=== PATIENT | female | born 1985 | race American Indian/Alaskan Native ===

== ENCOUNTER 2018-08-14 17:15 | Emergency (ER) | payer MEDICAID, OTHER, SELFPAY ==
[2018-08-14 17:17] VITALS: BP 142/89; PULSE 95; RESP 20; TEMP 36.6; O2SAT 98
--- NOTE | 2018-08-14 17:28 | DI.CT.S_ITS ---
PROCEDURE: CT HEAD/BRAIN WO CON INDICATIONS: possible stroke sx TECHNIQUE: Noncontrast 4.5 mm thick angled axial sections acquired from the foramen magnum to the vertex, with coronal and sagittal reformats. For radiation dose reduction, the following was used: automated exposure control, adjustment of mA and/or kV according to patient size. COMPARISON: Kiara Chirinos, , MR BRAIN WITH/WITHOUT CONTRAST, 07/26/2017, 13:21. FINDINGS: Image quality: Excellent. CSF spaces: Basal cisterns are patent. No extra-axial fluid collections. Ventricles are normal in size and shape. Brain: No midline shift. No intracranial masses or hemorrhage. Miller-white matter interface is normal. Skull and face: Calvarium and visualized facial bones are intact, without suspicious lesions. Sinuses: Visualized sinuses and mastoids are clear. IMPRESSION: 1. No acute intracranial process. Dictated by: Consuelo Burden M.D. on 08/14/2018 at 18:16 Approved by: Consuelo Burden M.D. on 08/14/2018 at 18:17
[2018-08-14 18:04] VITALS: BP 167/82; PULSE 95; RESP 20; O2SAT 99
[2018-08-14 18:11] LABS: Add Manual Diff / Slide Review NO; Basophils Absolute Auto 0 /uL (0-100); Basophils Percent Auto 0.5 % (0-2); Eosinophils Absolute Auto 200 /uL (0-450); Eosinophils Percent Auto 1.8 % (2-4); Hematocrit 35.8 % (36-46); Hemoglobin 11.4 g/dL (12.0-16.0); Lymphocytes Absolute Auto 2300 /uL (1100-4500); Lymphocytes Percent Auto 23.9 % (25-40); Mean Corpuscular HGB Conc 31.8 % (30-36); Mean Corpuscular Hemoglobin 25.1 PG (26-34); Mean Corpuscular Volume 78.8 fL (80-100); Monocytes Absolute Auto 300 /uL (0-900); Neutrophils Absolute Auto 6800 /uL (1500-7000); Neutrophils Percent Auto 70.8 % (50-75); Platelet Count 263 X10^3/uL (150-400); Red Blood Cell Count 4.54 X10^6/uL (4.0-5.2); Red Cell Distribution Width 14.7 % (11.6-14.8); White Blood Cell Count 9.6 X10^3/uL (4.5-11.0)
--- NOTE | 2018-08-14 18:23 | ED_ITS ---
HPI - Neuro Symptoms/Deficit General Chief Complaint: Neuro Symptoms/Deficit Stated Complaint: Thinks had stroke Tuesday Time Seen by Provider: 08/14/18 18:01 Source: patient Mode of arrival: ambulatory Limitations: no limitations History of Present Illness HPI Narrative: 33-year-old female sent by her primary doctor's office for evaluation for concerns of a stroke. Patient states that on Tuesday which was 3 days ago she started tingling to the left side of her face. She states that it lasted until Tuesday which then it completely resolved. Denies any other associated symptoms with this tingling. Went to her primary doctor's office today was instructed to come the emergency department. The time my evaluation patient had no complaints. She is a diabetic but does not take any of her medications because she does not like the way they make her feel. She does have a history of headaches. She states that a couple days prior to the tingling on the left side of her face she did have a headache but there was none at the time that she had the tingling. Has never had any symptoms like this in the past. On Anticoagulants: No Related Data Allergies Allergy/AdvReac Type Severity Reaction Status Date / Time No Known Allergies Allergy Uncoded 05/25/17 12:55 Review of Systems Constitutional Denies headache(s) and Denies weakness Eyes Denies loss of vision ENT Ears, Nose, Mouth, and Throat: Denies vertigo, Denies dizziness, Denies headache (s) and Denies disequilibrium Cardiovascular Denies chest pain, Denies syncope, Denies palpitations and Denies dyspnea Respiratory Denies dyspnea Gastrointestinal Gastrointestinal: Denies abdominal pain, Denies nausea and Denies vomiting Genitourinary Denies dysuria Musculoskeletal Denies abnormal gait, Denies myalgias, Denies arthralgias and Reports tingling Integumentary/Breasts Denies new lesions and Denies rash Neurologic Denies abnormal speech, Denies abnormal gait, Denies confusion, Denies vertigo, Denies dizziness, Denies syncope, Denies headache(s), Denies lack of coordination, Denies focal weakness, Denies loss of vision, Denies memory loss, Reports tingling, Denies disequilibrium and Denies weakness Psychiatric Denies confusion and Denies memory loss Endocrine Denies palpitations Hematologic/Lymphatic Denies easy bleeding and Denies easy bruising Allergic/Immunologic Denies urticaria [facility] Medical History Diabetes (Acute) Migraines (Acute) Social History Smoking Status: Never smoker Social History Smoking Status: Never smoker Exam Initial Vital Signs Initial Vital Signs: Vital Signs Temperature 97.8 F 08/14/18 17:17 Pulse Rate 95 H 08/14/18 17:17 Respiratory Rate 20 08/14/18 17:17 Blood Pressure 142/89 H 08/14/18 17:17 Pulse Oximetry 98 08/14/18 17:17 Const General: cooperative, comfortable, well developed, well groomed and No acute distress Orientation: alert, awake and oriented x3 HENMT Head: normal to inspection and normocephalic Ears: hearing grossly normal bilaterally Nose: external nose normal Face and sinus: normal facial exam Mouth: oral mucosae normal Eyes Pupils: PERRL EOM: EOM intact bilaterally Resp Effort & Inspection: normal respiratory effort Auscultation: clear to auscultation bilaterally Cardio Rate: regular rate Rhythm: regular rhythm Skin Lesions: no lesions Rashes: no rashes Neuro General: alert, awake and oriented x3 Cranial Nerves: CN's II-XI intact bilaterally Cognition: normal cognition Speech: speech normal Gait: normal gait Motor: muscle tone normal throughout Sensory Exam: no sensory deficits noted Extrem General: normal to inspection and capillary refill normal Psych Appearance: grossly normal and well kempt Scores GCS [place] coma scale eye opening: Spontaneous [place] coma scale verbal response: Orientated [place] coma scale motor response: Obey commands [place] coma scale total score: 15 NIH Stroke Scale Level of Conciousness: Alert, keenly responsive Ask month/age: Answers both questions correctly. Open/close eyes, close hand: Performs both tasks correctly Best gaze horizontal: Normal Visual trivedi: No visual loss Facial palsy: Normal symetrical movement Left arm drift: No drift for full 10 sec Right arm drift: No drift for full 10 sec Left leg drift: No drift for full 10 sec Right leg drift: No drift for full 10 sec Limb ataxia: Absent Sensory on face/arms/legs: Normal, no sensory loss Best language: No aphasia, normal Dysarthria: Normal Extinction or inattention: No abnormality Total NIH Stroke scale score: 0 Course Orders Ordered: ED Orders 08/14/18 17:28 CT head/brain wo con Stat 08/14/18 17:33 EKG-12 Lead Stat 08/14/18 17:42 Complete Blood Count AUTO DIFF Stat Comprehensive Metabolic Panel Stat Vital Signs - 8 hr 08/14/18 17:17 08/14/18 18:04 08/14/18 18:44 Temperature 97.8 F Pulse Rate 95 H 95 H 90 Respiratory Rate 20 20 Blood Pressure 142/89 H 162/89 H Blood Pressure [Left Wrist] 167/82 H Pulse Oximetry 98 99 99 MDM - Neuro Symptoms/Deficit Lab Data Attestation: I reviewed the patient's lab results. Result diagrams: 08/14/18 17:42 08/14/18 17:42 Lab Results 08/14/18 08/14/18 Range/Units 17:42 17:42 WBC 9.6 (4.5-11.0) X10^3/uL RBC 4.54 (4.0-5.2) X10^6/uL Hgb 11.4 L (12.0-16.0) g/dL Hct 35.8 L (36-46) % MCV 78.8 L (80-100) fL MCH 25.1 L (26-34) PG MCHC 31.8 (30-36) % RDW 14.7 (11.6-14.8) % Plt Count 263 (150-400) X10^3/uL Neut % (Auto) 70.8 (50-75) % Lymph % (Auto) 23.9 L (25-40) % Barton % (Auto) 3.0 (3-14) % Eos % (Auto) 1.8 L (2-4) % Baso % (Auto) 0.5 (0-2) % Neut # (Auto) 6800 (2642-5878) /uL Lymph # (Auto) 2300 (8527-9544) /uL Barton # (Auto) 300 (0-900) /uL Eos # (Auto) 200 (0-450) /uL Baso # (Auto) 0 (0-100) /uL Sodium 140 (137-145) mmol/L Potassium 3.5 (3.4-5.1) mmol/L Chloride 104 (98-107) mmol/L Carbon Dioxide 26 (22-32) mmol/L BUN 9 (7-17) mg/dL Creatinine 0.60 (0.52-1.04) mg/dL Estimated GFR > 60.0 (>60) mL/min BUN/Creatinine Ratio 15.0 (6-22) Glucose 297 H (70-100) mg/dL Calcium 8.4 (8.4-10.2) mg/dL Total Bilirubin 0.2 (0.2-1.3) mg/dL AST 106 H (14-36) IU/L ALT 92 H (9-52) IU/L Alkaline Phosphatase 148 H (38-126) U/L Total Protein 7.5 (6.3-8.2) g/dL Albumin 3.6 (3.5-5.0) g/dL Globulin 3.9 (1.7-4.1) g/dL Albumin/Globulin Ratio 0.9 L (1.0-2.8) Imaging Data CT scan - head: Radiologist's impression: [place] [address] CT Scan Report Signed Patient: Anh Grider R#: [id number] : 1985Acct:[id number] Age/Sex: 33 / FDate of Service: 08/14/18 Loc: ED Accession Number: [id number] Procedure: CT head/brain wo con Ordering Provider: Jenise Sanchez MD PROCEDURE: CT HEAD/BRAIN WO CON INDICATIONS: possible stroke sx TECHNIQUE: Noncontrast 4.5 mm thick angled axial sections acquired from the foramen magnum to the vertex, with coronal and sagittal reformats. For radiation dose reduction, the following was used: automated exposure control, adjustment of mA and/or kV according to patient size. COMPARISON: Sherburne Taran, , MR BRAIN WITH/WITHOUT CONTRAST, 07/26/2017, 13:21. FINDINGS: Image quality: Excellent. CSF spaces: Basal cisterns are patent. No extra-axial fluid collections. Ventricles are normal in size and shape. Brain: No midline shift. No intracranial masses or hemorrhage. Miller-white matter interface is normal. Skull and face: Calvarium and visualized facial bones are intact, without suspicious lesions. Sinuses: Visualized sinuses and mastoids are clear. IMPRESSION: 1. No acute intracranial process. Dictated by: Consuelo Burden M.D. on 08/14/2018 at 18:16 Approved by: Consuelo Burden M.D. on 08/14/2018 at 18:17 ECG Data Attestation: I personally reviewed and interpreted this ECG as follows: Prior ECG tracings: not available for review Interpretation: Sinus rhythm Ventricular rate of 92 Normal axis Normal QRS Normal QTC No ST T wave changes MDM Narrative Medical decision making narrative: Patient with a normal neurologic exam here in the emergency department. No fevers. Head CT is unremarkable. EKG is unremarkable. Low suspicion for CVA. Symptoms could be explained by an atypical migraine. Also could be paresthesias. There is no signs of zoster. I did discuss her elevated glucose. I did discuss the importance of her taking her medications as directed. She is instructed to contact her primary doctor for follow-up. She expressed understanding and agreement with plan. Discharge Plan Departure Patient Disposition: Home Clinical Impression: Facial paresthesia Discharge Date/Time: 08/14/18 18:45 Interventions: ED Discharge Assessment Last Done: 08/14/18 18:44 Activity Restrictions/Additional Instructions: Your blood sugar is elevated today so please talk with your primary care provider about this and possible medications. Also talk with your primary care provider about any further work up or consultations or studies like an MRI. Return to the ER for any new or worsening symptoms. Referrals: Brianna Hidalgo MD [Primary Care Provider] -
[2018-08-14 18:30] LABS: Alanine Aminotransferase 92 IU/L (9-52); Albumin 3.6 g/dL (3.5-5.0); Albumin Globulin Ratio 0.9 (1.0-2.8); Alkaline Phosphatase 148 U/L (38-126); Aspartate Aminotransferase 106 IU/L (14-36); Bilirubin Total 0.2 mg/dL (0.2-1.3); Blood Urea Nitrogen 9 mg/dL (7-17); Calcium 8.4 mg/dL (8.4-10.2); Carbon Dioxide 26 mmol/L (22-32); Chloride 104 mmol/L (98-107); Estimated Glomerular Filt Rate > 60.0 mL/min (>60); Globulin 3.9 g/dL (1.7-4.1); Glucose 297 mg/dL (70-100); HEMOLYSIS < 15 (0-50); Potassium 3.5 mmol/L (3.4-5.1); Sodium 140 mmol/L (137-145); Total Protein 7.5 g/dL (6.3-8.2)
[2018-08-14 18:44] VITALS: BP 162/89; PULSE 90; O2SAT 99
== END 2018-08-14 18:45 | disposition home or self-care (01) ==
PROVIDERS: Emergency Medicine; Emergency Provider Emergency Medicine; PCP Family Medicine
DX: R20.9 Unspecified disturbances of skin sensation (principal); R03.0 Elevated blood-pressure reading, without diagnosis of hypertension
CPT/HCPCS: 36415; 70450; 80053; 85025; 93005; 99282; 99285

== ENCOUNTER 2019-06-29 18:33 | Emergency (ER) | payer MEDICAID, OTHER, SELFPAY ==
[2019-06-29 18:46] VITALS: BP 204/115; PULSE 97; RESP 18; TEMP 36.3; O2SAT 98; BMI 65.5
[2019-06-29 21:07] LABS: Add Manual Diff / Slide Review NO; Basophils Absolute Auto 100 /uL (0-100); Basophils Percent Auto 0.5 % (0-2); Eosinophils Absolute Auto 100 /uL (0-450); Eosinophils Percent Auto 1.1 % (2-4); Hematocrit 41.5 % (36-46); Hemoglobin 13.5 g/dL (12.0-16.0); Lymphocytes Absolute Auto 1400 /uL (1100-4500); Lymphocytes Percent Auto 13.6 % (25-40); Mean Corpuscular HGB Conc 32.4 % (30-36); Mean Corpuscular Hemoglobin 25.8 PG (26-34); Mean Corpuscular Volume 79.6 fL (80-100); Monocytes Absolute Auto 300 /uL (0-900); Monocytes Percent Auto 2.5 % (3-14); Neutrophils Absolute Auto 8400 /uL (1500-7000); Neutrophils Percent Auto 82.3 % (50-75); Platelet Count 283 X10^3/uL (150-400); Red Blood Cell Count 5.22 X10^6/uL (4.0-5.2); Red Cell Distribution Width 14.7 % (11.6-14.8); White Blood Cell Count 10.2 X10^3/uL (4.5-11.0)
[2019-06-29] MEDS: KETOROLAC 60 MG/2 ML VIAL 15 MG IV (21:09)
[2019-06-29] MEDS: SODIUM CHLORIDE 0.9% 1,000 ML 1000 ML IV (21:09)
[2019-06-29 21:10] LABS: Alanine Aminotransferase 85 IU/L (<35); Albumin Globulin Ratio 0.9 (1.0-2.8); Alkaline Phosphatase 164 U/L (38-126); Aspartate Aminotransferase 243 IU/L (14-36); BUN Creatinine Ratio 13.3 (6-22); Bilirubin Total 0.4 mg/dL (0.2-1.3); Blood Urea Nitrogen 8 mg/dL (7-17); Calcium 8.6 mg/dL (8.4-10.2); Carbon Dioxide 29 mmol/L (22-32); Chloride 100 mmol/L (98-107); Estimated Glomerular Filt Rate > 60.0 mL/min (>60); Globulin 4.5 g/dL (1.7-4.1); Glucose 277 mg/dL (70-100); HEMOLYSIS < 15 (0-50); Potassium 3.7 mmol/L (3.4-5.1); Sodium 137 mmol/L (137-145); Total Protein 8.5 g/dL (6.3-8.2)
[2019-06-29] MEDS: DEXAMETHASONE 10 MG/ML VIAL IV (21:10)
[2019-06-29] MEDS: METOCLOPRAMIDE 10 MG/2 ML INJ IV (21:10)
[2019-06-29] MEDS: diphenhydrAMINE 50 MG/ML VIAL 25 MG IV (21:10)
[2019-06-29 23:12] VITALS: BP 198/113; PULSE 87; RESP 16; O2SAT 95
--- NOTE | 2019-06-29 23:12 | ED.HA ---
HPI - Headache General Chief Complaint: Headache Stated Complaint: Migraines/Vomit Time Seen by Provider: 06/29/19 20:36 Mode of arrival: Family Vehicle History of Present Illness HPI Narrative: 34-year-old woman with a history of hypertension, migraine headache, fatty liver and diabetes presents with headache similar to prior migraines this been present for 2 and half days. Associated with sensitivity to lights sounds smells, nausea and severe lancinating head pain. She denies fevers, chills, cough, shortness of breath, orthopnea, abdominal pain, dysuria, constipation or diarrhea, skin changes or rashes. She does note that she ?does not like taking pills?. She states that she has not taken her lisinopril or Glucophage for number of months. It has been I similarly long time since she has seen her primary care physician. Related Data Allergies Allergy/AdvReac Type Severity Reaction Status Date / Time No Known Drug Allergies Allergy Verified 06/29/19 21:02 Review of Systems Review of Systems Narrative: Remainder of review of systems including constitutional, ENT, cardiovascular, respiratory, GI, , musculoskeletal, skin, neurologic and psychiatric systems reviewed and are unremarkable except as noted in HPI. Patient History Medical History (Updated 06/29/19 @ 23:18 by Madison Harrison MD) Diabetes (Acute) Fatty liver (Acute) Hypertension (Acute) Migraines (Acute) Social History Smoking Status: Never smoker Smoking Status: Never smoker Substance Use Type: does not use Exam Narrative Exam Narrative: General: Morbidly obese, in no acute distress. Able to give a complete and coherent history. HEENT: Moist mucous membranes, normal sclera with reactive pupils, Neck: supple Respiratory: Lungs are clear to auscultation, no wheezing no rales no rhonchi. Full and symmetrical air movement Cardiac: Regular rate and rhythm no murmurs no bruits Abdomen: Soft nontender good bowel tones, no flank pain Skin: Warm and dry, no rashes Neurologic: Grossly neurologically intact with no obvious asymmetries or abnormalities Extremities: No trauma, well perfused Psych: Cooperative, appropriate insight and affect Initial Vital Signs Initial Vital Signs: Vital Signs Temperature 97.3 F L 06/29/19 18:46 Pulse Rate 97 H 06/29/19 18:46 Respiratory Rate 18 06/29/19 18:46 Blood Pressure 204/115 H 06/29/19 18:46 Pulse Oximetry 98 06/29/19 18:46 Course Orders Ordered: ED Orders 06/29/19 18:58 EKG-12 Lead Stat 06/29/19 20:20 Complete Blood Count AUTO DIFF Stat Comprehensive Metabolic Panel Stat Discontinued Medications Dexamethasone (Decadron) 10 mg IV NOW ONE Stop: 06/29/19 21:01 Last Admin: 06/29/19 21:10 Dose: 10 mg Documented by: GREG Diphenhydramine HCl (Benadryl) 25 mg IV NOW ONE Stop: 06/29/19 21:01 Last Admin: 06/29/19 21:10 Dose: 25 mg Documented by: GREG Sodium Chloride (Normal Saline 0.9%) 1,000 mls @ 1,000 mls/hr IV BOLUS ONE Stop: 06/29/19 21:59 Last Admin: 06/29/19 21:09 Dose: 1,000 mls/hr Documented by: GREG Ketorolac Tromethamine (Toradol) 15 mg IV NOW ONE Stop: 06/29/19 21:01 Last Admin: 06/29/19 21:09 Dose: 15 mg Documented by: GREG Lisinopril (Zestril) 20 mg PO NOW ONE Stop: 06/29/19 23:13 Metoclopramide HCl (Reglan) 10 mg IV NOW ONE Stop: 06/29/19 21:01 Last Admin: 06/29/19 21:10 Dose: 10 mg Documented by: GREG Vital Signs Vital signs: Vital Signs - 8 hr 06/29/19 18:46 06/29/19 23:12 Temperature 97.3 F L Pulse Rate 97 H 87 Respiratory Rate 18 16 Blood Pressure 204/115 H Blood Pressure [Left Arm] 198/113 H Pulse Oximetry 98 95 MDM - Headache Medical Records Attestation: I reviewed the patient's medical records. Lab Data Attestation: I reviewed the patient's lab results. Lab results narrative: Chronically elevated LFTs and alk-phos slightly worse than previous. Could be consistent with fatty liver but does need continued follow-up Result diagrams: 06/29/19 20:20 06/29/19 20:20 Labs: Lab Results 05/15/20 05/15/20 Range/Units 20:20 20:20 WBC 10.2 (4.5-11.0) X10^3/uL RBC 5.22 H (4.0-5.2) X10^6/uL Hgb 13.5 (12.0-16.0) g/dL Hct 41.5 (36-46) % MCV 79.6 L (80-100) fL MCH 25.8 L (26-34) PG MCHC 32.4 (30-36) % RDW 14.7 (11.6-14.8) % Plt Count 283 (150-400) X10^3/uL Neut % (Auto) 82.3 H (50-75) % Lymph % (Auto) 13.6 L (25-40) % [place] % (Auto) 2.5 L (3-14) % Eos % (Auto) 1.1 L (2-4) % Baso % (Auto) 0.5 (0-2) % Neut # (Auto) 8400 H (9508-0126) /uL Lymph # (Auto) 1400 (5254-3545) /uL [place] # (Auto) 300 (0-900) /uL Eos # (Auto) 100 (0-450) /uL Baso # (Auto) 100 (0-100) /uL Sodium 137 (137-145) mmol/L Potassium 3.7 (3.4-5.1) mmol/L Chloride 100 (98-107) mmol/L Carbon Dioxide 29 (22-32) mmol/L BUN 8 (7-17) mg/dL Creatinine 0.60 (0.52-1.04) mg/dL Estimated GFR > 60.0 (>60) mL/min BUN/Creatinine Ratio 13.3 (6-22) Glucose 277 H (70-100) mg/dL Calcium 8.6 (8.4-10.2) mg/dL Total Bilirubin 0.4 (0.2-1.3) mg/dL AST 243 H (14-36) IU/L ALT 85 H (<35) IU/L Alkaline Phosphatase 164 H (38-126) U/L Total Protein 8.5 H (6.3-8.2) g/dL Albumin 4.0 (3.5-5.0) g/dL Globulin 4.5 H (1.7-4.1) g/dL Albumin/Globulin Ratio 0.9 L (1.0-2.8) MDM Narrative Medical decision making narrative: 34-year-old woman with a history of migraines presents with same period feeling significantly better after fluids, Benadryl, Decadron, Reglan and Toradol. Blood pressure remains significantly elevated. She is given her usual dose of lisinopril along with significant instructions to restart her lisinopril as well as her Glucophage and schedule a primary care appointment No evidence of stroke, acute coronary syndrome or infection. Patient is safe for home discharge at this time Discharge Plan Departure Patient Disposition: Home Clinical Impression: Fatty liver Migraine Qualifiers: Migraine type: without aura Status migrainosus presence: without status migrainosus Intractability: not intractable Qualified Code(s): G43.009 - Migraine without aura, not intractable, without status migrainosus Hypertension Qualifiers: Hypertension type: essential hypertension Qualified Code(s): I10 - Essential (primary) hypertension Instructions: DI for Migraine Activity Restrictions/Additional Instructions: Thank you for coming in today. I am glad your headache is feeling better. I am concerned about your significantly elevated blood pressure. This may be contributing to her migraines. You do need to be back on your lisinopril. Continuing to avoid treating her blood pressure will lead to complications like heart attacks, strokes and significantly increase the possibility that you will require dialysis for kidney failure. You also need to restart your Glucophage to treat your diabetes. Your blood work indicates that your liver enzymes are slightly worse than previously. This is consistent with fatty liver but does need follow-up. I strongly recommend that you schedule follow-up appointment with her primary care physician. I hope you are able to sleep well in her headache has completely resolved by the morning Referrals: Brianna Hidalgo MD [Primary Care Provider] -
[2019-06-29 23:20] VITALS: BP 198/113
[2019-06-29] MEDS: lisinopriL 20 MG TABLET PO (23:20)
== END 2019-06-29 23:45 | disposition home or self-care (01) ==
PROVIDERS: Emergency Provider Emergency Medicine; PCP Family Medicine
DX: G43.909 Migraine, unspecified, not intractable, without status migrainosus (principal); I10 Essential (primary) hypertension; K76.0 Fatty (change of) liver, not elsewhere classified; E11.9 Type 2 diabetes mellitus without complications
CPT/HCPCS: 36415; 80053; 85025; 93005; 96361; 96374; 96375; 99284; J1100; J1200; J1885; J2765

== ENCOUNTER 2019-09-14 13:48 | Inpatient (IN) | payer MEDICAID, OTHER, SELFPAY ==
[2019-09-14] VITALS (17 sets, daily range): BP systolic 142–191; BP diastolic 70–107; PULSE 97–138; RESP 34–55; TEMP 37.2–37.8; O2SAT 92–96; BMI 62.8
--- NOTE | 2019-09-14 13:59 | DI.RAD.S_ITS ---
PROCEDURE: XR CHEST 1V INDICATIONS: SOB TECHNIQUE: One view of the chest was acquired. COMPARISON: None. FINDINGS: Surgical changes and devices: None. Lungs and pleura: Subtle opacities are seen scattered in bilateral lung trivedi concerning for atypical pneumonia, suggest clinical correlation. No pleural effusions or pneumothorax. Mediastinum: Mediastinal contours appear normal. Heart size is enlarged. Bones and chest wall: No suspicious bony lesions. Overlying soft tissues appear unremarkable. IMPRESSION: Subtle ill-defined opacities scattered in bilateral lung trivedi concerning for atypical pneumonia. Clinical correlation is recommended. No pleural effusion or pneumothorax. Dictated by: Byron Zaragoza M.D. on 09/14/2019 at 14:27 Approved by: Byron Zaragoza M.D. on 09/14/2019 at 14:27
[2019-09-14 14:12] LABS: Add Manual Diff / Slide Review NO; Basophils Absolute Auto 100 /uL (0-100); Basophils Percent Auto 0.9 % (0-2); Eosinophils Absolute Auto 0 /uL (0-450); Eosinophils Percent Auto 0.3 % (2-4); Hematocrit 33.1 % (36-46); Hemoglobin 10.6 g/dL (12.0-16.0); Lymphocytes Absolute Auto 1000 /uL (1100-4500); Lymphocytes Percent Auto 14.2 % (25-40); Mean Corpuscular HGB Conc 31.9 % (30-36); Monocytes Absolute Auto 300 /uL (0-900); Monocytes Percent Auto 3.8 % (3-14); Neutrophils Absolute Auto 5500 /uL (1500-7000); Neutrophils Percent Auto 80.8 % (50-75); Platelet Count 212 X10^3/uL (150-400); Red Blood Cell Count 4.41 X10^6/uL (4.0-5.2); White Blood Cell Count 6.9 X10^3/uL (4.5-11.0)
--- NOTE | 2019-09-14 14:17 | ED_ITS ---
HPI - SOB/Dyspnea General Chief Complaint: Fever Stated Complaint: short of breath, poss. Covid Time Seen by Provider: 09/14/19 13:58 Source: patient and EMS Mode of arrival: EMS Limitations: no limitations History of Present Illness HPI Narrative: Patient is a 34-year-old female with history of obesity and diabetes with known COVID-19 exposure presenting with body aches and shortness of breath. She says her symptoms started couple of days ago. She is experiencing extreme shortness of breath with exertion. She says she gets very winded. To dry nonproductive cough. Today she went upstairs to take a shower and was so short of breath she called 911. She says she is having difficulty smelling but denies any change in taste. MD Complaint: shortness of breath and cough Onset (ago): day(s) (2) Context: recent illness and occurred during exertion Severity: moderate Relieving factors: oxygen and rest Exacerbating factors: movement Related Data Home oxygen amount: none Home Medications Medication Instructions Recorded Confirmed lisinopril 20 mg PO DAILY 09/14/19 09/14/19 metformin 500 mg PO DAILY 09/14/19 09/14/19 Allergies Allergy/AdvReac Type Severity Reaction Status Date / Time No Known Drug Allergies Allergy Verified 09/14/19 14:09 Review of Systems Review of Systems ROS Unobtainable: All systems reviewed & are unremarkable except as noted in HPI and below Constitutional Constitutional: Reports body ache(s), Reports chills and Reports fatigue ENT Ears, Nose, Mouth, and Throat: Reports as per HPI, Denies halitosis, Denies dizziness and Denies facial pain Cardiovascular Cardiovascular: Denies chest pain, Denies irregular heart rhythm, Denies lighthe adedness, Denies palpitations and Denies orthopnea Respiratory Respiratory: Reports as per HPI Gastrointestinal Gastrointestinal: Denies abdominal pain, Denies change in bowel habits, Denies diarrhea, Denies nausea and Denies vomiting Musculoskeletal Musculoskeletal: Denies back pain, Reports myalgias and Denies deformity Integumentary/Breasts Skin/Breast: Denies pruritus, Denies erythema, Denies rash and Denies wounds Neurologic Neurologic: Denies confusion and Denies dizziness Psychiatric Psychiatric: Denies confusion Endocrine Endocrine: Reports fatigue and Denies palpitations Patient History Medical History (Updated 09/14/19 @ 16:46 by Charley Cortez DO) Diabetes (Acute) Fatty liver (Acute) Hypertension (Acute) Migraines (Acute) Morbid obesity (Acute) Social History household members: family Smoking Status: Never smoker Smoking Status: Never smoker alcohol intake frequency: 0-2 drinks per day Substance Use Type: does not use Exam Initial Vital Signs Initial Vital Signs: Vital Signs Temperature 100.1 F H 09/14/19 13:50 Pulse Rate 112 H 09/14/19 13:50 Respiratory Rate 34 H 09/14/19 13:50 Blood Pressure 177/105 H 09/14/19 13:50 Pulse Oximetry 96 09/14/19 13:50 GENERAL: Obese female anxiety and in no acute distress. HEENT: Head atraumatic,EOMI, pupils reactive, face symmetric, moist mucous membranes CARDIOVASCULAR: Tachycardic regular RESPIRATORY: Tachypneic, decreased breath sounds bilaterally ABDOMEN: Soft, nontender. Normoactive bowel sounds all 4 quadrants. No guarding or rebound. : No CVA tenderness EXTREMITIES: Normal range of motion, no clubbing or edema. Neurovascularly intact NEUROLOGICAL: Alert and oriented x4.Normal gait and speech. Cranial nerves II through XII grossly intact. SKIN: Warm, dry, no laceration, no petechiae, no rashes or lesions. Course Orders Ordered: ED Orders 09/14/19 13:59 XR chest 1V Stat EKG-12 Lead Stat 09/14/19 14:01 Complete Blood Count AUTO DIFF Stat Procalcitonin Stat 09/14/19 14:22 Respiratory Panel (Film Array) Stat 09/14/19 14:41 C-Reactive Protein Quant Stat Comprehensive Metabolic Panel Stat D Dimer Stat Ferritin Stat Lactate (Lactic Acid) Stat Lactate Dehydrogenase Stat NT-proBNP (BNP-Adult 18+) Stat Test Serum,Qual Stat Troponin & CK Cardiac Panel Stat Discontinued Medications Acetaminophen (Tylenol) 650 mg PO NOW ONE Stop: 09/14/19 14:11 Last Admin: 09/14/19 14:18 Dose: 650 mg Documented by: KISHAN Vital Signs Vital signs: Vital Signs - 8 hr 09/14/19 13:50 09/14/19 14:18 09/14/19 14:29 Temperature 100.1 F H 100.1 F H Pulse Rate 112 H 108 H Respiratory Rate 34 H 42 H Blood Pressure 177/105 H Pulse Oximetry 96 92 09/14/19 14:30 09/14/19 14:45 09/14/19 15:00 Temperature Pulse Rate 107 H 107 H 106 H Respiratory Rate 37 H 38 H 36 H Blood Pressure 162/87 H 191/107 H 161/87 H Pulse Oximetry 92 95 94 09/14/19 15:15 09/14/19 15:30 09/14/19 15:45 Temperature 99.0 F Pulse Rate 107 H 105 H 108 H Respiratory Rate 36 H 35 H 37 H Blood Pressure 168/89 H 163/82 H 164/77 H Pulse Oximetry 95 93 96 09/14/19 15:57 09/14/19 16:00 09/14/19 16:06 Temperature 99.0 F Pulse Rate 121 H 109 H Respiratory Rate Blood Pressure 152/76 H 142/70 H Pulse Oximetry 96 96 09/14/19 16:15 09/14/19 16:30 09/14/19 16:45 Temperature Pulse Rate 103 H 100 H 97 H Respiratory Rate 38 H 34 H 36 H Blood Pressure 146/75 H 149/76 H 164/82 H Pulse Oximetry 96 94 93 MDM - SOB/Dyspnea Lab Data Attestation: I reviewed the patient's lab results. Result diagrams: 09/14/19 14:01 09/14/19 14:41 Labs: Lab Results 09/14/19 09/14/19 09/14/19 Range/Units 14:01 14:01 14:22 WBC 6.9 (4.5-11.0) X10^3/uL RBC 4.41 (4.0-5.2) X10^6/uL Hgb 10.6 L (12.0-16.0) g/dL Hct 33.1 L (36-46) % MCV 75.0 L (80-100) fL MCH 24.0 L (26-34) PG MCHC 31.9 (30-36) % RDW 15.0 H (11.6-14.8) % Plt Count 212 (150-400) X10^3/uL Neut % (Auto) 80.8 H (50-75) % Lymph % (Auto) 14.2 L (25-40) % [place] % (Auto) 3.8 (3-14) % Eos % (Auto) 0.3 L (2-4) % Baso % (Auto) 0.9 (0-2) % Neut # (Auto) 5500 (3407-4636) /uL Lymph # (Auto) 1000 L (9128-1202) /uL [place] # (Auto) 300 (0-900) /uL Eos # (Auto) 0 (0-450) /uL Baso # (Auto) 100 (0-100) /uL D-Dimer (<230) ng/mL Sodium (137-145) mmol/L Potassium (3.4-5.1) mmol/L Chloride (98-107) mmol/L Carbon Dioxide (22-32) mmol/L BUN (7-17) mg/dL Creatinine (0.52-1.04) mg/dL Estimated GFR (>60) mL/min BUN/Creatinine Ratio (6-22) Glucose (70-100) mg/dL Lactate (0.7-2.1) mmol/L Calcium (8.4-10.2) mg/dL Ferritin (6-137) ng/mL Total Bilirubin (0.2-1.3) mg/dL AST (14-36) IU/L ALT (<35) IU/L Alkaline Phosphatase (38-126) U/L Lactate Dehydrogenase (313-618) U/L Total Creatine Kinase (30-135) U/L CK-MB (CK-2) (<2.37) ng/mL CK-MB (CK-2) Rel Index (1.5-5.0) % Troponin I (0.01-0.034) ng/mL C-Reactive Protein (<1.0) mg/dL NT-Pro-B Natriuret Pep (<125) pg/mL Total Protein (6.3-8.2) g/dL Albumin (3.5-5.0) g/dL Globulin (1.7-4.1) g/dL Albumin/Globulin Ratio (1.0-2.8) Procalcitonin 0.11 (<0.5) ng/mL Serum , Qual (Negative) Chlamy pneumoniae PCR (Not Detect) Adenovirus (PCR) (Not Detect) B.parapertussis DNA PCR (Not Detect) Coronavirus OC43 (PCR) (Not Detect) Coronavirus HKU1 (PCR) (Not Detect) Coronavirus 229E (PCR) (Not Detect) COVID-19 PCR Cancelled Coronavirus NL63 (PCR) (Not Detect) Human Metapneumovir PCR (Not Detect) Influenza Type A (PCR) (Not Detect) Influenza Type B (PCR) (Not Detect) M. pneumoniae (PCR) (Not Detect) Parainfluenza 1 (PCR) (Not Detect) Parainfluenza 2 (PCR) (Not Detect) Parainfluenza 3 (PCR) (Not Detect) Parainfluenza 4 (PCR) (Not Detect) RSV (PCR) (Not Detect) Entero/Rhino (PCR) (Not Detect) 09/14/19 09/14/19 09/14/19 Range/Units 14:22 14:22 14:41 WBC (4.5-11.0) X10^3/uL RBC (4.0-5.2) X10^6/uL Hgb (12.0-16.0) g/dL Hct (36-46) % MCV (80-100) fL MCH (26-34) PG MCHC (30-36) % RDW (11.6-14.8) % Plt Count (150-400) X10^3/uL Neut % (Auto) (50-75) % Lymph % (Auto) (25-40) % [place] % (Auto) (3-14) % Eos % (Auto) (2-4) % Baso % (Auto) (0-2) % Neut # (Auto) (9565-8025) /uL Lymph # (Auto) (1968-2600) /uL [place] # (Auto) (0-900) /uL Eos # (Auto) (0-450) /uL Baso # (Auto) (0-100) /uL D-Dimer 236 H (<230) ng/mL Sodium (137-145) mmol/L Potassium (3.4-5.1) mmol/L Chloride (98-107) mmol/L Carbon Dioxide (22-32) mmol/L BUN (7-17) mg/dL Creatinine (0.52-1.04) mg/dL Estimated GFR (>60) mL/min BUN/Creatinine Ratio (6-22) Glucose (70-100) mg/dL Lactate (0.7-2.1) mmol/L Calcium (8.4-10.2) mg/dL Ferritin (6-137) ng/mL Total Bilirubin (0.2-1.3) mg/dL AST (14-36) IU/L ALT (<35) IU/L Alkaline Phosphatase (38-126) U/L Lactate Dehydrogenase (313-618) U/L Total Creatine Kinase (30-135) U/L CK-MB (CK-2) (<2.37) ng/mL CK-MB (CK-2) Rel Index (1.5-5.0) % Troponin I (0.01-0.034) ng/mL C-Reactive Protein (<1.0) mg/dL NT-Pro-B Natriuret Pep (<125) pg/mL Total Protein (6.3-8.2) g/dL Albumin (3.5-5.0) g/dL Globulin (1.7-4.1) g/dL Albumin/Globulin Ratio (1.0-2.8) Procalcitonin (<0.5) ng/mL Serum , Qual (Negative) Chlamy pneumoniae PCR Not detected (Not Detect) Adenovirus (PCR) Not detected (Not Detect) B.parapertussis DNA PCR Not detected (Not Detect) Coronavirus OC43 (PCR) Not detected (Not Detect) Coronavirus HKU1 (PCR) Not detected (Not Detect) Coronavirus 229E (PCR) Not detected (Not Detect) COVID-19 PCR Positive H Coronavirus NL63 (PCR) Not detected (Not Detect) Human Metapneumovir PCR Not detected (Not Detect) Influenza Type A (PCR) Not detected (Not Detect) Influenza Type B (PCR) Not detected (Not Detect) M. pneumoniae (PCR) Not detected (Not Detect) Parainfluenza 1 (PCR) Not detected (Not Detect) Parainfluenza 2 (PCR) Not detected (Not Detect) Parainfluenza 3 (PCR) Not detected (Not Detect) Parainfluenza 4 (PCR) Not detected (Not Detect) RSV (PCR) Not detected (Not Detect) Entero/Rhino (PCR) Not detected (Not Detect) 09/14/19 09/14/19 09/14/19 Range/Units 14:41 14:41 14:41 WBC (4.5-11.0) X10^3/uL RBC (4.0-5.2) X10^6/uL Hgb (12.0-16.0) g/dL Hct (36-46) % MCV (80-100) fL MCH (26-34) PG MCHC (30-36) % RDW (11.6-14.8) % Plt Count (150-400) X10^3/uL Neut % (Auto) (50-75) % Lymph % (Auto) (25-40) % [place] % (Auto) (3-14) % Eos % (Auto) (2-4) % Baso % (Auto) (0-2) % Neut # (Auto) (0944-0132) /uL Lymph # (Auto) (1865-7185) /uL [place] # (Auto) (0-900) /uL Eos # (Auto) (0-450) /uL Baso # (Auto) (0-100) /uL D-Dimer (<230) ng/mL Sodium 134 L (137-145) mmol/L Potassium 3.4 (3.4-5.1) mmol/L Chloride 104 (98-107) mmol/L Carbon Dioxide 24 (22-32) mmol/L BUN 6 L (7-17) mg/dL Creatinine 0.73 (0.52-1.04) mg/dL Estimated GFR > 60.0 (>60) mL/min BUN/Creatinine Ratio 8.2 (6-22) Glucose 293 H (70-100) mg/dL Lactate 1.5 (0.7-2.1) mmol/L Calcium 8.0 L (8.4-10.2) mg/dL Ferritin 57 (6-137) ng/mL Total Bilirubin 0.4 (0.2-1.3) mg/dL AST 117 H (14-36) IU/L ALT 77 H (<35) IU/L Alkaline Phosphatase 159 H (38-126) U/L Lactate Dehydrogenase 764 H (313-618) U/L Total Creatine Kinase 161 H (30-135) U/L CK-MB (CK-2) < 0.22 (<2.37) ng/mL CK-MB (CK-2) Rel Index 0.1 L (1.5-5.0) % Troponin I < 0.012 (0.01-0.034) ng/mL C-Reactive Protein 7.6 H (<1.0) mg/dL NT-Pro-B Natriuret Pep 49 (<125) pg/mL Total Protein 7.2 (6.3-8.2) g/dL Albumin 3.4 L (3.5-5.0) g/dL Globulin 3.8 (1.7-4.1) g/dL Albumin/Globulin Ratio 0.9 L (1.0-2.8) Procalcitonin (<0.5) ng/mL Serum , Qual Negative (Negative) Chlamy pneumoniae PCR (Not Detect) Adenovirus (PCR) (Not Detect) B.parapertussis DNA PCR (Not Detect) Coronavirus OC43 (PCR) (Not Detect) Coronavirus HKU1 (PCR) (Not Detect) Coronavirus 229E (PCR) (Not Detect) COVID-19 PCR Coronavirus NL63 (PCR) (Not Detect) Human Metapneumovir PCR (Not Detect) Influenza Type A (PCR) (Not Detect) Influenza Type B (PCR) (Not Detect) M. pneumoniae (PCR) (Not Detect) Parainfluenza 1 (PCR) (Not Detect) Parainfluenza 2 (PCR) (Not Detect) Parainfluenza 3 (PCR) (Not Detect) Parainfluenza 4 (PCR) (Not Detect) RSV (PCR) (Not Detect) Entero/Rhino (PCR) (Not Detect) Imaging Data Chest x-ray: Radiologist's Impression: PROCEDURE: XR CHEST 1V INDICATIONS: SOB TECHNIQUE: One view of the chest was acquired. COMPARISON: None. FINDINGS: Surgical changes and devices: None. Lungs and pleura: Subtle opacities are seen scattered in bilateral lung trivedi concerning for atypical pneumonia, suggest clinical correlation. No pleural effusions or pneumothorax. Mediastinum: Mediastinal contours appear normal. Heart size is enlarged. Bones and chest wall: No suspicious bony lesions. Overlying soft tissues appear unremarkable. IMPRESSION: Subtle ill-defined opacities scattered in bilateral lung trivedi concerning for atypical pneumonia. Clinical correlation is recommended. No pleural effusion or pneumothorax. Dictated by: Byron Zaragoza M.D. on 09/14/2019 at 14: ECG Data Attestation: I personally reviewed and interpreted this ECG as follows: Prior ECG tracings: available for review Interpretation: Normal sinus rhythm rate 105 p.r. interval [address] changes or T-wave inversions similar to previous EKG MDM Narrative Medical decision making narrative: Patient has high suspicion for covid she has a known contact, she has risk factors morbid obesity, diabetes elevated CRP, and LDH. She is not hypoxic at rest however upon her ambulation trial she becomes severely dyspneic and tachycardic with respiratory rate in the 50s in heart rate at 138. I think high risk to send home and would likely decompensate quickly. I think her symptoms can be explained by COVID she has minimally elevated D-dimer of 236 is which can also be explained by COVID-19, at this time I do not think requires CT for PE. Dr. Cortez is updated on patient's symptoms test results agrees with admission Discharge Plan Departure Patient Disposition: Admitted As Inpatient Clinical Impression: COVID-19 Discharge Date/Time: 09/14/19 17:19 Admit Date/Time: 09/14/19 16:58 Admit Provider: Colleen Cortez
[2019-09-14] MEDS: ACETAMINOPHEN 325 MG TABLET 650 MG PO ×2 (14:18→22:43)
[2019-09-14 14:42] LABS: Procalcitonin 0.11 ng/mL (<0.5)
[2019-09-14 14:59] LABS: D Dimer 236 ng/mL (<230)
[2019-09-14 15:01] LABS: Lactate (Lactic Acid) 1.5 mmol/L (0.7-2.1)
[2019-09-14 15:02] LABS: Alanine Aminotransferase 77 IU/L (<35); Albumin 3.4 g/dL (3.5-5.0); Albumin Globulin Ratio 0.9 (1.0-2.8); Alkaline Phosphatase 159 U/L (38-126); Aspartate Aminotransferase 117 IU/L (14-36); BUN Creatinine Ratio 8.2 (6-22); Bilirubin Total 0.4 mg/dL (0.2-1.3); Blood Urea Nitrogen 6 mg/dL (7-17); Carbon Dioxide 24 mmol/L (22-32); Chloride 104 mmol/L (98-107); Creatine Kinase 161 U/L (30-135); Estimated Glomerular Filt Rate > 60.0 mL/min (>60); Globulin 3.8 g/dL (1.7-4.1); Glucose 293 mg/dL (70-100); HEMOLYSIS < 15 (0-50); Potassium 3.4 mmol/L (3.4-5.1); Sodium 134 mmol/L (137-145); Total Protein 7.2 g/dL (6.3-8.2)
[2019-09-14 15:15] LABS: NT-proBNP (BNP-Adult 18+) 49 pg/mL (<125); Troponin I < 0.012 ng/mL (0.01-0.034)
[2019-09-14 15:28] LABS: C-Reactive Protein Quant 7.6 mg/dL (<1.0); Lactate Dehydrogenase 764 U/L (313-618)
[2019-09-14 15:36] LABS: CKMB % Relative Index 0.1 % (1.5-5.0)
[2019-09-14 15:37] LABS: Creatine Kinase MB < 0.22 ng/mL (<2.37); Ferritin 57 ng/mL (6-137)
--- NOTE | 2019-09-14 16:30 | PC.NURSE ---
walked < 15 feet w/ increase of RR and HR.
[2019-09-14 17:23] LABS: Pregnancy Test Serum,Qual Negative (Negative)
[2019-09-14 18:03] LABS: COVID19 -Nasal RAPID POSITIVE (Negative)
[2019-09-14 18:04] LABS: Adenovirus Not Detected (Not Detect); Bordetella pertussis Not Detected (Not Detect); Chlamydophila pneumoniae Not Detected (Not Detect); Coronavirus 229E Not Detected (Not Detect); Coronavirus HKU1 Not Detected (Not Detect); Coronavirus NL 63 Not Detected (Not Detect); Coronavirus OC43 Not Detected (Not Detect); Human Metapneumovirus Not Detected (Not Detect); Human Rhinovirus/Enterovirus Not Detected (Not Detect); Influenza A Not Detected (Not Detect); Influenza B Not Detected (Not Detect); Mycoplasma pneumoniae Not Detected (Not Detect); Parainfluenza Virus 1 Not Detected (Not Detect); Parainfluenza Virus 2 Not Detected (Not Detect); Parainfluenza Virus 3 Not Detected (Not Detect); Parainfluenza Virus 4 Not Detected (Not Detect); Respiratory Syncytial Virus Not Detected (Not Detect)
--- NOTE | 2019-09-14 19:19 | P.HP_ITS ---
History of Present Illness History of Present Illness Date Patient Seen: 09/14/19 Time Patient Seen: 19:19 Chief complaint: short of breath, poss. Covid Narrative: This is a 34-year-old female with Covid viral pneumonia after recent exposure at home to her mother's Covid illness. An apparently outwardly healthy relative had recently come to visit from [place] and just before both of these ladies became ill had broken quarantine to come over and hug her grandmother chantal. The patient is morbidly obese, has type 2 Diabetes and is [place]. Her mother is normal weight and seems to be recovering quite readily from her Covid illness. Her illness began with sore throat and nasal congestion and now she has a burning sensation with shortness of breath in her chest when she exerts herself, along with a headache. Her oxygen saturation is in the mid 90s with a respiratory rate in the 30s and a heart rate in the 130s. She has a fever of 100.1. Her CRP is 7.6 with an LDH of 764 with a CK of 161 and a hemoglobin of 10.6. She has chronically elevated liver function tests and also has bilateral infiltrates on her chest x-ray. Patient History Medical History Diabetes (Acute) Fatty liver (Acute) Hypertension (Acute) Migraines (Acute) Morbid obesity (Acute) Family & Social History Family History (Updated 09/14/19 @ 22:27 by Tyshawn Dykes MD) Mother COVID-19 Social History: household members family Safety & Behavioral: Feels Safe in Current Yes Environment Been Physically Hurt or No Threatened By a Person Suicidal Ideation Description None Suicide Plan Description No Plan Tobacco & Substance use: Smoking Status Never smoker alcohol intake frequency 0-2 drinks per day Substance Use Type does not use Comment: Her backup decision maker is her mother. Her 6-year-old child is living with her mother while she is in the hospital. Meds Home Medications and Allergies Home Medications Medication Instructions Recorded Confirmed Type lisinopril 20 mg PO DAILY 09/14/19 09/14/19 History metformin 500 mg PO DAILY 09/14/19 09/14/19 History Allergies Allergy/AdvReac Type Severity Reaction Status Date / Time No Known Drug Allergies Allergy Verified 09/14/19 14:09 Review of Systems Review of Systems Narrative: Positive for headache, shortness of breath, fever and burning in the chest Negative for coughing, nausea, vomiting, abdominal pain, diarrhea, bleeding, rash, dysuria, seizures, difficulty talking, new allergies. ROS: Yes All systems reviewed with the patient and are negative except as otherwise documented Exam Vital Signs (past 8 hours): - 09/14/19 13:50 09/14/19 14:18 09/14/19 14:29 Temperature 100.1 F H 100.1 F H Pulse Rate 112 H 108 H Respiratory Rate 34 H 42 H Blood Pressure 177/105 H Pulse Oximetry 96 92 09/14/19 14:30 09/14/19 14:45 09/14/19 15:00 Temperature Pulse Rate 107 H 107 H 106 H Respiratory Rate 37 H 38 H 36 H Blood Pressure 162/87 H 191/107 H 161/87 H Pulse Oximetry 92 95 94 09/14/19 15:15 09/14/19 15:30 09/14/19 15:45 Temperature 99.0 F Pulse Rate 107 H 105 H 108 H Respiratory Rate 36 H 35 H 37 H Blood Pressure 168/89 H 163/82 H 164/77 H Pulse Oximetry 95 93 96 09/14/19 15:57 09/14/19 16:00 09/14/19 16:06 Temperature 99.0 F Pulse Rate 121 H 109 H Respiratory Rate Blood Pressure 152/76 H 142/70 H Pulse Oximetry 96 96 09/14/19 16:15 09/14/19 16:30 09/14/19 16:45 Temperature Pulse Rate 103 H 100 H 97 H Respiratory Rate 38 H 34 H 36 H Blood Pressure 146/75 H 149/76 H 164/82 H Pulse Oximetry 96 94 93 09/14/19 17:00 Temperature Pulse Rate 100 H Respiratory Rate 36 H Blood Pressure 145/74 H Pulse Oximetry 95 Oxygen Delivery Method Room Air Narrative Exam Narrative: She is alert and oriented x3. She is in moderate distress from headache and increased respiratory effort. Pupils are equally round reactive to accommodation. Throat looks normal No lymph nodes are felt head, neck, supraclavicular area There is no thyromegaly JVD is less than 6 cm No carotid bruits are heard Heart is tachycardic regular rhythm no murmur Lungs are clear to auscultation bilaterally Abdomen is very, very obese, nontender, no organomegaly, soft Extremities have no ankle edema Skin has no rash Neurological exam The patient is alert and oriented, without any visible cranial nerve abnormality. There is no tremor. Motor function is 4/5 throughout Objective ECG Impression: SINUS TACHYCARDIA NONSPECIFIC T-WAVE ABNORMALITY ABNORMAL RHYTHM ECG Labs Result Diagrams: 09/14/19 14:01 09/14/19 14:41 Labs: Laboratory Results - last 24 hr 09/14/19 09/14/19 09/14/19 14:01 14:01 14:22 WBC 6.9 RBC 4.41 Hgb 10.6 L Hct 33.1 L MCV 75.0 L MCH 24.0 L MCHC 31.9 RDW 15.0 H Plt Count 212 Neut % (Auto) 80.8 H Lymph % (Auto) 14.2 L [place] % (Auto) 3.8 Eos % (Auto) 0.3 L Baso % (Auto) 0.9 Neut # (Auto) 5500 Lymph # (Auto) 1000 L [place] # (Auto) 300 Eos # (Auto) 0 Baso # (Auto) 100 D-Dimer Sodium Potassium Chloride Carbon Dioxide BUN Creatinine Estimated GFR BUN/Creatinine Ratio Glucose Lactate Calcium Ferritin Total Bilirubin AST ALT Alkaline Phosphatase Lactate Dehydrogenase Total Creatine Kinase CK-MB (CK-2) CK-MB (CK-2) Rel Index Troponin I C-Reactive Protein NT-Pro-B Natriuret Pep Total Protein Albumin Globulin Albumin/Globulin Ratio Procalcitonin 0.11 Serum , Qual Chlamy pneumoniae PCR Adenovirus (PCR) B.parapertussis DNA PCR Coronavirus OC43 (PCR) Coronavirus HKU1 (PCR) Coronavirus 229E (PCR) COVID-19 PCR Cancelled Coronavirus NL63 (PCR) Human Metapneumovir PCR Influenza Type A (PCR) Influenza Type B (PCR) M. pneumoniae (PCR) Parainfluenza 1 (PCR) Parainfluenza 2 (PCR) Parainfluenza 3 (PCR) Parainfluenza 4 (PCR) RSV (PCR) Entero/Rhino (PCR) 09/14/19 09/14/19 09/14/19 14:22 14:22 14:41 WBC RBC Hgb Hct MCV MCH MCHC RDW Plt Count Neut % (Auto) Lymph % (Auto) [place] % (Auto) Eos % (Auto) Baso % (Auto) Neut # (Auto) Lymph # (Auto) [place] # (Auto) Eos # (Auto) Baso # (Auto) D-Dimer 236 H Sodium Potassium Chloride Carbon Dioxide BUN Creatinine Estimated GFR BUN/Creatinine Ratio Glucose Lactate Calcium Ferritin Total Bilirubin AST ALT Alkaline Phosphatase Lactate Dehydrogenase Total Creatine Kinase CK-MB (CK-2) CK-MB (CK-2) Rel Index Troponin I C-Reactive Protein NT-Pro-B Natriuret Pep Total Protein Albumin Globulin Albumin/Globulin Ratio Procalcitonin Serum , Qual Chlamy pneumoniae PCR Not detected Adenovirus (PCR) Not detected B.parapertussis DNA PCR Not detected Coronavirus OC43 (PCR) Not detected Coronavirus HKU1 (PCR) Not detected Coronavirus 229E (PCR) Not detected COVID-19 PCR Positive H Coronavirus NL63 (PCR) Not detected Human Metapneumovir PCR Not detected Influenza Type A (PCR) Not detected Influenza Type B (PCR) Not detected M. pneumoniae (PCR) Not detected Parainfluenza 1 (PCR) Not detected Parainfluenza 2 (PCR) Not detected Parainfluenza 3 (PCR) Not detected Parainfluenza 4 (PCR) Not detected RSV (PCR) Not detected Entero/Rhino (PCR) Not detected 09/14/19 09/14/19 09/14/19 14:41 14:41 14:41 WBC RBC Hgb Hct MCV MCH MCHC RDW Plt Count Neut % (Auto) Lymph % (Auto) [place] % (Auto) Eos % (Auto) Baso % (Auto) Neut # (Auto) Lymph # (Auto) [place] # (Auto) Eos # (Auto) Baso # (Auto) D-Dimer Sodium 134 L Potassium 3.4 Chloride 104 Carbon Dioxide 24 BUN 6 L Creatinine 0.73 Estimated GFR > 60.0 BUN/Creatinine Ratio 8.2 Glucose 293 H Lactate 1.5 Calcium 8.0 L Ferritin 57 Total Bilirubin 0.4 AST 117 H ALT 77 H Alkaline Phosphatase 159 H Lactate Dehydrogenase 764 H Total Creatine Kinase 161 H CK-MB (CK-2) < 0.22 CK-MB (CK-2) Rel Index 0.1 L Troponin I < 0.012 C-Reactive Protein 7.6 H NT-Pro-B Natriuret Pep 49 Total Protein 7.2 Albumin 3.4 L Globulin 3.8 Albumin/Globulin Ratio 0.9 L Procalcitonin Serum , Qual Negative Chlamy pneumoniae PCR Adenovirus (PCR) B.parapertussis DNA PCR Coronavirus OC43 (PCR) Coronavirus HKU1 (PCR) Coronavirus 229E (PCR) COVID-19 PCR Coronavirus NL63 (PCR) Human Metapneumovir PCR Influenza Type A (PCR) Influenza Type B (PCR) M. pneumoniae (PCR) Parainfluenza 1 (PCR) Parainfluenza 2 (PCR) Parainfluenza 3 (PCR) Parainfluenza 4 (PCR) RSV (PCR) Entero/Rhino (PCR) Assessment & Plan Assessment & Plan narrative: Covid 19 Viral Pneumonia, present on admission. Active -Respiratory panel Covid 19 Positive -she has significant dyspnea on exertion but is not hypoxic. She is very high risk for deterioration with Morbid Obesity/DM 2 and is also , another high risk factor. She should not be at home, unmonitored, until she has significant improvement. -continuous oxygen saturation monitoring -reverse flow isolation -if she becomes hypoxic we would according to the CDC guidelines, add 5 days of Remdesivir and 6 mg of dexamethasone daily. Type 2 Diabetes Mellitus, present on admission. Active -continue metformin -add correctional Lispro scale with meals -follow blood sugars a.c. and HS Anemia, present on admission. Active -Hgb 10.6, f/u on 09/14 Hypertension, present on admission. Chronic -continue lisinopril Morbid Obesity, present on admission. Chronic -BMI 62 -Consideration will be given to dietary counseling COVID-19 COVID-19 status: Positive Result date/Date tested (Pos, Neg/Pending): 09/14/19 Quality VTE Deep Vein Thrombosis/Pulmonary Embolism Present on Admission: No
[2019-09-14] MEDS: ENOXAPARIN 40 MG/0.4 ML SYRINGE SUBCUT (19:39)
[2019-09-14] MEDS: DEXTROSE 5%-0.9% NS 1,000 ML 65 ML IV (19:39)
[2019-09-15] VITALS (9 sets, daily range): BP systolic 138–163; BP diastolic 58–110; PULSE 101–115; RESP 16–24; TEMP 36.9–37.9; O2SAT 92–94
[2019-09-15] MEDS: ACETAMINOPHEN 325 MG TABLET 650 MG PO ×2 (05:46→17:30)
[2019-09-15 05:57] LABS: Add Manual Diff / Slide Review NO; Basophils Absolute Auto 0 /uL (0-100); Basophils Percent Auto 0.2 % (0-2); Eosinophils Absolute Auto 0 /uL (0-450); Eosinophils Percent Auto 0.4 % (2-4); Hematocrit 32.3 % (36-46); Hemoglobin 10.1 g/dL (12.0-16.0); Lymphocytes Absolute Auto 1700 /uL (1100-4500); Lymphocytes Percent Auto 23.6 % (25-40); Mean Corpuscular HGB Conc 31.3 % (30-36); Mean Corpuscular Hemoglobin 23.6 PG (26-34); Mean Corpuscular Volume 75.4 fL (80-100); Monocytes Absolute Auto 300 /uL (0-900); Neutrophils Absolute Auto 5300 /uL (1500-7000); Neutrophils Percent Auto 71.8 % (50-75); Platelet Count 200 X10^3/uL (150-400); Red Blood Cell Count 4.29 X10^6/uL (4.0-5.2); Red Cell Distribution Width 15.3 % (11.6-14.8); White Blood Cell Count 7.3 X10^3/uL (4.5-11.0)
[2019-09-15 06:06] LABS: Alanine Aminotransferase 67 IU/L (<35); Albumin 3.2 g/dL (3.5-5.0); Albumin Globulin Ratio 0.8 (1.0-2.8); Alkaline Phosphatase 147 U/L (38-126); Aspartate Aminotransferase 97 IU/L (14-36); BUN Creatinine Ratio 9.7 (6-22); Bilirubin Total 0.5 mg/dL (0.2-1.3); Blood Urea Nitrogen 7 mg/dL (7-17); Calcium 7.9 mg/dL (8.4-10.2); Carbon Dioxide 25 mmol/L (22-32); Chloride 104 mmol/L (98-107); Estimated Glomerular Filt Rate > 60.0 mL/min (>60); Globulin 3.9 g/dL (1.7-4.1); Glucose 256 mg/dL (70-100); HEMOLYSIS < 15 (0-50); Potassium 3.7 mmol/L (3.4-5.1); Sodium 136 mmol/L (137-145); Total Protein 7.1 g/dL (6.3-8.2)
--- NOTE | 2019-09-15 07:58 | P.PN_ITS ---
Subjective Subjective Date Patient Seen: 09/15/19 Interval history: Anh Griedr is 34-year-old female with a past medical history significant for hypertension, diabetes mellitus type 2, non-insulin using, morbid obesity, obstructive sleep apnea not yet on CPAP who presented to the ED with concern for COVID-19 viral pneumonia and severe dyspnea on exertion. The patient is resting in bedside chair comfortably and in no acute distress. She endorses intermittent cough with cough paroxysms that induce post-tussive nausea and near emesis. She does not feel short of breath at rest. She does endorse dyspnea on exertion. She to a shower this afternoon and had to sit down while doing so to avoid shortness of breath. She endorses headache, intermittent nausea, and diarrhea. The patient was admitted due to severe to kidney a and tachycardia with activity. She has not been hypoxemic. Continue to monitor respiratory status closely and provide supportive care. She is voidin g and eliminating without difficulty. She is up ambulating with assistance. Exam Vital Signs (past 8 hours): - 09/16/19 00:20 09/16/19 04:30 Temperature 98.8 F 98.6 F Pulse Rate 100 H 97 H Respiratory Rate 18 18 Blood Pressure 129/76 142/97 H Pulse Oximetry 94 94 Oxygen Delivery Method Room Air Oxygen Flow Rate 0 Narrative Exam Narrative: General: Young female sitting in bedside chair and in no acute distress, well- developed, well-nourished, appropriately interactive HEENT: Normocephalic, atraumatic. External ears without defect. Pupils equal, round, and reactive to light. Anicteric sclerae, moist conjunctivae, and no lid lag. Oropharynx free of erythema and cobble stoning with moist mucosa. Normal smell. Neck: Supple with full range of motion. No lymphadenopathy or thyromegaly. Cardiovascular: Regular rhythm, tachycardic without murmurs, rubs, or gallops appreciated Pulmonary: Diminished throughout with occasional crackle but otherwise clear to auscultation bilaterally. No wheezes or rhonchi. Normal respiratory effort with no use of accessory muscles. Abdomen:Soft, obese, nontender, nondistended. No hepatosplenomegaly or masses appreciated. Extremities: No clubbing, cyanosis, or edema. Skin: Normal temperature, turgor, and texture; no rash, ulcers, or subcutaneous nodules appreciated. Neurological: Cranial nerves grossly intact. Psychiatric: Normal mood and affect. Alert and oriented to person, place, and time. Objective Labs Result Diagrams: 09/15/19 05:05 09/15/19 05:05 Labs: Laboratory Results - last 24 hr 09/15/19 09/15/19 05:05 05:05 WBC 7.3 RBC 4.29 Hgb 10.1 L Hct 32.3 L MCV 75.4 L MCH 23.6 L MCHC 31.3 RDW 15.3 H Plt Count 200 Neut % (Auto) 71.8 Lymph % (Auto) 23.6 L Jennings % (Auto) 4.0 Eos % (Auto) 0.4 L Baso % (Auto) 0.2 Neut # (Auto) 5300 Lymph # (Auto) 1700 Jennings # (Auto) 300 Eos # (Auto) 0 Baso # (Auto) 0 Sodium 136 L Potassium 3.7 Chloride 104 Carbon Dioxide 25 BUN 7 Creatinine 0.72 Estimated GFR > 60.0 BUN/Creatinine Ratio 9.7 Glucose 256 H Calcium 7.9 L Total Bilirubin 0.5 AST 97 H ALT 67 H Alkaline Phosphatase 147 H Total Protein 7.1 Albumin 3.2 L Globulin 3.9 Albumin/Globulin Ratio 0.8 L Assessment & Plan Assessment & Plan narrative: Anh Grider is 34-year-old female with a past medical history significant for hypertension, diabetes mellitus type 2, non-insulin using, morbid obesity, obstructive sleep apnea not yet on CPAP who presented to the ED with concern for COVID-19 viral pneumonia and severe dyspnea on exertion. 1. Covid 19 viral pneumonia, present on admission. Active. -Patient pressented with severe dyspnea on exertion (tachypneic 50's and tachycardic 150's). She is not hypoxemic. She is very high risk for deterioration with morbid obesity/DM 2 and is also , another high risk factor. She should not be at home, unmonitored, until she has significant improvement. -Chest x-ray demonstrated subtle ill-defined opacities scattered in bilateral lung trivedi concerning for atypical pneumonia. No pleural effusion or pneumothorax. -Covid 19 positive. -LDH 764 and CRP 7.6. -Continuous oxygen saturation monitoring -Reverse flow isolation and droplet precautions. -Continue supportive care with acetaminophen for headache and fever and antiemetics with Zofran. If she becomes hypoxemic we would according to the CDC guidelines, add 5 days of Remdesivir and 6 mg of dexamethasone daily. 2. Diabetes mellitus type II, non-insulin usingpresent on admission. Stable. -Ordered hemoglobin A1C pending. -Held metformin. -Continue ACHS blood glucose checks and low dose correctional scale insulin. -Continue heart healthy/carbohydrate consistent diet. 3. Microcytic anemia, present on admission. Active -Initial hemoglobin 10.6 and unclear baseline. No overt signs of bleeding. -Continue to monitor CBC periodically. 4. Hypertension, present on admission. Chronic -Held lisinopril due to potential for CAITY with COVID-19 and will monitor BP closely and use other antihypertensives if necessary. 5. Morbid Obesity, present on admission. Chronic -BMI 62. -Consulted warehouse packaging supervisor and we appreciate her time and recommendation. 6. SASKIA not on CPAP, present on admission. Stable. -Patient is in the process of acquiring CPAP. -Ordered CPAP per RT protocol. Code status: Full code VTE prophylaxis: Enoxaparin, SCDs Disposition: Patient will discharge home once dyspnea on exertion, tachypnea and tachycardia with activity improved. Quality VTE Deep Vein Thrombosis/Pulmonary Embolism Present on Admission: No
[2019-09-15] MEDS: METFORMIN HCL 500 MG TABLET PO (08:25)
[2019-09-15] MEDS: lisinopriL 20 MG TABLET PO (08:25)
[2019-09-15] MEDS: INSULIN ASPART 100 UNIT/ML INSULN PEN SUBCUT ×4 (08:26→21:04)
[2019-09-15] MEDS: ENOXAPARIN 40 MG/0.4 ML SYRINGE SUBCUT ×2 (08:26→21:04)
--- NOTE | 2019-09-15 10:17 | CM.DANOTE ---
DCP: Case received, EMR reviewed. Have not met with patient since she is in isolation secondary to being positive for COVID 19. DCP assessment completed with information from ER note and H&P in chart. Patient is a 34 year old female who admitted yesterday afternoon to the care of the hospitalist team. PCP: Dr. Hidalgo. Payer: confirmed: Medicaid/[facility]. Patient came to the hospital via ambulance secondary to having shortness of breath upon exertion. According to note, patient had called 911 due to not being able to catch her breath when she was taking shower. Patient was having symptoms of body aches, and a temp of 100.1. She is positive for COVD 19, and diagnosed with COVID viral pneumonia. Patient had been exposed to her mother who is positive COVID as well, and another family member from [place]. Patient is independent at baseline, according to notes. She resides in [facility] on [address], and mother lives nearby. According to notes, her mother, Karrie, is her decision maker. Patient is single. Patient also has history of diabetes/obesity. She goes to [facility] for her medical needs. Have attempted to call patient several times to her room, and either line is busy, and she has not been answerig. P: DCP to continue to follow for any needs. Made team rounds outside her room. She should be able to go home in the next day, as long as she is stable, and will have to quaranteen. Respiratory therapy will also be working with her for a CPAP while she is here. Linda Ward RN/[employer]
--- NOTE | 2019-09-15 13:33 | PC.NURSE ---
Addendum entered by Patricia Pitts R.N. 09/15/19 14:31: Patient is complaining of diarrhea x 4 today and nausea after she coughs. Dr. Cortez notified of change at 1430. Original Note: Pt BS checks are still high 261,286. 5 units Novolog given at breakfast and [address] Cortez notified that patient was still on D5NS @65 ml/hr. Dr. Cortez gave a verbal order to D/C and saline lock patient. Patient is still on Room air at 94%.
[2019-09-15] MEDS: SODIUM CHLORIDE 0.9% FLUSH 10 ML IV (18:23)
[2019-09-16] VITALS (9 sets, daily range): BP systolic 129–160; BP diastolic 76–101; PULSE 96–104; RESP 16–31; TEMP 36.7–37.5; O2SAT 92–94
[2019-09-16] MEDS: ACETAMINOPHEN 325 MG TABLET 975 MG PO (04:45)
[2019-09-16 06:57] LABS: Add Manual Diff / Slide Review NO; Basophils Absolute Auto 0 /uL (0-100); Basophils Percent Auto 0.2 % (0-2); Eosinophils Absolute Auto 0 /uL (0-450); Eosinophils Percent Auto 0.7 % (2-4); Hematocrit 30.9 % (36-46); Hemoglobin 9.8 g/dL (12.0-16.0); Lymphocytes Absolute Auto 1400 /uL (1100-4500); Lymphocytes Percent Auto 20.2 % (25-40); Mean Corpuscular HGB Conc 31.6 % (30-36); Mean Corpuscular Hemoglobin 23.7 PG (26-34); Mean Corpuscular Volume 75.1 fL (80-100); Monocytes Absolute Auto 300 /uL (0-900); Monocytes Percent Auto 4.4 % (3-14); Neutrophils Absolute Auto 5100 /uL (1500-7000); Neutrophils Percent Auto 74.5 % (50-75); Platelet Count 225 X10^3/uL (150-400); Red Blood Cell Count 4.12 X10^6/uL (4.0-5.2); Red Cell Distribution Width 14.8 % (11.6-14.8); White Blood Cell Count 6.9 X10^3/uL (4.5-11.0)
[2019-09-16 07:04] LABS: Alanine Aminotransferase 46 IU/L (<35); Albumin 3.2 g/dL (3.5-5.0); Albumin Globulin Ratio 0.8 (1.0-2.8); Alkaline Phosphatase 143 U/L (38-126); Aspartate Aminotransferase 58 IU/L (14-36); BUN Creatinine Ratio 7.5 (6-22); Bilirubin Total 0.5 mg/dL (0.2-1.3); Blood Urea Nitrogen 5 mg/dL (7-17); Carbon Dioxide 25 mmol/L (22-32); Chloride 104 mmol/L (98-107); Estimated Glomerular Filt Rate > 60.0 mL/min (>60); Globulin 3.9 g/dL (1.7-4.1); Glucose 222 mg/dL (70-100); HEMOLYSIS < 15 (0-50); Potassium 3.4 mmol/L (3.4-5.1); Sodium 134 mmol/L (137-145); Total Protein 7.1 g/dL (6.3-8.2)
[2019-09-16 07:07] LABS: Lactate Dehydrogenase 727 U/L (313-618)
[2019-09-16 07:08] LABS: Hemoglobin A1C% w Est Avg Glu 12.1 % (4.0-6.0)
[2019-09-16 07:19] LABS: C-Reactive Protein Quant 15.1 mg/dL (<1.0)
[2019-09-16] MEDS: ENOXAPARIN 40 MG/0.4 ML SYRINGE SUBCUT ×2 (09:47→21:47)
[2019-09-16] MEDS: INSULIN ASPART 100 UNIT/ML INSULN PEN SUBCUT ×4 (09:47→21:46)
[2019-09-16] MEDS: SODIUM CHLORIDE 0.9% FLUSH 10 ML IV ×2 (09:48→21:30)
[2019-09-16] MEDS: INSULIN GLARGINE 100 UNIT/ML 3ML PEN 10 UNIT SUBCUT (10:39)
--- NOTE | 2019-09-16 11:26 | P.PN_ITS ---
Subjective Subjective Date Patient Seen: 09/16/19 Interval history: Anh Grider is 34-year-old female with a past medical history significant for hypertension, diabetes mellitus type 2, non-insulin using, morbid obesity, obstructive sleep apnea not yet on CPAP who presented to the ED with concern for COVID-19 viral pneumonia and severe dyspnea on exertion. The patient is resting in bedside chair comfortably. She continues to have intermittent cough with cough paroxysms that induce post-tussive nausea and near emesis. She does not feel short of breath at rest. She does endorse dyspnea on exertion but feels this is improving. She continues to have intermittent headache that worsens with cough. She reports that she began having symptoms of COVID-19 she believes 2 weeks ago. She reports that started with burning in her nares and then led to sore throat and shortness of breath which was most severe last week. The patient was admitted due to severe to tachypnea and tachycardia with activity of which her overall heart rate and respiratory rate trends seem to be improving. She has not been hypoxemic. Continue to monitor respiratory status closely and provide supportive care. She is voiding and eliminating without difficulty. She had diarrhea yesterday which she believes was due to metformin use as she has not taken this regularly at home and has not had any further since this was held. She is up ambulating with assistance. Exam Vital Signs (past 8 hours): - 09/16/19 04:30 09/16/19 08:00 Temperature 98.6 F 98.1 F Pulse Rate 97 H 96 H Respiratory Rate 18 16 Blood Pressure 142/97 H 148/96 H Pulse Oximetry 94 93 Oxygen Delivery Method Room Air Oxygen Flow Rate 0 Narrative Exam Narrative: General: Young female sitting in bedside chair and in no acute distress, well- developed, well-nourished, appropriately interactive. HEENT: Normocephalic, atraumatic. External ears without defect. Pupils equal, round, and reactive to light. Anicteric sclerae, moist conjunctivae, and no lid lag. Oropharynx free of erythema and cobble stoning with moist mucosa. Normal smell. Neck: Supple with full range of motion. No lymphadenopathy or thyromegaly. Cardiovascular: Regular rhythm, tachycardic without murmurs, rubs, or gallops appreciated Pulmonary: Diminished throughout with occasional crackle but otherwise clear to auscultation bilaterally in all lung trivedi. No wheezes or rhonchi. Normal respiratory effort with no use of accessory muscles. Abdomen: Soft, obese, nontender, nondistended. No hepatosplenomegaly or masses appreciated. Extremities: No clubbing, cyanosis, or edema. Skin: Normal temperature, turgor, and texture; no rash, ulcers, or subcutaneous nodules appreciated. Neurological: Cranial nerves grossly intact. Psychiatric: Normal mood and affect. Alert and oriented to person, place, and time. Objective Labs Result Diagrams: 09/16/19 06:25 09/16/19 06:25 Labs: Laboratory Results - last 24 hr 09/16/19 09/16/19 09/16/19 06:25 06:25 06:25 WBC 6.9 RBC 4.12 Hgb 9.8 L Hct 30.9 L MCV 75.1 L MCH 23.7 L MCHC 31.6 RDW 14.8 Plt Count 225 Neut % (Auto) 74.5 Lymph % (Auto) 20.2 L Barber % (Auto) 4.4 Eos % (Auto) 0.7 L Baso % (Auto) 0.2 Neut # (Auto) 5100 Lymph # (Auto) 1400 Barber # (Auto) 300 Eos # (Auto) 0 Baso # (Auto) 0 Sodium 134 L Potassium 3.4 Chloride 104 Carbon Dioxide 25 BUN 5 L Creatinine 0.67 Estimated GFR > 60.0 BUN/Creatinine Ratio 7.5 Glucose 222 H Hemoglobin A1c Calcium 8.0 L Total Bilirubin 0.5 AST 58 H ALT 46 H Alkaline Phosphatase 143 H Lactate Dehydrogenase 727 H C-Reactive Protein 15.1 H Total Protein 7.1 Albumin 3.2 L Globulin 3.9 Albumin/Globulin Ratio 0.8 L 09/16/19 06:25 WBC RBC Hgb Hct MCV MCH MCHC RDW Plt Count Neut % (Auto) Lymph % (Auto) Barber % (Auto) Eos % (Auto) Baso % (Auto) Neut # (Auto) Lymph # (Auto) Barber # (Auto) Eos # (Auto) Baso # (Auto) Sodium Potassium Chloride Carbon Dioxide BUN Creatinine Estimated GFR BUN/Creatinine Ratio Glucose Hemoglobin A1c 12.1 H Calcium Total Bilirubin AST ALT Alkaline Phosphatase Lactate Dehydrogenase C-Reactive Protein Total Protein Albumin Globulin Albumin/Globulin Ratio Assessment & Plan Assessment & Plan narrative: Anh Grider is 34-year-old female with a past medical history significant for hypertension, diabetes mellitus type 2, non-insulin using, morbid obesity, obstructive sleep apnea not yet on CPAP who presented to the ED with concern for COVID-19 viral pneumonia and severe dyspnea on exertion. 1. COVID-19 viral pneumonia, present on admission. Active. -Patient presented with severe dyspnea on exertion (tachypneic 50's and tac hycardic 150's). She is not hypoxemic. She is very high risk for deterioration with morbid obesity, diabetes mellitus type 2, and her race, . She should not be at home, unmonitored, until she has significant improvement. -Chest x-ray demonstrated subtle ill-defined opacities scattered in bilateral lung trivedi concerning for atypical pneumonia. No pleural effusion or pneumothorax. -COVID-19 positive. -LDH 764 with repeat slightly lower at 727. CRP highly elevated at 7.6 and trend ing up now 15.1. -Continue continuous pulse ox monitoring. -Continue reverse flow isolation and droplet precautions. -Continue supportive care with acetaminophen or Toradol for headache and fever and antiemetics with Zofran. If she becomes hypoxemic we would according to the CDC guidelines, add 5 days of Remdesivir and 6 mg of dexamethasone daily. 2. Diabetes mellitus type II, non-insulin using, chronic, present on admission. Stable. -Hemoglobin A1C 12.1% indicative of poor glycemic control. -Held metformin due to diarrhea and potential for dehydration and CAITY in COVID- 19. Started Lantus 15 units twice daily. -Continue ACHS blood glucose checks and high dose correctional scale insulin. -Continue heart healthy/carbohydrate consistent diet. 3. Microcytic anemia, likely chronic, present on admission. Stable. -Initial hemoglobin 10.6 and unclear baseline. No overt signs of bleeding. -Continue to monitor CBC periodically. 4. Hypertension, chronic, present on admission. Stable. -Held lisinopril due to potential for CAITY with COVID-19. Started amlodipine 10 mg daily for now to control hypertension. Continue to monitor blood pressure closely. 5. Morbid obesity, chronic, present on admission. Stable. -BMI 62. -Consulted architecture consultant and we appreciate her time and recommendation. 6. SASKIA not on CPAP, present on admission. Stable. -Patient is in the process of acquiring CPAP. -Ordered CPAP per RT protocol to optimize breathing and oxygenation to avoid decompensation. Code status: Full code VTE prophylaxis: Enoxaparin, SCDs Disposition: Patient will likely discharge home once dyspnea on exertion, tachypnea and tachycardia with activity have improved. Quality VTE Deep Vein Thrombosis/Pulmonary Embolism Present on Admission: No
[2019-09-16 16:19] LABS: Magnesium 1.7 mg/dL (1.6-2.3)
[2019-09-16] MEDS: AMLODIPINE 5 MG TABLET 10 MG PO (16:38)
[2019-09-16] MEDS: POTASSIUM CHLORIDE 20 MEQ TAB 40 MEQ PO (16:38)
[2019-09-16] MEDS: ACETAMINOPHEN 325 MG TABLET 650 MG PO (18:57)
[2019-09-16] MEDS: INSULIN GLARGINE 100 UNIT/ML 3ML PEN 15 UNIT SUBCUT (21:47)
[2019-09-17 00:53] VITALS: BP 146/70; PULSE 93; RESP 27; TEMP 36.7; O2SAT 93
[2019-09-17 04:57] VITALS: PULSE 80; RESP 25; O2SAT 93
[2019-09-17 06:18] VITALS: BP 143/88; PULSE 90; RESP 17; TEMP 35.8; O2SAT 97
--- NOTE | 2019-09-17 06:19 | PC.NURSE ---
Pt is 84-85% sleeping on Room air. Refused to wear CPAP; placed on 2L NC saturating at 93%
[2019-09-17 07:46] VITALS: PULSE 91; RESP 16; O2SAT 94
[2019-09-17] MEDS: ACETAMINOPHEN 325 MG TABLET 650 MG PO (08:15)
[2019-09-17] MEDS: AMLODIPINE 5 MG TABLET 10 MG PO (08:16)
[2019-09-17] MEDS: ENOXAPARIN 40 MG/0.4 ML SYRINGE SUBCUT (08:16)
[2019-09-17] MEDS: SODIUM CHLORIDE 0.9% FLUSH 10 ML IV (08:16)
[2019-09-17] MEDS: INSULIN GLARGINE 100 UNIT/ML 3ML PEN 15 UNIT SUBCUT (08:17)
[2019-09-17] MEDS: INSULIN ASPART 100 UNIT/ML INSULN PEN SUBCUT (08:21)
[2019-09-17 08:31] LABS: Alanine Aminotransferase 40 IU/L (<35); Albumin 3.3 g/dL (3.5-5.0); Albumin Globulin Ratio 0.8 (1.0-2.8); Alkaline Phosphatase 160 U/L (38-126); Aspartate Aminotransferase 65 IU/L (14-36); BUN Creatinine Ratio 10.4 (6-22); Bilirubin Total 0.5 mg/dL (0.2-1.3); Blood Urea Nitrogen 7 mg/dL (7-17); C-Reactive Protein Quant 6.9 mg/dL (<1.0); Calcium 8.4 mg/dL (8.4-10.2); Carbon Dioxide 25 mmol/L (22-32); Chloride 106 mmol/L (98-107); Estimated Glomerular Filt Rate > 60.0 mL/min (>60); Globulin 4.2 g/dL (1.7-4.1); Glucose 202 mg/dL (70-100); HEMOLYSIS < 15 (0-50); Lactate Dehydrogenase 768 U/L (313-618); Potassium 3.7 mmol/L (3.4-5.1); Sodium 138 mmol/L (137-145); Total Protein 7.5 g/dL (6.3-8.2)
--- NOTE | 2019-09-17 10:16 | PC.NURSE ---
Day shift note: Patient awake, alert, and calm. Received on RA, O2 sat 93-94% while awake. Speaking in full sentences, good appetite. Up OOB to BR, independently. C/O headache to frontal region, described as a constant ache, 6/10. States headache is improved from previous day. States breathing effort improved from day of admission. Communicating with family via phone. Call light within reach.
--- NOTE | 2019-09-17 10:22 | P.DS_ITS ---
History of Present Illness History of Present Illness Date Patient Seen: 09/17/19 Time Patient Seen: 10:22 Chief complaint: short of breath, poss. Covid Narrative: As per Dr. Dykes, This is a 34-year-old female with Covid viral pneumonia after recent exposure at home to her mother's Covid illness. An apparently outwardly healthy relative had recently come to visit from [place] and just before both of these ladies became ill had broken quarantine to come over and hug her grandmother chantal. The patient is morbidly obese, has type 2 Diabetes and is [place]. Her mother is normal weight and seems to be recovering quite readily from her Covid illness. Her illness began with sore throat and nasal congestion and now she has a burning sensation with shortness of breath in her chest when she exerts herself, along with a headache. Her oxygen saturation is in the mid 90s with a respiratory rate in the 30s and a heart rate in the 130s. She has a fever of 100.1. Her CRP is 7.6 with an LDH of 764 with a CK of 161 and a hemoglobin of 10.6. She has chronically elevated liver function tests and also has bilateral infiltrates on her chest x-ray. Discharge Providers Provider Date of admission: 09/14/19 16:58 Discharge Date: 09/17/19 Primary care physician: Brianna Hidalgo MD Consults: 09/16/19 06:06 Consult to Dietitian, Adult Routine Comment: Reason For Exam: Morbid obesity, metabolic syndrome Discharge provider: Emanuel Osborn DO Summary Hospital Course Discharge Diagnosis: Please see hospital course by problem list noted below. Hospital Course: Anh Grider is 34-year-old female with a past medical history significant for hypertension, diabetes mellitus type 2, non-insulin using, morbid obesity, obstructive sleep apnea not yet on CPAP who presented to the ED with concern for COVID-19 viral pneumonia and severe dyspnea on exertion. She did not show evidence of decompensation despite her significant medical risks, once symptomatically improved she was discharged home. 1. COVID-19 viral pneumonia, present on admission. Active. -Patient presented with severe dyspnea on exertion (tachypneic 50's and tachycardic 150's). She was not hypoxemic. She was at very high risk for deterioration with morbid obesity, diabetes mellitus type 2 and her race. -Chest x-ray demonstrated subtle ill-defined opacities scattered in bilateral lung trivedi concerning for atypical pneumonia. No pleural effusion or pneumothorax. -COVID-19 positive. -LDH 764 with repeat slightly lower at 727. CRP highly elevated at 7.6 and trended up to 15 however patient began to steadily improve. Repeat CRP the following day showing improvement back into the 7s. -Patient had been stable and slowly improving over the course of her admission and risk of decompensation appeared low. She was discharged home, she will be able to the socially isolate and has significant support from the community. 2. Diabetes mellitus type II, non-insulin using, chronic, present on admission. Stable. -Hemoglobin A1C 12.1% indicative of poor glycemic control. -Held metformin due to diarrhea and potential for dehydration and CAITY in COVID- 19. Started Lantus 15 units twice daily while admitted. She endorses not taking her metformin regularly. Have increased her metformin to 1000 mg daily on discharge. She should follow-up with her primary care provider for further titration. 3. Microcytic anemia, likely chronic, present on admission. Stable. -Initial hemoglobin 10.6 and unclear baseline. No overt signs of bleeding. -Continue to monitor CBC periodically. 4. Hypertension, chronic, present on admission. Stable. -Held lisinopril due to potential for CAITY with COVID-19. Started amlodipine 10 mg daily for now to control hypertension. She can safely resume her lisinopril upon discharge, as this has been actually somewhat cardioprotective in studies of COVID-19 patients. 5. Morbid obesity, chronic, present on admission. Stable. -BMI 62. -Consulted foot worker and we appreciate her time and recommendation. 6. SASKIA not on CPAP, present on admission. Stable. Exam Vital Signs (past 8 hours): - 09/17/19 04:57 09/17/19 06:18 09/17/19 07:46 Temperature 96.5 F L Pulse Rate 80 90 91 H Respiratory Rate 25 H 17 16 Blood Pressure 143/88 H Pulse Oximetry 93 97 94 Oxygen Delivery Method Room Air Oxygen Flow Rate 0 Narrative Exam Narrative: General: Young morbidly obese female in no acute distress, well-developed, well-nourished, appropriately interactive. HEENT: Normocephalic, atraumatic. External ears without defect. Pupils equal, round, and reactive to light. Anicteric sclerae, moist conjunctivae, and no lid lag. Oropharynx free of erythema and cobble stoning with moist mucosa. Normal smell. Neck: Supple with full range of motion. No lymphadenopathy or thyromegaly. Cardiovascular: Regular rhythm, tachycardic without murmurs, rubs, or gallops appreciated Pulmonary: clear to auscultation bilaterally in all lung trivedi. No wheezes or rhonchi. Normal respiratory effort with no use of accessory muscles. Abdomen: Soft, obese, nontender, nondistended. No hepatosplenomegaly or masses appreciated. Extremities: No clubbing, cyanosis, or edema. Skin: Normal temperature, turgor, and texture; no rash, ulcers, or subcutaneous nodules appreciated. Neurological: Cranial nerves grossly intact. Psychiatric: Normal mood and affect. Alert and oriented to person, place, and time. Objective Labs Result Diagrams: 09/16/19 06:25 09/17/19 08:09 Labs: Laboratory Results - last 24 hr 09/16/19 09/17/19 09/17/19 06:25 00:40 08:09 Sodium 138 Potassium 3.7 Chloride 106 Carbon Dioxide 25 BUN 7 Creatinine 0.67 Estimated GFR > 60.0 BUN/Creatinine Ratio 10.4 Glucose 202 H Calcium 8.4 Magnesium 1.7 Total Bilirubin 0.5 AST 65 H ALT 40 H Alkaline Phosphatase 160 H Lactate Dehydrogenase 768 H C-Reactive Protein 6.9 H Total Protein 7.5 Albumin 3.3 L Globulin 4.2 H Albumin/Globulin Ratio 0.8 L Nasal Screen MRSA (PCR) Negative for mrsa Discharge Plan Discharge Plan Patient Disposition: Home Discharge comment: You were admitted to the hospital with COVID 19 pneumonia. You did not require supplemental oxygen. You should continue to improve. Please stay isolated for at least 7 days after your symptoms resolve completely. You can resume your home medications, I have increased your metformin. Discharge orders & Medications Prescriptions: New metformin 1,000 mg tablet 1,000 mg PO DAILY 90 Days Qty: 90 RF: 0 Continued lisinopril 20 mg Tablet 20 mg PO DAILY RF: 0 Discontinued metformin 500 mg Tablet 500 mg PO DAILY RF: 0 Follow up/Referrals: Brianna Hidalgo MD [Primary Care Provider] - Discharge Health Status Health Concerns: Diabetes COVID-19 Diet/Activity/Treatments Diet: Diet as Tolerated and Carb-consistent/Diabetic Activity: As tolerated Visit Report/Discharge Packet Instructions: Essential Hypertension, DI for Nonalcoholic Fatty Liver Disease, DI for COVID-19 (Suspected or Confirmed ) Visit Report Forms: Patient Portal/API, Stroke Signs & Symptoms Discharge Data Primary Care Provider: Brianna Hidalgo Discharges patient from system. Discharge Date/Time: 09/17/19 12:00 Quality VTE Deep Vein Thrombosis/Pulmonary Embolism Present on Admission: No
--- NOTE | 2019-09-17 11:13 | CM.DPC ---
Addendum entered by Sana Glover R.N. 09/17/19 11:54: CM/Rn heard from [facility] stating that they will be providing patient with [facility] to transport her home. CM/RN then heard from [facility] who stated that patient has been having symptoms for over 2 weeks and will no provide a ambulance for transport. Patients brother dropped patients car keys off and patient has her own car in the parking lot and is wanting to drive herself home. Patients nurse will talk with Dr. Osborn to communicate with her about her transportation plan and see if she is safe to transport herself. CM/RN will follow up with [facility] to let them know the transportation plan once Dr. Osborn okays patient driving home. Sana Glover RN Original Note: DCP continued: EMR reviewed: CM/RN spoke with patients nurse about transportation home issues. Patient sister called and stated that [facility] provide patient transportation home. Cm/RN called the clinic at [phone] and was told they are not currently providing rides. Cm/RN called patients sister back at [phone] and let her know that they are not currently providing rides. Patients sister stated that she will call CM/Rn back because she states she heard from them yesterday and they stated they would give her a ride home. CM/Rn gave patients sister Cm/Rn information and will wait for call back. CM/Rn will in the mean time call medicaid transport to see if patient has transportation benefits and if she does will they transport a COVID + patient. Sana Glover RN
[2019-09-17 12:00] VITALS: BP 125/75; PULSE 94; RESP 20; TEMP 36.6; O2SAT 93
--- NOTE | 2019-09-17 12:12 | PC.NURSE ---
Discharge note: Discharge instructions given to patient, discussed importance of F/U with PMD, s/sx of worsening respiratory symptoms, new medication administration, activity and dier. Emphasized the requirement for self isolation 7 days post symptoms resolving. COVID information obtained. Verbalized understanding of discharge instructions. Home via private vehicle, self.
== END 2019-09-17 12:00 | disposition home or self-care (01) | DRG 177 ==
LOC: ED 16:48 → AC 16:58
PROVIDERS: Family Medicine; Internal Medicine; Admitting Provider Internal Medicine; Emergency Provider Emergency Medicine; PCP Family Medicine; Referring Provider Emergency Medicine; Visit Provider Internal Medicine
DX: U07.1 COVID-19 (principal); J12.89 Other viral pneumonia; Z68.44 Body mass index [BMI] 60.0-69.9, adult; E66.01 Morbid (severe) obesity due to excess calories; G47.33 Obstructive sleep apnea (adult) (pediatric); E11.9 Type 2 diabetes mellitus without complications; I10 Essential (primary) hypertension; D50.9 Iron deficiency anemia, unspecified; Z79.84 Long term (current) use of oral hypoglycemic drugs
CPT/HCPCS: 36415; 71045; 80053; 82550; 82553; 82728; 82962; 83036; 83605; 83615; 83735; 83880; 84145; 84484; 84703; 85025; 85379; 86140; 87633; 87635; 87797; 93005; 94660; 94760; 94762; 99285; J1650

== ENCOUNTER → 2022-07-21 14:45 | Outpatient (CLI) | payer MEDICAID, OTHER, SELFPAY ==
[2019-09-14 18:26] VITALS: BMI 62.8
--- NOTE | 2022-07-21 | DI.RAD.S_ITS ---
PROCEDURE: XR FOOT LT MIN 3V INDICATIONS: swelling of left foot TECHNIQUE: 3 views of the foot were acquired. COMPARISON: None. FINDINGS: Bones: No fractures or dislocations. No suspicious bony lesions. Posterior and plantar calcaneal spurs Soft tissues: Dorsal soft tissue swelling. No lytic or blastic lesions. IMPRESSION: Dorsal soft tissue swelling without fracture or foreign body Moderate calcaneal spurs Approved by: Ever Coffman M.D. on 07/21/2022 at 17:16
== END ==
PROVIDERS: PCP Family Medicine; Referring Provider Family Medicine; Visit Provider Family Medicine
DX: M77.32 Calcaneal spur, left foot (principal); M79.89 Other specified soft tissue disorders
CPT/HCPCS: 73630

== ENCOUNTER 2022-10-22 18:21 | Emergency (ER) | payer MEDICAID, OTHER, SELFPAY ==
[2019-09-14 18:26] VITALS: BMI 62.8
[2022-10-22 18:24] VITALS: BP 214/109; PULSE 106; RESP 16; TEMP 36.7; O2SAT 99; BMI 61.4
[2022-10-22 21:14] VITALS: BP 192/89; PULSE 99; RESP 18; O2SAT 99
--- NOTE | 2022-10-22 21:57 | ED.SKABFB ---
HPI - Skin/Abscess/Foreign Bdy General Chief complaint: Skin/Abscess/Foreign Body Stated complaint: absces on L low side of body need to be drained Time Seen by Provider: 10/22/22 21:57 Source: patient Mode of arrival: Ambulatory Limitations: no limitations History of Present Illness HPI narrative: 37-year-old female with a history of ?boils? is here for evaluation of what she thinks is a abscess under the pannus on her left lower abdomen. She states that it is draining. Has been there for the past several days. No fevers. It is somewhat tender to palpation. Has not tried anything for the symptoms prior to arrival. Related Data Home Medications Medication Instructions Recorded Confirmed lisinopril 20 mg tablet 20 mg PO DAILY 09/14/19 09/14/19 Previous Rx's Medication Instructions Recorded doxycycline hyclate 100 mg tablet 100 mg PO BID 7 days #14 tabs 10/22/22 Allergies Allergy/AdvReac Type Severity Reaction Status Date / Time No Known Drug Allergies Allergy Verified 10/22/22 18:24 Review of Systems Constitutional Constitutional: Reports system reviewed and no additional complaints, except as documented Gastrointestinal Gastrointestinal: Reports system reviewed and no additional complaints, except as documented Integumentary/Breasts Skin/Breast: Reports system reviewed and no additional complaints, except as documented Patient History Medical History Anxiety Diabetes Fatty liver Headache Hypertension Migraines Morbid obesity Family History (Updated 01/25/21 @ 21:50 by Fatmata Masterson) Mother COVID-19 Diabetes mellitus Hypertension Father Diabetes mellitus History of heart disease Hypertension Stroke Brother Hypertension Stroke Social History household members: family Smoking Status: Never smoker Smoking Status: Never smoker alcohol intake frequency: 0-2 drinks per day Substance Use Type: does not use Exam Initial Vital Signs Initial Vital Signs: Vital Signs Temperature 98.0 F 10/22/22 18:24 Pulse Rate 106 H 10/22/22 18:24 Respiratory Rate 16 10/22/22 18:24 Blood Pressure 214/109 H 10/22/22 18:24 Pulse Oximetry 99 10/22/22 18:24 Oxygen Delivery Method Room Air 10/22/22 18:24 GI Other: Draining abscess under left pannus. Skin Other: Patient does have a large pannus with an area redness and induration under the left side of this. There is a central area of ulceration that is draining. There is some minimal surrounding erythema. Course Orders Ordered: Discontinued Medications Doxycycline Hyclate (Doxycycline Hyclate 100 Mg Tablet) 100 mg PO NOW ONE Stop: 10/22/22 21:59 Last Admin: 10/22/22 22:04 Dose: 100 mg Documented By: NANDINI Tramadol HCl (Tramadol 50 Mg Prepack) 1 bottle MISC SEEINSTR ONE Stop: 10/22/22 21:59 Last Admin: 10/22/22 22:04 Dose: 1 bottle Documented By: NANDINI Vital Signs Vital signs: Vital Signs - 8 hr 10/22/22 21:14 Pulse Rate 99 H Respiratory Rate 18 Blood Pressure 192/89 H Pulse Oximetry 99 Oxygen Delivery Method Room Air MDM - Skin/Abscess/Foreign Bdy MDM Narrative Medical decision making narrative: Bedside ultrasound showed no deep abscess requiring incision and drainage. It is draining currently which I suspect is most helpful. There is some surrounding erythema. Plan will be is the patient needs to be on antibiotics. A prescription was prescribed. We discussed care instructions and return precautions. She expressed understanding and agreement. Discharge Plan Departure Patient Disposition: Home Clinical Impression: Abscess Instructions: DI for Skin Abscess Activity Restrictions/Additional Instructions: I would expect drainage for the next several days. You can behave like normal. Take the antibiotics as directed. Return to the emergency department for new or worsening symptoms. Prescriptions: New doxycycline hyclate 100 mg tablet 100 mg PO BID 7 Days Qty: 14 0RF No Action lisinopril 20 mg Tablet 20 mg PO DAILY Referrals: Brianna Hidalgo MD [Primary Care Provider] - Stand Alone Forms: Patient Portal/API
[2022-10-22] MEDS: TRAMADOL 50 MG PREPACK 1 BOTTLE MISC (22:04)
[2022-10-22] MEDS: DOXYCYCLINE HYCLATE 100 MG TABLET PO (22:04)
== END 2022-10-22 22:06 | disposition home or self-care (01) ==
PROVIDERS: Emergency Provider Emergency Medicine; PCP Family Medicine
DX: L02.211 Cutaneous abscess of abdominal wall (principal)
CPT/HCPCS: 99283

== ENCOUNTER 2023-03-31 08:48 | Emergency (ER) | payer MEDICAID, OTHER, SELFPAY ==
[2019-09-14 18:26] VITALS: BMI 62.8
[2023-03-31] VITALS (18 sets, daily range): BP systolic 175–232; BP diastolic 82–129; PULSE 95–115; RESP 16–36; TEMP 36.6–36.9; O2SAT 97–100
[2023-03-31 09:27] LABS: Basophils Absolute Auto 0 /uL (0-100); Basophils Percent Auto 0.5 % (0-2); Eosinophils Absolute Auto 400 /uL (0-450); Hematocrit 22.4 % (36-46); Lymphocytes Absolute Auto 1300 /uL (1100-4500); Lymphocytes Percent Auto 14.1 % (25-40); Mean Corpuscular Hemoglobin 18.3 PG (26-34); Mean Corpuscular Volume 60.9 fL (80-100); Monocytes Absolute Auto 200 /uL (0-900); Monocytes Percent Auto 2.6 % (3-14); Neutrophils Absolute Auto 7200 /uL (1500-7000); Neutrophils Percent Auto 78.8 % (50-75); Platelet Count 342 X10^3/uL (150-400); Red Blood Cell Count 3.69 X10^6/uL (4.0-5.2); Red Cell Distribution Width 19.1 % (11.6-14.8); White Blood Cell Count 9.1 X10^3/uL (4.5-11.0)
[2023-03-31 09:31] LABS: Add Manual Diff / Slide Review SLIDE REVIEW; Hemoglobin 6.7 g/dL (12.0-16.0)
--- NOTE | 2023-03-31 09:41 | ED_ITS ---
HPI - Female Genitourinary General Chief complaint: Shortness of Breath/Dyspnea Stated complaint: might need blood trasnfussion per pcp Time Seen by Provider: 03/31/23 09:12 Source: patient Mode of arrival: Ambulatory History of Present Illness HPI Narrative: Patient here with mother. Sent here by the clinic for anemia. Patient has history of dysfunctional uterine bleeding. Patient states this started 2 years ago in 2021 with heavy menstrual cycles. She is on her cycle now. She states on average 14 days of vaginal bleeding a month. Over the past weeks has become tired fatigued at times short of breath and dizzy. Patient is not on any blood thinners. No prior history of blood transfusions. Has not been placed on any hormone replacement medication. Reviewed with patient risks and benefits and consent for blood transfusion. She does agree. Related Data Home Medications Medication Instructions Recorded Confirmed lisinopril 20 mg tablet 20 mg PO DAILY 09/14/19 09/14/19 Previous Rx's Medication Instructions Recorded lisinopril 20 mg tablet 20 mg PO DAILY #30 tabs 03/31/23 Allergies Allergy/AdvReac Type Severity Reaction Status Date / Time No Known Drug Allergies Allergy Verified 03/31/23 09:18 Review of Systems Review of Systems Narrative: GENERAL: negative chills,Positive fatigue, malaise, negativefever, sweats. HEENT: negative sinus pain, ear pain, sore throat RESPIRATORY: pausedyspnea, negativecough CARDIOVASCULAR: negative chest pain, palpitations GASTROINTESTINAL: negative nausea, vomiting, abdominal pain : negative dysuria, frequency, hematuria, positive vaginal bleeding MUSCULOSKELETAL: negative muscle or bony pain SKIN: negative rash, skin lesions NEUROLOGIC: negative weakness, numbness, positive dizziness ROS Unobtainable: All systems reviewed & are unremarkable except as noted in HPI and below Patient History Medical History Anxiety Headache Morbid obesity Fatty liver Hypertension Migraines Diabetes Family History Mother COVID-19 Diabetes mellitus Hypertension Father Diabetes mellitus History of heart disease Hypertension Stroke Brother Hypertension Stroke alcohol intake frequency: 0-2 drinks per day Substance Use Type: does not use Exam Narrative Exam Narrative: GENERAL: in no distress, not toxic not dyspneic HEAD: Normocephalic. EYES: Pupils equal round patient does have pale conjunctiva ENT: Mucous membranes moist. NECK: Trachea midline. CARDIOVASCULAR: Regular rate and rhythm Patient's supine position. No tachycardia RESPIRATORY: Clear to auscultation. Breath sounds equal bilaterally. No wheezes, rales, or rhonchi. GASTROINTESTINAL: Abdomen soft, non-tender EXTREMITIES: No gross deformities. BACK: No flank tenderness. NEURO: AOx4. clear speech SKIN: Warm and dry PSYCH: Not anxious, is cooperative Initial Vital Signs Initial Vital Signs: Vital Signs Temperature 98.5 F 03/31/23 09:05 Pulse Rate 102 H 03/31/23 09:05 Respiratory Rate 24 03/31/23 09:05 Blood Pressure 196/110 H 03/31/23 09:05 Pulse Oximetry 99 03/31/23 09:05 Oxygen Delivery Method Room Air 03/31/23 09:05 Course Orders Ordered: ED Orders 04/01/23 EKG-12 Lead Routine Discontinued Medications Lisinopril (Lisinopril 20 Mg Tablet) 20 mg PO NOW ONE Stop: 03/31/23 13:00 Last Admin: 03/31/23 13:25 Dose: 20 mg Documented By: NIELS Vital Signs Vital signs: Vital Signs - 8 hr 03/31/23 09:05 03/31/23 09:30 03/31/23 10:00 Temperature 98.5 F Pulse Rate 102 H 99 H 100 H Respiratory Rate 24 30 H 32 H Blood Pressure 196/110 H 188/94 H 180/96 H Pulse Oximetry 99 98 98 Oxygen Delivery Method Room Air Room Air Room Air 03/31/23 10:32 03/31/23 10:33 03/31/23 10:45 Temperature 98.3 F 98.4 F Pulse Rate 97 H 96 H 97 H Respiratory Rate 30 H 30 H 32 H Blood Pressure 191/91 H 191/91 H 188/93 H Pulse Oximetry 98 98 Oxygen Delivery Method Room Air Room Air 03/31/23 10:59 03/31/23 11:35 03/31/23 12:00 Temperature 98.3 F Pulse Rate 97 H 95 H 96 H Respiratory Rate 32 H 22 35 H Blood Pressure 186/92 H 196/99 H Pulse Oximetry 99 100 100 Oxygen Delivery Method Room Air Room Air 03/31/23 12:24 03/31/23 12:24 03/31/23 12:26 Temperature 98.5 F Pulse Rate 115 H 111 H Respiratory Rate 16 Blood Pressure 207/109 H 207/109 H Pulse Oximetry 99 Oxygen Delivery Method 03/31/23 12:28 03/31/23 12:28 03/31/23 12:30 Temperature Pulse Rate 98 H 98 H Respiratory Rate Blood Pressure 232/129 H Pulse Oximetry 97 98 Oxygen Delivery Method 03/31/23 12:31 03/31/23 12:31 03/31/23 13:14 Temperature 98 F Pulse Rate 98 H 97 H Respiratory Rate 20 Blood Pressure 202/112 H 204/103 H Pulse Oximetry 98 Oxygen Delivery Method 03/31/23 13:30 03/31/23 14:48 Temperature Pulse Rate 98 H 98 H Respiratory Rate 26 H 36 H Blood Pressure 195/92 H 179/85 H Pulse Oximetry 99 97 Oxygen Delivery Method Room Air Room Air MDM - Female Genitourinary Lab Data 03/31/23 09:10 03/31/23 09:10 Labs: Lab Results 03/31/23 03/31/23 Range/Units 09:10 09:25 WBC 9.1 (4.5-11.0) X10^3/uL RBC 3.69 L (4.0-5.2) X10^6/uL Hgb 6.7 L* (12.0-16.0) g/dL Hct 22.4 L (36-46) % MCV 60.9 L (80-100) fL MCH 18.3 L (26-34) PG MCHC 30.0 (30-36) % RDW 19.1 H (11.6-14.8) % Plt Count 342 (150-400) X10^3/uL Neut % (Auto) 78.8 H (50-75) % Lymph % (Auto) 14.1 L (25-40) % [place]ack[place]ord % (Auto) 2.6 L (3-14) % Eos % (Auto) 4.0 (2-4) % Baso % (Auto) 0.5 (0-2) % Neut # (Auto) 7200 H (7710-9347) /uL Lymph # (Auto) 1300 (9161-4142) /uL [place] # (Auto) 200 (0-900) /uL Eos # (Auto) 400 (0-450) /uL Baso # (Auto) 0 (0-100) /uL RBC Morphology See below Hypochromasia 1+ H Poikilocytosis 1+ H Anisocytosis 2+ H Microcytosis 2+ H PT 11.9 (9.4-12.5) SECONDS INR 1.0 (0.9-1.3) APTT 31 (25.1-36.5) SECONDS Sodium 136 L (137-145) mmol/L Potassium 3.4 (3.4-5.1) mmol/L Chloride 106 (98-107) mmol/L Carbon Dioxide 22 (22-32) mmol/L BUN 12 (7-17) mg/dL Creatinine 1.29 H (0.52-1.04) mg/dL Estimated GFR 54 L (>60) mL/min BUN/Creatinine Ratio 9.3 (6-22) Glucose 303 H (70-100) mg/dL Calcium 7.4 L (8.4-10.2) mg/dL Total Bilirubin 0.4 (0.2-1.3) mg/dL AST 25 (14-36) IU/L ALT 17 (<35) IU/L Alkaline Phosphatase 152 H (38-126) U/L Total Protein 6.9 (6.3-8.2) g/dL Albumin 3.0 L (3.5-5.0) g/dL Globulin 3.9 (1.7-4.1) g/dL Albumin/Globulin Ratio 0.8 L (1.0-2.8) Serum , Qual Negative (Negative) Chlamy pneumoniae PCR Not detected (Not Detect) Adenovirus (PCR) Not detected (Not Detect) B.parapertussis DNA PCR Not detected (Not Detecte) Coronavirus OC43 (PCR) Not detected (Not Detect) Coronavirus HKU1 (PCR) Not detected (Not Detect) Coronavirus 229E (PCR) Not detected (Not Detect) SARS-CoV-2 (PCR) Not detected (Not Detecte) Coronavirus NL63 (PCR) Not detected (Not Detect) Human Metapneumovir PCR Not detected (Not Detect) Influenza Type A (PCR) Not detected (Not Detect) Influenza Type B (PCR) Not detected (Not Detect) M. 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 Additional endovaginal scanning was necessary due to incomplete visualization of the adnexal and endometrial structures by transabdominal scanning. COMPARISON: None. FINDINGS: This is a limited study due to patient body habitus. Uterus: Uterus is anteverted and normal in size at 8.5 x 5.3 x 4.4 cm. The myometrium is heterogeneous. The endometrium measures 15.3 mm combined thickness. The endometrium has a heterogeneous appearance with multiple microcystic lesions present. No definite vascularity visualized; however this is a limited study given patient body habitus. Ovaries: The ovaries were not visualized. Other: No pathologic free abdominal or pelvic fluid. IMPRESSION: 1. Technically limited study given patient body habitus. 2. Although the endometrium is within normal thickness in a premenopausal female, it has a heterogeneous, microcystic appearance. This finding can be associated with endometrial neoplasm. Consider short interval repeat study during the proliferative phase. Alternatively, endometrial biopsy could be considered. We strive to produce accurate, complete, and clear reports of imaging services. To assist us in improving patient care, this report was composed using standard report templates and voice recognition software. Therefore, it may contain abnormal punctuation, insertions and/or omissions. Occasional wrong-word or sound-alike substitutions may occur. Though we review the report and make efforts to correct it, we do recommend that the report be read carefully in proper context to recognize any text inaccuracies. Dictated by: Tracey Franco M.D. on 03/31/2023 at 12:49 Approved by: Tracey Franco M.D. on 03/31/2023 at 12:[address] [facility] Narrative Medical decision making narrative: Patient here with mother. Sent here by the clinic for anemia. Patient has history of dysfunctional uterine bleeding. Patient states this started 2 years ago in 2021 with heavy menstrual cycles. She is on her cycle now. She states on average 14 days of vaginal bleeding a month. Over the past weeks has become tired fatigued at times short of breath and dizzy. Patient is not on any blood thinners. No prior history of blood transfusions. Has not been placed on any hormone replacement medication. Reviewed with patient risks and benefits and consent for blood transfusion. She does agree. After history and examCBC CMP type and screen transfuse PRBC MDM CC: anemia/weakness Complicating co-morbidities: history of dysfunctional uterine bleeding Data collected from: patient Medical records reviewed: October 03, 2021 hemoglobin 9.8 Differential considered: Includes but not limited to dysfunctional uterine bleed /uterine cancer Exam documented above, pertinent findings include: pale conjunctiva and tachycardia Lab Test results independently reviewed as above. Pertinent findings: WBC 9.1 hemoglobin 6.7 hematocrit 22.4 platelets 342 MCV 60.9 respiratory panel negative O-positive blood Independently reviewed EKG sinus tachycardia rate [address] elevation or depression Imaging: Pelvic ultrasound normal endometrium but can not rule out neoplasm. Consultations: 10:55 a.m.. Spoke with heading and priming operator, Dr. Goddard. Keep patient NPO. Possible D and C today. Continue blood transfusion 11:37 a.m.. Spoke with heading and priming operator, Dr. Gamble, she will come and see patient for evaluation in the ER department. 11:[address] Gamble has seen patient. Patient is on the inner part of her menstrual cycle/bleeding. Is only spotting now. No D&C at this time. No prescriptions or hormone replacement at this time. She would like to see patient in the office next week. The office will call patient to make an appointment. She would like pelvic ultrasound to be done. This will not interchange agent for today. Patient to be discharged home after transfusion. Treatments: 2 units PRBC Re-evaluations: 11:00 a.m.. Spoke with patient. She does understand may need D and C today. 3:27 p.m.. Patient has complete 2 units of packed red blood cells. Blood pressure has improved with lisinopril. Return precautions reviewed with her. She will follow up with primary care next week as well as well as OBGYN. She will have her blood pressure rechecked as well. Prescription for lisinopril will be provided. Not toxic at discharge. Return precautions reviewed. She desires discharge home.Blood pressure 179/85. This is acceptable as patient has not hadBlood pressure control for many months. Appropriate for slow reduction in blood pressure. 1:00 p.m.Blood pressure noted. She states she does have history of high blood pressure but has not started anything for it. She does agree for lisinopril Discussion: appropriate for discharge home. Blood pressure has improved. Patient has never been hypotensive during course of stay. Patient denies any increase in vaginal bleeding. Patient feeling better after blood transfusion. Patient was evaluated by heading and priming operator services and has follow up next week. Return precautions reviewed with her. She desires Discharge home Diagnosis: Dysfunctional uterine bleeding /anemia Discharge Plan Departure Patient Disposition: Home Clinical Impression: Abnormal uterine bleeding (AUB), Anemia due to blood loss Instructions: Anemia, DI for High Blood Pressure, DI for Abnormal Uterine Bleeding Activity Restrictions/Additional Instructions: you have been given blood transfusion. Dr. Gamble, motors assembler has seen you here. The office will call you for appointment with her next week. No new prescriptions are indicated from OBGYN. Return if worse if any questions or concerns.Blood pressure medication has been started and will continue daily with prescription. Please see your family doctor for re-evaluation of your blood pressure next week. Prescriptions: New lisinopril 20 mg tablet 20 mg PO DAILY Qty: 30 0RF No Action lisinopril 20 mg Tablet 20 mg PO DAILY Referrals: Brianna Hidalgo MD [Primary Care Provider] - Stand Alone Forms: Patient Portal/API, Work Release Note
[2023-03-31 09:42] LABS: Prothrombin Time 11.9 SECONDS (9.4-12.5)
[2023-03-31 09:43] LABS: Pregnancy Test Serum,Qual Negative (Negative)
[2023-03-31 09:44] LABS: Alanine Aminotransferase 17 IU/L (<35); Albumin Globulin Ratio 0.8 (1.0-2.8); Alkaline Phosphatase 152 U/L (38-126); Aspartate Aminotransferase 25 IU/L (14-36); BUN Creatinine Ratio 9.3 (6-22); Bilirubin Total 0.4 mg/dL (0.2-1.3); Blood Urea Nitrogen 12 mg/dL (7-17); Calcium 7.4 mg/dL (8.4-10.2); Carbon Dioxide 22 mmol/L (22-32); Chloride 106 mmol/L (98-107); Estimated Glomerular Filt Rate 54 mL/min (>60); Globulin 3.9 g/dL (1.7-4.1); Glucose 303 mg/dL (70-100); HEMOLYSIS < 15 (0-50); PTT Partial Thromboplastin Tim 31 SECONDS (25.1-36.5); Potassium 3.4 mmol/L (3.4-5.1); Sodium 136 mmol/L (137-145); Total Protein 6.9 g/dL (6.3-8.2)
[2023-03-31 09:50] LABS: Anisocytosis 2+; Microcytosis 2+
[2023-03-31 09:51] LABS: Hypochromasia 1+; Poikilocytosis 1+
[2023-03-31 10:22] LABS: Adenovirus Not Detected (Not Detect); B. parapertussis Not Detected (Not Detecte); Bordetella pertussis Not Detected (Not Detect); Chlamydophila pneumoniae Not Detected (Not Detect); Coronavirus 229E Not Detected (Not Detect); Coronavirus HKU1 Not Detected (Not Detect); Coronavirus NL 63 Not Detected (Not Detect); Coronavirus OC43 Not Detected (Not Detect); Human Metapneumovirus Not Detected (Not Detect); Human Rhinovirus/Enterovirus Not Detected (Not Detect); Influenza A Not Detected (Not Detect); Influenza B Not Detected (Not Detect); Mycoplasma pneumoniae Not Detected (Not Detect); Parainfluenza Virus 1 Not Detected (Not Detect); Parainfluenza Virus 2 Not Detected (Not Detect); Parainfluenza Virus 3 Not Detected (Not Detect); Parainfluenza Virus 4 Not Detected (Not Detect); Respiratory Syncytial Virus Not Detected (Not Detect); SARS- CoV-2 Not Detected (Not Detecte)
--- NOTE | 2023-03-31 11:49 | DI.US.S_ITS ---
PROCEDURE: US PELVIC COMPLETE INDICATIONS: PAIN TECHNIQUE: Real-time scanning was performed of the pelvic organs, with image documentation. Additional endovaginal scanning was necessary due to incomplete visualization of the adnexal and endometrial structures by transabdominal scanning. COMPARISON: None. FINDINGS: This is a limited study due to patient body habitus. Uterus: Uterus is anteverted and normal in size at 8.5 x 5.3 x 4.4 cm. The myometrium is heterogeneous. The endometrium measures 15.3 mm combined thickness. The endometrium has a heterogeneous appearance with multiple microcystic lesions present. No definite vascularity visualized; however this is a limited study given patient body habitus. Ovaries: The ovaries were not visualized. Other: No pathologic free abdominal or pelvic fluid. IMPRESSION: 1. Technically limited study given patient body habitus. 2. Although the endometrium is within normal thickness in a premenopausal female, it has a heterogeneous, microcystic appearance. This finding can be associated with endometrial neoplasm. Consider short interval repeat study during the proliferative phase. Alternatively, endometrial biopsy could be considered. We strive to produce accurate, complete, and clear reports of imaging services. To assist us in improving patient care, this report was composed using standard report templates and voice recognition software. Therefore, it may contain abnormal punctuation, insertions and/or omissions. Occasional wrong-word or sound-alike substitutions may occur. Though we review the report and make efforts to correct it, we do recommend that the report be read carefully in proper context to recognize any text inaccuracies. Dictated by: Tracey Franco M.D. on 03/31/2023 at 12:49 Approved by: Tracey Franco M.D. on 03/31/2023 at 12:53
--- NOTE | 2023-03-31 11:54 | P.CONS_ITS ---
History of Present Illness Consult details Date Patient Seen: 03/31/23 Time Patient Seen: 11:45 Chief complaint: might need blood trasnfussion per pcp Reason for consult: heavy vaginal bleeding Requesting provider: Juan Daniel Almeida Narrative: 38yo F presented to the ER today for heavy vaginal bleeding. She has been having 12-13 days of heavy vaginal bleeding every month for the last 2 years. She has not been using anything for cycle regulation. She reports that on her heaviest days, she is changing a super tampon every 2 hours. She was also feeling dizzy and lightheaded today, which prompted her ER visit. She states that today she is on the end of a 12-13 day cycle, and today she is only having vaginal spotting. Meds Home Medications and Allergies Home Medications Medication Instructions Recorded Confirmed Type lisinopril 20 mg tablet 20 mg PO DAILY 09/14/19 09/14/19 History lisinopril 20 mg tablet 20 mg PO DAILY #30 tabs 03/31/23 Rx Allergies Allergy/AdvReac Type Severity Reaction Status Date / Time No Known Drug Allergies Allergy Verified 03/31/23 09:18 Review of Systems Review of Systems ROS: Yes All systems reviewed with the patient and are negative except as otherwise documented Exam Vital Signs (past 8 hours): - 03/31/23 09:05 03/31/23 09:30 03/31/23 10:00 Temperature 98.5 F Pulse Rate 102 H 99 H 100 H Respiratory Rate 24 30 H 32 H Blood Pressure 196/110 H 188/94 H 180/96 H Pulse Oximetry 99 98 98 Oxygen Delivery Method Room Air Room Air Room Air 03/31/23 10:32 03/31/23 10:33 03/31/23 10:45 Temperature 98.3 F 98.4 F Pulse Rate 97 H 96 H 97 H Respiratory Rate 30 H 30 H 32 H Blood Pressure 191/91 H 191/91 H 188/93 H Pulse Oximetry 98 98 Oxygen Delivery Method Room Air Room Air 03/31/23 10:59 03/31/23 11:35 Temperature 98.3 F Pulse Rate 97 H 95 H Respiratory Rate 32 H 22 Blood Pressure 186/92 H 196/99 H Pulse Oximetry 99 100 Oxygen Delivery Method Room Air Room Air Oxygen Delivery Method Room Air Const General: No acute distress Nutritional Appearance: obese Other: Pale appearing Resp Effort & Inspection: normal respiratory effort and able to speak in complete sentences Other: Deferred pelvic exam Psych Mood: congruent mood Affect: normal affect Objective Imaging US - abdomen: Radiologist's impression: FINDINGS: This is a limited study due to patient body habitus. Uterus: Uterus is anteverted and normal in size at 8.5 x 5.3 x 4.4 cm. The myometrium is heterogeneous. The endometrium measures 15.3 mm combined thickness. The endometrium has a heterogeneous appearance with multiple microcystic lesions present. No definite vascularity visualized; however this is a limited study given patient body habitus. Ovaries: The ovaries were not visualized. Other: No pathologic free abdominal or pelvic fluid. IMPRESSION: 1. Technically limited study given patient body habitus. 2. Although the endometrium is within normal thickness in a premenopausal female, it has a heterogeneous, microcystic appearance. This finding can be associated with endometrial neoplasm. Consider short interval repeat study during the proliferative phase. Alternatively, endometrial biopsy could be considered. We strive to produce accurate, complete, and clear reports of imaging services. To assist us in improving patient care, this report was composed using standard report templates and voice recognition software. Therefore, it may contain abnormal punctuation, insertions and/or omissions. Occasional wrong-word or sound-alike substitutions may occur. Though we review the report and make efforts to correct it, we do recommend that the report be read carefully in proper context to recognize any text inaccuracies. Dictated by: Tracey Franco M.D. on 03/31/2023 at 12:49 Approved by: Tracey Franco M.D. on 03/31/2023 at 12:53 Labs 03/31/23 09:10 03/31/23 09:10 Labs: Laboratory Results - last 24 hr 03/31/23 03/31/23 09:10 09:25 WBC 9.1 RBC 3.69 L Hgb 6.7 L* Hct 22.4 L MCV 60.9 L MCH 18.3 L MCHC 30.0 RDW 19.1 H Plt Count 342 Neut % (Auto) 78.8 H Lymph % (Auto) 14.1 L Elk % (Auto) 2.6 L Eos % (Auto) 4.0 Baso % (Auto) 0.5 Neut # (Auto) 7200 H Lymph # (Auto) 1300 Elk # (Auto) 200 Eos # (Auto) 400 Baso # (Auto) 0 RBC Morphology See below Hypochromasia 1+ H Poikilocytosis 1+ H Anisocytosis 2+ H Microcytosis 2+ H PT 11.9 INR 1.0 APTT 31 Sodium 136 L Potassium 3.4 Chloride 106 Carbon Dioxide 22 BUN 12 Creatinine 1.29 H Estimated GFR 54 L BUN/Creatinine Ratio 9.3 Glucose 303 H Calcium 7.4 L Total Bilirubin 0.4 AST 25 ALT 17 Alkaline Phosphatase 152 H Total Protein 6.9 Albumin 3.0 L Globulin 3.9 Albumin/Globulin Ratio 0.8 L Serum , Qual Negative Chlamy pneumoniae PCR Not detected Adenovirus (PCR) Not detected B.parapertussis DNA PCR Not detected Coronavirus OC43 (PCR) Not detected Coronavirus HKU1 (PCR) Not detected Coronavirus 229E (PCR) Not detected SARS-CoV-2 (PCR) Not detected Coronavirus NL63 (PCR) Not detected Human Metapneumovir PCR Not detected Influenza Type A (PCR) Not detected Influenza Type B (PCR) Not detected M. pneumoniae (PCR) Not detected Parainfluenza 1 (PCR) Not detected Parainfluenza 2 (PCR) Not detected Parainfluenza 3 (PCR) Not detected Parainfluenza 4 (PCR) Not detected RSV (PCR) Not detected Entero/Rhino (PCR) Not detected Blood Type O Positive Antibody Screen Negative Crossmatch See Detail [facility] Medical History Anxiety Headache Morbid obesity Fatty liver Hypertension Migraines Diabetes Family History Mother COVID-19 Diabetes mellitus Hypertension Father Diabetes mellitus History of heart disease Hypertension Stroke Brother Hypertension Stroke Social History household members: family Tobacco & Substance Use Smoking Status: Former smoker Assessment & Plan Assessment and plan (1) Abnormal uterine bleeding (AUB): Status: Acute (2) Anemia due to blood loss: Status: Acute Assessment & Plan narrative: 38-year-old female with anemia due to blood loss during her menstrual cycles. Her vaginal bleeding today is light, thus I do not feel that emergent surgery is indicated today. Recommend completion of blood transfusion of 2 units in the ER today. Since her bleeding is light today, will hold off on starting hormonal treatment at this time. -will have patient follow up in clinic to discuss further workup and treatment Time Spent With Patient Time with patient: less than 30 minutes
--- NOTE | 2023-03-31 12:06 | PC.NURSE ---
1030: Patient given education of receiving blood products and has no further questions. Pt signed blood consent form. Pt is A&Ox4, skin is pale and warm. Respirations are unlabored and pt has equal chest rise. Pt denies CP, SOB. 1100: 1030: Pt is A&Ox4, skin is pale and warm. Respirations are unlabored and pt has equal chest rise. Pt denies CP, SOB.
[2023-03-31] MEDS: lisinopriL 20 MG TABLET PO (13:25)
== END 2023-03-31 15:54 | disposition home or self-care (01) ==
PROVIDERS: Emergency Provider Emergency Medicine; PCP Family Medicine
DX: N93.9 Abnormal uterine and vaginal bleeding, unspecified (principal); D50.0 Iron deficiency anemia secondary to blood loss (chronic); R00.0 Tachycardia, unspecified
CPT/HCPCS: 36415; 36430; 76830; 76856; 80053; 84703; 85025; 85610; 85730; 86850; 86900; 86901; 87633; 93005; 93010; 99282; 99284; P9016

== ENCOUNTER 2023-05-13 09:12 | Day surgery (SDC) | payer MEDICAID, OTHER, SELFPAY ==
[2019-09-14 18:26] VITALS: BMI 62.8
[2023-05-10 14:43] VITALS: BMI 63.8
[2023-05-13] VITALS (8 sets, daily range): BP systolic 125–159; BP diastolic 76–102; PULSE 104–118; RESP 18–32; TEMP 36.2–36.9; O2SAT 20–98; BMI 63.8
--- NOTE | 2023-05-13 | PATH_ITS ---
[facility] Accession Number: [id number] No. of containers..01 Tissue . 01 Material submitted: . endometrium - ENDOMETRIAL CURETTINGS . 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 Background of extensive squamous metaplasia, endometrial intraepithelial neoplasia (EIN), and fragments of benign polyp with exogenous hormone effect. MRV 05/20/2023 1233 Local . 01 Comment: As part of ongoing quality compliance coordinator, this case is also reviewed by Drs. Alissa Lora and Lori Hernandez, who concur with the given interpretation. . Dr. Jenise Grande discussed results with Dr. Paris' nurse, Alexia, on 05/20/2023 at approximately 9:38 a.m. . 01 Electronically signed: . Jenise Grande MD, Pathologist NPI- [id number] . 01 Gross description: . ENDOMETRIAL CURETTINGS: Received in formalin are minute fragments of mucoid and hemorrhagic material measuring 2.0 x 2.0 x 0.4 cm in aggregate. Submitted in toto in 1 cassette. /CATERINA 05/16/2023 1810 Local . 01 Microscopic: . An immunohistochemistry panel is performed to further evaluate the cells of interest. The control stains show appropriate reactivity. . RESULTS: AYSE: Positive. WT1: Negative. Napsin A: Predominantly negative. CK20: Negative. PAX8: Positive. P16: Negative for uniform, band-like staining. P53: Wild type pattern. ER: Positive. MT: Positive. . The neoplasm is positive for AYSE, PAX8, ER, and MT with a wild type p53 pattern. The neoplasm is negative for WT1, Napsin A, P16, and CK20. These findings are most consistent with an carcinoma of endometrial origin and mitigate against clear cell carcinoma and serous carcinoma as well as carcinoma of ovarian, colorectal, and endocervical origin. . * This test was developed and its performance characteristics determined by [facility]. It has not been cleared or approved by the U.S. Food and Drug Administration. The FDA has determined that such clearance or approval is not necessary. This test is used for clinical purposes. It should not be regarded as investigational or for research. . 01 Pathologist provided ICD-10: C54.1 . 01 CPT . 602298, P68511, F50105 Specimen Comment: A courtesy copy of this report has been sent to [facility] Performed at: [facility] [address] [place] [address], [place], [place] [id number] MD Stan Barker MD Phone: [phone]
--- NOTE | 2023-05-13 09:46 | PM.PREOP ---
Pre-operative Note Interval Note History & Physical reviewed/Exam performed by Physician: Yes Changes to H&P: No H&P completed within 30 days and has changed as indicated here:: see H&P from 05/03/23
[2023-05-13] MEDS: FAMOTIDINE 20 MG/2 ML VIAL IV (09:47)
[2023-05-13] MEDS: ACETAMINOPHEN 325 MG TABLET 975 MG PO (09:47)
[2023-05-13] MEDS: LACTATED RINGERS 1,000 ML 42 ML IV ×2 (09:48→10:50)
[2023-05-13] MEDS: SCOPOLAMINE 1 PATCH TOP (09:48)
[2023-05-13 09:58] LABS: Hematocrit 32.2 % (36-46); Mean Corpuscular HGB Conc 31.1 % (30-36); Mean Corpuscular Hemoglobin 21.2 PG (26-34); Mean Corpuscular Volume 68.1 fL (80-100); Platelet Count 351 X10^3/uL (150-400); Red Blood Cell Count 4.72 X10^6/uL (4.0-5.2); Red Cell Distribution Width 23.6 % (11.6-14.8); White Blood Cell Count 10.3 X10^3/uL (4.5-11.0)
--- NOTE | 2023-05-13 10:37 | SUR.OPER ---
Lithotomy on padded OR bed, head on pillow, arms secured on padded arm boards at <90 degrees abduction. Legs secured in padded yellow fins stirrups.
--- NOTE | 2023-05-13 10:51 | PM.OP.1 ---
Operative Date/Time/Diagnoses Date of procedure: 05/13/23 Time of procedure: 10:15 Pre-op diagnosis: Endometrial intraepithelial neoplasia Post-op diagnosis: same Procedure & Clinicians Procedure: Diagnostic hysteroscopy Dilation and curettage Same procedure as scheduled: Yes Indications: 38yo F with AUB and EIN, with prior biopsy results that couldn't rule-out endometrial carcinoma, thus she was counseled and consented for the above procedures. Surgeon: Alissa Paris Click Yes if Unassisted: Yes Anesthesia Type: General Operative Notes Findings: Thickened endometrial tissue, with a suspicious 1-2 cm nodule at the posterior fundal region. Mirena IUD in place. Specimen(s): other (Endometrial curettings) Estimated Blood Loss (mL): 10 Blood products transfused: none Procedure in detail: The risks, benefits, indications and alternatives of the procedure were reviewed with the patient and informed consent was obtained. The pt was taken to the operating room where general anesthesia was obtained without difficulty. The pt was then placed in the low lithotomy position using gel-padded Javier stirrups. Sequential compression devices were placed bilaterally for VTE prophylaxis. The pt was then prepped and draped in the sterile fashion. A sterile speculum was placed in the patient?s vagina and the cervix was visualized. A single tooth tenaculum was used to grasp the anterior lip of the cervix. The operative hysteroscope was first primed and pressure set. The operative hysteroscope was then advanced through the endocervical canal under direct visualization. The uterus was distended with warm saline, and notable for the above findings. The Myosure Lite was then inserted into the operative hysteroscope. Global endometrial sampling was then performed. The operative hysteroscope was then removed under direct visualization. Tissue obtained was sent to pathology for review. The Mirena IUD was left in place throughout the procedure. The single tooth tenaculum was removed from the anterior lip of the cervix. The tenaculum site was noted to be hemostatic after direct pressure was applied. All instruments were then removed from the patient?s vagina. Hysteroscopic fluid deficit was 220cc of normal saline. The patient tolerated the procedure well. At the completion of the case the sponge and needle counts were correct x 2. The patient was taken to the PACU in stable condition. Complications: none Post-operative Condition: stable Disposition: PACU Plan for aftercare: Discharge to home once patient is meeting all discharge criteria.
[2023-05-13] MEDS: ALBUTEROL 2.5 MG/3 ML NEB (ADULT) INH (11:28)
[2023-05-13] MEDS: hydrOXYzine 50 MG/ML INJ 25 MG IM (11:46)
[2023-05-13] MEDS: KETOROLAC 30 MG/ML VIAL IV (11:47)
[2023-05-13] MEDS: OXYCODONE IR 5 MG TABLET PO (11:48)
== END 2023-05-13 12:30 | disposition home or self-care (01) ==
PROVIDERS: Nurse Anesthetist, Certified Registered; PCP Family Medicine; Referring Provider Student in an Organized Health Care Education/Training Program; Visit Provider Student in an Organized Health Care Education/Training Program
PROC: 0UDB8ZZ Extraction of Endometrium, Via Natural or Artificial Opening Endoscopic (ICD-10-PCS; CPT 58558; principal; 2023-05-13 10:30)
DX: C54.1 Malignant neoplasm of endometrium (principal); N84.0 Polyp of corpus uteri
CPT/HCPCS: 58558; 36415; 82962; 85027; J1100; J1885; J2250; J2405; J2704; J3010; J3410; J3490; J7613

== ENCOUNTER → 2023-08-11 07:58 | Outpatient (CLI) | payer MEDICAID, OTHER, SELFPAY ==
[2019-09-14 18:26] VITALS: BMI 62.8
--- NOTE | 2023-08-11 | DI.ECHO.S_ITS ---
[facility] : : [address] 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 2) MIldly enlarged right ventricle with low normal function. 3) No significant valvular abnormalities. 4) No prior Echo available for comparison. Procedure: A two-dimensional transthoracic echocardiogram with color flow and Doppler was performed. The study quality was technically adequate. There is no prior echocardiogram noted for this patient. The patient was in sinus rhythm with heart rates between 86-94 bpm during the exam. Left Ventricle: The left ventricle is normal in size. There is mild concentric left ventricular hypertrophy. The ejection fraction is estimated to be 55-60%. Left ventricular systolic function appears normal without focal wall motion abnormalities. Right Ventricle: The right ventricle is mildly dilated. Right ventricular systolic function is at the lower limits of normal. Atria: The left atrial size is normal. Right atrial size is normal. There is no Doppler evidence for an interatrial shunt. Mitral Valve: The mitral valve is normal in structure and function. There is no mitral regurgitation noted. Aortic Valve: The aortic valve is trileaflet. The aortic valve opens well. There is no aortic valve stenosis. No aortic regurgitation is present. Tricuspid Valve: The tricuspid valve is normal in structure and function. There is trace tricuspid regurgitation. Pulmonary artery pressures cannot be estimated because of the lack of a measurable TR jet velocity. Pulmonic Valve: The pulmonic valve leaflets are thin and pliable; valve motion is normal. There is mild pulmonic regurgitation. Great Vessels: The aortic root is normal size. The dimensions of the ascending aorta are normal. The IVC is of normal diameter and collapses greater than 50% with a sniff. This suggests a low right atrial pressure of 3 mm Hg. Pericardium/ Pleura There is no pericardial effusion. There is no pleural effusion. MMode/2D Measurements & Calculations LVIDd: 4.8 cm LVOT diam: 2.0 cm LVIDs: 3.4 cm Ao root diam: 3.0 cm FS: 30.0 % asc Aorta Diam: 3.3 cm IVSd: 1.3 cm Ao Arch Diam (Prox Trans): 2.8 cm LVPWd: 1.1 cm LV fowler. diameter/BSA (cm/m^2): 2.0 LV sys. diameter/BSA (cm/m^2): 1.4 LA A2 area: 18.8 cm2 RA long axis: 5.3 cm LA A4 area: 16.4 cm2 RA area: 16.4 cm2 LA length (vol): 5.1 cm RA vol: 43.4 ml LA vol: 51.5 ml RA : 17.7 ml/m2 LA vol index: 21.0 ml/m2 IVC diam: 1.4 cm RVD1 (basal): 4.3 cm TAPSE: 1.8 cm Doppler Measurements & Calculations Ao V2 max: 160.2 cm/sec LVOT Max Juan Carlos: 108.5 cm/sec Ao V2 mean: 107.4 cm/sec LV V1 max P.7 mmHg Ao max P.3 mmHg LV V1 VTI: 18.3 cm Ao mean P.2 mmHg ALFREDO(I,D): 2.5 cm2 Ao V2 VTI: 23.0 cm ALFREDO(V,D): 2.1 cm2 sev ratio: 0.80 ALFREDO indexed to BSA (cm^2/m^2): 1.0 MV E max juan carlos: 59.2 cm/sec PA V2 max: 140.0 cm/sec MV A max juan carlos: 87.1 cm/sec PA V2 mean: 97.3 cm/sec MV E/A: 0.68 PA mean P.2 mmHg Med Peak E' Juan Carlos: 4.5 cm/sec PA pr(Accel): 31.0 mmHg E/E' med: 13.1 Lat Peak E' Juan Carlos: 7.0 cm/sec E/E' lat: 8.5 E/e' average: 10.8 MV dec time: 0.24 sec SV([facility]): 58.0 ml Reading Physician:11:49 AM
== END ==
PROVIDERS: PCP Family Medicine; Referring Provider Family Medicine; Visit Provider Family Medicine
DX: I37.1 Nonrheumatic pulmonary valve insufficiency (principal); E11.9 Type 2 diabetes mellitus without complications
CPT/HCPCS: 93306

== ENCOUNTER → 2023-10-11 15:22 | Outpatient (CLI) | payer MEDICAID, OTHER, SELFPAY ==
[2019-09-14 18:26] VITALS: BMI 62.8
--- NOTE | 2023-10-11 15:24 | DI.MRI.S_ITS ---
PROCEDURE: MR HEAD/BRAIN WO CON INDICATIONS: DOUBLE VISION TECHNIQUE: Noncontrast axial T1 spin echo, axial T2 fast spin echo, sagittal and axial FLAIR, coronal T2 fast spin echo, axial gradient echo, axial diffusion and ADC through the brain. COMPARISON: None. FINDINGS: Image quality: Excellent. CSF Spaces: Basal cisterns are patent. No extra-axial fluid collections. Ventricles are normal in size and shape. Brain: No intracranial masses or hemorrhage. Miller/white matter interface is normal. Brainstem appears normal. Diffusion-weighted images demonstrate no acute infarct. No chronic ischemic insults. Normal intravascular flow voids are present. Skull and face: Calvarium has normal marrow signal. Orbits appear normal. Sinuses: Sinuses and mastoids are clear. IMPRESSION: Unremarkable MRI of the brain Approved by: Ever Coffman M.D. on 10/11/2023 at 17:27
== END ==
LOC: MRI 15:23
PROVIDERS: PCP Family Medicine; Referring Provider Family Medicine; Visit Provider Family Medicine
DX: H53.2 Diplopia (principal)
CPT/HCPCS: 70551

== ENCOUNTER → 2023-11-03 20:26 | Outpatient (CLI) | payer MEDICAID, OTHER, SELFPAY ==
[2019-09-14 18:26] VITALS: BMI 62.8
--- NOTE | 2023-11-03 21:19 | DI.RAD.S_ITS ---
PROCEDURE: XR HIP W PEL IF DONE LT 2V INDICATIONS: LEFT HIP PAIN TECHNIQUE: AP pelvis with frontal oblique view of the left hip. COMPARISON: None. FINDINGS / IMPRESSION: Mild degenerative changes of the bilateral hips with joint space narrowing and osteophytes. Mild degenerative changes lower lumbar spine L4-5 and L5-S1. No radiographic evidence of displaced fracture, dislocation or high attenuation soft tissue foreign body. If symptoms persist or worsen, or there is high clinical suspicion of acute abnormality, MRI could be performed. Dictated by: Otto Nava M.D. on 11/04/2023 at 13:00 Approved by: Otto Nava M.D. on 11/04/2023 at 13:03
--- NOTE | 2023-11-03 21:19 | DI.RAD.S_ITS ---
PROCEDURE: XR KNEE RT 3V INDICATIONS: RIGHT KNEE PAIN TECHNIQUE: 3 views of the knee were acquired. COMPARISON: None. FINDINGS: Weightbearing AP image demonstrates mild varus angulation of the right knee. Severe degenerate changes of the right knee are noted with severe medial compartment joint space narrowing and osteophytes and moderate degenerative changes in the patellofemoral and lateral compartments. No radiographic evidence of fracture or dislocation or high attenuation soft tissue foreign body. No joint effusion. IMPRESSION: Mild varus angulation of the right knee. Severe medial compartment joint space narrowing and osteophytes and moderate degenerative changes in the patellofemoral and lateral compartments. If symptoms persist or worsen, or there is high clinical suspicion of acute abnormality, MRI could be performed. Dictated by: Otto Nvaa M.D. on 11/04/2023 at 11:34 Approved by: Otto Nava M.D. on 11/04/2023 at 11:38
--- NOTE | 2023-11-03 21:20 | DI.RAD.S_ITS ---
PROCEDURE: XR KNEE LT 3V INDICATIONS: LEFT KNEE PAIN TECHNIQUE: 3 views of the knee were acquired. COMPARISON: None. FINDINGS: [id number] degenerative changes with joint space narrowing and osteophytes in the medial, greater than lateral and patellofemoral compartments with joint space narrowing and osteophytes. No radiographic evidence of acute fracture, dislocation, joint effusion, or high attenuation soft tissue foreign body. IMPRESSION: Moderate severe degenerate changes as discussed above. Dictated by: Otto Nava M.D. on 11/04/2023 at 10:57 Approved by: Otto Nava M.D. on 11/04/2023 at 11:12
== END ==
LOC: DI 20:30
PROVIDERS: PCP Family Medicine; Referring Provider Family Medicine; Visit Provider Family Medicine
DX: M47.816 Spondylosis without myelopathy or radiculopathy, lumbar region (principal); M47.817 Spondylosis without myelopathy or radiculopathy, lumbosacral region; M25.552 Pain in left hip; M25.561 Pain in right knee; M25.562 Pain in left knee
CPT/HCPCS: 73502; 73560; 73562

== ENCOUNTER 2023-11-16 10:19 | Emergency (ER) | payer MEDICAID, OTHER, SELFPAY ==
[2019-09-14 18:26] VITALS: BMI 62.8
[2023-11-16] VITALS (136 sets, daily range): BP systolic 107–194; BP diastolic 53–97; PULSE 68–127; RESP 2–39; TEMP 35.4–36.9; O2SAT 87–100; BMI 53.2
--- NOTE | 2023-11-16 10:12 | ED.AMS ---
HPI - Altered Mental Status <Emanuel Harris DO - Last Filed: 11/17/23 07:08> General Chief Complaint: Toxicology Problem Stated Complaint: Polypharm, intentional OD, intubated Time Seen by Provider: 11/16/23 10:19 History of Present Illness HPI narrative: Patient is a 38-year-old female brought into the ED via ambulance intubated for possible polypharmacy suicidal attempt. Patient apparently called family stating that she was going to ?handful of pills to kill herself at the scene medics arrived patient was not responding to painful stimuli was apneic therefore intubated. Patient was given a total of 3 mg Narcan without improvement. Patient was given ketamine prior to intubation as well as fentanyl. At time of initial evaluation patient intubated equal breath sounds but not responding to any pain. Pupils do appear dilated. Additional rest HPI limited secondary to patient's severity of symptoms Related Data Home Medications Medication Instructions Recorded Confirmed dapagliflozin propanediol 10 mg 10 mg PO DAILY 11/16/23 11/16/23 tablet hydrochlorothiazide 25 mg tablet 25 mg PO DAILY 11/16/23 11/16/23 losartan 100 mg tablet 100 mg PO DAILY 11/16/23 11/16/23 metformin 500 mg tablet,extended 250 mg PO QPM 11/16/23 11/16/23 release 24 hr metoprolol succinate 25 mg 25 mg PO DAILY 11/16/23 11/16/23 tablet,extended release 24 hr pyridostigmine bromide 60 mg tablet 60 mg PO TID 11/16/23 11/16/23 Allergies Allergy/AdvReac Type Severity Reaction Status Date / Time No Known Drug Allergies Allergy Verified 05/03/23 09:37 Review of Systems <Emanuel Harris DO - Last Filed: 11/17/23 07:08> Review of Systems ROS Unobtainable: Unobtainable due to mental status/LOC Patient History <Emanuel Harris DO - Last Filed: 11/17/23 07:08> Medical History (Updated 11/16/23 @ 11:09 by Emanuel Harris DO) Sleep apnea Endometrial intraepithelial neoplasia (EIN) Anxiety Headache Morbid obesity Fatty liver Hypertension Migraines Diabetes Surgical History (Updated 05/03/23 @ 10:27 by Alissa Paris DO) Previous section (~2013) Family History Mother COVID-19 Diabetes mellitus Hypertension Father Diabetes mellitus History of heart disease Hypertension Stroke Brother Hypertension Stroke Social History household members: family Smoking Status: Former smoker substance use type: does not use Exam <Emanuel Harris DO - Last Filed: 11/17/23 07:08> Narrative Exam Narrative: Patient not responding to any painful stimuli, intubated equal breath sounds bilaterally, pupils are round and reactive, no overlying erythema ecchymosis no gross deformities noted. Initial Vital Signs Initial Vital Signs: Vital Signs Pulse Rate 123 H 11/16/23 10:35 Respiratory Rate 30 H 11/16/23 10:35 Blood Pressure 193/91 H 11/16/23 10:35 Pulse Oximetry 93 11/16/23 10:35 Oxygen Delivery Method Mechanical Ventilation 11/16/23 10:35 <Shanice Ferreira MD - Last Filed: 11/16/23 21:40> Initial Vital Signs Initial Vital Signs: Vital Signs Pulse Rate 123 H 11/16/23 10:35 Respiratory Rate 30 H 11/16/23 10:35 Blood Pressure 193/91 H 11/16/23 10:35 Pulse Oximetry 93 11/16/23 10:35 Oxygen Delivery Method Mechanical Ventilation 11/16/23 10:35 Course <Emanuel Harris DO - Last Filed: 11/17/23 07:08> Orders Ordered: Discontinued Medications Fentanyl (Fentanyl 100 Mcg/2 Ml Inj) 100 mcg IV NOW ONE Stop: 11/16/23 12:21 Last Admin: 11/16/23 12:26 Dose: 100 mcg Documented By: ARTEMIO Sodium Chloride (Normal Saline 0.9%) 1,000 mls @ 150 mls/hr IV CONT CLARA Last Infusion: 11/16/23 15:30 Dose: 0 mls/hr Documented By: Admin: 11/16/23 11:05 Dose: 150 mls/hr Documented By: ALONA Propofol (Propofol) 1,000 mg in 100 mls @ 4.627 mls/hr IV TITRATE CLARA; Protocol Last Titration: 11/16/23 15:17 Dose: Infused Documented By: Titration: 11/16/23 14:58 Dose: 45 mcg/kg/min, 41.64 mls/hr Documented By: Titration: 11/16/23 14:02 Dose: 40 mcg/kg/min, 37.013 mls/hr Documented By: Titration: 11/16/23 13:59 Dose: 45 mcg/kg/min, 41.64 mls/hr Documented By: Titration: 11/16/23 13:49 Dose: 40 mcg/kg/min, 37.013 mls/hr Documented By: Titration: 11/16/23 13:44 Dose: 35 mcg/kg/min, 32.386 mls/hr Documented By: Titration: 11/16/23 13:43 Dose: 30 mcg/kg/min, 27.76 mls/hr Documented By: Titration: 11/16/23 13:00 Dose: 25 mcg/kg/min, 23.133 mls/hr Documented By: Titration: 11/16/23 12:28 Dose: 20 mcg/kg/min, 18.507 mls/hr Documented By: Titration: 11/16/23 12:16 Dose: 15 mcg/kg/min, 13.88 mls/hr Documented By: Titration: 11/16/23 12:05 Dose: 10 mcg/kg/min, 9.253 mls/hr Documented By: Admin: 11/16/23 11:27 Dose: 5 mcg/kg/min, 4.627 mls/hr Documented By: MPO Vancomycin HCl (Vancomycin) 1,000 mg in 200 mls @ 200 mls/hr IV NOW ONE Stop: 11/16/23 12:09 Last Infusion: 11/16/23 14:08 Dose: Infused Documented By: Admin: 11/16/23 13:01 Dose: 200 mls/hr Documented By: MPO Piperacillin Sod/Tazobactam (Sod 4.5 gm/ Sodium Chloride) 100 mls @ 200 mls/hr IV NOW ONE Stop: 11/16/23 11:11 Last Infusion: 11/16/23 13:05 Dose: Infused Documented By: Admin: 11/16/23 12:26 Dose: 200 mls/hr Documented By: MPO NOREPINEPHRINE BITARTRATE/D5W (Levophed) 4 mg in 250 mls @ 57.833 mls/hr IV TITRATE CLARA; Protocol Last Admin: 11/16/23 15:37 Dose: Not Given Documented By: ARTEMIO dexmedeTOMIDine in 0.9 % NaCL (Precedex) 400 mcg in 100 mls @ 7.711 mls/hr IV TITRATE CLARA; Protocol Last Titration: 11/16/23 15:30 Dose: Infused Documented By: Titration: 11/16/23 15:20 Dose: 0.9 mcg/kg/hr, 34.7 mls/hr Documented By: Titration: 11/16/23 15:19 Dose: 0.4 mcg/kg/hr, 15.422 mls/hr Documented By: Admin: 11/16/23 15:16 Dose: 0.2 mcg/kg/hr, 7.711 mls/hr Documented By: ARTEMIO Stored In Pharmacy 0 each PO PRN PRN PRN Reason: . Ondansetron HCl (Ondansetron 4 Mg/2 Ml Inj) 4 mg IV NOW ONE Stop: 11/16/23 21:09 Last Admin: 11/16/23 21:11 Dose: 4 mg Documented By: Vital Signs Vital signs: Vital Signs - 8 hr 11/16/23 13:40 11/16/23 13:40 11/16/23 13:44 Temperature 96.6 F L 96.6 F L Pulse Rate 94 H 94 H Respiratory Rate 33 H 36 H Blood Pressure 129/60 Pulse Oximetry 97 96 Oxygen Delivery Method Oxygen Flow Rate 11/16/23 13:44 11/16/23 13:45 11/16/23 13:45 Temperature 96.6 F L Pulse Rate 92 H Respiratory Rate 37 H Blood Pressure 131/61 129/61 Pulse Oximetry 96 Oxygen Delivery Method Oxygen Flow Rate 11/16/23 13:48 11/16/23 13:48 11/16/23 13:50 Temperature 96.6 F L Pulse Rate 92 H Respiratory Rate 37 H Blood Pressure 132/62 130/62 Pulse Oximetry 94 Oxygen Delivery Method Oxygen Flow Rate 11/16/23 13:50 11/16/23 13:52 11/16/23 13:52 Temperature 96.6 F L 96.6 F L Pulse Rate 91 H 90 Respiratory Rate 32 H 30 H Blood Pressure 125/63 Pulse Oximetry 95 95 Oxygen Delivery Method Oxygen Flow Rate 11/16/23 13:55 11/16/23 13:55 11/16/23 13:59 Temperature 96.6 F L 96.6 F L Pulse Rate 89 90 Respiratory Rate 30 H 32 H Blood Pressure 119/61 Pulse Oximetry 94 93 Oxygen Delivery Method Oxygen Flow Rate 11/16/23 13:59 11/16/23 14:00 11/16/23 14:00 Temperature 96.6 F L Pulse Rate 90 Respiratory Rate 30 H Blood Pressure 126/60 120/55 L Pulse Oximetry 94 Oxygen Delivery Method Oxygen Flow Rate 11/16/23 14:01 11/16/23 14:01 11/16/23 14:03 Temperature 96.6 F L 96.6 F L Pulse Rate 88 87 Respiratory Rate 28 H 28 H Blood Pressure 124/60 Pulse Oximetry 94 94 Oxygen Delivery Method Oxygen Flow Rate 11/16/23 14:03 11/16/23 14:04 11/16/23 14:04 Temperature 96.4 F L Pulse Rate 87 Respiratory Rate 29 H Blood Pressure 117/59 L 114/57 L Pulse Oximetry 94 Oxygen Delivery Method Oxygen Flow Rate 11/16/23 14:05 11/16/23 14:05 11/16/23 14:06 Temperature 96.4 F L 96.4 F L Pulse Rate 87 86 Respiratory Rate 28 H 29 H Blood Pressure 117/55 L Pulse Oximetry 94 94 Oxygen Delivery Method Oxygen Flow Rate 11/16/23 14:06 11/16/23 14:15 11/16/23 14:20 Temperature 96.4 F L Pulse Rate 83 Respiratory Rate 35 H Blood Pressure 115/58 L 126/60 Pulse Oximetry 94 Oxygen Delivery Method Oxygen Flow Rate 11/16/23 14:20 11/16/23 14:25 11/16/23 14:25 Temperature 96.4 F L Pulse Rate 84 Respiratory Rate 28 H Blood Pressure 126/64 119/58 L Pulse Oximetry 94 Oxygen Delivery Method Oxygen Flow Rate 11/16/23 14:30 11/16/23 14:30 11/16/23 14:35 Temperature 96.4 F L 96.4 F L Pulse Rate 82 83 Respiratory Rate 32 H 36 H Blood Pressure 109/57 L Pulse Oximetry 94 94 Oxygen Delivery Method Oxygen Flow Rate 11/16/23 14:35 11/16/23 14:40 11/16/23 14:40 Temperature 96.4 F L Pulse Rate 82 Respiratory Rate 31 H Blood Pressure 122/67 123/59 L Pulse Oximetry 95 Oxygen Delivery Method Oxygen Flow Rate 11/16/23 14:45 11/16/23 14:45 11/16/23 14:50 Temperature 96.4 F L 96.4 F L Pulse Rate 81 81 Respiratory Rate 34 H 36 H Blood Pressure 126/63 Pulse Oximetry 94 95 Oxygen Delivery Method Oxygen Flow Rate 11/16/23 14:50 11/16/23 14:55 11/16/23 14:56 Temperature 96.4 F L 96.4 F L Pulse Rate 79 80 Respiratory Rate 33 H 33 H Blood Pressure 120/61 Pulse Oximetry 94 93 Oxygen Delivery Method Oxygen Flow Rate 11/16/23 14:56 11/16/23 15:00 11/16/23 15:00 Temperature 96.4 F L Pulse Rate 81 Respiratory Rate 28 H Blood Pressure 109/55 L 114/58 L Pulse Oximetry 95 Oxygen Delivery Method Oxygen Flow Rate 11/16/23 15:05 11/16/23 15:05 11/16/23 15:10 Temperature 96.4 F L 96.4 F L Pulse Rate 80 80 Respiratory Rate 28 H 32 H Blood Pressure 108/59 L Pulse Oximetry 94 94 Oxygen Delivery Method Oxygen Flow Rate 11/16/23 15:10 11/16/23 15:15 11/16/23 15:15 Temperature 96.4 F L Pulse Rate 81 Respiratory Rate 28 H Blood Pressure 119/67 126/66 Pulse Oximetry 95 Oxygen Delivery Method Oxygen Flow Rate 11/16/23 15:20 11/16/23 15:20 11/16/23 15:25 Temperature 96.4 F L 96.6 F L Pulse Rate 84 86 Respiratory Rate 32 H 32 H Blood Pressure 116/59 L Pulse Oximetry 94 94 Oxygen Delivery Method Oxygen Flow Rate 11/16/23 15:25 11/16/23 15:30 11/16/23 15:30 Temperature 96.6 F L Pulse Rate 84 Respiratory Rate 39 H Blood Pressure 122/69 111/68 Pulse Oximetry 93 Oxygen Delivery Method Non -Rebreather Oxygen Flow Rate 11/16/23 15:35 11/16/23 15:35 11/16/23 15:40 Temperature Pulse Rate 82 79 Respiratory Rate 31 H 26 H Blood Pressure 138/73 Pulse Oximetry 96 96 Oxygen Delivery Method Nasal Cannula Oxygen Flow Rate 3 11/16/23 15:40 11/16/23 15:42 11/16/23 15:45 Temperature Pulse Rate 80 Respiratory Rate 26 H Blood Pressure 130/69 Pulse Oximetry 96 95 Oxygen Delivery Method Oxygen Flow Rate 11/16/23 15:45 11/16/23 15:48 11/16/23 15:50 Temperature Pulse Rate 85 Respiratory Rate 31 H Blood Pressure 135/70 Pulse Oximetry 97 94 Oxygen Delivery Method Nasal Cannula Oxygen Flow Rate 4 11/16/23 15:50 11/16/23 15:55 11/16/23 15:55 Temperature Pulse Rate 83 Respiratory Rate 28 H Blood Pressure 107/58 L 120/57 L Pulse Oximetry 96 Oxygen Delivery Method Oxygen Flow Rate 11/16/23 16:00 11/16/23 16:00 11/16/23 16:05 Temperature Pulse Rate 81 80 Respiratory Rate 21 27 H Blood Pressure 108/58 L Pulse Oximetry 96 97 Oxygen Delivery Method Oxygen Flow Rate 11/16/23 16:05 11/16/23 16:10 11/16/23 16:10 Temperature Pulse Rate 80 Respiratory Rate 26 H Blood Pressure 109/58 L 117/60 Pulse Oximetry 96 Oxygen Delivery Method Oxygen Flow Rate 11/16/23 16:15 11/16/23 16:15 11/16/23 16:20 Temperature Pulse Rate 82 83 Respiratory Rate 27 H 25 H Blood Pressure 119/62 Pulse Oximetry 97 97 Oxygen Delivery Method Nasal Cannula Oxygen Flow Rate 3 11/16/23 16:20 11/16/23 16:25 11/16/23 16:25 Temperature Pulse Rate 80 Respiratory Rate 23 Blood Pressure 124/62 122/58 L Pulse Oximetry 97 Oxygen Delivery Method Oxygen Flow Rate 11/16/23 16:30 11/16/23 16:30 11/16/23 16:35 Temperature Pulse Rate 79 79 Respiratory Rate 26 H 24 Blood Pressure 120/58 L Pulse Oximetry 97 97 Oxygen Delivery Method Oxygen Flow Rate 11/16/23 16:35 11/16/23 16:40 11/16/23 16:40 Temperature Pulse Rate 79 Respiratory Rate 26 H Blood Pressure 117/56 L 121/57 L Pulse Oximetry 97 Oxygen Delivery Method Oxygen Flow Rate 11/16/23 16:45 11/16/23 16:45 11/16/23 16:50 Temperature Pulse Rate 80 83 Respiratory Rate 25 H 24 Blood Pressure 117/59 L Pulse Oximetry 96 96 Oxygen Delivery Method Oxygen Flow Rate 11/16/23 16:50 11/16/23 16:55 11/16/23 16:55 Temperature Pulse Rate 84 Respiratory Rate 28 H Blood Pressure 126/56 L 127/59 L Pulse Oximetry 97 Oxygen Delivery Method Oxygen Flow Rate 11/16/23 17:00 11/16/23 17:00 11/16/23 17:05 Temperature Pulse Rate 84 86 Respiratory Rate 25 H 26 H Blood Pressure 132/63 Pulse Oximetry 97 97 Oxygen Delivery Method Oxygen Flow Rate 11/16/23 17:05 11/16/23 17:10 11/16/23 17:10 Temperature Pulse Rate 86 Respiratory Rate 29 H Blood Pressure 121/61 141/76 H Pulse Oximetry 98 Oxygen Delivery Method Oxygen Flow Rate 11/16/23 17:15 11/16/23 17:15 11/16/23 17:20 Temperature Pulse Rate 91 H 88 Respiratory Rate 26 H Blood Pressure 145/74 H Pulse Oximetry 98 98 Oxygen Delivery Method Nasal Cannula Oxygen Flow Rate 3 11/16/23 17:20 11/16/23 17:25 11/16/23 17:25 Temperature Pulse Rate 89 Respiratory Rate 26 H Blood Pressure 141/71 H 146/71 H Pulse Oximetry 99 Oxygen Delivery Method Oxygen Flow Rate 11/16/23 17:30 11/16/23 17:30 11/16/23 17:35 Temperature Pulse Rate 91 H Respiratory Rate 29 H Blood Pressure 151/72 H 132/64 Pulse Oximetry 98 Oxygen Delivery Method Oxygen Flow Rate 11/16/23 17:35 11/16/23 17:45 11/16/23 17:45 Temperature Pulse Rate 89 97 H Respiratory Rate 27 H 13 Blood Pressure 148/80 H Pulse Oximetry 98 100 Oxygen Delivery Method Oxygen Flow Rate 11/16/23 17:50 11/16/23 17:50 11/16/23 17:56 Temperature Pulse Rate 91 H 113 H Respiratory Rate 19 21 Blood Pressure 154/84 H Pulse Oximetry 98 98 Oxygen Delivery Method Oxygen Flow Rate 11/16/23 17:56 11/16/23 18:00 11/16/23 18:01 Temperature Pulse Rate 100 H 100 H Respiratory Rate 7 L 15 Blood Pressure 159/97 H Pulse Oximetry 99 99 Oxygen Delivery Method Oxygen Flow Rate 11/16/23 18:01 11/16/23 18:05 11/16/23 18:05 Temperature Pulse Rate 100 H Respiratory Rate 6 L Blood Pressure 151/72 H 143/67 H Pulse Oximetry 99 Oxygen Delivery Method Oxygen Flow Rate 11/16/23 18:10 11/16/23 18:10 11/16/23 18:15 Temperature Pulse Rate 98 H 98 H Respiratory Rate 14 28 H Blood Pressure 139/61 Pulse Oximetry 99 99 Oxygen Delivery Method Oxygen Flow Rate 11/16/23 18:15 11/16/23 18:21 11/16/23 18:21 Temperature Pulse Rate 91 H Respiratory Rate 12 Blood Pressure 135/69 135/76 Pulse Oximetry 99 Oxygen Delivery Method Oxygen Flow Rate 11/16/23 18:25 11/16/23 18:25 11/16/23 18:30 Temperature Pulse Rate 91 H 87 Respiratory Rate 7 L 15 Blood Pressure 141/80 H Pulse Oximetry 100 100 Oxygen Delivery Method Oxygen Flow Rate 11/16/23 18:30 11/16/23 18:35 11/16/23 18:35 Temperature Pulse Rate 89 Respiratory Rate 17 Blood Pressure 143/81 H 137/69 Pulse Oximetry 100 Oxygen Delivery Method Oxygen Flow Rate 11/16/23 18:40 11/16/23 18:40 11/16/23 18:45 Temperature Pulse Rate 89 93 H Respiratory Rate 22 20 Blood Pressure 141/72 H Pulse Oximetry 100 100 Oxygen Delivery Method Oxygen Flow Rate 11/16/23 18:45 11/16/23 18:50 11/16/23 18:50 Temperature Pulse Rate 91 H Respiratory Rate 24 Blood Pressure 147/85 H 149/84 H Pulse Oximetry 100 Oxygen Delivery Method Oxygen Flow Rate 11/16/23 18:55 11/16/23 18:55 11/16/23 19:00 Temperature Pulse Rate 92 H Respiratory Rate 24 Blood Pressure 146/76 H 160/77 H Pulse Oximetry 100 Oxygen Delivery Method Oxygen Flow Rate 11/16/23 19:00 11/16/23 19:05 11/16/23 19:05 Temperature Pulse Rate 95 H 94 H Respiratory Rate 20 22 Blood Pressure 167/80 H Pulse Oximetry 100 100 Oxygen Delivery Method Oxygen Flow Rate 11/16/23 19:10 11/16/23 19:10 11/16/23 19:15 Temperature Pulse Rate 94 H 94 H Respiratory Rate 18 26 H Blood Pressure 164/77 H Pulse Oximetry 100 100 Oxygen Delivery Method Oxygen Flow Rate 11/16/23 19:15 11/16/23 19:20 11/16/23 19:20 Temperature Pulse Rate 95 H Respiratory Rate 15 Blood Pressure 164/70 H 171/71 H Pulse Oximetry 100 Oxygen Delivery Method Nasal Cannula Oxygen Flow Rate 2 11/16/23 19:25 11/16/23 19:25 11/16/23 19:30 Temperature Pulse Rate 96 H 95 H Respiratory Rate 13 16 Blood Pressure 159/70 H Pulse Oximetry 100 100 Oxygen Delivery Method Oxygen Flow Rate 11/16/23 19:30 11/16/23 19:35 11/16/23 19:35 Temperature Pulse Rate 95 H Respiratory Rate 16 Blood Pressure 155/71 H 148/70 H Pulse Oximetry 100 Oxygen Delivery Method Oxygen Flow Rate 11/16/23 19:40 11/16/23 19:40 11/16/23 19:45 Temperature Pulse Rate 96 H Respiratory Rate 10 L Blood Pressure 156/79 H 153/78 H Pulse Oximetry 100 Oxygen Delivery Method Oxygen Flow Rate 11/16/23 19:45 11/16/23 19:50 11/16/23 19:50 Temperature Pulse Rate 96 H 115 H Respiratory Rate 14 Blood Pressure 168/75 H Pulse Oximetry 100 100 Oxygen Delivery Method Oxygen Flow Rate 11/16/23 19:55 11/16/23 19:55 11/16/23 20:00 Temperature Pulse Rate 104 H Respiratory Rate 7 L Blood Pressure 154/74 H 140/62 Pulse Oximetry 100 Oxygen Delivery Method Oxygen Flow Rate 11/16/23 20:00 11/16/23 20:05 11/16/23 20:05 Temperature Pulse Rate 103 H 102 H Respiratory Rate 13 6 L Blood Pressure 148/69 H Pulse Oximetry 100 100 Oxygen Delivery Method Oxygen Flow Rate 11/16/23 20:10 11/16/23 20:10 11/16/23 20:15 Temperature Pulse Rate 97 H Respiratory Rate 30 H Blood Pressure 153/73 H 145/68 H Pulse Oximetry 100 Oxygen Delivery Method Oxygen Flow Rate 11/16/23 20:15 11/16/23 20:20 11/16/23 20:20 Temperature Pulse Rate 97 H 89 Respiratory Rate 13 2 L Blood Pressure 121/71 Pulse Oximetry 100 100 Oxygen Delivery Method Oxygen Flow Rate 11/16/23 20:25 11/16/23 20:25 11/16/23 20:30 Temperature Pulse Rate 98 H 100 H Respiratory Rate 21 21 Blood Pressure 142/80 H Pulse Oximetry 100 100 Oxygen Delivery Method Oxygen Flow Rate 11/16/23 20:30 11/16/23 21:15 Temperature 98.4 F Pulse Rate 68 Respiratory Rate 19 Blood Pressure 150/77 H 145/78 H Pulse Oximetry 98 Oxygen Delivery Method Room Air Oxygen Flow Rate <Shanice Ferreira MD - Last Filed: 11/16/23 21:40> Orders Ordered: Discontinued Medications Fentanyl (Fentanyl 100 Mcg/2 Ml Inj) 100 mcg IV NOW ONE Stop: 11/16/23 12:21 Last Admin: 11/16/23 12:26 Dose: 100 mcg Documented By: MPO Sodium Chloride (Normal Saline 0.9%) 1,000 mls @ 150 mls/hr IV CONT CLARA Last Infusion: 11/16/23 15:30 Dose: 0 mls/hr Documented By: Admin: 11/16/23 11:05 Dose: 150 mls/hr Documented By: CTS Propofol (Propofol) 1,000 mg in 100 mls @ 4.627 mls/hr IV TITRATE CLARA; Protocol Last Titration: 11/16/23 15:17 Dose: Infused Documented By: Titration: 11/16/23 14:58 Dose: 45 mcg/kg/min, 41.64 mls/hr Documented By: Titration: 11/16/23 14:02 Dose: 40 mcg/kg/min, 37.013 mls/hr Documented By: Titration: 11/16/23 13:59 Dose: 45 mcg/kg/min, 41.64 mls/hr Documented By: Titration: 11/16/23 13:49 Dose: 40 mcg/kg/min, 37.013 mls/hr Documented By: Titration: 11/16/23 13:44 Dose: 35 mcg/kg/min, 32.386 mls/hr Documented By: Titration: 11/16/23 13:43 Dose: 30 mcg/kg/min, 27.76 mls/hr Documented By: Titration: 11/16/23 13:00 Dose: 25 mcg/kg/min, 23.133 mls/hr Documented By: Titration: 11/16/23 12:28 Dose: 20 mcg/kg/min, 18.507 mls/hr Documented By: Titration: 11/16/23 12:16 Dose: 15 mcg/kg/min, 13.88 mls/hr Documented By: Titration: 11/16/23 12:05 Dose: 10 mcg/kg/min, 9.253 mls/hr Documented By: Admin: 11/16/23 11:27 Dose: 5 mcg/kg/min, 4.627 mls/hr Documented By: MPO Vancomycin HCl (Vancomycin) 1,000 mg in 200 mls @ 200 mls/hr IV NOW ONE Stop: 11/16/23 12:09 Last Infusion: 11/16/23 14:08 Dose: Infused Documented By: Admin: 11/16/23 13:01 Dose: 200 mls/hr Documented By: MPO Piperacillin Sod/Tazobactam (Sod 4.5 gm/ Sodium Chloride) 100 mls @ 200 mls/hr IV NOW ONE Stop: 11/16/23 11:11 Last Infusion: 11/16/23 13:05 Dose: Infused Documented By: Admin: 11/16/23 12:26 Dose: 200 mls/hr Documented By: MPO NOREPINEPHRINE BITARTRATE/D5W (Levophed) 4 mg in 250 mls @ 57.833 mls/hr IV TITRATE CLARA; Protocol Last Admin: 11/16/23 15:37 Dose: Not Given Documented By: MPO dexmedeTOMIDine in 0.9 % NaCL (Precedex) 400 mcg in 100 mls @ 7.711 mls/hr IV TITRATE CLARA; Protocol Last Titration: 11/16/23 15:30 Dose: Infused Documented By: Titration: 11/16/23 15:20 Dose: 0.9 mcg/kg/hr, 34.7 mls/hr Documented By: Titration: 11/16/23 15:19 Dose: 0.4 mcg/kg/hr, 15.422 mls/hr Documented By: Admin: 11/16/23 15:16 Dose: 0.2 mcg/kg/hr, 7.711 mls/hr Documented By: MPO Stored In Pharmacy 0 each PO PRN PRN PRN Reason: . Ondansetron HCl (Ondansetron 4 Mg/2 Ml Inj) 4 mg IV NOW ONE Stop: 11/16/23 21:09 Last Admin: 11/16/23 21:11 Dose: 4 mg Documented By: Vital Signs Vital signs: Vital Signs - 8 hr 11/16/23 13:40 11/16/23 13:40 11/16/23 13:44 Temperature 96.6 F L 96.6 F L Pulse Rate 94 H 94 H Respiratory Rate 33 H 36 H Blood Pressure 129/60 Pulse Oximetry 97 96 Oxygen Delivery Method Oxygen Flow Rate 11/16/23 13:44 11/16/23 13:45 11/16/23 13:45 Temperature 96.6 F L Pulse Rate 92 H Respiratory Rate 37 H Blood Pressure 131/61 129/61 Pulse Oximetry 96 Oxygen Delivery Method Oxygen Flow Rate 11/16/23 13:48 11/16/23 13:48 11/16/23 13:50 Temperature 96.6 F L Pulse Rate 92 H Respiratory Rate 37 H Blood Pressure 132/62 130/62 Pulse Oximetry 94 Oxygen Delivery Method Oxygen Flow Rate 11/16/23 13:50 11/16/23 13:52 11/16/23 13:52 Temperature 96.6 F L 96.6 F L Pulse Rate 91 H 90 Respiratory Rate 32 H 30 H Blood Pressure 125/63 Pulse Oximetry 95 95 Oxygen Delivery Method Oxygen Flow Rate 11/16/23 13:55 11/16/23 13:55 11/16/23 13:59 Temperature 96.6 F L 96.6 F L Pulse Rate 89 90 Respiratory Rate 30 H 32 H Blood Pressure 119/61 Pulse Oximetry 94 93 Oxygen Delivery Method Oxygen Flow Rate 11/16/23 13:59 11/16/23 14:00 11/16/23 14:00 Temperature 96.6 F L Pulse Rate 90 Respiratory Rate 30 H Blood Pressure 126/60 120/55 L Pulse Oximetry 94 Oxygen Delivery Method Oxygen Flow Rate 11/16/23 14:01 11/16/23 14:01 11/16/23 14:03 Temperature 96.6 F L 96.6 F L Pulse Rate 88 87 Respiratory Rate 28 H 28 H Blood Pressure 124/60 Pulse Oximetry 94 94 Oxygen Delivery Method Oxygen Flow Rate 11/16/23 14:03 11/16/23 14:04 11/16/23 14:04 Temperature 96.4 F L Pulse Rate 87 Respiratory Rate 29 H Blood Pressure 117/59 L 114/57 L Pulse Oximetry 94 Oxygen Delivery Method Oxygen Flow Rate 11/16/23 14:05 11/16/23 14:05 11/16/23 14:06 Temperature 96.4 F L 96.4 F L Pulse Rate 87 86 Respiratory Rate 28 H 29 H Blood Pressure 117/55 L Pulse Oximetry 94 94 Oxygen Delivery Method Oxygen Flow Rate 11/16/23 14:06 11/16/23 14:15 11/16/23 14:20 Temperature 96.4 F L Pulse Rate 83 Respiratory Rate 35 H Blood Pressure 115/58 L 126/60 Pulse Oximetry 94 Oxygen Delivery Method Oxygen Flow Rate 11/16/23 14:20 11/16/23 14:25 11/16/23 14:25 Temperature 96.4 F L Pulse Rate 84 Respiratory Rate 28 H Blood Pressure 126/64 119/58 L Pulse Oximetry 94 Oxygen Delivery Method Oxygen Flow Rate 11/16/23 14:30 11/16/23 14:30 11/16/23 14:35 Temperature 96.4 F L 96.4 F L Pulse Rate 82 83 Respiratory Rate 32 H 36 H Blood Pressure 109/57 L Pulse Oximetry 94 94 Oxygen Delivery Method Oxygen Flow Rate 11/16/23 14:35 11/16/23 14:40 11/16/23 14:40 Temperature 96.4 F L Pulse Rate 82 Respiratory Rate 31 H Blood Pressure 122/67 123/59 L Pulse Oximetry 95 Oxygen Delivery Method Oxygen Flow Rate 11/16/23 14:45 11/16/23 14:45 11/16/23 14:50 Temperature 96.4 F L 96.4 F L Pulse Rate 81 81 Respiratory Rate 34 H 36 H Blood Pressure 126/63 Pulse Oximetry 94 95 Oxygen Delivery Method Oxygen Flow Rate 11/16/23 14:50 11/16/23 14:55 11/16/23 14:56 Temperature 96.4 F L 96.4 F L Pulse Rate 79 80 Respiratory Rate 33 H 33 H Blood Pressure 120/61 Pulse Oximetry 94 93 Oxygen Delivery Method Oxygen Flow Rate 11/16/23 14:56 11/16/23 15:00 11/16/23 15:00 Temperature 96.4 F L Pulse Rate 81 Respiratory Rate 28 H Blood Pressure 109/55 L 114/58 L Pulse Oximetry 95 Oxygen Delivery Method Oxygen Flow Rate 11/16/23 15:05 11/16/23 15:05 11/16/23 15:10 Temperature 96.4 F L 96.4 F L Pulse Rate 80 80 Respiratory Rate 28 H 32 H Blood Pressure 108/59 L Pulse Oximetry 94 94 Oxygen Delivery Method Oxygen Flow Rate 11/16/23 15:10 11/16/23 15:15 11/16/23 15:15 Temperature 96.4 F L Pulse Rate 81 Respiratory Rate 28 H Blood Pressure 119/67 126/66 Pulse Oximetry 95 Oxygen Delivery Method Oxygen Flow Rate 11/16/23 15:20 11/16/23 15:20 11/16/23 15:25 Temperature 96.4 F L 96.6 F L Pulse Rate 84 86 Respiratory Rate 32 H 32 H Blood Pressure 116/59 L Pulse Oximetry 94 94 Oxygen Delivery Method Oxygen Flow Rate 11/16/23 15:25 11/16/23 15:30 11/16/23 15:30 Temperature 96.6 F L Pulse Rate 84 Respiratory Rate 39 H Blood Pressure 122/69 111/68 Pulse Oximetry 93 Oxygen Delivery Method Non -Rebreather Oxygen Flow Rate 11/16/23 15:35 11/16/23 15:35 11/16/23 15:40 Temperature Pulse Rate 82 79 Respiratory Rate 31 H 26 H Blood Pressure 138/73 Pulse Oximetry 96 96 Oxygen Delivery Method Nasal Cannula Oxygen Flow Rate 3 11/16/23 15:40 11/16/23 15:42 11/16/23 15:45 Temperature Pulse Rate 80 Respiratory Rate 26 H Blood Pressure 130/69 Pulse Oximetry 96 95 Oxygen Delivery Method Oxygen Flow Rate 11/16/23 15:45 11/16/23 15:48 11/16/23 15:50 Temperature Pulse Rate 85 Respiratory Rate 31 H Blood Pressure 135/70 Pulse Oximetry 97 94 Oxygen Delivery Method Nasal Cannula Oxygen Flow Rate 4 11/16/23 15:50 11/16/23 15:55 11/16/23 15:55 Temperature Pulse Rate 83 Respiratory Rate 28 H Blood Pressure 107/58 L 120/57 L Pulse Oximetry 96 Oxygen Delivery Method Oxygen Flow Rate 11/16/23 16:00 11/16/23 16:00 11/16/23 16:05 Temperature Pulse Rate 81 80 Respiratory Rate 21 27 H Blood Pressure 108/58 L Pulse Oximetry 96 97 Oxygen Delivery Method Oxygen Flow Rate 11/16/23 16:05 11/16/23 16:10 11/16/23 16:10 Temperature Pulse Rate 80 Respiratory Rate 26 H Blood Pressure 109/58 L 117/60 Pulse Oximetry 96 Oxygen Delivery Method Oxygen Flow Rate 11/16/23 16:15 11/16/23 16:15 11/16/23 16:20 Temperature Pulse Rate 82 83 Respiratory Rate 27 H 25 H Blood Pressure 119/62 Pulse Oximetry 97 97 Oxygen Delivery Method Nasal Cannula Oxygen Flow Rate 3 11/16/23 16:20 11/16/23 16:25 11/16/23 16:25 Temperature Pulse Rate 80 Respiratory Rate 23 Blood Pressure 124/62 122/58 L Pulse Oximetry 97 Oxygen Delivery Method Oxygen Flow Rate 11/16/23 16:30 11/16/23 16:30 11/16/23 16:35 Temperature Pulse Rate 79 79 Respiratory Rate 26 H 24 Blood Pressure 120/58 L Pulse Oximetry 97 97 Oxygen Delivery Method Oxygen Flow Rate 11/16/23 16:35 11/16/23 16:40 11/16/23 16:40 Temperature Pulse Rate 79 Respiratory Rate 26 H Blood Pressure 117/56 L 121/57 L Pulse Oximetry 97 Oxygen Delivery Method Oxygen Flow Rate 11/16/23 16:45 11/16/23 16:45 11/16/23 16:50 Temperature Pulse Rate 80 83 Respiratory Rate 25 H 24 Blood Pressure 117/59 L Pulse Oximetry 96 96 Oxygen Delivery Method Oxygen Flow Rate 11/16/23 16:50 11/16/23 16:55 11/16/23 16:55 Temperature Pulse Rate 84 Respiratory Rate 28 H Blood Pressure 126/56 L 127/59 L Pulse Oximetry 97 Oxygen Delivery Method Oxygen Flow Rate 11/16/23 17:00 11/16/23 17:00 11/16/23 17:05 Temperature Pulse Rate 84 86 Respiratory Rate 25 H 26 H Blood Pressure 132/63 Pulse Oximetry 97 97 Oxygen Delivery Method Oxygen Flow Rate 11/16/23 17:05 11/16/23 17:10 11/16/23 17:10 Temperature Pulse Rate 86 Respiratory Rate 29 H Blood Pressure 121/61 141/76 H Pulse Oximetry 98 Oxygen Delivery Method Oxygen Flow Rate 11/16/23 17:15 11/16/23 17:15 11/16/23 17:20 Temperature Pulse Rate 91 H 88 Respiratory Rate 26 H Blood Pressure 145/74 H Pulse Oximetry 98 98 Oxygen Delivery Method Nasal Cannula Oxygen Flow Rate 3 11/16/23 17:20 11/16/23 17:25 11/16/23 17:25 Temperature Pulse Rate 89 Respiratory Rate 26 H Blood Pressure 141/71 H 146/71 H Pulse Oximetry 99 Oxygen Delivery Method Oxygen Flow Rate 11/16/23 17:30 11/16/23 17:30 11/16/23 17:35 Temperature Pulse Rate 91 H Respiratory Rate 29 H Blood Pressure 151/72 H 132/64 Pulse Oximetry 98 Oxygen Delivery Method Oxygen Flow Rate 11/16/23 17:35 11/16/23 17:45 11/16/23 17:45 Temperature Pulse Rate 89 97 H Respiratory Rate 27 H 13 Blood Pressure 148/80 H Pulse Oximetry 98 100 Oxygen Delivery Method Oxygen Flow Rate 11/16/23 17:50 11/16/23 17:50 11/16/23 17:56 Temperature Pulse Rate 91 H 113 H Respiratory Rate 19 21 Blood Pressure 154/84 H Pulse Oximetry 98 98 Oxygen Delivery Method Oxygen Flow Rate 11/16/23 17:56 11/16/23 18:00 11/16/23 18:01 Temperature Pulse Rate 100 H 100 H Respiratory Rate 7 L 15 Blood Pressure 159/97 H Pulse Oximetry 99 99 Oxygen Delivery Method Oxygen Flow Rate 11/16/23 18:01 11/16/23 18:05 11/16/23 18:05 Temperature Pulse Rate 100 H Respiratory Rate 6 L Blood Pressure 151/72 H 143/67 H Pulse Oximetry 99 Oxygen Delivery Method Oxygen Flow Rate 11/16/23 18:10 11/16/23 18:10 11/16/23 18:15 Temperature Pulse Rate 98 H 98 H Respiratory Rate 14 28 H Blood Pressure 139/61 Pulse Oximetry 99 99 Oxygen Delivery Method Oxygen Flow Rate 11/16/23 18:15 11/16/23 18:21 11/16/23 18:21 Temperature Pulse Rate 91 H Respiratory Rate 12 Blood Pressure 135/69 135/76 Pulse Oximetry 99 Oxygen Delivery Method Oxygen Flow Rate 11/16/23 18:25 11/16/23 18:25 11/16/23 18:30 Temperature Pulse Rate 91 H 87 Respiratory Rate 7 L 15 Blood Pressure 141/80 H Pulse Oximetry 100 100 Oxygen Delivery Method Oxygen Flow Rate 11/16/23 18:30 11/16/23 18:35 11/16/23 18:35 Temperature Pulse Rate 89 Respiratory Rate 17 Blood Pressure 143/81 H 137/69 Pulse Oximetry 100 Oxygen Delivery Method Oxygen Flow Rate 11/16/23 18:40 11/16/23 18:40 11/16/23 18:45 Temperature Pulse Rate 89 93 H Respiratory Rate 22 20 Blood Pressure 141/72 H Pulse Oximetry 100 100 Oxygen Delivery Method Oxygen Flow Rate 11/16/23 18:45 11/16/23 18:50 11/16/23 18:50 Temperature Pulse Rate 91 H Respiratory Rate 24 Blood Pressure 147/85 H 149/84 H Pulse Oximetry 100 Oxygen Delivery Method Oxygen Flow Rate 11/16/23 18:55 11/16/23 18:55 11/16/23 19:00 Temperature Pulse Rate 92 H Respiratory Rate 24 Blood Pressure 146/76 H 160/77 H Pulse Oximetry 100 Oxygen Delivery Method Oxygen Flow Rate 11/16/23 19:00 11/16/23 19:05 11/16/23 19:05 Temperature Pulse Rate 95 H 94 H Respiratory Rate 20 22 Blood Pressure 167/80 H Pulse Oximetry 100 100 Oxygen Delivery Method Oxygen Flow Rate 11/16/23 19:10 11/16/23 19:10 11/16/23 19:15 Temperature Pulse Rate 94 H 94 H Respiratory Rate 18 26 H Blood Pressure 164/77 H Pulse Oximetry 100 100 Oxygen Delivery Method Oxygen Flow Rate 11/16/23 19:15 11/16/23 19:20 11/16/23 19:20 Temperature Pulse Rate 95 H Respiratory Rate 15 Blood Pressure 164/70 H 171/71 H Pulse Oximetry 100 Oxygen Delivery Method Nasal Cannula Oxygen Flow Rate 2 11/16/23 19:25 11/16/23 19:25 11/16/23 19:30 Temperature Pulse Rate 96 H 95 H Respiratory Rate 13 16 Blood Pressure 159/70 H Pulse Oximetry 100 100 Oxygen Delivery Method Oxygen Flow Rate 11/16/23 19:30 11/16/23 19:35 11/16/23 19:35 Temperature Pulse Rate 95 H Respiratory Rate 16 Blood Pressure 155/71 H 148/70 H Pulse Oximetry 100 Oxygen Delivery Method Oxygen Flow Rate 11/16/23 19:40 11/16/23 19:40 11/16/23 19:45 Temperature Pulse Rate 96 H Respiratory Rate 10 L Blood Pressure 156/79 H 153/78 H Pulse Oximetry 100 Oxygen Delivery Method Oxygen Flow Rate 11/16/23 19:45 11/16/23 19:50 11/16/23 19:50 Temperature Pulse Rate 96 H 115 H Respiratory Rate 14 Blood Pressure 168/75 H Pulse Oximetry 100 100 Oxygen Delivery Method Oxygen Flow Rate 11/16/23 19:55 11/16/23 19:55 11/16/23 20:00 Temperature Pulse Rate 104 H Respiratory Rate 7 L Blood Pressure 154/74 H 140/62 Pulse Oximetry 100 Oxygen Delivery Method Oxygen Flow Rate 11/16/23 20:00 11/16/23 20:05 11/16/23 20:05 Temperature Pulse Rate 103 H 102 H Respiratory Rate 13 6 L Blood Pressure 148/69 H Pulse Oximetry 100 100 Oxygen Delivery Method Oxygen Flow Rate 11/16/23 20:10 11/16/23 20:10 11/16/23 20:15 Temperature Pulse Rate 97 H Respiratory Rate 30 H Blood Pressure 153/73 H 145/68 H Pulse Oximetry 100 Oxygen Delivery Method Oxygen Flow Rate 11/16/23 20:15 11/16/23 20:20 11/16/23 20:20 Temperature Pulse Rate 97 H 89 Respiratory Rate 13 2 L Blood Pressure 121/71 Pulse Oximetry 100 100 Oxygen Delivery Method Oxygen Flow Rate 11/16/23 20:25 11/16/23 20:25 11/16/23 20:30 Temperature Pulse Rate 98 H 100 H Respiratory Rate 21 21 Blood Pressure 142/80 H Pulse Oximetry 100 100 Oxygen Delivery Method Oxygen Flow Rate 11/16/23 20:30 11/16/23 21:15 Temperature 98.4 F Pulse Rate 68 Respiratory Rate 19 Blood Pressure 150/77 H 145/78 H Pulse Oximetry 98 Oxygen Delivery Method Room Air Oxygen Flow Rate MDM - Altered Mental Status <Emanuel Harris, - Last Filed: 11/17/23 07:08> Differential Diagnosis Differential diagnosis: Likely alcoholic intoxication, altered mental status, dementia, hypoglycemia, hyponatremia, other, subarachnoid hemorrhage and sepsis Lab Data 11/16/23 10:28 11/16/23 10:28 Labs: Lab Results 11/16/23 11/16/23 11/16/23 Range/Units 10:28 10:51 11:00 WBC 14.3 H (4.5-11.0) X10^3/uL RBC 4.94 (4.0-5.2) X10^6/uL Hgb 12.1 (12.0-16.0) g/dL Hct 37.5 (36-46) % MCV 75.8 L (80-100) fL MCH 24.4 L (26-34) PG MCHC 32.2 (30-36) % RDW 17.0 H (11.6-14.8) % Plt Count 300 (150-400) X10^3/uL Neut % (Auto) 68.3 (50-75) % Lymph % (Auto) 25.5 (25-40) % Waldo % (Auto) 2.9 L (3-14) % Eos % (Auto) 2.8 (2-4) % Baso % (Auto) 0.5 (0-2) % Neut # (Auto) 9800 H (0238-2578) /uL Lymph # (Auto) 3700 (6081-4608) /uL Waldo # (Auto) 400 (0-900) /uL Eos # (Auto) 400 (0-450) /uL Baso # (Auto) 100 (0-100) /uL PT 11.8 (9.4-12.5) SECONDS INR 1.0 (0.9-1.3) ABG Sample Site Right radial ABG pH 7.26 L* (7.35-7.45) ABG pCO2 55.9 H (35-45) mmHg ABG pO2 87 (80-100) mmHg ABG HCO3 25 (23-27) mmol/L ABG Total CO2 26 (23-27) mmol/L ABG O2 Saturation 95 (95-100) % ABG Base Excess -2.9 L (-2-3) mmol/L Javier Test Positive O2 Delivery Device Adult ventilator Mode of Support Assist cont ventilat Sodium 136 L (137-145) mmol/L Potassium 3.2 L (3.4-5.1) mmol/L Chloride 105 (98-107) mmol/L Carbon Dioxide 21 L (22-32) mmol/L BUN 19 H (7-17) mg/dL Creatinine 1.89 H (0.52-1.04) mg/dL Estimated GFR 34 L (>60) mL/min BUN/Creatinine Ratio 10.1 (6-22) Glucose 347 H (70-100) mg/dL Lactate 1.7 (0.7-2.1) mmol/L Calcium 8.5 (8.4-10.2) mg/dL Total Bilirubin 0.6 (0.2-1.3) mg/dL Conjugated Bilirubin 0.0 (0.0-0.3) md/dL Unconjugated Bilirubin 0.3 (0.0-1.1) mg/dL AST 68 H (14-36) IU/L ALT 58 H (<35) IU/L Alkaline Phosphatase 175 H (38-126) U/L Total Creatine Kinase 170 H (30-135) U/L Troponin I 0.039 H (0.01-0.034) ng/mL Total Protein 7.8 (6.3-8.2) g/dL Albumin 3.6 (3.5-5.0) g/dL Globulin 4.2 H (1.7-4.1) g/dL Albumin/Globulin Ratio 0.9 L (1.0-2.8) Lipase 234 (23-300) U/L Procalcitonin 0.184 (<0.5) ng/mL Serum , Qual Negative (Negative) Urine Color Yellow Urine Appearance Clear Urine pH 6.0 (4.5-8.0) Ur Specific Weed 1.025 (1.000-1.035) Urine Protein 3+ H (Negative) Urine Glucose (UA) 1+ H (Negative) g/dL Urine Ketones Negative (NEGATIVE) Urine Occult Blood Trace-intact (Negative) Urine Nitrate Negative (Negative) Urine Bilirubin Negative (NEGATIVE) Urine Urobilinogen 0.2 (0.2) E.U./dL Ur Leukocyte Esterase Negative (NEGATIVE) Urine RBC None seen (0-5/HPF) Urine WBC None seen (0-5/HPF) Ur Squamous Epith Cells None seen (0-5/HPF) Urine Bacteria None seen (None) Ur Culture Indicated? Cult not indicated Vol Urine Centrifuged 10ml (spun) Urine Test Negative (Negative) Salicylates < 1.0 (<20) mg/dL U Opiates 300ng/mL cut Negative (Negative) Ur Oxycodone Screen Negative (Negative) Urine Methadone Screen Negative (Negative) Acetaminophen < 10 (10-30) ug/mL Ur Barbiturates Screen Negative (Negative) U Tricyclic Antidepress Negative (Negative) Ur Phencyclidine Scrn Negative (Negative) Ur Amphetamines Screen Negative (Negative) U Methamphetamines Scrn Negative (Negative) Ur MDMA Scrn (Ecstasy) Negative (Negative) U Benzodiazepines Scrn Negative (Negative) Urine Cocaine Screen Negative (Negative) U Marijuana (THC) Screen Negative (Negative) Urine Specific Weed (Normal) Ethyl Alcohol < 10 ( - 10) mg/dL Ur Creatinine (Normal) 11/16/23 11/16/23 Range/Units 11:00 15:57 WBC (4.5-11.0) X10^3/uL RBC (4.0-5.2) X10^6/uL Hgb (12.0-16.0) g/dL Hct (36-46) % MCV (80-100) fL MCH (26-34) PG MCHC (30-36) % RDW (11.6-14.8) % Plt Count (150-400) X10^3/uL Neut % (Auto) (50-75) % Lymph % (Auto) (25-40) % Waldo % (Auto) (3-14) % Eos % (Auto) (2-4) % Baso % (Auto) (0-2) % Neut # (Auto) (5367-5893) /uL Lymph # (Auto) (2374-7433) /uL Waldo # (Auto) (0-900) /uL Eos # (Auto) (0-450) /uL Baso # (Auto) (0-100) /uL PT (9.4-12.5) SECONDS INR (0.9-1.3) ABG Sample Site ABG pH (7.35-7.45) ABG pCO2 (35-45) mmHg ABG pO2 (80-100) mmHg ABG HCO3 (23-27) mmol/L ABG Total CO2 (23-27) mmol/L ABG O2 Saturation (95-100) % ABG Base Excess (-2-3) mmol/L Javier Test O2 Delivery Device Mode of Support Sodium (137-145) mmol/L Potassium (3.4-5.1) mmol/L Chloride (98-107) mmol/L Carbon Dioxide (22-32) mmol/L BUN (7-17) mg/dL Creatinine (0.52-1.04) mg/dL Estimated GFR (>60) mL/min BUN/Creatinine Ratio (6-22) Glucose (70-100) mg/dL Lactate (0.7-2.1) mmol/L Calcium (8.4-10.2) mg/dL Total Bilirubin (0.2-1.3) mg/dL Conjugated Bilirubin (0.0-0.3) md/dL Unconjugated Bilirubin (0.0-1.1) mg/dL AST (14-36) IU/L ALT (<35) IU/L Alkaline Phosphatase (38-126) U/L Total Creatine Kinase (30-135) U/L Troponin I 0.307 H* (0.01-0.034) ng/mL Total Protein (6.3-8.2) g/dL Albumin (3.5-5.0) g/dL Globulin (1.7-4.1) g/dL Albumin/Globulin Ratio (1.0-2.8) Lipase (23-300) U/L Procalcitonin (<0.5) ng/mL Serum , Qual (Negative) Urine Color Urine Appearance Urine pH Normal (4.5-8.0) Ur Specific Weed (1.000-1.035) Urine Protein (Negative) Urine Glucose (UA) (Negative) g/dL Urine Ketones (NEGATIVE) Urine Occult Blood (Negative) Urine Nitrate (Negative) Urine Bilirubin (NEGATIVE) Urine Urobilinogen (0.2) E.U./dL Ur Leukocyte Esterase (NEGATIVE) Urine RBC (0-5/HPF) Urine WBC (0-5/HPF) Ur Squamous Epith Cells (0-5/HPF) Urine Bacteria (None) Ur Culture Indicated? Vol Urine Centrifuged Urine Test (Negative) Salicylates (<20) mg/dL U Opiates 300ng/mL cut (Negative) Ur Oxycodone Screen (Negative) Urine Methadone Screen (Negative) Acetaminophen (10-30) ug/mL Ur Barbiturates Screen (Negative) U Tricyclic Antidepress (Negative) Ur Phencyclidine Scrn (Negative) Ur Amphetamines Screen (Negative) U Methamphetamines Scrn (Negative) Ur MDMA Scrn (Ecstasy) (Negative) U Benzodiazepines Scrn (Negative) Urine Cocaine Screen (Negative) U Marijuana (THC) Screen (Negative) Urine Specific Weed Normal (Normal) Ethyl Alcohol ( - 10) mg/dL Ur Creatinine Normal (Normal) Point of Care Testing Glucose POC 330 Imaging Data Chest x-ray: Radiologist's Impression: [address] [address] XRay Report Signed Patient: Anh Grider MR#: [id number] : 1985 Acct:[id number] Age/Sex: 38 / F Date of Service: 11/16/23 Loc: ED Accession Number: [id number] Procedure: XR chest 1V Ordering Provider: Emanuel Harris D.O. PROCEDURE: XR CHEST 1V INDICATIONS: intutbated TECHNIQUE: One view of the chest was acquired. COMPARISON: [facility], , XR CHEST 1V, 09/14/2019, 14:11. FINDINGS: Surgical changes and devices: Esophagogastric tube positioning normal. Endotracheal tube positioning also is normal with its tip at the upper aspect of the medial clavicular head axial level. Lungs and pleura: Lungs are edematous and possibly involved with aspiration or pneumonia best seen at the left lower lobe. No pleural effusions or pneumothorax. Mediastinum: Mediastinal contours appear normal. Heart size is mildly enlarged considering reduced inspiratory volume. Bones and chest wall: No suspicious bony lesions. Overlying soft tissues appear unremarkable. IMPRESSION: Mild cardiomegaly with generalized mild pulmonary edema and/or aspiration or pneumonia at the left lower lobe. Esophagogastric tube extends well within the gastric lumen. The endotracheal tube extends to the upper aspect of the medial clavicular head axial level. Both are considered normal. ECG Data Attestation: I personally reviewed and interpreted this ECG as follows: Interpretation: EKG interpreted ED physician sinus tachycardia 120 beats per minute QTC [address] changes no STEMI MDM Narrative Medical decision making narrative: Patient is a 38-year-old female history of hypertension hyperlipidemia diabetes brought in intubated by EMS for possible polysubstance overdose. Patient had apparently called family stating that she was going to take a handful of pills to kill herself. Initially medics noted she was apneic GCS of 3 was therefore intubated. EMS also noted patient with elevated blood pressure. Blood glucose was in the 300s. Was given 3 mg total of Narcan without any change. Was given ketamine and fentanyl prior to arrival after intubation. Initial evaluation patient not responding to any painful stimuli. 1034: Reviewed patient's medications that arrived with the patient, patient has metoprolol, hydrochlorothiazide, phyostigmine, metformin. 1112: Patient re-evaluated now having some mild purposeful movements, chest x-ray showing possible pneumonia vanc Zosyn ordered, troponin elevated but EKG nonischemic possibly type to spell however will reach out to Cardiology still pending CT scan of the head. 1114: Discussed case with test designer Dr. Mayer, who agrees that patient has elevated troponin most likely secondary to type to spill would not recommend anticoagulation at this time 1221: Patient was re-evaluated, appears to be fighting the vent/waking up, currently on 15 of propofol, will give 100 of fentanyl, if patient is still fighting the vent/waking up will increase dose to 20 1423: We have increased patient's propofol to 50, patient still appears to be awaking, we will consider adding Precedex at this time, levo has been ordered prophylactically case of hypotension. I did discuss with transfer center to try to have patient transferred. Still awaiting for call back/accepting doctor at this time. 1533: Patient was re-evaluated, she was following commands appropriately, patient squeezing hands interval, patient with stable blood pressure, patient is arousable, repeat ABG does show improved PH, 7.34 with CO2 41 this was obtained with FiO2 less than 50%. Patient not tachycardic, no pressors. Extubated patient to non-rebreather and titrated down to nasal cannula we will continue to evaluate. 1715: Had a discussion with Dr. Huang, at [facility] who accepts the admission, will receive call back once bed availability 1830: Patient is signed out to incoming physician, pending transfer to [facility] step-down unit for elevated troponin, sepsis secondary to pneumonia. Patient currently not requiring any supplemental oxygen at this time. <Shanice Ferreira MD - Last Filed: 11/16/23 21:40> Lab Data Labs: Lab Results 11/16/23 11/16/23 11/16/23 Range/Units 10:28 10:51 11:00 WBC 14.3 H (4.5-11.0) X10^3/uL RBC 4.94 (4.0-5.2) X10^6/uL Hgb 12.1 (12.0-16.0) g/dL Hct 37.5 (36-46) % MCV 75.8 L (80-100) fL MCH 24.4 L (26-34) PG MCHC 32.2 (30-36) % RDW 17.0 H (11.6-14.8) % Plt Count 300 (150-400) X10^3/uL Neut % (Auto) 68.3 (50-75) % Lymph % (Auto) 25.5 (25-40) % Waldo % (Auto) 2.9 L (3-14) % Eos % (Auto) 2.8 (2-4) % Baso % (Auto) 0.5 (0-2) % Neut # (Auto) 9800 H (0842-9337) /uL Lymph # (Auto) 3700 (9359-7600) /uL Waldo # (Auto) 400 (0-900) /uL Eos # (Auto) 400 (0-450) /uL Baso # (Auto) 100 (0-100) /uL PT 11.8 (9.4-12.5) SECONDS INR 1.0 (0.9-1.3) ABG Sample Site Right radial ABG pH 7.26 L* (7.35-7.45) ABG pCO2 55.9 H (35-45) mmHg ABG pO2 87 (80-100) mmHg ABG HCO3 25 (23-27) mmol/L ABG Total CO2 26 (23-27) mmol/L ABG O2 Saturation 95 (95-100) % ABG Base Excess -2.9 L (-2-3) mmol/L Javier Test Positive O2 Delivery Device Adult ventilator Mode of Support Assist cont ventilat Sodium 136 L (137-145) mmol/L Potassium 3.2 L (3.4-5.1) mmol/L Chloride 105 (98-107) mmol/L Carbon Dioxide 21 L (22-32) mmol/L BUN 19 H (7-17) mg/dL Creatinine 1.89 H (0.52-1.04) mg/dL Estimated GFR 34 L (>60) mL/min BUN/Creatinine Ratio 10.1 (6-22) Glucose 347 H (70-100) mg/dL Lactate 1.7 (0.7-2.1) mmol/L Calcium 8.5 (8.4-10.2) mg/dL Total Bilirubin 0.6 (0.2-1.3) mg/dL Conjugated Bilirubin 0.0 (0.0-0.3) md/dL Unconjugated Bilirubin 0.3 (0.0-1.1) mg/dL AST 68 H (14-36) IU/L ALT 58 H (<35) IU/L Alkaline Phosphatase 175 H (38-126) U/L Total Creatine Kinase 170 H (30-135) U/L Troponin I 0.039 H (0.01-0.034) ng/mL Total Protein 7.8 (6.3-8.2) g/dL Albumin 3.6 (3.5-5.0) g/dL Globulin 4.2 H (1.7-4.1) g/dL Albumin/Globulin Ratio 0.9 L (1.0-2.8) Lipase 234 (23-300) U/L Procalcitonin 0.184 (<0.5) ng/mL Serum , Qual Negative (Negative) Urine Color Yellow Urine Appearance Clear Urine pH 6.0 (4.5-8.0) Ur Specific Weed 1.025 (1.000-1.035) Urine Protein 3+ H (Negative) Urine Glucose (UA) 1+ H (Negative) g/dL Urine Ketones Negative (NEGATIVE) Urine Occult Blood Trace-intact (Negative) Urine Nitrate Negative (Negative) Urine Bilirubin Negative (NEGATIVE) Urine Urobilinogen 0.2 (0.2) E.U./dL Ur Leukocyte Esterase Negative (NEGATIVE) Urine RBC None seen (0-5/HPF) Urine WBC None seen (0-5/HPF) Ur Squamous Epith Cells None seen (0-5/HPF) Urine Bacteria None seen (None) Ur Culture Indicated? Cult not indicated Vol Urine Centrifuged 10ml (spun) Urine Test Negative (Negative) Salicylates < 1.0 (<20) mg/dL U Opiates 300ng/mL cut Negative (Negative) Ur Oxycodone Screen Negative (Negative) Urine Methadone Screen Negative (Negative) Acetaminophen < 10 (10-30) ug/mL Ur Barbiturates Screen Negative (Negative) U Tricyclic Antidepress Negative (Negative) Ur Phencyclidine Scrn Negative (Negative) Ur Amphetamines Screen Negative (Negative) U Methamphetamines Scrn Negative (Negative) Ur MDMA Scrn (Ecstasy) Negative (Negative) U Benzodiazepines Scrn Negative (Negative) Urine Cocaine Screen Negative (Negative) U Marijuana (THC) Screen Negative (Negative) Urine Specific Weed (Normal) Ethyl Alcohol < 10 ( - 10) mg/dL Ur Creatinine (Normal) 11/16/23 11/16/23 Range/Units 11:00 15:57 WBC (4.5-11.0) X10^3/uL RBC (4.0-5.2) X10^6/uL Hgb (12.0-16.0) g/dL Hct (36-46) % MCV (80-100) fL MCH (26-34) PG MCHC (30-36) % RDW (11.6-14.8) % Plt Count (150-400) X10^3/uL Neut % (Auto) (50-75) % Lymph % (Auto) (25-40) % Waldo % (Auto) (3-14) % Eos % (Auto) (2-4) % Baso % (Auto) (0-2) % Neut # (Auto) (3308-3938) /uL Lymph # (Auto) (9302-0065) /uL Waldo # (Auto) (0-900) /uL Eos # (Auto) (0-450) /uL Baso # (Auto) (0-100) /uL PT (9.4-12.5) SECONDS INR (0.9-1.3) ABG Sample Site ABG pH (7.35-7.45) ABG pCO2 (35-45) mmHg ABG pO2 (80-100) mmHg ABG HCO3 (23-27) mmol/L ABG Total CO2 (23-27) mmol/L ABG O2 Saturation (95-100) % ABG Base Excess (-2-3) mmol/L Javier Test O2 Delivery Device Mode of Support Sodium (137-145) mmol/L Potassium (3.4-5.1) mmol/L Chloride (98-107) mmol/L Carbon Dioxide (22-32) mmol/L BUN (7-17) mg/dL Creatinine (0.52-1.04) mg/dL Estimated GFR (>60) mL/min BUN/Creatinine Ratio (6-22) Glucose (70-100) mg/dL Lactate (0.7-2.1) mmol/L Calcium (8.4-10.2) mg/dL Total Bilirubin (0.2-1.3) mg/dL Conjugated Bilirubin (0.0-0.3) md/dL Unconjugated Bilirubin (0.0-1.1) mg/dL AST (14-36) IU/L ALT (<35) IU/L Alkaline Phosphatase (38-126) U/L Total Creatine Kinase (30-135) U/L Troponin I 0.307 H* (0.01-0.034) ng/mL Total Protein (6.3-8.2) g/dL Albumin (3.5-5.0) g/dL Globulin (1.7-4.1) g/dL Albumin/Globulin Ratio (1.0-2.8) Lipase (23-300) U/L Procalcitonin (<0.5) ng/mL Serum , Qual (Negative) Urine Color Urine Appearance Urine pH Normal (4.5-8.0) Ur Specific Weed (1.000-1.035) Urine Protein (Negative) Urine Glucose (UA) (Negative) g/dL Urine Ketones (NEGATIVE) Urine Occult Blood (Negative) Urine Nitrate (Negative) Urine Bilirubin (NEGATIVE) Urine Urobilinogen (0.2) E.U./dL Ur Leukocyte Esterase (NEGATIVE) Urine RBC (0-5/HPF) Urine WBC (0-5/HPF) Ur Squamous Epith Cells (0-5/HPF) Urine Bacteria (None) Ur Culture Indicated? Vol Urine Centrifuged Urine Test (Negative) Salicylates (<20) mg/dL U Opiates 300ng/mL cut (Negative) Ur Oxycodone Screen (Negative) Urine Methadone Screen (Negative) Acetaminophen (10-30) ug/mL Ur Barbiturates Screen (Negative) U Tricyclic Antidepress (Negative) Ur Phencyclidine Scrn (Negative) Ur Amphetamines Screen (Negative) U Methamphetamines Scrn (Negative) Ur MDMA Scrn (Ecstasy) (Negative) U Benzodiazepines Scrn (Negative) Urine Cocaine Screen (Negative) U Marijuana (THC) Screen (Negative) Urine Specific Weed Normal (Normal) Ethyl Alcohol ( - 10) mg/dL Ur Creatinine Normal (Normal) Point of Care Testing Glucose POC 330 MDM Narrative Medical decision making narrative: Patient is a 38-year-old female history of hypertension hyperlipidemia diabetes brought in intubated by EMS for possible polysubstance overdose. Patient had apparently called family stating that she was going to take a handful of pills to kill herself. Initially medics noted she was apneic GCS of 3 was therefore intubated. EMS also noted patient with elevated blood pressure. Blood glucose was in the 300s. Was given 3 mg total of Narcan without any change. Was given ketamine and fentanyl prior to arrival after intubation. Initial evaluation patient not responding to any painful stimuli. 1034: Reviewed patient's medications that arrived with the patient, patient has metoprolol, hydrochlorothiazide, phyostigmine, metformin. 1112: Patient re-evaluated now having some mild purposeful movements, chest x-ray showing possible pneumonia vanc Zosyn ordered, troponin elevated but EKG nonischemic possibly type to spell however will reach out to Cardiology still pending CT scan of the head. 1114: Discussed case with test designer Dr. Mayer, who agrees that patient has elevated troponin most likely secondary to type to spill would not recommend anticoagulation at this time 1221: Patient was re-evaluated, appears to be fighting the vent/waking up, currently on 15 of propofol, will give 100 of fentanyl, if patient is still fighting the vent/waking up will increase dose to 20 1423: We have increased patient's propofol to 50, patient still appears to be awaking, we will consider adding Precedex at this time, levo has been ordered prophylactically case of hypotension. I did discuss with transfer center to try to have patient transferred. Still awaiting for call back/accepting doctor at this time. 1533: Patient was re-evaluated, she was following commands appropriately, patient squeezing hands interval, patient with stable blood pressure, patient is arousable, repeat ABG does show improved PH, 7.34 with CO2 41 this was obtained with FiO2 less than 50%. Patient not tachycardic, no pressors. Extubated patient to non-rebreather and titrated down to nasal cannula we will continue to evaluate. 1715: Had a discussion with Dr. Huang, at [facility] who accepts the admission, will receive call back once bed availability 1830: Patient is signed out to incoming physician, pending transfer to [facility] step-down unit for elevated troponin, sepsis secondary to pneumonia. Patient currently not requiring any supplemental oxygen at this time. Dr. Ferreira -maame of patient is signed out to me by daytime physician. No additional events reported. Patient maintained airway without difficulty. Accepted to [facility]. Transferred via ambulance in stable condition. Critical Care Time <Emanuel Harris DO - Last Filed: 11/17/23 07:08> Critical Care Time Critical Care Time: Yes Total Critical Care Time: 45 Attestation: Critical Care Time [45] minutes: Critical care time is separate from other billable procedures. This critical care time includes consultation with family and other consulting doctors, review of records, and interpretation of data from labs, EKGs, imaging, etc. Discharge Plan Departure Patient Disposition: [facility] Clinical Impression: Acute hypoxemic respiratory failure, Acute drug overdose, CAITY (acute kidney injury), Elevated troponin Prescriptions: No Action pyridostigmine bromide 60 mg tablet 60 mg PO TID hydrochlorothiazide 25 mg tablet 25 mg PO DAILY metoprolol succinate 25 mg Tablet Extended Release 24 Hr 25 mg PO DAILY losartan 100 mg Tablet 100 mg PO DAILY metformin 500 mg tablet extended release 24 hr 250 mg PO QPM dapagliflozin propanediol 10 mg Tablet 10 mg PO DAILY Referrals: Brianna Hidalgo MD [Primary Care Provider] -
--- NOTE | 2023-11-16 10:29 | DI.CT.S_ITS ---
PROCEDURE: CT HEAD/BRAIN WO CON INDICATIONS: ams TECHNIQUE: Noncontrast 4.5 mm thick angled axial sections acquired from the foramen magnum to the vertex, with coronal and sagittal reformats. For radiation dose reduction, the following was used: automated exposure control, adjustment of mA and/or kV according to patient size. COMPARISON: [facility], CT, CT HEAD/BRAIN WO CON, 08/14/2018, 17:44. FINDINGS: Image quality: Diagnostic. CSF spaces: Basal cisterns are patent. No extra-axial fluid collections. Ventricles are normal in size and shape. Brain: No midline shift. No intracranial masses or hemorrhage. Miller-white matter interface is normal. Skull and face: Calvarium and visualized facial bones are intact, without suspicious lesions. Sinuses: Visualized sinuses and mastoids are clear. IMPRESSION: No acute intracranial pathology. Dictated by: Honorio Calloway M.D. on 11/16/2023 at 12:48 Approved by: Honorio Calloway M.D. on 11/16/2023 at 12:49
--- NOTE | 2023-11-16 10:29 | DI.RAD.S_ITS ---
PROCEDURE: XR CHEST 1V INDICATIONS: intutbated TECHNIQUE: One view of the chest was acquired. COMPARISON: [facility], CR, XR CHEST 1V, 09/14/2019, 14:11. FINDINGS: Surgical changes and devices: Esophagogastric tube positioning normal. Endotracheal tube positioning also is normal with its tip at the upper aspect of the medial clavicular head axial level. Lungs and pleura: Lungs are edematous and possibly involved with aspiration or pneumonia best seen at the left lower lobe. No pleural effusions or pneumothorax. Mediastinum: Mediastinal contours appear normal. Heart size is mildly enlarged considering reduced inspiratory volume. Bones and chest wall: No suspicious bony lesions. Overlying soft tissues appear unremarkable. IMPRESSION: Mild cardiomegaly with generalized mild pulmonary edema and/or aspiration or pneumonia at the left lower lobe. Esophagogastric tube extends well within the gastric lumen. The endotracheal tube extends to the upper aspect of the medial clavicular head axial level. Both are considered normal. Dictated by: Honorio Calloway M.D. on 11/16/2023 at 11:05 Approved by: Honorio Calloway M.D. on 11/16/2023 at 11:06
--- NOTE | 2023-11-16 10:40 | EKG_ITS ---
[facility] [address] [place] [address] Test Date: 2023-11-16 Pat Name: Anh Grider Department: Room: Gender: Female Administration Internship: : 1985 Requested By: Order Number: [id number] Reading MD: Dante Gilbert MD Measurements Intervals [place] Rate: 120 P: 46 SD: 146 QRS: 89 QRSD: 94 T: -9 QT: 348 QTc: 491 Interpretive Statements Sinus tachycardia with premature ventricular complexes or fusion complexes ST & T wave abnormality, consider inferior ischemia Electronically Signed On 11-17-2023 7:56:57 PDT by Dante Gilbert MD
[2023-11-16 10:41] LABS: Prothrombin Time 11.8 SECONDS (9.4-12.5)
[2023-11-16 10:42] LABS: Add Manual Diff / Slide Review NO; Basophils Absolute Auto 100 /uL (0-100); Basophils Percent Auto 0.5 % (0-2); Eosinophils Absolute Auto 400 /uL (0-450); Eosinophils Percent Auto 2.8 % (2-4); Hematocrit 37.5 % (36-46); Hemoglobin 12.1 g/dL (12.0-16.0); Lymphocytes Absolute Auto 3700 /uL (1100-4500); Lymphocytes Percent Auto 25.5 % (25-40); Mean Corpuscular HGB Conc 32.2 % (30-36); Mean Corpuscular Hemoglobin 24.4 PG (26-34); Mean Corpuscular Volume 75.8 fL (80-100); Monocytes Absolute Auto 400 /uL (0-900); Monocytes Percent Auto 2.9 % (3-14); Neutrophils Absolute Auto 9800 /uL (1500-7000); Neutrophils Percent Auto 68.3 % (50-75); Platelet Count 300 X10^3/uL (150-400); Red Blood Cell Count 4.94 X10^6/uL (4.0-5.2); White Blood Cell Count 14.3 X10^3/uL (4.5-11.0)
[2023-11-16 10:43] LABS: Pregnancy Test Serum,Qual Negative (Negative)
--- NOTE | 2023-11-16 10:43 | PC.NURSE ---
intentional OD on unk substance. 9-10am this morning alerted partner that she took handful of pills. When EMS arrived pt was unconcious with 4-6 breaths/min and not rousable to painful stim. 2mg IN narcan given by keypunch operators supervisor. mild cough was the only response. pt was assisted with ventilations by EMS with adequate sat%. additional 1mg IV narcan given by medics. Tachy 120's and HTN 190's prehospital. Intubated for airway protection. 250mg Ketamine 100mg Alvaro for RSI. 7.0ETT 24@teeth. CO2 35-45 for EMS. 100mcg fentanyl given post intubation and additional 100mcg given before exiting ambulance. 120mg ketamine given for continued sedation in transport. arrives with B/L 18G IVs.
[2023-11-16 10:48] LABS: Creatine Kinase 170 U/L (30-135); Lipase 234 U/L (23-300)
[2023-11-16 10:49] LABS: Acetaminophen < 10 ug/mL (10-30); Alanine Aminotransferase 58 IU/L (<35); Albumin 3.6 g/dL (3.5-5.0); Albumin Globulin Ratio 0.9 (1.0-2.8); Alkaline Phosphatase 175 U/L (38-126); Aspartate Aminotransferase 68 IU/L (14-36); BUN Creatinine Ratio 10.1 (6-22); Bilirubin Total 0.6 mg/dL (0.2-1.3); Bilirubin Unconjugated 0.3 mg/dL (0.0-1.1); Blood Urea Nitrogen 19 mg/dL (7-17); Calcium 8.5 mg/dL (8.4-10.2); Carbon Dioxide 21 mmol/L (22-32); Chloride 105 mmol/L (98-107); Estimated Glomerular Filt Rate 34 mL/min (>60); Ethanol (ETOH) < 10 mg/dL; Globulin 4.2 g/dL (1.7-4.1); Glucose 347 mg/dL (70-100); HEMOLYSIS < 15 (0-50); Potassium 3.2 mmol/L (3.4-5.1); Salicylate < 1.0 mg/dL (<20); Sodium 136 mmol/L (137-145); Total Protein 7.8 g/dL (6.3-8.2)
[2023-11-16 10:50] LABS: Lactate (Lactic Acid) 1.7 mmol/L (0.7-2.1)
[2023-11-16 10:57] LABS: Allen Test for ABG Passed? Positive; Base Excess ABG -2.9 mmol/L (-2-3); Blood Gas Collection Site Right Radial; Blood Gas Mode Assist Cont Ventilat; Delivery System Adult Ventilator; HCO3 ABG 25 mmol/L (23-27); Oxygen Saturation ABG 95 % (95-100); PCO2 ABG 55.9 mmHg (35-45); PO2 ABG 87 mmHg (80-100); TCO2 ABG 26 mmol/L (23-27); pH ABG 7.26 (7.35-7.45)
[2023-11-16 10:59] LABS: Troponin I 0.039 ng/mL (0.01-0.034)
[2023-11-16 11:04] LABS: Procalcitonin 0.184 ng/mL (<0.5)
[2023-11-16] MEDS: SODIUM CHLORIDE 0.9% 1,000 ML 150 ML IV (11:05)
[2023-11-16 11:11] LABS: Appearance Urine UA CLEAR; Bilirubin Urine UA NEGATIVE (NEGATIVE); Color Urine UA YELLOW; Glucose Urine UA 1+ g/dL (Negative); Ketones Urine UA NEGATIVE (NEGATIVE); Leukocyte Esterase Urine UA NEGATIVE (NEGATIVE); Nitrite Urine UA NEGATIVE (Negative); Occult Blood Urine UA TRACE-INTACT (Negative); Pregnancy Test Urine Negative (Negative); Protein Urine UA 3+ (Negative); Specific Gravity Urine UA 1.025 (1.000-1.035); Urobilinogen Urine UA 0.2 E.U./dL (0.2)
[2023-11-16 11:12] LABS: UR Morphine/Opiate cutoff 300 Negative (Negative); Ur Creatinine Normal (Normal); Ur Specific Gravity Normal (Normal); Urine Amphetamines Negative (Negative); Urine Barbiturates Negative (Negative); Urine Benzodiazepines Negative (Negative); Urine Cocaine Negative (Negative); Urine MDMA Negative (Negative); Urine Methadone Negative (Negative); Urine Methamphetamines Negative (Negative); Urine Oxycodone Negative (Negative); Urine Phencyclidine Negative (Negative); Urine Tetrahydrocannabinol Negative (Negative); Urine Tricyclic Antidepressant Negative (Negative); Urine pH Normal (Normal)
[2023-11-16 11:13] LABS: Urine Volume 10mL (spun)
[2023-11-16 11:15] LABS: Bacteria Urine None Seen; Culture Indicated Urine Cult Not Indicated; RBC Urine None Seen (0-5/HPF); Squamous Epithelial Cell Urine None Seen (0-5/HPF); WBC Urine None Seen (0-5/HPF)
[2023-11-16] MEDS: propofoL 1,000 MG/100 ML VIAL 4.627 MG IV (11:27)
[2023-11-16] MEDS: PIPERACILLIN/TAZO 4.5 GM in SODIUM CHLORIDE 0.9% 100 ML IV (12:26)
[2023-11-16] MEDS: fentaNYL 100 MCG/2 ML INJ IV (12:26)
[2023-11-16] MEDS: VANCOMYCIN 1,000 MG/200 ML PIGGYBACK 200 MG IV (13:01)
--- NOTE | 2023-11-16 14:21 | PC.NURSE ---
1155 Pt taken to imaging by RN & RT 1205 Pt became restless and bega bucking tube. RT & vehicle operator technician assisted RN with holding arms down so pt did not pull out ET tube. Propofol increased per hospital protocol, see APR. 1207 Returned to ED with pt. Doctor notified of pt status. 1216 Pt continues to kenyon ET tube. Propofol increased to 15mcgh/kg/hr. Verbal order for Versed and to increase propofol titration. See MAR
[2023-11-16] MEDS: dexmedeTOMIDine in 0.9 % NaCL 400 MCG/100 ML PLAST..BAG 7.711 MCG IV (15:16)
--- NOTE | 2023-11-16 15:37 | PC.NURSE ---
Hospital Call List for patient transfer. 1259: [facility], spoke with Laura, patient is on wait list but they are currently boarding 1303: [facility], spoke with Grey, currently boarding, patient isn't on wait list 1310: [facility], spoke with Irene, all locations are boarding have an estimated wait time of 24 hours or more 1311: [facility], spoke with Jose, was busy and asked if he could call back. [facility] did call back patient on wait list 1324: [facility], spoke with Aleksey, patient is on their list and helping with getting transfer
--- NOTE | 2023-11-16 15:40 | PC.NURSE ---
1515 Pt became restless and bucking ET tube after switching sedation medications (see MAR). Pt eyes open and trying to remove ET tube. Pt responding appropriately to questions, squeezing hands and cough lightly. RT at bedside and Dr Harris at bedside. Verbal order for RT to extubate. ET tube removed by RT @ 1530. Placed on NRB and weened to 3L NC. Pt placed on end tidal and
--- NOTE | 2023-11-16 15:51 | PC.NURSE ---
Pt sitting up in bed and responding to all questions. Pt sleepy but answering all questions appropriately. A&Ox4.
[2023-11-16 16:36] LABS: Troponin I 0.307 ng/mL (0.01-0.034)
--- NOTE | 2023-11-16 16:57 | PC.NURSE ---
Pt remains drowsy but arousable to touch and sound. Opens eyes and answers all questions appropriately.
--- NOTE | 2023-11-16 17:56 | PC.NURSE ---
Pt awake and a&ox4 at this time. When questioned about events that happened today prior to arriving to the ED pt stated that she did not take medications to hurt herself today, but she took her regular prescribed home medications and her boyfriend misunderstood what she said whens he took her handful of pills. After she took medications and hung up the phone, pt describes that she felt like the room started to close in on her, her vision became dark and began to have jumbled slurry speech. Pt states that she is unsure who called EMS but she remembers hearing them knocking on the door but could not move. Pt states that everything felt like a weird dream. Pt denies any SI.
[2023-11-16] MEDS: ONDANSETRON 4 MG/2 ML INJ IV (21:11)
--- NOTE | 2023-11-16 21:14 | PC.NURSE ---
Pt reports that she is feeling nauseated. Verbal order received from Dr Ferreira for IV Zofran. Medicated with Zofran.
[2023-11-17 14:10] LABS: Osmolality, Serum 299 mOsmol/kg (275-295)
== END 2023-11-16 21:15 | disposition short-term general hospital (02) ==
PROVIDERS: Emergency Provider Student in an Organized Health Care Education/Training Program; PCP Family Medicine
DX: J96.01 Acute respiratory failure with hypoxia (principal); T50.902A Poisoning by unspecified drugs, medicaments and biological substances, intentional self-harm, initial encounter; N17.9 Acute kidney failure, unspecified; E11.65 Type 2 diabetes mellitus with hyperglycemia; R00.0 Tachycardia, unspecified; I51.7 Cardiomegaly; I10 Essential (primary) hypertension; R79.89 Other specified abnormal findings of blood chemistry
CPT/HCPCS: 36600; 70450; 71045; 80053; 80076; 80305; 80320; 80329; 81001; 81025; 82550; 82553; 82805; 82962; 83605; 83690; 83930; 84145; 84484; 84703; 85025; 85610; 93005; 94002; 94799; 96365; 96367; 96375; 99152; 99153; 99285; 99291; G0480; J2405; J2543; J2704; J3010

== ENCOUNTER 2024-01-20 09:10 | Emergency (ER) | payer OTHER, SELFPAY ==
[2019-09-14 18:26] VITALS: BMI 62.8
[2023-11-16 11:00] VITALS: RESP 12
[2023-11-16 15:42] VITALS: PULSE 88; RESP 32; O2SAT 96
[2024-01-20] VITALS (8 sets, daily range): BP systolic 166–197; BP diastolic 79–108; PULSE 68–96; RESP 16; TEMP 36.1; O2SAT 96–99; BMI 57.4
--- NOTE | 2024-01-20 09:27 | ED.RECABL ---
HPI - Recheck/Abnormal Lab/Rx General Chief Complaint: Recheck/Abnormal Lab/Rx Stated Complaint: Kindey Functions are pretty low (28) Time Seen by Provider: 01/20/24 09:27 Source: patient Mode of arrival: Ambulatory Limitations: no limitations History of Present Illness HPI narrative: 38-year-old female history of hypertension, dyslipidemia, diabetes type 2 with known renal dysfunction who was sent by her physician for decrease in her creatinine/GFR. States she did have an ultrasound in the last several weeks which showed normal kidneys. She has been referred to nephrology had called to make an appointment with [facility] nephrology but told appointment will be in March. Had labs drawn in the last day or so her GFR was 28. Last GFR available here was 34 in November. Patient states no symptoms otherwise. No chest pain, no shortness of breath no nausea or vomiting no fevers or chills. No dysuria urgency or frequency no decrease in urine output no GI issues. States her medications which were metformin and lisinopril were stopped after she was transferred to [facility] in November of 2023 at that time she was intubated in the field with EMS but extubated prior to transfer to [facility] for sepsis secondary to pneumonia, elevated troponin, acute on chronic kidney injury likely related to polysubstance overdose. Patient states she is currently on aspirin, atorvastatin, amlodipine, hydrochlorothiazide and dapagliflozin. Patient has had a prior hysterectomy. Does use tobacco, denies regular alcohol, no recreational drugs. Dr. Hidalgo is his primary care physician. Related Data Home Medications Medication Instructions Recorded Confirmed dapagliflozin propanediol 10 mg 10 mg PO DAILY 11/16/23 11/16/23 tablet hydrochlorothiazide 25 mg tablet 25 mg PO DAILY 11/16/23 11/16/23 losartan 100 mg tablet 100 mg PO DAILY 11/16/23 11/16/23 metformin 500 mg tablet,extended 250 mg PO QPM 11/16/23 11/16/23 release 24 hr metoprolol succinate 25 mg 25 mg PO DAILY 11/16/23 11/16/23 tablet,extended release 24 hr pyridostigmine bromide 60 mg tablet 60 mg PO TID 11/16/23 11/16/23 Allergies Allergy/AdvReac Type Severity Reaction Status Date / Time No Known Drug Allergies Allergy Verified 01/20/24 09:18 Review of Systems Review of Systems ROS Unobtainable: All systems reviewed & are unremarkable except as noted in HPI and below Patient History Medical History Sleep apnea Endometrial intraepithelial neoplasia (EIN) Anxiety Headache Morbid obesity Fatty liver Hypertension Migraines Diabetes Surgical History Previous section (~2013) Family History Mother COVID-19 Diabetes mellitus Hypertension Father Diabetes mellitus History of heart disease Hypertension Stroke Brother Hypertension Stroke Social History household members: family Smoking Status: Current every day smoker substance use type: does not use Smoking Status: Current every day smoker tobacco type: vaping alcohol intake frequency: other Exam Narrative Exam Narrative: GENERAL: Alert and oriented x three, obese female in mild distress HEENT: Head normocephalic, atraumatic, EOMI, pupils reactive, face symmetric, moist mucous membranes NECK: Supple, full range of motion CARDIOVASCULAR: Regular rate and rhythm without murmurs, rubs or gallops. RESPIRATORY: Breath sounds equal bilaterally, no wheezes rales or rhonchi. ABDOMEN: Soft, nontender. Normoactive bowel sounds all 4 quadrants. No guarding or rebound, rigidity, no mass : No CVA tenderness EXTREMITIES: Normal range of motion, no clubbing or edema. Neurovascularly intact NEUROLOGICAL: Cranial nerves II through XII grossly intact. Moving all extremities SKIN: Warm, dry, no petechiae, no rashes or lesions. Initial Vital Signs Initial Vital Signs: Vital Signs Temperature 97.0 F L 01/20/24 09:18 Pulse Rate 81 01/20/24 09:18 Respiratory Rate 16 01/20/24 09:18 Blood Pressure 197/108 H 01/20/24 09:18 Pulse Oximetry 98 01/20/24 09:18 Oxygen Delivery Method Room Air 01/20/24 09:18 Course Orders Ordered: ED Orders 01/20/24 09:40 CMP [Comprehensive Metabolic Panel] Stat Complete Blood Count AUTO DIFF Stat 01/20/24 11:07 Urine Microscopic Stat Vital Signs Vital signs: Vital Signs - 8 hr 01/20/24 09:18 01/20/24 09:24 01/20/24 09:25 Temperature 97.0 F L Pulse Rate 81 96 H 81 Respiratory Rate 16 Blood Pressure 197/108 H Pulse Oximetry 98 98 97 Oxygen Delivery Method Room Air 01/20/24 09:25 01/20/24 09:30 01/20/24 09:30 Temperature Pulse Rate 81 Respiratory Rate Blood Pressure 188/102 H 176/90 H Pulse Oximetry 96 Oxygen Delivery Method 01/20/24 10:00 01/20/24 10:30 Temperature Pulse Rate 72 73 Respiratory Rate Blood Pressure Pulse Oximetry 99 99 Oxygen Delivery Method MDM - Recheck/Abnormal Lab/Rx Lab Data 01/20/24 09:40 01/20/24 09:40 Labs: Lab Results 01/20/24 01/20/24 Range/Units 09:40 11:07 WBC 11.7 H (4.5-11.0) X10^3/uL RBC 4.49 (4.0-5.2) X10^6/uL Hgb 11.4 L (12.0-16.0) g/dL Hct 35.5 L (36-46) % MCV 79.0 L (80-100) fL MCH 25.4 L (26-34) PG MCHC 32.1 (30-36) % RDW 16.3 H (11.6-14.8) % Plt Count 315 (150-400) X10^3/uL Neut % (Auto) 80.7 H (50-75) % Lymph % (Auto) 13.2 L (25-40) % [place] % (Auto) 3.1 (3-14) % Eos % (Auto) 2.4 (2-4) % Baso % (Auto) 0.6 (0-2) % Neut # (Auto) 9400 H (6903-9795) /uL Lymph # (Auto) 1500 (2393-2377) /uL [place] # (Auto) 400 (0-900) /uL Eos # (Auto) 300 (0-450) /uL Baso # (Auto) 100 (0-100) /uL Sodium 138 (137-145) mmol/L Potassium 3.8 (3.4-5.1) mmol/L Chloride 107 (98-107) mmol/L Carbon Dioxide 25 (22-32) mmol/L BUN 35 H (7-17) mg/dL Creatinine 2.20 H (0.52-1.04) mg/dL Estimated GFR 28 L (>60) mL/min BUN/Creatinine Ratio 15.9 (6-22) Glucose 214 H (70-100) mg/dL Calcium 8.0 L (8.4-10.2) mg/dL Total Bilirubin 0.5 (0.2-1.3) mg/dL AST 46 H (14-36) IU/L ALT 42 H (<35) IU/L Alkaline Phosphatase 192 H (38-126) U/L Total Protein 7.0 (6.3-8.2) g/dL Albumin 3.4 L (3.5-5.0) g/dL Globulin 3.6 (1.7-4.1) g/dL Albumin/Globulin Ratio 0.9 L (1.0-2.8) Urine RBC 1-5/hpf (0-5/HPF) Urine WBC 1-5/hpf (0-5/HPF) Ur Squamous Epith Cells 5-10 /hpf H (0-5/HPF) Amorphous Sediment 1+ Urine Bacteria Occasional (0-1) (None) Hyaline Casts 0-1/lpf (None) Ur Culture Indicated? Cult not indicated Vol Urine Centrifuged 10ml (spun) Urine Dip Bedside Urine Glucose 1000 mg/dl Bedside Urine Bilirubin - Negative Bedside Urine Ketone - Negative Urine Specific [place] 1.025 Bedside Urine Occult Blood + Bedside Urine pH 6.0 Bedside Urine Protein +++ 300 Bedside Urine Urobilinogen - Negative Bedside Urine Nitrite - Negative Bedside Urine Leukocytes - Negative Esterase MDM Narrative Medical decision making narrative: Labs show white count 11.7 hemoglobin 11.4 fairly consistent with priors patient has ranged between 12 and 9, platelets are 315. Chemistries sodium 138 potassium 3.8 chloride of 107 CO2 of 25 BUN 35 creatinine 2.2 GFR 28 glucose of 214 these are slightly elevated with an AST of 46 ALT of 42 alk-phos of 192. Urine urine positive for blood, 3+ protein no nitrates or leukocyte esterase. 1-5 RBCs 1-5 WBCs 5-10 squamous, occasional bacteria 1 cast. Prior chemistries show an November of 2023 patient's GFR was 34 with a creatinine of 1.March it was 1.29 creatinine with a GFR 54. Prior to that last labs were from 2019 with normal renal function. Glucose has been elevated with each visit. Patient does not have any renal imaging file here, but states she had a normal renal ultrasound in the last 2-3 weeks as an outpatient. Patient appears to have slowly worsening renal function today her creatinine is 2.2 with a GFR 28 was 34 in November. Patient has been in contact to set up a nephrology but does not have an appointment until March. Consult to [facility] nephrology, Dr. Bruno, reviewed patient's labs and findings he will have office reach out to the patient to see if they can get her in sooner if not they will direct her to another nephrology office. No additional recommendations at this time. Updated patient she has not appointment scheduled in March, she should expect a phone call for a sooner appointment. Patient is to reach out to the office if she does not hear back in the next 1-2 days. Discharge Plan Departure Patient Disposition: Home Clinical Impression: CKD (chronic kidney disease) Instructions: Chronic Kidney Disease Activity Restrictions/Additional Instructions: I spoke with Nephrology at [facility], they will see if they can get you in for a sooner appointment. If not they may redirect you to a different nephrology group C you can be seen at a sooner date. I spoke with Dr. Bruno. Your physician can also help you if you require referral to a different nephrology group. Your kidney function has decreased since your last visit in November you do need to follow up. Talk with your physician about your medications to see if any additional adjustments need to be made but none were recommended today from Nephrology. Please return if you have new swelling in your extremities, difficulty with urination, fevers, chest pain or shortness of breath, vomiting or other new or concerning changes. Prescriptions: No Action pyridostigmine bromide 60 mg tablet 60 mg PO TID hydrochlorothiazide 25 mg tablet 25 mg PO DAILY metoprolol succinate 25 mg Tablet Extended Release 24 Hr 25 mg PO DAILY losartan 100 mg Tablet 100 mg PO DAILY metformin 500 mg tablet extended release 24 hr 250 mg PO QPM dapagliflozin propanediol 10 mg Tablet 10 mg PO DAILY Referrals: Brianna Hidalgo MD [Primary Care Provider] - Joelle Bruno MD [Non-Staff] - Stand Alone Forms: Patient Portal/API/Survey, Work Release Note
[2024-01-20 09:56] LABS: Add Manual Diff / Slide Review NO; Basophils Absolute Auto 100 /uL (0-100); Basophils Percent Auto 0.6 % (0-2); Eosinophils Absolute Auto 300 /uL (0-450); Eosinophils Percent Auto 2.4 % (2-4); Hematocrit 35.5 % (36-46); Hemoglobin 11.4 g/dL (12.0-16.0); Lymphocytes Absolute Auto 1500 /uL (1100-4500); Lymphocytes Percent Auto 13.2 % (25-40); Mean Corpuscular HGB Conc 32.1 % (30-36); Mean Corpuscular Hemoglobin 25.4 PG (26-34); Monocytes Absolute Auto 400 /uL (0-900); Monocytes Percent Auto 3.1 % (3-14); Neutrophils Absolute Auto 9400 /uL (1500-7000); Neutrophils Percent Auto 80.7 % (50-75); Platelet Count 315 X10^3/uL (150-400); Red Blood Cell Count 4.49 X10^6/uL (4.0-5.2); Red Cell Distribution Width 16.3 % (11.6-14.8); White Blood Cell Count 11.7 X10^3/uL (4.5-11.0)
[2024-01-20 10:12] LABS: Alanine Aminotransferase 42 IU/L (<35); Albumin 3.4 g/dL (3.5-5.0); Albumin Globulin Ratio 0.9 (1.0-2.8); Alkaline Phosphatase 192 U/L (38-126); Aspartate Aminotransferase 46 IU/L (14-36); BUN Creatinine Ratio 15.9 (6-22); Bilirubin Total 0.5 mg/dL (0.2-1.3); Blood Urea Nitrogen 35 mg/dL (7-17); Carbon Dioxide 25 mmol/L (22-32); Chloride 107 mmol/L (98-107); Estimated Glomerular Filt Rate 28 mL/min (>60); Globulin 3.6 g/dL (1.7-4.1); Glucose 214 mg/dL (70-100); HEMOLYSIS < 15 (0-50); Potassium 3.8 mmol/L (3.4-5.1); Sodium 138 mmol/L (137-145)
[2024-01-20 11:33] LABS: Amorphous Sediment Urine 1+; Bacteria Urine Occasional (0-1); RBC Urine 1-5/HPF (0-5/HPF); Squamous Epithelial Cell Urine 5-10 /HPF (0-5/HPF); Urine Volume 10mL (spun); WBC Urine 1-5/HPF (0-5/HPF)
[2024-01-20 11:34] LABS: Culture Indicated Urine Cult Not Indicated; Hyaline Casts Urine 0-1/LPF
== END 2024-01-20 12:05 | disposition home or self-care (01) ==
PROVIDERS: Emergency Provider Emergency Medicine; PCP Family Medicine
DX: N18.9 Chronic kidney disease, unspecified (principal)
CPT/HCPCS: 36415; 80053; 81003; 81015; 85025; 99283

== ENCOUNTER 2024-04-16 13:20 | Emergency (ER) | payer OTHER, SELFPAY ==
[2019-09-14 18:26] VITALS: BMI 62.8
[2023-11-16 11:00] VITALS: RESP 12
[2023-11-16 15:42] VITALS: PULSE 88; RESP 32; O2SAT 96
[2024-04-16] VITALS (45 sets, daily range): BP systolic 161–241; BP diastolic 83–128; PULSE 74–103; RESP 0–27; TEMP 36.7; O2SAT 93–100; BMI 60.2
--- NOTE | 2024-04-16 13:39 | DI.RAD.S_ITS ---
PROCEDURE: XR CHEST 1V INDICATIONS: Shortness of breath TECHNIQUE: One view of the chest was acquired. COMPARISON: [facility], CR, XR CHEST 1V, 11/16/2023, 10:38. [facility], CR, XR CHEST 1V, 09/14/2019, 14:11. FINDINGS: Surgical changes and devices: None. Lungs and pleura: Lungs are clear. No pleural effusions or pneumothorax. Mediastinum: Mediastinal contours appear normal. Heart size is enlarged, stable. Bones and chest wall: No suspicious bony lesions. Overlying soft tissues appear unremarkable. IMPRESSION: No acute cardiopulmonary abnormality is seen. Dictated by: Bartolo La M.D. on 04/16/2024 at 14:27 Approved by: Bartolo La M.D. on 04/16/2024 at 14:30
--- NOTE | 2024-04-16 13:39 | EKG_ITS ---
[place] [id number] [place] [id number] Test Date: 2024-04-16 Pat Name: Anh Grider Department: Room: Gender: Female Contact Finger Assembler: NURIA : 1985 Requested By: Order Number: [id number] Reading MD: Emanuel Osborn Measurements Intervals [place] Rate: 98 P: 64 WI: 168 QRS: 71 QRSD: 96 T: -28 QT: 356 QTc: 454 Interpretive Statements Normal sinus rhythm Minimal voltage criteria for LVH, may be normal variant ( [place] product ) T wave abnormality, consider inferior ischemia Electronically Signed On 04-17-2024 18:28:40 PST by Emanuel Osborn
--- NOTE | 2024-04-16 13:40 | EKG_ITS ---
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
--- NOTE | 2024-04-16 13:59 | ED_ITS ---
HPI - General Adult <Juan Daniel Almeida MD - Last Filed: 04/19/24 20:25> General Chief complaint: Shortness of Breath/Dyspnea Stated complaint: sick since tue. nausea and SOB Time Seen by Provider: 04/16/24 13:46 Source: patient Mode of arrival: Ambulatory History of Present Illness HPI narrative: Patient here with mother complains of reproducible chest pain abdominal pain with nausea and vomiting since last Tuesday. Patient is insulin-dependent diabetic. This usually happens when her sugars are high. She has not been able eat or drink anything since last . However her sugars have been running high. She denies any history of DKA or admissions for diabetes. No known sick contacts. No urinary complaints. No back pain. History of hysterectomy. Related Data Home Medications Medication Instructions Recorded Confirmed dapagliflozin propanediol 10 mg 10 mg PO DAILY 11/16/23 11/16/23 tablet hydrochlorothiazide 25 mg tablet 25 mg PO DAILY 11/16/23 11/16/23 losartan 100 mg tablet 100 mg PO DAILY 11/16/23 11/16/23 metformin 500 mg tablet,extended 250 mg PO QPM 11/16/23 11/16/23 release 24 hr metoprolol succinate 25 mg 25 mg PO DAILY 11/16/23 11/16/23 tablet,extended release 24 hr pyridostigmine bromide 60 mg tablet 60 mg PO TID 11/16/23 11/16/23 Previous Rx's Medication Instructions Recorded ondansetron 4 mg disintegrating 4 mg PO Q8H PRN nausea and 04/16/24 tablet vomiting #10 tabs Allergies Allergy/AdvReac Type Severity Reaction Status Date / Time No Known Drug Allergies Allergy Verified 01/20/24 09:18 Review of Systems <Juan Daniel Almeida MD - Last Filed: 04/19/24 20:25> Review of Systems Narrative: GENERAL: Negative chills, fatigue, malaise, fever, sweats. HEENT: Negative sinus pain, ear pain, sore throat RESPIRATORY: Negative dyspnea, cough CARDIOVASCULAR: Positive chest pain, negative palpitations GASTROINTESTINAL: Positive vomiting, nausea, abdominal pain : Negative dysuria, frequency, hematuria MUSCULOSKELETAL: Negative muscle or bony pain SKIN: Negative rash, skin lesions NEUROLOGIC: Negative weakness, numbness ROS Unobtainable: All systems reviewed & are unremarkable except as noted in HPI and below Patient History <Juan Daniel Almeida MD - Last Filed: 04/19/24 20:25> Medical History Sleep apnea Endometrial intraepithelial neoplasia (EIN) Anxiety Headache Morbid obesity Fatty liver Hypertension Migraines Diabetes Surgical History Previous section (~2013) Family History Mother COVID-19 Diabetes mellitus Hypertension Father Diabetes mellitus History of heart disease Hypertension Stroke Brother Hypertension Stroke Social History household members: family Smoking Status: Current every day smoker substance use type: does not use Smoking Status: Current every day smoker tobacco type: vaping alcohol intake frequency: other Exam <Juan Daniel Almeida MD - Last Filed: 04/19/24 20:25> Narrative Exam Narrative: GENERAL: in no distress, not toxic not dyspneic HEAD: Normocephalic. EYES: Pupils equal round ENT: Mucous membranes moist. NECK: Trachea midline. CARDIOVASCULAR: Regular rate and rhythm, reproducible sternal tenderness on palpation and deep breath RESPIRATORY: Clear to auscultation. Breath sounds equal bilaterally. No wheezes, rales, or rhonchi. GASTROINTESTINAL: Abdomen soft, reproducible epigastric and periumbilical tenderness. No peritoneal signs no guarding no rebound bowel sounds are present. No CVA tenderness EXTREMITIES: No gross deformities. BACK: No flank tenderness. NEURO: AOx4. Clear speech SKIN: Warm and dry PSYCH: Not anxious, is cooperative Initial Vital Signs Initial Vital Signs: Vital Signs Pulse Rate 95 H 04/16/24 13:31 Pulse Oximetry 100 04/16/24 13:31 <Charley Mendoza DO - Last Filed: 04/17/24 02:22> Initial Vital Signs Initial Vital Signs: Vital Signs Pulse Rate 95 H 04/16/24 13:31 Pulse Oximetry 100 04/16/24 13:31 Course <Juan Daniel Almeida MD - Last Filed: 04/19/24 20:25> Orders Ordered: Discontinued Medications Hydralazine HCl (Hydralazine 20 Mg/Ml Vial) 20 mg IV NOW ONE Stop: 04/16/24 17:23 Last Admin: 04/16/24 17:27 Dose: 20 mg Documented By: SHEKHAR Sodium Chloride (Normal Saline 0.9%) 1,000 mls @ 1,000 mls/hr IV BOLUS ONE Stop: 04/16/24 14:56 Last Infusion: 04/16/24 15:47 Dose: Infused Documented By: Admin: 04/16/24 14:07 Dose: 1,000 mls/hr Documented By: BRI Sodium Chloride (Normal Saline 0.9%) 1,000 mls @ 1,000 mls/hr IV BOLUS ONE Stop: 04/16/24 14:57 Last Infusion: 04/16/24 17:28 Dose: Infused Documented By: Admin: 04/16/24 15:58 Dose: 1,000 mls/hr Documented By: URIEL Labetalol HCl (Labetalol 20 Mg/4 Ml Syringe) 10 mg IV NOW ONE Stop: 04/16/24 15:42 Last Admin: 04/16/24 15:58 Dose: 10 mg Documented By: URIEL Losartan Potassium (Losartan 50 Mg Tablet) 100 mg PO NOW ONE Stop: 04/16/24 19:08 Last Admin: 04/16/24 19:28 Dose: 100 mg Documented By: URIEL Metoprolol Succinate (Metoprolol Er 25 Mg Tablet) 25 mg PO NOW ONE Stop: 04/16/24 19:08 Last Admin: 04/16/24 19:27 Dose: 25 mg Documented By: URIEL Morphine Sulfate (Morphine 4 Mg/Ml Inj) 4 mg IV NOW ONE Stop: 04/16/24 14:03 Last Admin: 04/16/24 14:07 Dose: 4 mg Documented By: BRI Ondansetron HCl (Ondansetron 4 Mg Odt Prepack) 1 bottle MISC NOW ONE Stop: 04/16/24 20:30 Last Admin: 04/16/24 20:43 Dose: 1 bottle Documented By: URIEL Prochlorperazine (Prochlorperazine 10 Mg/2 Ml Vial) 10 mg IV NOW ONE Stop: 04/16/24 13:57 Last Admin: 04/16/24 14:07 Dose: 10 mg Documented By: BRI Vital Signs Vital signs: Vital Signs - 8 hr 04/16/24 18:30 04/16/24 18:30 04/16/24 18:40 Pulse Rate 93 H 94 H Respiratory Rate 13 21 Blood Pressure 196/113 H Pulse Oximetry 100 99 04/16/24 18:40 04/16/24 18:50 04/16/24 18:50 Pulse Rate 94 H Respiratory Rate 27 H Blood Pressure 207/100 H 213/101 H Pulse Oximetry 98 04/16/24 19:00 04/16/24 19:00 04/16/24 19:10 Pulse Rate 91 H 94 H Respiratory Rate 27 H 23 Blood Pressure 220/102 H Pulse Oximetry 98 98 04/16/24 19:10 04/16/24 19:21 04/16/24 19:21 Pulse Rate 98 H Respiratory Rate 16 Blood Pressure 193/83 H 224/115 H Pulse Oximetry 100 04/16/24 19:27 04/16/24 19:28 04/16/24 19:30 Pulse Rate 94 H 96 H 96 H Respiratory Rate 3 L Blood Pressure 224/115 H 224/115 H Pulse Oximetry 98 04/16/24 19:50 04/16/24 19:54 04/16/24 19:54 Pulse Rate 99 H 101 H Respiratory Rate 0 L 10 L Blood Pressure 205/88 H Pulse Oximetry 99 99 04/16/24 20:00 04/16/24 20:00 04/16/24 20:11 Pulse Rate 98 H Respiratory Rate 0 L Blood Pressure 207/93 H 203/86 H Pulse Oximetry 96 04/16/24 20:11 04/16/24 20:20 04/16/24 20:20 Pulse Rate 103 H 102 H Respiratory Rate 10 L Blood Pressure 183/99 H Pulse Oximetry 95 99 04/16/24 20:30 04/16/24 20:31 04/16/24 20:31 Pulse Rate 102 H 101 H Respiratory Rate 11 L Blood Pressure 209/102 H Pulse Oximetry 99 99 <Charley Mendoza, - Last Filed: 04/17/24 02:22> Orders Ordered: Discontinued Medications Hydralazine HCl (Hydralazine 20 Mg/Ml Vial) 20 mg IV NOW ONE Stop: 04/16/24 17:23 Last Admin: 04/16/24 17:27 Dose: 20 mg Documented By: ES Sodium Chloride (Normal Saline 0.9%) 1,000 mls @ 1,000 mls/hr IV BOLUS ONE Stop: 04/16/24 14:56 Last Infusion: 04/16/24 15:47 Dose: Infused Documented By: Admin: 04/16/24 14:07 Dose: 1,000 mls/hr Documented By: BRI Sodium Chloride (Normal Saline 0.9%) 1,000 mls @ 1,000 mls/hr IV BOLUS ONE Stop: 04/16/24 14:57 Last Infusion: 04/16/24 17:28 Dose: Infused Documented By: Admin: 04/16/24 15:58 Dose: 1,000 mls/hr Documented By: URIEL Labetalol HCl (Labetalol 20 Mg/4 Ml Syringe) 10 mg IV NOW ONE Stop: 04/16/24 15:42 Last Admin: 04/16/24 15:58 Dose: 10 mg Documented By: URIEL Losartan Potassium (Losartan 50 Mg Tablet) 100 mg PO NOW ONE Stop: 04/16/24 19:08 Last Admin: 04/16/24 19:28 Dose: 100 mg Documented By: URIEL Metoprolol Succinate (Metoprolol Er 25 Mg Tablet) 25 mg PO NOW ONE Stop: 04/16/24 19:08 Last Admin: 04/16/24 19:27 Dose: 25 mg Documented By: URIEL Morphine Sulfate (Morphine 4 Mg/Ml Inj) 4 mg IV NOW ONE Stop: 04/16/24 14:03 Last Admin: 04/16/24 14:07 Dose: 4 mg Documented By: BRI Ondansetron HCl (Ondansetron 4 Mg Odt Prepack) 1 bottle MISC NOW ONE Stop: 04/16/24 20:30 Last Admin: 04/16/24 20:43 Dose: 1 bottle Documented By: URIEL Prochlorperazine (Prochlorperazine 10 Mg/2 Ml Vial) 10 mg IV NOW ONE Stop: 04/16/24 13:57 Last Admin: 04/16/24 14:07 Dose: 10 mg Documented By: BRI Vital Signs Vital signs: Vital Signs - 8 hr 04/16/24 18:30 04/16/24 18:30 04/16/24 18:40 Pulse Rate 93 H 94 H Respiratory Rate 13 21 Blood Pressure 196/113 H Pulse Oximetry 100 99 04/16/24 18:40 04/16/24 18:50 04/16/24 18:50 Pulse Rate 94 H Respiratory Rate 27 H Blood Pressure 207/100 H 213/101 H Pulse Oximetry 98 04/16/24 19:00 04/16/24 19:00 04/16/24 19:10 Pulse Rate 91 H 94 H Respiratory Rate 27 H 23 Blood Pressure 220/102 H Pulse Oximetry 98 98 04/16/24 19:10 04/16/24 19:21 04/16/24 19:21 Pulse Rate 98 H Respiratory Rate 16 Blood Pressure 193/83 H 224/115 H Pulse Oximetry 100 04/16/24 19:27 04/16/24 19:28 04/16/24 19:30 Pulse Rate 94 H 96 H 96 H Respiratory Rate 3 L Blood Pressure 224/115 H 224/115 H Pulse Oximetry 98 04/16/24 19:50 04/16/24 19:54 04/16/24 19:54 Pulse Rate 99 H 101 H Respiratory Rate 0 L 10 L Blood Pressure 205/88 H Pulse Oximetry 99 99 04/16/24 20:00 04/16/24 20:00 04/16/24 20:11 Pulse Rate 98 H Respiratory Rate 0 L Blood Pressure 207/93 H 203/86 H Pulse Oximetry 96 04/16/24 20:11 04/16/24 20:20 04/16/24 20:20 Pulse Rate 103 H 102 H Respiratory Rate 10 L Blood Pressure 183/99 H Pulse Oximetry 95 99 04/16/24 20:30 04/16/24 20:31 04/16/24 20:31 Pulse Rate 102 H 101 H Respiratory Rate 11 L Blood Pressure 209/102 H Pulse Oximetry 99 99 Medical Decision Making <Juan Daniel Almeida MD - Last Filed: 04/19/24 20:25> Lab Data 04/16/24 13:55 04/16/24 13:55 Labs: Lab Results 04/16/24 04/16/24 04/16/24 Range/Units 13:30 13:55 14:08 WBC 13.9 H (4.5-11.0) X10^3/uL RBC 5.13 (4.0-5.2) X10^6/uL Hgb 13.0 (12.0-16.0) g/dL Hct 39.7 (36-46) % MCV 77.3 L (80-100) fL MCH 25.4 L (26-34) PG MCHC 32.8 (30-36) % RDW 16.3 H (11.6-14.8) % Plt Count 311 (150-400) X10^3/uL Neut % (Auto) 81.0 H (50-75) % Lymph % (Auto) 13.6 L (25-40) % [place] % (Auto) 3.2 (3-14) % Eos % (Auto) 0.8 L (2-4) % Baso % (Auto) 1.4 (0-2) % Neut # (Auto) 61235 H (9520-4054) /uL Lymph # (Auto) 1900 (3223-4867) /uL [place] # (Auto) 400 (0-900) /uL Eos # (Auto) 100 (0-450) /uL Baso # (Auto) 200 H (0-100) /uL PT 12.2 (9.4-12.5) SECONDS INR 1.1 (0.9-1.3) VBG pH 7.67 H (7.33-7.43) VBG pCO2 20.5 L (45-50) mmHg VBG pO2 29 L (35-45) mmHg VBG HCO3 24 (24-28) mmol/L VBG Total CO2 22 L (24-29) mmol/L VBG O2 Saturation 74 (70-75) % VBG Base Excess 5.2 H (0-4) mmol/L FiO2 % 21.0 % % Sodium 135 L (137-145) mmol/L Potassium 2.9 L (3.4-5.1) mmol/L Chloride 102 (98-107) mmol/L Carbon Dioxide 23 (22-32) mmol/L BUN 15 (7-17) mg/dL Creatinine 2.27 H (0.52-1.04) mg/dL Estimated GFR 27 L (>60) mL/min BUN/Creatinine Ratio 6.6 (6-22) Glucose 208 H (70-100) mg/dL Lactate 3.0 H (0.7-2.1) mmol/L Calcium 8.4 (8.4-10.2) mg/dL Total Bilirubin 0.5 (0.2-1.3) mg/dL AST 38 H (14-36) IU/L ALT 31 (<35) IU/L Alkaline Phosphatase 150 H (38-126) U/L Troponin I 0.029 (0.01-0.034) ng/mL NT-Pro-B Natriuret Pep 78893 H (<125) pg/mL Total Protein 7.5 (6.3-8.2) g/dL Albumin 3.7 (3.5-5.0) g/dL Globulin 3.8 (1.7-4.1) g/dL Albumin/Globulin Ratio 1.0 (1.0-2.8) Urine Color Urine Appearance Urine pH (4.5-8.0) Ur Specific [place] (1.000-1.035) Urine Protein (Negative) Urine Glucose (UA) (Negative) g/dL Urine Ketones (NEGATIVE) Urine Occult Blood (Negative) Urine Nitrate (Negative) Urine Bilirubin (NEGATIVE) Urine Urobilinogen (0.2) E.U./dL Ur Leukocyte Esterase (NEGATIVE) Urine RBC (0-5/HPF) Urine WBC (0-5/HPF) Ur Squamous Epith Cells (0-5/HPF) Amorphous Sediment Urine Bacteria (None) Ur Culture Indicated? Vol Urine Centrifuged Ketones 0.06 (<0.27) mmol/L SARS-CoV-2 (PCR) Negative (Negative) Influenza A (RT-PCR) Flu a negative (NEGATIVE) Influenza B (RT-PCR) Flu b negative (NEGATIVE) RSV (PCR) Negative (Negative) 04/16/24 04/16/24 04/16/24 Range/Units 15:55 16:15 19:15 WBC (4.5-11.0) X10^3/uL RBC (4.0-5.2) X10^6/uL Hgb (12.0-16.0) g/dL Hct (36-46) % MCV (80-100) fL MCH (26-34) PG MCHC (30-36) % RDW (11.6-14.8) % Plt Count (150-400) X10^3/uL Neut % (Auto) (50-75) % Lymph % (Auto) (25-40) % [place] % (Auto) (3-14) % Eos % (Auto) (2-4) % Baso % (Auto) (0-2) % Neut # (Auto) (8990-6275) /uL Lymph # (Auto) (5907-4057) /uL [place] # (Auto) (0-900) /uL Eos # (Auto) (0-450) /uL Baso # (Auto) (0-100) /uL PT (9.4-12.5) SECONDS INR (0.9-1.3) VBG pH (7.33-7.43) VBG pCO2 (45-50) mmHg VBG pO2 (35-45) mmHg VBG HCO3 (24-28) mmol/L VBG Total CO2 (24-29) mmol/L VBG O2 Saturation (70-75) % VBG Base Excess (0-4) mmol/L FiO2 % % Sodium (137-145) mmol/L Potassium (3.4-5.1) mmol/L Chloride (98-107) mmol/L Carbon Dioxide (22-32) mmol/L BUN (7-17) mg/dL Creatinine (0.52-1.04) mg/dL Estimated GFR (>60) mL/min BUN/Creatinine Ratio (6-22) Glucose (70-100) mg/dL Lactate 1.0 (0.7-2.1) mmol/L Calcium (8.4-10.2) mg/dL Total Bilirubin (0.2-1.3) mg/dL AST (14-36) IU/L ALT (<35) IU/L Alkaline Phosphatase (38-126) U/L Troponin I 0.027 (0.01-0.034) ng/mL NT-Pro-B Natriuret Pep (<125) pg/mL Total Protein (6.3-8.2) g/dL Albumin (3.5-5.0) g/dL Globulin (1.7-4.1) g/dL Albumin/Globulin Ratio (1.0-2.8) Urine Color Yellow Urine Appearance Clear Urine pH 6.5 (4.5-8.0) Ur Specific [place] 1.015 (1.000-1.035) Urine Protein 3+ H (Negative) Urine Glucose (UA) 1+ H (Negative) g/dL Urine Ketones Negative (NEGATIVE) Urine Occult Blood 2+ H (Negative) Urine Nitrate Negative (Negative) Urine Bilirubin Negative (NEGATIVE) Urine Urobilinogen 0.2 (0.2) E.U./dL Ur Leukocyte Esterase Negative (NEGATIVE) Urine RBC 5-10/hpf H (0-5/HPF) Urine WBC 0-1/hpf (0-5/HPF) Ur Squamous Epith Cells 0-1 /hpf (0-5/HPF) Amorphous Sediment 1+ Urine Bacteria Occasional (0-1) (None) Ur Culture Indicated? Cult not indicated Vol Urine Centrifuged 10ml (spun) Ketones (<0.27) mmol/L SARS-CoV-2 (PCR) (Negative) Influenza A (RT-PCR) (NEGATIVE) Influenza B (RT-PCR) (NEGATIVE) RSV (PCR) (Negative) Imaging Data Chest x-ray: Radiologist's Impression: [address] [address] XRay Report Signed Patient: Anh Grider MR#: [id number] : 1985 Acct:[id number] Age/Sex: 39 / F Date of Service: 04/16/24 Loc: ED Accession Number: [id number] Procedure: XR chest 1V Ordering Provider: Juan Daniel Almeida MD PROCEDURE: XR CHEST 1V INDICATIONS: Shortness of breath TECHNIQUE: One view of the chest was acquired. COMPARISON: [facility], CR, XR CHEST 1V, 11/16/2023, 10:38. [facility], CR, XR CHEST 1V, 09/14/2019, 14:11. FINDINGS: Surgical changes and devices: None. Lungs and pleura: Lungs are clear. No pleural effusions or pneumothorax. Mediastinum: Mediastinal contours appear normal. Heart size is enlarged, stable. Bones and chest wall: No suspicious bony lesions. Overlying soft tissues appear unremarkable. IMPRESSION: No acute cardiopulmonary abnormality is seen. Dictated by: Bartolo La M.D. on 04/16/2024 at 14:27 Approved by: Bartolo La M.D. on 04/16/2024 at 14:30 CT chest abdomen and pelvis: Radiologist's Impression: [address] [address] [address] Scan Report Signed Patient: Anh Grider MR#: [id number] : 1985 Acct:[id number] Age/Sex: 39 / F Date of Service: 04/16/24 Loc: ED Accession Number: [id number] Procedure: CT chest abd pel wo con Ordering Provider: Juan Daniel Almeida MD PROCEDURE: CT CHEST ABD PEL WO CON INDICATIONS: Chest pain abdominal pain TECHNIQUE: After the administration of oral contrast, 5 mm thick sections acquired from the lung apices to the symphysis pubis. 5 mm thick coronal and sagittal reformats acquired, with additional 7 mm coronal MIP reformats through the lungs. For radiation dose reduction, the following was used: automated exposure control, adjustment of mA and/or kV according to patient size. COMPARISON: None. FINDINGS: Image quality: Diagnostic. CHEST: Lower Neck: No enlarged lymph nodes. Thyroid: No thyroid nodules which require sonographic follow up, per consensus guidelines. Axillae: No enlarged lymph nodes. Chest Wall: Unremarkable. Bones: Unremarkable. Lungs and Pleura: No pneumothorax or pleural effusions. No consolidation or suspicious nodules. Heart: Heart size is normal. Trace pericardial effusion. Thoracic Vessels: The aorta and pulmonary arteries demonstrate normal size. Mediastinum and [place]: No enlarged lymph nodes. Esophagus: No wall thickening. No hiatal hernia. ABDOMEN: Liver: No solid mass. Gallbladder: No radiopaque gallstones or wall thickening. Biliary ducts: No biliary dilation. Pancreas: No ductal dilation. Spleen: Size is within normal limits. Adrenal Glands: No adrenal nodules. Kidneys and Ureters: No hydronephrosis. No solid mass. No complex renal cystic lesion which requires follow up. Stomach and Bowel: Normal colonic caliber, without significant wall thickening. Peritoneum: No abnormal intraperitoneal fluid. No free air. Ventral Wall: No hernia. Abdominal Nodes: No retroperitoneal or mesenteric adenopathy by size criteria. Vessels: Aorta and inferior vena cava are normal in size. PELVIS: Pelvic Organs: Unremarkable. Bladder: Unremarkable. Pelvic Nodes: No enlarged lymph nodes. Miscellaneous: No inguinal hernias are seen. Bones: No aggressive osseous abnormality. Degenerative changes of the spine. IMPRESSION: No cause for patient's symptoms is identified. No acute findings within the chest, abdomen or pelvis. Dictated by: Bartolo La M.D. on 04/16/2024 at 15:04 Approved by: Bartolo La M.D. on 04/16/2024 at 15:17 MDM Narrative Medical decision making narrative: Patient here with mother complains of reproducible chest pain abdominal pain with nausea and vomiting since last Tuesday. Patient is insulin-dependent diabetic. This usually happens when her sugars are high. She has not been able eat or drink anything since last . However her sugars have been running high. She denies any history of DKA or admissions for diabetes. No known sick contacts. No urinary complaints. No back pain. History of hysterectomy. After history and exam, CBC CMP EKG lipase urinalysis respiratory panel morphine Compazine normal saline CT chest abdomen pelvis chest x-ray [facility] Medical records reviewed: No recent visit for this complaint Differential considered: Includes but not limited to STEMI non-STEMI bowel obstruction viral gastritis DKA dehydration Lab Test results independently reviewed as above. Pertinent findings: WBC 13.9 hemoglobin 13.0 INR 1.1 sodium 135 potassium 2.9 bicarb 23 BUN 15 creatinine 2.27 GFR 27 glucose 208 lactic acid 3.0 AST 38 ALT 31 troponin 0.029 BNP 63651 ketones 0.06 Independently reviewed EKG normal sinus rhythm rate [address] elevation or depression Imaging studies independently reviewed: Chest x-ray and CT chest abdomen pelvis no acute finding Consultations: None indicated at this time Treatments: Morphine Compazine normal saline, labetalol, hydralazine Re-evaluations: Updated patient results. She is feeling much better. No abdominal pain no chest pain. However blood pressure still elevated. 7:00 p.m.. Patient resting comfortably. However blood pressure still elevated. Sign out to dr mendoza, blood pressure is elevated. Will need reassessment. Discussion: See below Diagnosis: Gastroenteritis, hypertension 1899 Dr. Mendoza, patient signed out to me by Dr. Hicks I have seen evaluated patient myself. She reports that she has had nausea vomiting ongoing for at least 5 days unable to keep any of her blood pressure medication down. [place] [address] but no evidence of fluid overload. She had CT chest abdomen pelvis which did not show any abnormality. She received multiple medications for hypertension including hydralazine and labetalol. She has not been vomiting now tolerating p.o. fluids she was able to keep down metoprolol and losartan. Blood pressure is now well below 200 with a systolic 1 she was awake alert sitting in bed overall appears better. Repeat troponin is also negative. No evidence of end-organ damage or DKA. Patient feels comfortable going home with ODT Zofran. Patient has no headache no focal deficits at this time I do not feel there is any evidence of intracranial hemorrhage or abnormality. No need for imaging <Charley Botnick, DO - Last Filed: 04/17/24 02:22> Lab Data Labs: Lab Results 04/16/24 04/16/24 04/16/24 Range/Units 13:30 13:55 14:08 WBC 13.9 H (4.5-11.0) X10^3/uL RBC 5.13 (4.0-5.2) X10^6/uL Hgb 13.0 (12.0-16.0) g/dL Hct 39.7 (36-46) % MCV 77.3 L (80-100) fL MCH 25.4 L (26-34) PG MCHC 32.8 (30-36) % RDW 16.3 H (11.6-14.8) % Plt Count 311 (150-400) X10^3/uL Neut % (Auto) 81.0 H (50-75) % Lymph % (Auto) 13.6 L (25-40) % [place] % (Auto) 3.2 (3-14) % Eos % (Auto) 0.8 L (2-4) % Baso % (Auto) 1.4 (0-2) % Neut # (Auto) 16885 H (4662-8116) /uL Lymph # (Auto) 1900 (7804-4059) /uL [place] # (Auto) 400 (0-900) /uL Eos # (Auto) 100 (0-450) /uL Baso # (Auto) 200 H (0-100) /uL PT 12.2 (9.4-12.5) SECONDS INR 1.1 (0.9-1.3) VBG pH 7.67 H (7.33-7.43) VBG pCO2 20.5 L (45-50) mmHg VBG pO2 29 L (35-45) mmHg VBG HCO3 24 (24-28) mmol/L VBG Total CO2 22 L (24-29) mmol/L VBG O2 Saturation 74 (70-75) % VBG Base Excess 5.2 H (0-4) mmol/L FiO2 % 21.0 % % Sodium 135 L (137-145) mmol/L Potassium 2.9 L (3.4-5.1) mmol/L Chloride 102 (98-107) mmol/L Carbon Dioxide 23 (22-32) mmol/L BUN 15 (7-17) mg/dL Creatinine 2.27 H (0.52-1.04) mg/dL Estimated GFR 27 L (>60) mL/min BUN/Creatinine Ratio 6.6 (6-22) Glucose 208 H (70-100) mg/dL Lactate 3.0 H (0.7-2.1) mmol/L Calcium 8.4 (8.4-10.2) mg/dL Total Bilirubin 0.5 (0.2-1.3) mg/dL AST 38 H (14-36) IU/L ALT 31 (<35) IU/L Alkaline Phosphatase 150 H (38-126) U/L Troponin I 0.029 (0.01-0.034) ng/mL NT-Pro-B Natriuret Pep 06798 H (<125) pg/mL Total Protein 7.5 (6.3-8.2) g/dL Albumin 3.7 (3.5-5.0) g/dL Globulin 3.8 (1.7-4.1) g/dL Albumin/Globulin Ratio 1.0 (1.0-2.8) Urine Color Urine Appearance Urine pH (4.5-8.0) Ur Specific [place] (1.000-1.035) Urine Protein (Negative) Urine Glucose (UA) (Negative) g/dL Urine Ketones (NEGATIVE) Urine Occult Blood (Negative) Urine Nitrate (Negative) Urine Bilirubin (NEGATIVE) Urine Urobilinogen (0.2) E.U./dL Ur Leukocyte Esterase (NEGATIVE) Urine RBC (0-5/HPF) Urine WBC (0-5/HPF) Ur Squamous Epith Cells (0-5/HPF) Amorphous Sediment Urine Bacteria (None) Ur Culture Indicated? Vol Urine Centrifuged Ketones 0.06 (<0.27) mmol/L SARS-CoV-2 (PCR) Negative (Negative) Influenza A (RT-PCR) Flu a negative (NEGATIVE) Influenza B (RT-PCR) Flu b negative (NEGATIVE) RSV (PCR) Negative (Negative) 04/16/24 04/16/24 04/16/24 Range/Units 15:55 16:15 19:15 WBC (4.5-11.0) X10^3/uL RBC (4.0-5.2) X10^6/uL Hgb (12.0-16.0) g/dL Hct (36-46) % MCV (80-100) fL MCH (26-34) PG MCHC (30-36) % RDW (11.6-14.8) % Plt Count (150-400) X10^3/uL Neut % (Auto) (50-75) % Lymph % (Auto) (25-40) % [place] % (Auto) (3-14) % Eos % (Auto) (2-4) % Baso % (Auto) (0-2) % Neut # (Auto) (1706-5589) /uL Lymph # (Auto) (4078-7645) /uL [place] # (Auto) (0-900) /uL Eos # (Auto) (0-450) /uL Baso # (Auto) (0-100) /uL PT (9.4-12.5) SECONDS INR (0.9-1.3) VBG pH (7.33-7.43) VBG pCO2 (45-50) mmHg VBG pO2 (35-45) mmHg VBG HCO3 (24-28) mmol/L VBG Total CO2 (24-29) mmol/L VBG O2 Saturation (70-75) % VBG Base Excess (0-4) mmol/L FiO2 % % Sodium (137-145) mmol/L Potassium (3.4-5.1) mmol/L Chloride (98-107) mmol/L Carbon Dioxide (22-32) mmol/L BUN (7-17) mg/dL Creatinine (0.52-1.04) mg/dL Estimated GFR (>60) mL/min BUN/Creatinine Ratio (6-22) Glucose (70-100) mg/dL Lactate 1.0 (0.7-2.1) mmol/L Calcium (8.4-10.2) mg/dL Total Bilirubin (0.2-1.3) mg/dL AST (14-36) IU/L ALT (<35) IU/L Alkaline Phosphatase (38-126) U/L Troponin I 0.027 (0.01-0.034) ng/mL NT-Pro-B Natriuret Pep (<125) pg/mL Total Protein (6.3-8.2) g/dL Albumin (3.5-5.0) g/dL Globulin (1.7-4.1) g/dL Albumin/Globulin Ratio (1.0-2.8) Urine Color Yellow Urine Appearance Clear Urine pH 6.5 (4.5-8.0) Ur Specific [place] 1.015 (1.000-1.035) Urine Protein 3+ H (Negative) Urine Glucose (UA) 1+ H (Negative) g/dL Urine Ketones Negative (NEGATIVE) Urine Occult Blood 2+ H (Negative) Urine Nitrate Negative (Negative) Urine Bilirubin Negative (NEGATIVE) Urine Urobilinogen 0.2 (0.2) E.U./dL Ur Leukocyte Esterase Negative (NEGATIVE) Urine RBC 5-10/hpf H (0-5/HPF) Urine WBC 0-1/hpf (0-5/HPF) Ur Squamous Epith Cells 0-1 /hpf (0-5/HPF) Amorphous Sediment 1+ Urine Bacteria Occasional (0-1) (None) Ur Culture Indicated? Cult not indicated Vol Urine Centrifuged 10ml (spun) Ketones (<0.27) mmol/L SARS-CoV-2 (PCR) (Negative) Influenza A (RT-PCR) (NEGATIVE) Influenza B (RT-PCR) (NEGATIVE) RSV (PCR) (Negative) ECG Data Attestation: I personally reviewed and interpreted this ECG as follows: Interpretation: 1921 EKGs shows sinus rhythm with kind ST depression inferiorly my do not see the EKGs from earlier today is not in cardio service observer there is no ST elevation nursing staff reports that it was done it was documented by Dr. Sigifredo romo however it is unavailable too view. [facility] Narrative Medical decision making narrative: Patient here with mother complains of reproducible chest pain abdominal pain with nausea and vomiting since last Tuesday. Patient is insulin-dependent diabetic. This usually happens when her sugars are high. She has not been able eat or drink anything since last . However her sugars have been running high. She denies any history of DKA or admissions for diabetes. No known sick contacts. No urinary complaints. No back pain. History of hysterectomy. After history and exam, CBC CMP EKG lipase urinalysis respiratory panel morphine Compazine normal saline CT chest abdomen pelvis chest x-ray [facility] Medical records reviewed: No recent visit for this complaint Differential considered: Includes but not limited to STEMI non-STEMI bowel obstruction viral gastritis DKA dehydration Lab Test results independently reviewed as above. Pertinent findings: WBC 13.9 hemoglobin 13.0 INR 1.1 sodium 135 potassium 2.9 bicarb 23 BUN 15 creatinine 2.27 GFR 27 glucose 208 lactic acid 3.0 AST 38 ALT 31 troponin 0.029 BNP 79488 ketones 0.06 Independently reviewed EKG normal sinus rhythm rate [address] elevation or depression Imaging studies independently reviewed: Chest x-ray and CT chest abdomen pelvis no acute finding Consultations: Treatments: Morphine Compazine normal saline, labetalol, hydralazine Re-evaluations: Updated patient results. She is feeling much better. No abdominal pain no chest pain. However blood pressure still elevated. 7:00 p.m.. Patient resting comfortably. However blood pressure still elevated. Sign out to dr mendoza, blood pressure is elevated. Will need reassessment. Discussion: Diagnosis: 1899 Dr. Mendoza, patient signed out to me by Dr. Hicks I have seen evaluated patient myself. She reports that she has had nausea vomiting ongoing for at least 5 days unable to keep any of her blood pressure medication down. [place] [address] but no evidence of fluid overload. She had CT chest abdomen pelvis which did not show any abnormality. She received multiple medications for hypertension including hydralazine and labetalol. She has not been vomiting now tolerating p.o. fluids she was able to keep down metoprolol and losartan. Blood pressure is now well below 200 with a systolic 1 she was awake alert sitting in bed overall appears better. Repeat troponin is also negative. No evidence of end-organ damage or DKA. Patient feels comfortable going home with ODT Zofran. Patient has no headache no focal deficits at this time I do not feel there is any evidence of intracranial hemorrhage or abnormality. No need for imaging Discharge Plan Departure Patient Disposition: Home Clinical Impression: Gastroenteritis, Hypertension Instructions: DI for Viral Gastroenteritis -- Adult Activity Restrictions/Additional Instructions: *You have been diagnosed with gastroenteritis and hypertension *What to do: Please try and keep your blood pressure medication. Hopefully the anti nausea medication will help. Increase fluids as tolerated recommend something with electrolytes and sugar, Pedialyte Gatorade juice etc *Continue to take medications as directed Zofran 4 mg every 8 hours if needed for nausea or vomiting, I recommend taking this medication at least 30 minutes prior to taking your regular medications this will help ensure that they stay down *Follow up with your primary care provider in 2-3 days or call [phone] *Return to ER if you should have persistent vomiting headache weakness or any new, worsening or concerning symptoms Prescriptions: New ondansetron 4 mg tablet,disintegrating 4 mg PO Q8H PRN (Reason: nausea and vomiting) Qty: 10 0RF No Action pyridostigmine bromide 60 mg tablet 60 mg PO TID hydrochlorothiazide 25 mg tablet 25 mg PO DAILY metoprolol succinate 25 mg Tablet Extended Release 24 Hr 25 mg PO DAILY losartan 100 mg Tablet 100 mg PO DAILY metformin 500 mg tablet extended release 24 hr 250 mg PO QPM dapagliflozin propanediol 10 mg Tablet 10 mg PO DAILY Referrals: Brianna Hidalgo MD [Primary Care Provider] - Stand Alone Forms: Patient Portal/API/Survey
[2024-04-16 14:03] LABS: Add Manual Diff / Slide Review NO; Basophils Absolute Auto 200 /uL (0-100); Basophils Percent Auto 1.4 % (0-2); Eosinophils Absolute Auto 100 /uL (0-450); Eosinophils Percent Auto 0.8 % (2-4); Hematocrit 39.7 % (36-46); Lymphocytes Absolute Auto 1900 /uL (1100-4500); Lymphocytes Percent Auto 13.6 % (25-40); Mean Corpuscular HGB Conc 32.8 % (30-36); Mean Corpuscular Hemoglobin 25.4 PG (26-34); Mean Corpuscular Volume 77.3 fL (80-100); Monocytes Absolute Auto 400 /uL (0-900); Monocytes Percent Auto 3.2 % (3-14); Neutrophils Absolute Auto 11200 /uL (1500-7000); Platelet Count 311 X10^3/uL (150-400); Red Blood Cell Count 5.13 X10^6/uL (4.0-5.2); Red Cell Distribution Width 16.3 % (11.6-14.8); White Blood Cell Count 13.9 X10^3/uL (4.5-11.0)
--- NOTE | 2024-04-16 14:06 | DI.CT.S_ITS ---
PROCEDURE: CT CHEST ABD PEL WO CON INDICATIONS: Chest pain abdominal pain TECHNIQUE: After the administration of oral contrast, 5 mm thick sections acquired from the lung apices to the symphysis pubis. 5 mm thick coronal and sagittal reformats acquired, with additional 7 mm coronal MIP reformats through the lungs. For radiation dose reduction, the following was used: automated exposure control, adjustment of mA and/or kV according to patient size. COMPARISON: None. FINDINGS: Image quality: Diagnostic. CHEST: Lower Neck: No enlarged lymph nodes. Thyroid: No thyroid nodules which require sonographic follow up, per consensus guidelines. Axillae: No enlarged lymph nodes. Chest Wall: Unremarkable. Bones: Unremarkable. Lungs and Pleura: No pneumothorax or pleural effusions. No consolidation or suspicious nodules. Heart: Heart size is normal. Trace pericardial effusion. Thoracic Vessels: The aorta and pulmonary arteries demonstrate normal size. Mediastinum and Holli: No enlarged lymph nodes. Esophagus: No wall thickening. No hiatal hernia. ABDOMEN: Liver: No solid mass. Gallbladder: No radiopaque gallstones or wall thickening. Biliary ducts: No biliary dilation. Pancreas: No ductal dilation. Spleen: Size is within normal limits. Adrenal Glands: No adrenal nodules. Kidneys and Ureters: No hydronephrosis. No solid mass. No complex renal cystic lesion which requires follow up. Stomach and Bowel: Normal colonic caliber, without significant wall thickening. Peritoneum: No abnormal intraperitoneal fluid. No free air. Ventral Wall: No hernia. Abdominal Nodes: No retroperitoneal or mesenteric adenopathy by size criteria. Vessels: Aorta and inferior vena cava are normal in size. PELVIS: Pelvic Organs: Unremarkable. Bladder: Unremarkable. Pelvic Nodes: No enlarged lymph nodes. Miscellaneous: No inguinal hernias are seen. Bones: No aggressive osseous abnormality. Degenerative changes of the spine. IMPRESSION: No cause for patient's symptoms is identified. No acute findings within the chest, abdomen or pelvis. Dictated by: Bartolo La M.D. on 04/16/2024 at 15:04 Approved by: Bartolo La M.D. on 04/16/2024 at 15:17
[2024-04-16] MEDS: SODIUM CHLORIDE 0.9% 1,000 ML 1000 ML IV ×2 (14:07→15:58)
[2024-04-16] MEDS: MORPHINE 4 MG/ML INJ IV (14:07)
[2024-04-16] MEDS: PROCHLORPERAZINE 10 MG/2 ML VIAL IV (14:07)
[2024-04-16 14:09] LABS: INR 1.1 (0.9-1.3); Prothrombin Time 12.2 SECONDS (9.4-12.5)
[2024-04-16 14:12] LABS: Base Excess VBG 5.2 mmol/L (0-4); HCO3 VBG 24 mmol/L (24-28); Oxygen Saturation VBG 74 % (70-75); PCO2 VBG 20.5 mmHg (45-50); PO2 VBG 29 mmHg (35-45); Total CO2 VBG 22 mmol/L (24-29); pH VBG 7.67 (7.33-7.43)
[2024-04-16 14:14] LABS: Alanine Aminotransferase 31 IU/L (<35); Albumin 3.7 g/dL (3.5-5.0); Alkaline Phosphatase 150 U/L (38-126); Aspartate Aminotransferase 38 IU/L (14-36); BUN Creatinine Ratio 6.6 (6-22); Bilirubin Total 0.5 mg/dL (0.2-1.3); Blood Urea Nitrogen 15 mg/dL (7-17); Calcium 8.4 mg/dL (8.4-10.2); Carbon Dioxide 23 mmol/L (22-32); Chloride 102 mmol/L (98-107); Estimated Glomerular Filt Rate 27 mL/min (>60); Globulin 3.8 g/dL (1.7-4.1); Glucose 208 mg/dL (70-100); HEMOLYSIS < 15 (0-50); Potassium 2.9 mmol/L (3.4-5.1); Sodium 135 mmol/L (137-145); Total Protein 7.5 g/dL (6.3-8.2)
[2024-04-16 14:20] LABS: Ketones (Beta-Hydroxybutyrate) 0.06 mmol/L (<0.27)
[2024-04-16 14:26] LABS: NT-proBNP (BNP-Adult 18+) 11500 pg/mL (<125); Troponin I 0.029 ng/mL (0.01-0.034)
[2024-04-16 14:59] LABS: Influenza A - CEPHEID Flu A NEGATIVE (NEGATIVE); Influenza B - CEPHEID Flu B NEGATIVE (NEGATIVE); Respiratory Syncytial Virus Negative (Negative)
[2024-04-16 15:00] LABS: COVID-19 CEPHEID 4-PLEX PCR Negative (Negative)
[2024-04-16 15:35] LABS: Reflexed Lactate in 2 Hours Y
[2024-04-16] MEDS: LABETALOL 20 MG/4 ML SYRINGE 10 MG IV (15:58)
[2024-04-16 16:23] LABS: Appearance Urine UA CLEAR; Bilirubin Urine UA NEGATIVE (NEGATIVE); Color Urine UA YELLOW; Glucose Urine UA 1+ g/dL (Negative); Ketones Urine UA NEGATIVE (NEGATIVE); Leukocyte Esterase Urine UA NEGATIVE (NEGATIVE); Nitrite Urine UA NEGATIVE (Negative); Occult Blood Urine UA 2+ (Negative); Protein Urine UA 3+ (Negative); Specific Gravity Urine UA 1.015 (1.000-1.035); Urobilinogen Urine UA 0.2 E.U./dL (0.2)
[2024-04-16 16:39] LABS: pH Urine UA 6.5 (4.5-8.0)
[2024-04-16 16:42] LABS: Amorphous Sediment Urine 1+; Bacteria Urine Occasional (0-1); Culture Indicated Urine Cult Not Indicated; RBC Urine 5-10/HPF (0-5/HPF); Squamous Epithelial Cell Urine 0-1 /HPF (0-5/HPF); Urine Volume 10mL (spun); WBC Urine 0-1/HPF (0-5/HPF)
[2024-04-16] MEDS: HYDRALAZINE 20 MG/ML VIAL IV (17:27)
[2024-04-16] MEDS: METOPROLOL ER 25 MG TABLET PO (19:27)
[2024-04-16] MEDS: LOSARTAN 50 MG TABLET 100 MG PO (19:28)
[2024-04-16 19:55] LABS: Troponin I 0.027 ng/mL (0.01-0.034)
[2024-04-16] MEDS: ONDANSETRON 4 MG ODT PREPACK 1 BOTTLE MISC (20:43)
== END 2024-04-16 20:43 | disposition home or self-care (01) ==
PROVIDERS: Emergency Medicine; Emergency Provider Emergency Medicine; PCP Family Medicine
DX: K52.9 Noninfective gastroenteritis and colitis, unspecified (principal); I10 Essential (primary) hypertension; R07.9 Chest pain, unspecified; F17.200 Nicotine dependence, unspecified, uncomplicated
CPT/HCPCS: 0241U; 36415; 71045; 71250; 74176; 80053; 81001; 82009; 82805; 83605; 83880; 84484; 85025; 85610; 93005; 96361; 96374; 96375; 99284; J0360; J0780; J2270

== ENCOUNTER 2024-08-15 13:03 | Inpatient (IN) | payer OTHER, SELFPAY ==
[2019-09-14 18:26] VITALS: BMI 62.8
[2023-11-16 11:00] VITALS: RESP 12
[2023-11-16 15:42] VITALS: PULSE 88; RESP 32; O2SAT 96
[2024-08-15] VITALS (76 sets, daily range): BP systolic 158–238; BP diastolic 82–141; PULSE 78–114; RESP 12–42; TEMP 36.4; O2SAT 89–99; BMI 60.9; BMI 61.3
--- NOTE | 2024-08-15 13:15 | EKG_ITS ---
[place] [id number] [place] [id number] Test Date: 2024-08-15 Pat Name: Anh Grider Department: [facility] Room: Gender: Female Hem Marker: NICOLÁS : 1985 Requested By: Order Number: [id number] Reading MD: Dante Gilbert MD Measurements Intervals [place] Rate: 105 P: 33 TN: 150 QRS: 59 QRSD: 96 T: -3 QT: 370 QTc: 489 Interpretive Statements Sinus tachycardia Possible Left atrial enlargement Minimal voltage criteria for LVH, may be normal variant ( [place] product ) Abnormal QRS-T angle, consider primary T wave abnormality Electronically Signed On 08-16-2024 7:30:51 PDT by Dante Gilbert MD
--- NOTE | 2024-08-15 13:15 | DI.RAD.S_ITS ---
PROCEDURE: XR CHEST 1V INDICATIONS: Shortness of breath TECHNIQUE: One view of the chest was acquired. COMPARISON: [facility], CR, XR CHEST 1V, 04/16/2024, 13:50. FINDINGS: Surgical changes and devices: None. Lungs and pleura: Mild pulmonary vascular congestion. No definite focal infiltrate. No pleural effusions or pneumothorax. Mediastinum: Mediastinal contours appear normal. Heart size is enlarged. Bones and chest wall: No suspicious bony lesions. Overlying soft tissues appear unremarkable. IMPRESSION: Cardiomegaly and mild congestion. No focal infiltrate, pleural effusion or pneumothorax. Dictated by: Byron Zaragoza M.D. on 08/15/2024 at 14:09 Approved by: Byron Zaragoza M.D. on 08/15/2024 at 14:09
[2024-08-15 13:44] LABS: Add Manual Diff / Slide Review NO; Hematocrit 32.3 % (36-46); Hemoglobin 10.4 g/dL (12.0-16.0); Lymphocytes Absolute Auto 1400 /uL (1100-4500); Mean Corpuscular HGB Conc 32.2 % (30-36); Mean Corpuscular Hemoglobin 26.5 PG (26-34); Mean Corpuscular Volume 82.5 fL (80-100); Platelet Count 234 X10^3/uL (150-400)
[2024-08-15 13:49] LABS: Lactate (Lactic Acid) 0.9 mmol/L (0.7-2.1)
[2024-08-15 13:50] LABS: Alanine Aminotransferase 29 IU/L (<35); Albumin 3.3 g/dL (3.5-5.0); Albumin Globulin Ratio 0.9 (1.0-2.8); Alkaline Phosphatase 151 U/L (38-126); Blood Urea Nitrogen 26 mg/dL (7-17); Calcium 8.1 mg/dL (8.4-10.2); Carbon Dioxide 19 mmol/L (22-32); Chloride 112 mmol/L (98-107); Estimated Glomerular Filt Rate 20 mL/min (>60); Globulin 3.5 g/dL (1.7-4.1); Glucose 205 mg/dL (70-99); HEMOLYSIS < 15 (0-50); Potassium 3.6 mmol/L (3.4-5.1); Sodium 138 mmol/L (137-145); Total Protein 6.8 g/dL (6.3-8.2)
[2024-08-15 13:52] LABS: INR 1.0 (0.9-1.3); Prothrombin Time 11.5 SECONDS (9.4-12.5)
[2024-08-15 14:02] LABS: NT-proBNP (BNP-Adult 18+) 9860 pg/mL (<125); Troponin I 0.047 ng/mL (0.01-0.034)
[2024-08-15] MEDS: NITROGLYCERIN 0.4 MG SL TAB SL (14:30)
[2024-08-15] MEDS: FUROSEMIDE 80 MG in SODIUM CHLORIDE 0.9% 50 ML 116 MG IV (14:46)
[2024-08-15] MEDS: ACETAMINOPHEN 325 MG TABLET 650 MG PO (14:46)
--- NOTE | 2024-08-15 15:53 | ED_ITS ---
HPI - SOB/Dyspnea General Chief Complaint: Shortness of Breath/Dyspnea Stated Complaint: SOB/ heartrate / hard time breathing Time Seen by Provider: 08/15/24 14:19 Source: patient, RN notes reviewed and old records reviewed Mode of arrival: Ambulatory Limitations: no limitations History of Present Illness HPI Narrative: 39-year-old female history of diabetes on insulin, hypertension, known chronic kidney disease with increasing shortness of breath, decreased energy dyspnea with exertion patient notes occasionally some chest pressure or discomfort particularly with exertion and orthopnea. Patient has noticed worsening symptoms for the past 2-3 weeks. Notes when she was attempting to seeing as well as walk uphill or go up stairs at she was had increasing difficulty with breathing. She notes she was had to be more upright for sleep. She states no chest pain or pressure currently but has had chest pressure recently with exertion. She was notes increasing pedal edema particularly over the last couple of months. States she accidentally aspirated some water several days in a row about a week ago had noticed it was very hard to catch her breath. She has been told that her kidneys are not working well she was following with Nephrology at [place]. She states was prescribed water pills but has not started them. She does use insulin she states she was using it intermittently, she was supposed to be taking amlodipine, metoprolol and chlorthalidone but states she had what sounds like a significant hypotensive episode and stopped taking them and has not taken them for the past 2 months. Patient notes she was had a prior hysterectomy in July of 2023, no tobacco, no regular alcohol, no recreational drugs. Dr. Aly is her primary care physician. She sees Nephrology in [place]. Notes a headache after receiving nitro here in the department. Related Data Home Medications ?Medication ?Instructions ?Recorded ?Confirmed dapagliflozin propanediol 10 mg 10 mg PO DAILY 4 11/16/23 tablet hydrochlorothiazide 25 mg tablet 25 mg PO DAILY 11/16/23 losartan 100 mg tablet 100 mg PO DAILY 11/16/2304/09 metformin 500 mg tablet,extended 250 mg PO QPM 4 11/16/23 release 24 hr metoprolol succinate 25 mg 25 mg PO DAILY 11/16/2304/09 tablet,extended release 24 hr pyridostigmine bromide 60 mg tablet 60 mg PO TID 11/1511/16/23 Previous Rx's ?Medication ?Instructions ?Recorded ondansetron 4 mg disintegrating 4 mg PO Q8H PRN nausea and 04/16/24 tablet vomiting #10 tabs Allergies Allergy/AdvReac Type Severity Reaction Status Date / Time No Known Drug Allergies Allergy Verified 01/20/24 09:18 Review of Systems Review of Systems ROS Unobtainable: All systems reviewed & are unremarkable except as noted in HPI and below Patient History Medical History Sleep apnea Endometrial intraepithelial neoplasia (EIN) Anxiety Headache Morbid obesity Fatty liver Hypertension Migraines Diabetes Surgical History Previous section (~2013) Family History Mother COVID-19 Diabetes mellitus Hypertension Father Diabetes mellitus History of heart disease Hypertension Stroke Brother Hypertension Stroke Social History household members: family substance use type: does not use tobacco type: vaping alcohol intake frequency: other Exam Narrative Exam Narrative: GENERAL: Alert and oriented x three, female in mild distress HEENT: Head normocephalic, atraumatic, EOMI, pupils reactive, face symmetric, moist mucous membranes NECK: Supple, full range of motion CARDIOVASCULAR: Regular rate and rhythm without murmurs, rubs or gallops. Positive pedal edema bilaterally. RESPIRATORY: Breath sounds equal bilaterally, no wheezes, patient was crackles bilateral bases. Mild tachypnea. ABDOMEN: Soft, nontender. Normoactive bowel sounds all 4 quadrants. No guarding or rebound, rigidity, no mass : No CVA tenderness EXTREMITIES: Normal range of motion, no clubbing. Neurovascularly intact NEUROLOGICAL: Cranial nerves II through XII grossly intact. Moving all extremities SKIN: Warm, dry, no petechiae, no rashes or lesions. Initial Vital Signs Initial Vital Signs: Vital Signs Temperature 97.5 F L 08/15/24 13:11 Pulse Rate 114 H 08/15/24 13:11 Respiratory Rate 30 H 08/15/24 13:11 Blood Pressure 238/135 H 08/15/24 13:11 Pulse Oximetry 97 08/15/24 13:11 Oxygen Delivery Method Room Air 08/15/24 13:11 Course Orders Ordered: ED Orders 08/15/24 13:15 XR chest 1V Stat EKG-12 Lead Stat RT Consult Eval and Treat STAT 08/15/24 13:30 Complete Blood Count AUTO DIFF Stat Comprehensive Metabolic Panel Stat Lactate (Lactic Acid) Stat NT-proBNP (BNP-Adult 18+) Stat Prothrombin Time INR Stat Troponin I Stat 08/15/24 16:23 Trop I [Troponin I] Stat 08/15/24 17:58 EKG-12 Lead Stat Amlodipine Besylate (Amlodipine 5 Mg Tablet) 5 mg PO DAILY [facility] Enoxaparin Sodium (Enoxaparin 30 Mg/0.3 Ml Syringe) 30 mg SUBCUT DAILY [facility] Nitroglycerin (Nitroglycerin) 50 mg in 250 mls @ 1.5 mls/hr IV TITRATE CLARA; Protocol Losartan Potassium (Losartan 50 Mg Tablet) 100 mg PO DAILY [facility] Metoprolol Succinate (Metoprolol Er 25 Mg Tablet) 25 mg PO DAILY [facility] Naloxone HCl (Naloxone 0.4 Mg/Ml Vial) 0.2 mg IV Q2MIN PRN PRN Reason: Opiate Reversal Non-Formulary Medication (Dapagliflozin Propanediol) 10 mg PO DAILY [facility] Non-Formulary Medication (Pyridostigmine [place]) 60 mg PO TID [facility] Ondansetron HCl (Ondansetron 4 Mg Odt) 4 mg PO Q8H PRN PRN Reason: Nausea And Vomiting Discontinued Medications Acetaminophen (Acetaminophen 325 Mg Tablet) 650 mg PO NOW ONE Stop: 08/15/24 14:33 Last Admin: 08/15/24 14:46 Dose: 650 mg Documented By: Amlodipine Besylate (Amlodipine 5 Mg Tablet) 5 mg PO NOW ONE Stop: 08/15/24 16:22 Last Admin: 08/15/24 16:25 Dose: 5 mg Documented By: Furosemide 80 mg/ Sodium (Chloride) 58 mls @ 116 mls/hr IV NOW ONE Stop: 08/15/24 14:20 Last Infusion: 08/15/24 15:20 Dose: Infused Documented By: Admin: 08/15/24 14:46 Dose: 116 mls/hr Documented By: Metoprolol Tartrate (Metoprolol Tartrate 5 Mg/5 Ml Inj) 5 mg IV Q5M [facility] Stop: 08/15/24 16:41 Last Admin: 08/15/24 16:45 Dose: 5 mg Documented By: Admin: 08/15/24 16:37 Dose: 5 mg Documented By: Admin: 08/15/24 16:28 Dose: 5 mg Documented By: Morphine Sulfate (Morphine 4 Mg/Ml Inj) 4 mg IV NOW ONE Stop: 08/15/24 16:24 Last Admin: 08/15/24 17:37 Dose: Not Given Documented By: Nitroglycerin (Nitroglycerin 0.4 Mg Sl Tab) 0.4 mg SL NOW ONE Stop: 08/15/24 14:20 Last Admin: 08/15/24 14:30 Dose: 0.4 mg Documented By: Vital Signs Vital signs: Vital Signs - 8 hr 08/15/24 13:11 08/15/24 13:23 08/15/24 13:26 Temperature 97.5 F L Pulse Rate 114 H 105 H Respiratory Rate 30 H Blood Pressure 238/135 H 223/126 H Pulse Oximetry 97 93 Oxygen Delivery Method Room Air 08/15/24 13:26 08/15/24 13:30 08/15/24 13:30 Temperature Pulse Rate 104 H 102 H Respiratory Rate 40 H 39 H Blood Pressure 195/129 H Pulse Oximetry 93 93 Oxygen Delivery Method Room Air 08/15/24 14:00 08/15/24 14:01 08/15/24 14:01 Temperature Pulse Rate 98 H 100 H Respiratory Rate 30 H 34 H Blood Pressure 202/115 H Pulse Oximetry 95 94 Oxygen Delivery Method Room Air 08/15/24 14:25 08/15/24 14:25 08/15/24 14:30 Temperature Pulse Rate 100 H 78 Respiratory Rate 22 Blood Pressure 223/140 H 222/130 H Pulse Oximetry 96 Oxygen Delivery Method 08/15/24 14:30 08/15/24 14:30 08/15/24 15:00 Temperature Pulse Rate 99 H Respiratory Rate 15 Blood Pressure 222/132 H 231/129 H Pulse Oximetry 95 Oxygen Delivery Method 08/15/24 15:00 08/15/24 15:30 08/15/24 15:30 Temperature Pulse Rate 107 H 110 H Respiratory Rate 19 21 Blood Pressure 232/141 H Pulse Oximetry 96 Oxygen Delivery Method 08/15/24 16:00 08/15/24 16:00 08/15/24 16:30 Temperature Pulse Rate 100 H 95 H Respiratory Rate 16 25 H Blood Pressure 237/141 H Pulse Oximetry 97 97 Oxygen Delivery Method 08/15/24 16:30 08/15/24 16:35 08/15/24 16:35 Temperature Pulse Rate 85 Respiratory Rate 21 Blood Pressure 201/112 H 202/122 H Pulse Oximetry 95 Oxygen Delivery Method 08/15/24 16:40 08/15/24 16:40 08/15/24 16:45 Temperature Pulse Rate 85 Respiratory Rate 26 H Blood Pressure 189/127 H 182/119 H Pulse Oximetry 96 Oxygen Delivery Method Room Air 08/15/24 16:45 08/15/24 16:50 08/15/24 16:50 Temperature Pulse Rate 82 80 Respiratory Rate 31 H 32 H Blood Pressure 158/95 H Pulse Oximetry 97 95 Oxygen Delivery Method 08/15/24 16:55 08/15/24 16:55 08/15/24 17:00 Temperature Pulse Rate 79 80 Respiratory Rate 24 12 Blood Pressure 192/125 H Pulse Oximetry 95 96 Oxygen Delivery Method 08/15/24 17:00 08/15/24 17:05 08/15/24 17:05 Temperature Pulse Rate 80 Respiratory Rate 30 H Blood Pressure 193/131 H 194/129 H Pulse Oximetry 93 Oxygen Delivery Method 08/15/24 17:10 08/15/24 17:10 Temperature Pulse Rate 80 Respiratory Rate 32 H Blood Pressure 194/131 H Pulse Oximetry 94 Oxygen Delivery Method Room Air MDM - SOB/Dyspnea Lab Data 08/15/24 13:30 08/15/24 13:30 Labs: Lab Results 08/15/24 08/15/24 Range/Units 13:30 16:23 WBC 12.8 H (4.5-11.0) X10^3/uL RBC 3.92 L (4.0-5.2) X10^6/uL Hgb 10.4 L (12.0-16.0) g/dL Hct 32.3 L (36-46) % MCV 82.5 (80-100) fL MCH 26.5 (26-34) PG MCHC 32.2 (30-36) % RDW 16.2 H (11.6-14.8) % Plt Count 234 (150-400) X10^3/uL Neut % (Auto) 83.3 H (50-75) % Lymph % (Auto) 10.8 L (25-40) % [place] % (Auto) 2.5 L (3-14) % Eos % (Auto) 2.5 (2-4) % Baso % (Auto) 0.9 (0-2) % Neut # (Auto) 66612 H (3922-9751) /uL Lymph # (Auto) 1400 (2474-4061) /uL [place] # (Auto) 300 (0-900) /uL Eos # (Auto) 300 (0-450) /uL Baso # (Auto) 100 (0-100) /uL PT 11.5 (9.4-12.5) SECONDS INR 1.0 (0.9-1.3) Sodium 138 (137-145) mmol/L Potassium 3.6 (3.4-5.1) mmol/L Chloride 112 H (98-107) mmol/L Carbon Dioxide 19 L (22-32) mmol/L BUN 26 H (7-17) mg/dL Creatinine 2.88 H (0.52-1.04) mg/dL Estimated GFR 20 L (>60) mL/min BUN/Creatinine Ratio 9.0 (6-22) Glucose 205 H (70-99) mg/dL Lactate 0.9 (0.7-2.1) mmol/L Calcium 8.1 L (8.4-10.2) mg/dL Total Bilirubin 0.5 (0.2-1.3) mg/dL AST 41 H (14-36) IU/L ALT 29 (<35) IU/L Alkaline Phosphatase 151 H (38-126) U/L Troponin I 0.047 H 0.048 H (0.01-0.034) ng/mL NT-Pro-B Natriuret Pep 9860 H (<125) pg/mL Total Protein 6.8 (6.3-8.2) g/dL Albumin 3.3 L (3.5-5.0) g/dL Globulin 3.5 (1.7-4.1) g/dL Albumin/Globulin Ratio 0.9 L (1.0-2.8) ECG Data Attestation: I personally reviewed and interpreted this ECG as follows: Interpretation: Sinus tachycardia rate of 105 NH 150 QRS of 96 QTC 489, no acute ST elevation. Patient was prior from 04/16/2024. No acute ST changes appreciated. EKG shows sinus rhythm rate of 98 NH 136 QRS of 94 QTC of 503, no acute ST elevation or depression noted no dynamic changes appreciated. [facility] Narrative Medical decision making narrative: 39-year-old female presents with complaint of increased shortness of breath over the last several days describes aspirating on water twice in the last week.? Notes blood pressure meds prescribed have not been started has had worsening renal dysfunction over time.?? Sinus tachycardia rate of 105 NH 150 QRS of 96 QTC 489, no acute ST elevation.? Patient was prior from 04/16/2024.? No acute ST changes appreciated. Repeat EKG does not show any dynamic changes. Labs show white count of 12.8 patient has consistently has a leukocytosis, hemoglobin is 10.4 has been 10-13 intermittently, platelets are 234.? INR is 1, creatinine is 2.88.? Patient's creatinine has been trending upwards since March 2023 when he was 1.29 was most recently in the 2.2 range in January of 2024 and April of 2024.? Glucose is 205, BUN 26 CO2 is 19 chloride 112, patient was troponin 0.047 with a BNP of 9160.? AST is elevated at 41 ALT is 29 with a alk-phos of 151. Chest x-ray shows cardiomegaly and mild congestion no focal infiltrate pleural effusion or pneumothorax. Patient received acetaminophen, Lasix and nitro she was quite hypertensive and tachycardic. Patient noticed some improvement of her symptoms after nitro had recurrence of her hypertension. Patient also received metoprolol IV and oral amlodipine. Discussed with patient appears to have worsening renal disease likely in the setting of chronic hypertension that is currently untreated developing congestive heart failure, her initial troponin is indeterminate repeating this did not appear to have any acute EKG trance initially but worsening renal dysfunction elevated BNP Spoke with the hospitalist Dr. Dykes for admission/observation for hypertensive. Discussed we will start nitro drip. Critical Care Time Critical Care Time Critical Care Time: Yes Total Critical Care Time: 25 Attestation: The high probability of a clinically significant, sudden or life threatening deterioration of the cardiac system(s) required my full and direct attention, intervention and personal management. The aggregate critical care time was [--] minutes. This time is in addition to time spent performing reported procedures but includes the following: [x] Data Review and interpretation [x] Patient assessment and monitoring of vital signs [x] Documentation [x] Medication orders and management Discharge Plan Departure Patient Disposition: Admitted As Inpatient Clinical Impression: Hypertensive urgency Admit Date/Time: 08/15/24 18:03 Admit Provider: Tyshawn Dykes
[2024-08-15] MEDS: AMLODIPINE 5 MG TABLET PO (16:25)
[2024-08-15] MEDS: METOPROLOL TARTRATE 5 MG/5 ML INJ IV ×3 (16:28→16:45)
[2024-08-15 17:23] LABS: Troponin I 0.048 ng/mL (0.01-0.034)
--- NOTE | 2024-08-15 17:58 | EKG_ITS ---
[place] [id number] [place] [id number] Test Date: 2024-08-15 Pat Name: Anh Grider Department: Room: 90B Gender: Female Sander Wooden Pencils: ANUPAMA : 1985 Requested By: Order Number: [id number] Reading MD: Dante Gilbert MD Measurements Intervals [place] Rate: 98 P: 18 NH: 136 QRS: 39 QRSD: 94 T: 60 QT: 394 QTc: 503 Interpretive Statements Normal sinus rhythm Minimal voltage criteria for LVH, may be normal variant ( [place] product ) Prolonged QT Electronically Signed On 08-16-2024 7:31:06 PDT by Dante Gilbert MD
--- NOTE | 2024-08-15 18:25 | PM.HP.1 ---
History of Present Illness History of Present Illness Date Patient Seen: 08/15/24 Time Patient Seen: 18:25 Chief complaint: SOB/ heartrate / hard time breathing Narrative: This is a 39-year-old female with a history of medical obesity, hypertension, CKD, sleep apnea and diabetes who presents with increasing shortness of breath/orthopnea and is found to be in a hypertensive emergency. Her presenting blood pressure is 210/120. She had stopped taking her amlodipine, chlorthalidone and losartan in November of 2023 because of an episode of severe hypotension with a systolic of 57. That episode was apparently treated here in the ED when she presented with sudden onset of nausea. She says the lisinopril worked best for her blood pressure but she had to be taken off it because of her worsening kidney function. The baseline creatinine was 1.29 in March then was 2.27 in April and is now 2.88. She follows this with a senior mortgage underwriter in [place]. [facility] Medical History (Updated 08/15/24 @ 18:58 by Tyshawn Dykes MD) CKD (chronic kidney disease) stage 3, GFR 30-59 ml/min Sleep apnea Endometrial intraepithelial neoplasia (EIN) Anxiety Headache Morbid obesity Fatty liver Hypertension Migraines Diabetes Surgical History Previous section (~2013) Family History Mother COVID-19 Diabetes mellitus Hypertension Father Diabetes mellitus History of heart disease Hypertension Stroke Brother Hypertension Stroke Social History (Updated 08/15/24 @ 18:56 by Tyshawn Dykes MD) household members: family substance use type: does not use Meds Home Medications and Allergies Home Medications ?Medication ?Instructions ?Recorded ?Confirmed ?Type dapagliflozin propanediol 10 mg 10 mg PO DAILY 11/16/23 11/16/23 History tablet hydrochlorothiazide 25 mg tablet 25 mg PO DAILY 11/16/23 11/16/23 History losartan 100 mg tablet 100 mg PO DAILY 11/16/23 11/16/23 History metformin 500 mg tablet,extended 250 mg PO QPM 11/16/23 11/16/23 History release 24 hr metoprolol succinate 25 mg 25 mg PO DAILY 11/16/23 11/16/23 History tablet,extended release 24 hr pyridostigmine bromide 60 mg tablet 60 mg PO TID 11/16/23 11/16/23 History ondansetron 4 mg disintegrating 4 mg PO Q8H PRN nausea and 04/16/24 Rx tablet vomiting #10 tabs Allergies Allergy/AdvReac Type Severity Reaction Status Date / Time No Known Drug Allergies Allergy Verified 01/20/24 09:18 Review of Systems Review of Systems Narrative: Positive for shortness of breath, orthopnea and increasing edema. Negative for fevers, chills, sweats, coughing, chest pain, abdominal pain, nausea, vomiting, rashes, sore throat, headache, new allergies. Exam Vital Signs (past 8 hours): - 08/15/24 13:11 08/15/24 13:23 08/15/24 13:26 Temperature 97.5 F L Pulse Rate 114 H 105 H Respiratory Rate 30 H Blood Pressure 238/135 H 223/126 H Pulse Oximetry 97 93 Oxygen Delivery Method Room Air 08/15/24 13:26 08/15/24 13:30 08/15/24 13:30 Temperature Pulse Rate 104 H 102 H Respiratory Rate 40 H 39 H Blood Pressure 195/129 H Pulse Oximetry 93 93 Oxygen Delivery Method Room Air 08/15/24 14:00 08/15/24 14:01 08/15/24 14:01 Temperature Pulse Rate 98 H 100 H Respiratory Rate 30 H 34 H Blood Pressure 202/115 H Pulse Oximetry 95 94 Oxygen Delivery Method Room Air 08/15/24 14:25 08/15/24 14:25 08/15/24 14:30 Temperature Pulse Rate 100 H 78 Respiratory Rate 22 Blood Pressure 223/140 H 222/130 H Pulse Oximetry 96 Oxygen Delivery Method 08/15/24 14:30 08/15/24 14:30 08/15/24 15:00 Temperature Pulse Rate 99 H Respiratory Rate 15 Blood Pressure 222/132 H 231/129 H Pulse Oximetry 95 Oxygen Delivery Method 08/15/24 15:00 08/15/24 15:30 08/15/24 15:30 Temperature Pulse Rate 107 H 110 H Respiratory Rate 19 21 Blood Pressure 232/141 H Pulse Oximetry 96 Oxygen Delivery Method 08/15/24 16:00 08/15/24 16:00 08/15/24 16:30 Temperature Pulse Rate 100 H 95 H Respiratory Rate 16 25 H Blood Pressure 237/141 H Pulse Oximetry 97 97 Oxygen Delivery Method 08/15/24 16:30 08/15/24 16:35 08/15/24 16:35 Temperature Pulse Rate 85 Respiratory Rate 21 Blood Pressure 201/112 H 202/122 H Pulse Oximetry 95 Oxygen Delivery Method 08/15/24 16:40 08/15/24 16:40 08/15/24 16:45 Temperature Pulse Rate 85 Respiratory Rate 26 H Blood Pressure 189/127 H 182/119 H Pulse Oximetry 96 Oxygen Delivery Method Room Air 08/15/24 16:45 08/15/24 16:50 08/15/24 16:50 Temperature Pulse Rate 82 80 Respiratory Rate 31 H 32 H Blood Pressure 158/95 H Pulse Oximetry 97 95 Oxygen Delivery Method 08/15/24 16:55 08/15/24 16:55 08/15/24 17:00 Temperature Pulse Rate 79 80 Respiratory Rate 24 12 Blood Pressure 192/125 H Pulse Oximetry 95 96 Oxygen Delivery Method 08/15/24 17:00 08/15/24 17:05 08/15/24 17:05 Temperature Pulse Rate 80 Respiratory Rate 30 H Blood Pressure 193/131 H 194/129 H Pulse Oximetry 93 Oxygen Delivery Method 08/15/24 17:10 08/15/24 17:10 Temperature Pulse Rate 80 Respiratory Rate 32 H Blood Pressure 194/131 H Pulse Oximetry 94 Oxygen Delivery Method Room Air Oxygen Delivery Method Room Air Narrative Exam Narrative: Alert and oriented x3. No apparent distress. Very overweight. Pupils are equally round and reactive to light and accommodation. Extraocular muscles are intact Sclerae are pink and nonicteric Throat looks normal No lymph nodes are felt head, neck, supraclavicular area JVD is less than 6 cm No carotid bruits are heard No thyromegaly is present. Heart is regular rate and rhythm without murmur Lungs are clear to auscultation bilaterally Abdomen is soft, bowel sounds positive, obese, nontender, no organomegaly. Extremities have trace nonpitting edema in the lower legs. Skin has no rash. Neurologic exam: DTRs are symmetric and normal. There is no tremor. Cranial nerves 2-12 test intact. Motor function is 4/5 throughout. Objective Labs 08/15/24 13:30 08/15/24 13:30 Labs: Laboratory Results - last 24 hr 08/15/24 08/15/24 13:30 16:23 WBC 12.8 H RBC 3.92 L Hgb 10.4 L Hct 32.3 L MCV 82.5 MCH 26.5 MCHC 32.2 RDW 16.2 H Plt Count 234 Neut % (Auto) 83.3 H Lymph % (Auto) 10.8 L [place] % (Auto) 2.5 L Eos % (Auto) 2.5 Baso % (Auto) 0.9 Neut # (Auto) 80643 H Lymph # (Auto) 1400 [place] # (Auto) 300 Eos # (Auto) 300 Baso # (Auto) 100 PT 11.5 INR 1.0 Sodium 138 Potassium 3.6 Chloride 112 H Carbon Dioxide 19 L BUN 26 H Creatinine 2.88 H Estimated GFR 20 L BUN/Creatinine Ratio 9.0 Glucose 205 H Lactate 0.9 Calcium 8.1 L Total Bilirubin 0.5 AST 41 H ALT 29 Alkaline Phosphatase 151 H Troponin I 0.047 H 0.048 H NT-Pro-B Natriuret Pep 9860 H Total Protein 6.8 Albumin 3.3 L Globulin 3.5 Albumin/Globulin Ratio 0.9 L Assessment & Plan Assessment & Plan narrative: This is a 39-year-old female with a history of medical obesity, hypertension, CKD, sleep apnea and diabetes who presents with increasing shortness of breath/orthopnea and is found to be in a hypertensive emergency. Her presenting blood pressure is 210/120. She had stopped taking her amlodipine, chlorthalidone and losartan in November of 2023 because of an episode of severe hypotension with a systolic of 57. Hypertensive emergency -secondary to stopping her blood pressure medicines after an episode of severe hypotension 12/07. -presenting symptoms are shortness of breath and orthopnea. -nitroglycerin drip for blood pressure optimization while resuming her losartan, amlodipine and metoprolol. -strong family history of stroke/hypertension with both father and brother. Acute kidney injury with recent worsening CKD -apparently followed with Nephrology in [place]. -optimize blood pressure control -creatinine is 2.88, follow. Diabetes mellitus type 2 -holding Farxiga and metformin. -follow blood sugars -clarify current use/indication for pyridostigmine? Enoxaparin for DVT prophylaxis Backup decision maker is her sister. Time-Based Coding :: [TOTAL MINUTES] spent with patient and on the chart (including review of chart, obtaining history, exam, reviewing outside data, placing orders, documenting exam and treatment plan, and counseling patient) on [DATE].
[2024-08-15] MEDS: MORPHINE 4 MG/ML INJ IV (18:34)
[2024-08-15] MEDS: NITROGLYCERIN 50 MG/250 ML INFUS..BTL IV (18:35)
[2024-08-15] MEDS: ONDANSETRON 4 MG ODT PO (20:44)
[2024-08-15] MEDS: LABETALOL 20 MG/4 ML SYRINGE 10 MG IV (23:44)
[2024-08-16] VITALS (82 sets, daily range): BP systolic 144–202; BP diastolic 74–132; PULSE 83–123; RESP 9–90; TEMP 36.4–36.8; O2SAT 87–99
[2024-08-16] MEDS: LABETALOL 20 MG/4 ML SYRINGE 10 MG IV ×2 (02:20→06:39)
--- NOTE | 2024-08-16 08:29 | PM.PN.1 ---
Subjective Subjective Interval history: S: She feels tired today. She denies any headache, chest pain, or dyspnea. She was off the nitroglycerin drip. Exam Vital Signs (past 8 hours): - 08/16/24 01:00 08/16/24 01:05 08/16/24 01:10 Temperature Pulse Rate 87 89 89 Respiratory Rate Blood Pressure 149/82 H 159/90 H 155/87 H Pulse Oximetry 94 95 95 Oxygen Delivery Method Oxygen Flow Rate 2 2 2 08/16/24 01:15 08/16/24 01:20 08/16/24 01:25 Temperature Pulse Rate 90 90 92 H Respiratory Rate Blood Pressure 167/93 H 174/96 H 176/97 H Pulse Oximetry 95 95 94 Oxygen Delivery Method Oxygen Flow Rate 2 2 2 08/16/24 01:30 08/16/24 01:35 08/16/24 01:40 Temperature Pulse Rate 92 H 91 H 86 Respiratory Rate Blood Pressure 184/95 H 173/95 H 144/78 H Pulse Oximetry 94 94 Oxygen Delivery Method Oxygen Flow Rate 2 2 08/16/24 01:40 08/16/24 01:45 08/16/24 02:03 Temperature Pulse Rate 91 H 92 H 99 H Respiratory Rate Blood Pressure 167/90 H 175/96 H 184/129 H Pulse Oximetry 95 94 95 Oxygen Delivery Method Oxygen Flow Rate 2 2 0 08/16/24 02:15 08/16/24 02:20 08/16/24 02:30 Temperature Pulse Rate 93 H 93 H 87 Respiratory Rate 31 H 37 H Blood Pressure 200/132 H 200/132 H 193/119 H Pulse Oximetry 95 95 Oxygen Delivery Method Oxygen Flow Rate 0 0 08/16/24 02:35 08/16/24 02:40 08/16/24 02:45 Temperature Pulse Rate 97 H 97 H 87 Respiratory Rate 35 H 40 H 39 H Blood Pressure 196/122 H 198/120 H 202/117 H Pulse Oximetry 94 92 96 Oxygen Delivery Method Oxygen Flow Rate 0 0 0 08/16/24 02:50 08/16/24 02:51 08/16/24 03:00 Temperature Pulse Rate 91 H 87 92 H Respiratory Rate 36 H 34 H Blood Pressure 175/103 H 175/103 H 183/89 H Pulse Oximetry 94 93 Oxygen Delivery Method Oxygen Flow Rate 0 0 08/16/24 03:16 08/16/24 03:30 07/03/25 03:45 Temperature Pulse Rate 92 H 91 H 93 H Respiratory Rate 27 H 90 H 29 H Blood Pressure 168/79 H 162/81 H 164/76 H Pulse Oximetry 92 92 94 Oxygen Delivery Method Oxygen Flow Rate 0 0 0 08/16/24 04:00 08/16/24 04:00 08/16/24 04:15 Temperature Pulse Rate 92 H 92 H Respiratory Rate 28 H 28 H Blood Pressure 163/77 H 149/74 H Pulse Oximetry 92 93 Oxygen Delivery Method Room Air Oxygen Flow Rate 0 0 08/16/24 04:30 08/16/24 04:45 08/16/24 05:00 Temperature Pulse Rate 94 H 93 H 93 H Respiratory Rate 28 H 29 H 29 H Blood Pressure 158/82 H 159/82 H 157/83 H Pulse Oximetry 93 93 92 Oxygen Delivery Method Oxygen Flow Rate 0 0 0 08/16/24 05:00 08/16/24 05:15 08/16/24 05:30 Temperature 98.0 F Pulse Rate 94 H 96 H Respiratory Rate 17 25 H 24 Blood Pressure 156/81 H 156/83 H Pulse Oximetry 92 97 Oxygen Delivery Method Oxygen Flow Rate 2 2 08/16/24 05:45 08/16/24 06:00 08/16/24 06:15 Temperature Pulse Rate 96 H 95 H 95 H Respiratory Rate 23 11 L 31 H Blood Pressure 164/87 H 165/90 H 162/87 H Pulse Oximetry 96 95 95 Oxygen Delivery Method Oxygen Flow Rate 2 2 2 08/16/24 06:30 08/16/24 06:45 08/16/24 06:51 Temperature Pulse Rate 105 H 101 H 85 Respiratory Rate 32 H 28 H 21 Blood Pressure 187/108 H 200/116 H 192/108 H Pulse Oximetry 98 97 97 Oxygen Delivery Method Oxygen Flow Rate 2 0 0 08/16/24 06:55 08/16/24 07:00 08/16/24 07:05 Temperature Pulse Rate 83 90 87 Respiratory Rate 23 35 H 28 H Blood Pressure 171/111 H 189/114 H 188/110 H Pulse Oximetry 97 95 96 Oxygen Delivery Method Oxygen Flow Rate 0 0 0 08/16/24 07:10 08/16/24 07:10 08/16/24 08:00 Temperature 97.6 F Pulse Rate 92 H 92 H 87 Respiratory Rate 30 H 26 H Blood Pressure 167/96 H 167/96 H 178/93 H Pulse Oximetry 94 97 Oxygen Delivery Method Oxygen Flow Rate 0 0 Oxygen Delivery Method Room Air Oxygen Flow Rate 0 Narrative Exam Narrative: NAD, alert and oriented. Fluent speech. Lungs are clear, normal rate and effort. Heart is regular, no murmur gallop or rub. Abdomen is soft, non distended. Extremities are free of edema. Objective Labs 08/16/24 08:25 08/16/24 08:25 Labs: Laboratory Results - last 24 hr 08/15/24 08/15/24 08/16/24 13:30 16:23 07:29 WBC 12.8 H RBC 3.92 L Hgb 10.4 L Hct 32.3 L MCV 82.5 MCH 26.5 MCHC 32.2 RDW 16.2 H Plt Count 234 Neut % (Auto) 83.3 H Lymph % (Auto) 10.8 L [place] % (Auto) 2.5 L Eos % (Auto) 2.5 Baso % (Auto) 0.9 Neut # (Auto) 36577 H Lymph # (Auto) 1400 [place] # (Auto) 300 Eos # (Auto) 300 Baso # (Auto) 100 PT 11.5 INR 1.0 Sodium 138 Potassium 3.6 Chloride 112 H Carbon Dioxide 19 L BUN 26 H Creatinine 2.88 H Estimated GFR 20 L BUN/Creatinine Ratio 9.0 Glucose 205 H POC Whole Bld Glucose 255 H Lactate 0.9 Calcium 8.1 L Total Bilirubin 0.5 AST 41 H ALT 29 Alkaline Phosphatase 151 H Troponin I 0.047 H 0.048 H NT-Pro-B Natriuret Pep 9860 H Total Protein 6.8 Albumin 3.3 L Globulin 3.5 Albumin/Globulin Ratio 0.9 L PFSH Medical History CKD (chronic kidney disease) stage 3, GFR 30-59 ml/min Sleep apnea Endometrial intraepithelial neoplasia (EIN) Anxiety Headache Morbid obesity Fatty liver Hypertension Migraines Diabetes Surgical History Previous section (~2013) Family History Mother COVID-19 Diabetes mellitus Hypertension Father Diabetes mellitus History of heart disease Hypertension Stroke Brother Hypertension Stroke Social History household members: family Smoking Status: Former smoker alcohol intake: current substance use type: does not use Assessment & Plan Assessment & Plan narrative: 1. Hypertensive emergency and medication noncompliance. Present on admission and improving. 2. Acute kidney injury with recent worsening CKD, active and stable. 3. Diabetes mellitus type 2, active and stable. -holding Farxiga and metformin. -follow blood sugars PLAN: -monitor blood pressure and her usual blood pressure medications. We will up titrate metoprolol if need be. -anticipate another night in the hospital, we will monitor renal function and glucose. Enoxaparin for DVT prophylaxis Backup decision maker is her sister. Time-Based Coding :: [TOTAL MINUTES] spent with patient and on the chart (including review of chart, obtaining history, exam, reviewing outside data, placing orders, documenting exam and treatment plan, and counseling patient) on [DATE].
[2024-08-16] MEDS: ENOXAPARIN 30 MG/0.3 ML SYRINGE SUBCUT (08:36)
[2024-08-16] MEDS: LOSARTAN 50 MG TABLET 100 MG PO (08:36)
[2024-08-16 08:37] LABS: Add Manual Diff / Slide Review NO; Hematocrit 30.6 % (36-46); Hemoglobin 10.0 g/dL (12.0-16.0); Lymphocytes Absolute Auto 1400 /uL (1100-4500); Mean Corpuscular HGB Conc 32.7 % (30-36); Mean Corpuscular Hemoglobin 26.9 PG (26-34); Mean Corpuscular Volume 82.4 fL (80-100); Platelet Count 241 X10^3/uL (150-400)
[2024-08-16] MEDS: METOPROLOL ER 25 MG TABLET PO ×2 (08:37→21:08)
[2024-08-16] MEDS: AMLODIPINE 5 MG TABLET PO ×2 (08:37→13:11)
[2024-08-16] MEDS: SODIUM CHLORIDE 0.9% FLUSH 10 ML IV ×2 (08:38→21:08)
[2024-08-16] MEDS: INSULIN GLARGINE 100 UNIT/ML 3ML PEN 10 UNIT SUBCUT (08:43)
[2024-08-16 08:52] LABS: Blood Urea Nitrogen 27 mg/dL (7-17); Calcium 8.0 mg/dL (8.4-10.2); Carbon Dioxide 19 mmol/L (22-32); Chloride 109 mmol/L (98-107); Estimated Glomerular Filt Rate 19 mL/min (>60); Glucose 240 mg/dL (70-99); HEMOLYSIS < 15 (0-50); Potassium 3.8 mmol/L (3.4-5.1); Sodium 136 mmol/L (137-145)
[2024-08-16] MEDS: INSULIN LISPRO 100 UNIT/ML 3ML VIAL SUBCUT ×4 (09:36→21:18)
[2024-08-16 09:40] LABS: Hemoglobin A1C% w Est Avg Glu 8.5 % (4.0-6.0)
--- NOTE | 2024-08-16 12:29 | CM.DANOTE ---
Initial DCP Assessment Note Pt is a 39 yo female, resident of [place], admitted for management of Hypertensive emergency and medication noncompliance. GREG 08/16. PCP: Dr Juan Daniel Stanton Payer: [facility] Reviewed chart, pt discussed in multidisciplinary rounds this morning. Patient lives independently with 11 yo in [place]. Patient appears to be at her physical and cognitive baseline. No barriers identified at this time to patient's safe discharge home w/family; close outpatient f/u recommended. Social work team will plan to follow clinical course closely in case any DC needs or concerns arise. ALONA Latham Discharge Planning/Care Management CM Discharge Assessment Start: 08/15/24 22:39 Freq: Status: Active Protocol: Document 08/16/24 12:26 EDYTA (Rec: 08/16/24 12:29 [email or web address] [id number]) Discharge Planning Assessment Assigned Discharge ALONA Trevizo Check Processing Clerk DPOA/Assigned Karrie Conde, mother Designee Name Contact Information Home Phone Advance Directives? No Advance Directives No on File History Provided By Patient,Medical Record Prior Living Other Arrangements Comment [facility]. Lives with son (11-yrs-old) Household Members family Independent with ADL Yes 's Is patient alert and Yes oriented? Discharge Plan Home Transportation Family Arrangement Referrals Initiated None needed
[2024-08-16 14:40] LABS: MRSA (Nasal) PCR NOT DETECTED (Not Detect)
[2024-08-16] MEDS: TRAMADOL 50 MG TABLET PO (21:07)
[2024-08-16] MEDS: ACETAMINOPHEN 325 MG TABLET 650 MG PO (21:07)
[2024-08-17] VITALS (25 sets, daily range): BP systolic 143–191; BP diastolic 74–115; PULSE 64–91; RESP 19–20; TEMP 36.3–36.4; O2SAT 70–97
[2024-08-17] MEDS: LABETALOL 20 MG/4 ML SYRINGE 10 MG IV (05:39)
[2024-08-17] MEDS: SODIUM CHLORIDE 0.9% FLUSH 10 ML IV ×2 (05:40→08:28)
[2024-08-17 05:41] LABS: Hematocrit 29.1 % (36-46); Hemoglobin 9.5 g/dL (12.0-16.0); Mean Corpuscular HGB Conc 32.7 % (30-36); Mean Corpuscular Hemoglobin 27.0 PG (26-34); Mean Corpuscular Volume 82.4 fL (80-100); Platelet Count 210 X10^3/uL (150-400)
[2024-08-17] MEDS: HEPARIN 5,000 UNIT/ML VIAL 7500 UNIT SUBCUT (05:41)
[2024-08-17 05:52] LABS: Alanine Aminotransferase 21 IU/L (<35); Albumin 2.8 g/dL (3.5-5.0); Albumin Globulin Ratio 0.8 (1.0-2.8); Alkaline Phosphatase 127 U/L (38-126); Blood Urea Nitrogen 29 mg/dL (7-17); Calcium 7.8 mg/dL (8.4-10.2); Carbon Dioxide 23 mmol/L (22-32); Chloride 109 mmol/L (98-107); Estimated Glomerular Filt Rate 20 mL/min (>60); Globulin 3.4 g/dL (1.7-4.1); Glucose 205 mg/dL (70-99); HEMOLYSIS < 15 (0-50); Potassium 3.4 mmol/L (3.4-5.1); Sodium 137 mmol/L (137-145); Total Protein 6.2 g/dL (6.3-8.2)
[2024-08-17] MEDS: INSULIN LISPRO 100 UNIT/ML 3ML VIAL SUBCUT ×3 (08:25→12:00)
[2024-08-17] MEDS: INSULIN GLARGINE 100 UNIT/ML 3ML PEN 10 UNIT SUBCUT (08:26)
[2024-08-17] MEDS: METOPROLOL ER 25 MG TABLET 50 MG PO (08:27)
[2024-08-17] MEDS: AMLODIPINE 5 MG TABLET PO (08:27)
[2024-08-17] MEDS: LOSARTAN 50 MG TABLET 100 MG PO (08:27)
[2024-08-17] MEDS: INSULIN GLARGINE 100 UNIT/ML 3ML PEN SUBCUT (11:59)
--- NOTE | 2024-08-17 12:47 | P.DS_ITS ---
History of Present Illness History of Present Illness Chief complaint: SOB/ heartrate / hard time breathing Narrative: From H&P: This is a 39-year-old female with a history of medical obesity, hypertension, CKD, sleep apnea and diabetes who presents with increasing shortness of breath/orthopnea and is found to be in a hypertensive emergency. Her presenting blood pressure is 210/120. She had stopped taking her amlodipine, chlorthalidone and losartan in November of 2023 because of an episode of severe hypotension with a systolic of 57. That episode was apparently treated here in the ED when she presented with sudden onset of nausea. She says the lisinopril worked best for her blood pressure but she had to be taken off it because of her worsening kidney function. The baseline creatinine was 1.29 in March then was 2.27 in April and is now 2.88. She follows this with a foundry helper in [place]. Discharge Providers Provider Date of admission: 08/15/24 18:03 Discharge Date: 08/17/24 Primary care physician: Brianna Hidalgo MD Consults: None. Discharge provider: Javier Stanton MD Summary Hospital Course Discharge Diagnosis: 1. Hypertensive emergency and medication noncompliance. Present on admission and improving. 2. Worsening CKD, active and stable. 3. Diabetes mellitus type 2, active and stable. Hospital Course: She was admitted with hypertensive urgency secondary to medication noncompliance. She was initially on a nitroglycerin drip which was weaned as her oral medications were restarted. She had been off from them for a couple of months. Her metoprolol dose was increased, and hydralazine was added. Her creatinine appeared to be relatively stable and losartan was Re added. It was unclear if any by stopped her losartan due to renal function intentionally, however there is a renal protective effect and I have a suspicion that her chronic kidney disease is progressive. In any case we will repeat labs within the next several days and re-evaluate her creatinine. Status at Discharge Cognitive/behavioral status at discharge: oriented Functional status at discharge: independent ambulation Overall status at discharge: patient is back to baseline Time Spent with Patient Time spent: Greater than 30 minutes Exam Vital Signs (past 8 hours): - 08/17/24 05:32 08/17/24 05:32 08/17/24 05:33 Temperature Pulse Rate 91 H Respiratory Rate Blood Pressure 191/113 H 187/115 H Pulse Oximetry 91 Oxygen Delivery Method 08/17/24 05:33 08/17/24 05:38 08/17/24 05:39 Temperature Pulse Rate 64 64 64 Respiratory Rate Blood Pressure 187/115 H 187/115 H Pulse Oximetry 89 L Oxygen Delivery Method 08/17/24 05:54 08/17/24 05:55 08/17/24 06:00 Temperature Pulse Rate 86 Respiratory Rate Blood Pressure 152/81 H 154/81 H 143/74 H Pulse Oximetry Oxygen Delivery Method 08/17/24 06:00 08/17/24 06:05 08/17/24 06:10 Temperature Pulse Rate 82 Respiratory Rate Blood Pressure 143/74 H 164/97 H 163/96 H Pulse Oximetry Oxygen Delivery Method 08/17/24 06:10 08/17/24 06:10 08/17/24 06:15 Temperature Pulse Rate 82 82 Respiratory Rate Blood Pressure 163/96 H 163/96 H 159/93 H Pulse Oximetry Oxygen Delivery Method 08/17/24 06:15 08/17/24 06:20 08/17/24 06:20 Temperature Pulse Rate 82 Respiratory Rate Blood Pressure 159/93 H 156/91 H 156/91 H Pulse Oximetry Oxygen Delivery Method 08/17/24 06:25 08/17/24 06:25 08/17/24 06:30 Temperature Pulse Rate 83 Respiratory Rate Blood Pressure 155/90 H 155/90 H 148/84 H Pulse Oximetry Oxygen Delivery Method 08/17/24 06:35 08/17/24 06:45 08/17/24 07:00 Temperature Pulse Rate Respiratory Rate Blood Pressure 148/81 H 158/87 H 161/95 H Pulse Oximetry Oxygen Delivery Method 08/17/24 07:00 08/17/24 07:15 08/17/24 07:30 Temperature Pulse Rate Respiratory Rate Blood Pressure 156/90 H 159/101 H Pulse Oximetry Oxygen Delivery Method Room Air 08/17/24 07:45 08/17/24 08:00 08/17/24 08:00 Temperature 97.6 F Pulse Rate 91 H Respiratory Rate 20 Blood Pressure 158/92 H 157/91 H 151/88 H Pulse Oximetry 97 Oxygen Delivery Method 08/17/24 08:02 08/17/24 08:03 08/17/24 08:03 Temperature Pulse Rate 76 91 H Respiratory Rate Blood Pressure 151/88 H Pulse Oximetry 70 L 93 Oxygen Delivery Method 08/17/24 11:46 08/17/24 11:47 08/17/24 11:47 Temperature Pulse Rate 88 88 Respiratory Rate Blood Pressure 172/98 H Pulse Oximetry 94 96 Oxygen Delivery Method 08/17/24 12:00 Temperature 97.4 F L Pulse Rate 88 Respiratory Rate 19 Blood Pressure 172/98 H Pulse Oximetry 97 Oxygen Delivery Method Oxygen Delivery Method Room Air Oxygen Flow Rate 0 Narrative Exam Narrative: NAD, alert and oriented. Fluent speech. Lungs are clear, normal rate and effort. Heart is regular, no murmur gallop or rub. Abdomen is soft, non distended. Extremities are free of edema. Objective ECG Impression: Rate: 98 P: 18 WV: 136 QRS: 39 QRSD: 94 T: 60 QT: 394 QTc: 503 Interpretive Statements Normal sinus rhythm Minimal voltage criteria for LVH, may be normal variant ( [place] product ) Prolonged QT Imaging Chest x-ray: Radiologist's impression: Cardiomegaly and mild congestion. No focal infiltrate, pleural effusion or pneumothorax. Labs 08/17/24 04:40 08/17/24 04:40 Labs: Laboratory Results - last 24 hr 08/15/24 08/16/24 08/16/24 23:40 16:30 20:44 WBC RBC Hgb Hct MCV MCH MCHC RDW Plt Count Sodium Potassium Chloride Carbon Dioxide BUN Creatinine Estimated GFR BUN/Creatinine Ratio Glucose POC Whole Bld Glucose 210 H 256 H Calcium Total Bilirubin AST ALT Alkaline Phosphatase Total Protein Albumin Globulin Albumin/Globulin Ratio Nasal Screen MRSA (PCR) Not detected 08/17/24 08/17/24 08/17/24 04:40 04:51 08:05 WBC 11.0 RBC 3.53 L Hgb 9.5 L Hct 29.1 L MCV 82.4 MCH 27.0 MCHC 32.7 RDW 15.8 H Plt Count 210 Sodium 137 Potassium 3.4 Chloride 109 H Carbon Dioxide 23 BUN 29 H Creatinine 2.95 H Estimated GFR 20 L BUN/Creatinine Ratio 9.8 Glucose 205 H POC Whole Bld Glucose 198 H 215 H Calcium 7.8 L Total Bilirubin 0.3 AST 26 ALT 21 Alkaline Phosphatase 127 H Total Protein 6.2 L Albumin 2.8 L Globulin 3.4 Albumin/Globulin Ratio 0.8 L Nasal Screen MRSA (PCR) 08/17/24 11:51 WBC RBC Hgb Hct MCV MCH MCHC RDW Plt Count Sodium Potassium Chloride Carbon Dioxide BUN Creatinine Estimated GFR BUN/Creatinine Ratio Glucose POC Whole Bld Glucose 224 H Calcium Total Bilirubin AST ALT Alkaline Phosphatase Total Protein Albumin Globulin Albumin/Globulin Ratio Nasal Screen MRSA (PCR) [facility] [place] Medical History CKD (chronic kidney disease) stage 3, GFR 30-59 ml/min Sleep apnea Endometrial intraepithelial neoplasia (EIN) Anxiety Headache Morbid obesity Fatty liver Hypertension Migraines Diabetes Surgical History Previous section (~2013) Family History Mother COVID-19 Diabetes mellitus Hypertension Father Diabetes mellitus History of heart disease Hypertension Stroke Brother Hypertension Stroke Social History household members: family Smoking Status: Former smoker alcohol intake: current substance use type: does not use Discharge Assessment & Plan Assessment and Plan Assessment: 1. Hypertensive urgency, improved. 2. Medication noncompliance, improved. 3. Progressive chronic kidney disease with medication noncompliance, active. Plan of Treatment: Discharge home. She requested 1 week only of medications that she will follow up with her primary care early this week and get new medication supplies bubble wrapped. She will also need to see her nephrologists within the next 1-2 weeks to further look at her renal function and medications. Discharge Plan Discharge Plan Patient Disposition: Home Provider Discharge Comment: Stable for discharge home on resumed medications. Discharge orders & Medications Prescriptions: New losartan 50 mg Tablet 100 mg PO DAILY Qty: 7 0RF hydralazine 10 mg Tablet 25 mg PO Q8HR Qty: 21 0RF amlodipine 5 mg Tablet 5 mg PO DAILY Qty: 7 0RF metoprolol succinate 25 mg Tablet Extended Release 24 Hr 50 mg PO BID Qty: 14 0RF insulin glargine [Lantus Solostar U-100 Insulin] 100 unit/mL (3 mL) Insulin Pen 14 unit SUBCUT DAILY Qty: 30 0RF pyridostigmine bromide 60 mg Tablet 60 mg PO TID Qty: 21 0RF hydrochlorothiazide 25 mg Tablet 25 mg PO DAILY Qty: 7 0RF Discontinued hydrochlorothiazide 25 mg tablet 25 mg PO DAILY metoprolol succinate 25 mg Tablet Extended Release 24 Hr 25 mg PO DAILY losartan 100 mg Tablet 100 mg PO DAILY metformin 500 mg tablet extended release 24 hr 250 mg PO QPM dapagliflozin propanediol 10 mg Tablet 10 mg PO DAILY insulin glargine [Lantus Solostar U-100 Insulin] 100 unit/mL (3 mL) insulin pen 4 unit SUBCUT QPM ondansetron 4 mg tablet,disintegrating 4 mg PO Q8H PRN (Reason: nausea and vomiting) Qty: 10 0RF Medication counseling provided by Pharmacist: No Follow up/Referrals: Brianna Hidalgo MD [Primary Care Provider, Family Practice] Diet/Activity/Treatments Diet: Carb-consistent/Diabetic Activity: As tolerated. Visit Report/Discharge Packet Instructions: Diabetes Medication May Increase the Risk of Heart Attack, Malignant Hypertension Stand Alone Forms: Patient Portal/API Discharge Data Primary Care Provider: Brianna Hidalgo
== END 2024-08-17 13:07 | disposition home or self-care (01) | DRG 305 ==
LOC: ED 17:50 → AC 18:03 → ICU 21:41
PROVIDERS: Internal Medicine; Admitting Provider Family Medicine; Emergency Provider Emergency Medicine; PCP Family Medicine; Referring Provider Emergency Medicine; Visit Provider Family Medicine
DX: I16.1 Hypertensive emergency (principal); N17.9 Acute kidney failure, unspecified; Z68.44 Body mass index [BMI] 60.0-69.9, adult; I12.9 Hypertensive chronic kidney disease with stage 1 through stage 4 chronic kidney disease, or unspecified chronic kidney disease; N18.9 Chronic kidney disease, unspecified; E11.22 Type 2 diabetes mellitus with diabetic chronic kidney disease; E66.01 Morbid (severe) obesity due to excess calories; Z79.84 Long term (current) use of oral hypoglycemic drugs; Z82.49 Family history of ischemic heart disease and other diseases of the circulatory system; Z91.148 Patient's other noncompliance with medication regimen for other reason; Z87.891 Personal history of nicotine dependence; Z79.4 Long term (current) use of insulin
CPT/HCPCS: 36415; 71045; 80048; 80053; 82962; 83036; 83605; 83880; 84484; 85025; 85027; 85610; 87797; 93005; 93010; 96365; 96366; 96367; 96375; 99285; J1644; J1650; J1815; J1938; J2270

== ENCOUNTER 2024-11-02 19:36 | Inpatient (IN) | payer MEDICAID, OTHER, SELFPAY ==
[2023-11-16 11:00] VITALS: RESP 12
[2023-11-16 15:42] VITALS: PULSE 88; RESP 32; O2SAT 96
[2024-08-15 22:53] VITALS: BMI 61.3
[2024-11-02] VITALS (33 sets, daily range): BP systolic 137–244; BP diastolic 68–124; PULSE 94–111; RESP 13–48; TEMP 37.1; O2SAT 90–99; BMI 61.9
--- NOTE | 2024-11-02 19:45 | EKG_ITS ---
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
--- NOTE | 2024-11-02 19:45 | DI.RAD.S_ITS ---
PROCEDURE: XR CHEST 1V INDICATIONS: Shortness of breath TECHNIQUE: One view of the chest was acquired. COMPARISON: [facility], CR, XR CHEST 1V, 08/15/2024, 13:28. FINDINGS: Surgical changes and devices: None. Lungs and pleura: Mild pulmonary vascular congestion. Developing right perihilar infiltrate cannot be excluded. No pleural effusions or pneumothorax. Mediastinum: Mediastinal contours appear normal. Heart size is enlarged. Bones and chest wall: No suspicious bony lesions. Overlying soft tissues appear unremarkable. IMPRESSION: Cardiomegaly and mild congestion. Cannot rule out developing right perihilar infiltrate. Clinical correlation and follow-up is recommended. No significant pleural effusion. No pneumothorax. Dictated by: Byron Zaragoza M.D. on 11/02/2024 at 20:32 Approved by: Byron Zaragoza M.D. on 11/02/2024 at 20:33
[2024-11-02 20:05] LABS: Add Manual Diff / Slide Review NO; Hematocrit 27.7 % (36-46); Hemoglobin 9.1 g/dL (12.0-16.0); Lymphocytes Absolute Auto 1600 /uL (1100-4500); Mean Corpuscular HGB Conc 32.9 % (30-36); Mean Corpuscular Hemoglobin 26.5 PG (26-34); Mean Corpuscular Volume 80.5 fL (80-100); Platelet Count 231 X10^3/uL (150-400)
[2024-11-02 20:14] LABS: INR 1.1 (0.9-1.3); Prothrombin Time 12.0 SECONDS (9.4-12.5)
[2024-11-02 20:18] LABS: Alanine Aminotransferase 20 IU/L (<35); Albumin 3.4 g/dL (3.5-5.0); Albumin Globulin Ratio 0.9 (1.0-2.8); Alkaline Phosphatase 128 U/L (38-126); Blood Urea Nitrogen 31 mg/dL (7-17); Calcium 7.8 mg/dL (8.4-10.2); Carbon Dioxide 21 mmol/L (22-32); Chloride 109 mmol/L (98-107); Estimated Glomerular Filt Rate 14 mL/min (>60); Globulin 3.7 g/dL (1.7-4.1); Glucose 221 mg/dL (70-99); HEMOLYSIS < 15 (0-50); Lactate (Lactic Acid) 1.6 mmol/L (0.7-2.1); Potassium 3.9 mmol/L (3.4-5.1); Sodium 137 mmol/L (137-145); Total Protein 7.1 g/dL (6.3-8.2)
--- NOTE | 2024-11-02 20:22 | PC.NURSE ---
iv placed by another nurse
[2024-11-02 20:30] LABS: NT-proBNP (BNP-Adult 18+) 13000 pg/mL (<125); Troponin I 0.024 ng/mL (0.01-0.034)
--- NOTE | 2024-11-02 20:39 | ED_ITS ---
HPI - General Adult General Chief complaint: Shortness of Breath/Dyspnea Stated complaint: SOB, pneumonia? Time Seen by Provider: 11/02/24 19:59 Source: patient Mode of arrival: Ambulatory History of Present Illness HPI narrative: 39-year-old woman with a history of hypertension, diabetes, sleep apnea, congestive heart failure most of which are untreated she chooses to not use the majority of her prescription medication comes in with 4 days of increasing orthopnea, exertional dyspnea approximately 10 lb weight gain no significant change to lower extremity edema, slight increased dry cough. No palpitations, no headache. No nausea vomiting or diarrhea Related Data Previous Rx's ?Medication ?Instructions ?Recorded amlodipine 5 mg tablet 5 mg PO DAILY #7 tabs hydralazine 10 mg tablet 25 mg (2.5 x 10 mg) PO Q8HR #21 08/17/24 tabs hydrochlorothiazide 25 mg tablet 25 mg PO DAILY #7 tab s 08/17/24 insulin glargine 100 unit/mL (3 14 unit (0.14 mL) SUBC UT DAILY #30 08/17/24 mL) subcutaneous pen (Lantus mL Solostar U-100 Insulin) losartan 50 mg tablet 100 mg (2 x 50 mg) PO DAILY #7 tabs 08/17/24 metoprolol succinate 25 mg 50 mg (2 x 25 mg) PO BID #1 4 tabs 08/17/24 tablet,extended release 24 hr pyridostigmine bromide 60 mg tablet 60 mg PO TID #21 t abs 08/17/24 Allergies Allergy/AdvReac Type Severity Reaction Status Date / Time No Known Drug Allergies Allergy Verified 11/02/24 19:40 Review of Systems Review of Systems Narrative: Pertinent positive and negative findings as per HPI Patient History Medical History CKD (chronic kidney disease) stage 3, GFR 30-59 ml/min Sleep apnea Endometrial intraepithelial neoplasia (EIN) Anxiety Headache Morbid obesity Fatty liver Hypertension Migraines Diabetes Surgical History Previous section (~2013) Family History Mother COVID-19 Diabetes mellitus Hypertension Father Diabetes mellitus History of heart disease Hypertension Stroke Brother Hypertension Stroke Social History household members: family Smoking Status: Former smoker alcohol intake: current substance use type: does not use Smoking Status: Former smoker tobacco type: vaping alcohol intake frequency: other Exam Initial Vital Signs Initial Vital Signs: Vital Signs Temperature 98.7 F 11/02/24 19:40 Pulse Rate 99 H 11/02/24 19:40 Respiratory Rate 22 11/02/24 19:40 Blood Pressure 223/124 H 11/02/24 19:40 Pulse Oximetry 99 11/02/24 19:40 Oxygen Delivery Method Room Air 11/02/24 19:40 General: BMI of 62, in no acute distress. Able to give a complete and coherent history. Well-nourished well-developed HEENT: Moist mucous membranes, normal sclera with reactive pupils, Neck: No JVD, supple Respiratory: Lungs with rhonchi the right mid axillary line, bibasilar crackles no significant wheezing Cardiac: Regular rate and rhythm no murmurs no bruits Abdomen: Soft, obese, nontender, no rebound or guarding, no flank pain Skin: Warm and dry, no rashes Neurologic: Grossly neurologically intact with no obvious asymmetries or abnormalities Extremities: No trauma, well perfused, minimal lower extremity edema Psych: Cooperative, appropriate insight and affect Course Orders Ordered: ED Orders 11/02/24 19:45 XR chest 1V Stat EKG-12 Lead Stat Measure peak expiratory flow STAT RT Consult Eval and Treat STAT 11/02/24 19:54 Complete Blood Count AUTO DIFF Stat Comprehensive Metabolic Panel Stat Covid-19 + FLU A/B + RSV - PCR Stat Lactate (Lactic Acid) Stat NT-proBNP (BNP-Adult 18+) Stat Prothrombin Time INR Stat Troponin I Stat 11/02/24 19:58 EKG-12 Lead Stat Nicardipine HCl 25 mg/ Sodium (Chloride) 250 mls @ 50 mls/hr IV TITRATE CLARA; Protocol Last Admin: 11/02/24 21:02 Dose: 5 mg/hr, 50 mls/hr Documented By: ZEVAN Discontinued Medications Furosemide 80 mg/ Sodium (Chloride) 58 mls @ 116 mls/hr IV NOW ONE Stop: 11/02/24 20:47 Last Infusion: 11/02/24 21:53 Dose: Infused Documented By: Admin: 11/02/24 21:20 Dose: 116 mls/hr Documented By: EBONI Ceftriaxone Sodium 2,000 mg/ (Sodium Chloride) 100 mls @ 200 mls/hr IV NOW ONE Stop: 11/02/24 20:47 Last Infusion: 11/02/24 21:37 Dose: Infused Documented By: Admin: 11/02/24 20:57 Dose: 200 mls/hr Documented By: EBONI Azithromycin 500 mg/ Dextrose 250 mls @ 250 mls/hr IV NOW ONE Stop: 11/02/24 20:47 Last Admin: 11/02/24 21:59 Dose: 250 mls/hr Documented By: EBONI Metoclopramide HCl (Metoclopramide 10 Mg/2 Ml Inj) 10 mg IV NOW ONE Stop: 11/02/24 22:56 Last Admin: 11/02/24 22:59 Dose: 10 mg Documented By: EBONI Metoprolol Tartrate (Metoprolol Ir 25 Mg Tablet) 50 mg PO NOW ONE Stop: 11/02/24 20:47 Last Admin: 11/02/24 20:57 Dose: 50 mg Documented By: EBONI Ondansetron HCl (Ondansetron 4 Mg/2 Ml Inj) 4 mg IV NOW ONE Stop: 11/02/24 22:10 Last Admin: 11/02/24 22:11 Dose: 4 mg Documented By: EBONI Pantoprazole Sodium (Pantoprazole 40 Mg Vial) 40 mg IV NOW ONE Stop: 11/02/24 22:56 Last Admin: 11/02/24 22:59 Dose: 40 mg Documented By: EBONI Vital Signs Vital signs: Vital Signs - 8 hr 11/02/24 19:40 11/02/24 20:17 11/02/24 20:18 Temperature 98.7 F Pulse Rate 99 H 102 H 100 H Respiratory Rate 22 Blood Pressure 223/124 H Pulse Oximetry 99 96 97 Oxygen Delivery Method Room Air 11/02/24 20:18 11/02/24 20:30 11/02/24 20:30 Temperature Pulse Rate 99 H Respiratory Rate Blood Pressure 233/117 H 244/114 H Pulse Oximetry 98 Oxygen Delivery Method 11/02/24 21:00 11/02/24 21:04 11/02/24 21:04 Temperature Pulse Rate 96 H 99 H Respiratory Rate 35 H 43 H Blood Pressure 224/114 H Pulse Oximetry 96 95 Oxygen Delivery Method 11/02/24 21:05 11/02/24 21:05 11/02/24 21:10 Temperature Pulse Rate 99 H 100 H Respiratory Rate 45 H 43 H Blood Pressure 231/120 H Pulse Oximetry 95 91 Oxygen Delivery Method 11/02/24 21:10 11/02/24 21:15 11/02/24 21:15 Temperature Pulse Rate 100 H Respiratory Rate 42 H Blood Pressure 221/116 H 220/105 H Pulse Oximetry 93 Oxygen Delivery Method 11/02/24 21:17 11/02/24 21:17 11/02/24 21:20 Temperature Pulse Rate 100 H 100 H Respiratory Rate 41 H 37 H Blood Pressure 208/104 H Pulse Oximetry 94 92 Oxygen Delivery Method 11/02/24 21:20 11/02/24 21:25 11/02/24 21:25 Temperature Pulse Rate 98 H Respiratory Rate 33 H Blood Pressure 201/93 H 199/94 H Pulse Oximetry 93 Oxygen Delivery Method 11/02/24 21:33 11/02/24 21:33 11/02/24 21:35 Temperature Pulse Rate 111 H Respiratory Rate 46 H Blood Pressure 202/97 H 213/100 H Pulse Oximetry 93 Oxygen Delivery Method 11/02/24 21:35 11/02/24 21:40 11/02/24 21:40 Temperature Pulse Rate 104 H 100 H Respiratory Rate 38 H 18 Blood Pressure 214/98 H Pulse Oximetry 95 93 Oxygen Delivery Method 11/02/24 21:45 11/02/24 21:45 11/02/24 21:50 Temperature Pulse Rate 100 H 99 H Respiratory Rate 37 H 37 H Blood Pressure 210/98 H Pulse Oximetry 92 92 Oxygen Delivery Method 11/02/24 21:50 11/02/24 21:55 11/02/24 21:55 Temperature Pulse Rate 96 H Respiratory Rate 19 Blood Pressure 206/86 H 186/87 H Pulse Oximetry 94 Oxygen Delivery Method 11/02/24 22:00 11/02/24 22:00 11/02/24 22:05 Temperature Pulse Rate 97 H Respiratory Rate 15 Blood Pressure 192/110 H 187/98 H Pulse Oximetry 93 Oxygen Delivery Method 11/02/24 22:05 11/02/24 22:10 11/02/24 22:10 Temperature Pulse Rate 97 H 100 H Respiratory Rate 20 41 H Blood Pressure 194/95 H Pulse Oximetry 94 95 Oxygen Delivery Method 11/02/24 22:15 11/02/24 22:15 11/02/24 22:20 Temperature Pulse Rate 96 H 96 H Respiratory Rate 36 H 42 H Blood Pressure 192/94 H Pulse Oximetry 95 91 Oxygen Delivery Method 11/02/24 22:20 11/02/24 22:25 11/02/24 22:25 Temperature Pulse Rate 96 H Respiratory Rate 48 H Blood Pressure 184/88 H 182/86 H Pulse Oximetry 92 Oxygen Delivery Method 11/02/24 22:30 11/02/24 22:35 11/02/24 22:35 Temperature Pulse Rate 100 H 100 H Respiratory Rate 36 H 44 H Blood Pressure 142/86 H Pulse Oximetry 95 94 Oxygen Delivery Method 11/02/24 22:40 11/02/24 22:40 11/02/24 22:45 Temperature Pulse Rate 96 H Respiratory Rate 13 Blood Pressure 154/85 H 155/85 H Pulse Oximetry 94 Oxygen Delivery Method 11/02/24 22:45 Temperature Pulse Rate 96 H Respiratory Rate 44 H Blood Pressure Pulse Oximetry 93 Oxygen Delivery Method Medical Decision Making Lab Data 11/02/24 19:54 11/02/24 19:54 Labs: Lab Results 11/02/24 Range/Units 19:54 WBC 13.1 H (4.5-11.0) X10^3/uL RBC 3.44 L (4.0-5.2) X10^6/uL Hgb 9.1 L (12.0-16.0) g/dL Hct 27.7 L (36-46) % MCV 80.5 (80-100) fL MCH 26.5 (26-34) PG MCHC 32.9 (30-36) % RDW 18.0 H (11.6-14.8) % Plt Count 231 (150-400) X10^3/uL Neut % (Auto) 82.2 H (50-75) % Lymph % (Auto) 12.1 L (25-40) % [place] % (Auto) 2.7 L (3-14) % Eos % (Auto) 2.5 (2-4) % Baso % (Auto) 0.5 (0-2) % Neut # (Auto) 62024 H (2153-4376) /uL Lymph # (Auto) 1600 (6104-5785) /uL [place] # (Auto) 400 (0-900) /uL Eos # (Auto) 300 (0-450) /uL Baso # (Auto) 100 (0-100) /uL PT 12.0 (9.4-12.5) SECONDS INR 1.1 (0.9-1.3) Sodium 137 (137-145) mmol/L Potassium 3.9 (3.4-5.1) mmol/L Chloride 109 H (98-107) mmol/L Carbon Dioxide 21 L (22-32) mmol/L BUN 31 H (7-17) mg/dL Creatinine 3.95 H (0.52-1.04) mg/dL Estimated GFR 14 L (>60) mL/min BUN/Creatinine Ratio 7.8 (6-22) Glucose 221 H (70-99) mg/dL Lactate 1.6 (0.7-2.1) mmol/L Calcium 7.8 L (8.4-10.2) mg/dL Total Bilirubin 0.3 (0.2-1.3) mg/dL AST 25 (14-36) IU/L ALT 20 (<35) IU/L Alkaline Phosphatase 128 H (38-126) U/L Troponin I 0.024 (0.01-0.034) ng/mL NT-Pro-B Natriuret Pep 32631 H (<125) pg/mL Total Protein 7.1 (6.3-8.2) g/dL Albumin 3.4 L (3.5-5.0) g/dL Globulin 3.7 (1.7-4.1) g/dL Albumin/Globulin Ratio 0.9 L (1.0-2.8) SARS-CoV-2 (PCR) Negative (Negative) Influenza A (RT-PCR) Flu a negative (NEGATIVE) Influenza B (RT-PCR) Flu b negative (NEGATIVE) RSV (PCR) Negative (Negative) MDM Narrative Medical decision making narrative: CC: Exertional dyspnea Complicating co-morbidities: BMI of 62, medication noncompliance, severe hypertension, prior congestive heart failure, progressive kidney disease, sleep apnea Data collected from: patient Medical records reviewed: Patient with similar presentation in August of this year was admitted to this hospital for treatment of hypertensive crisis, acute kidney injury, congestive heart failure Most recent echocardiogram July of 2023 shows Name: PETRA CRENSHAW Study Date: 08/11/2023 Height: 63 in : :Hospital ReadingLocation: Weight: 350 lb : : Gender: Female BSA: 2.5 m2 : :: 1985 Age: 38 yrs BP: 150/93 mmHg: :Reason For Study: 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 2) MIldly enlarged right ventricle with low normal function. 3) No significant valvular abnormalities. 4) No prior Echo available for comparison. Differential considered: Hypertensive crisis, congestive heart failure, unstable angina, acute coronary syndrome Exam documented above, pertinent findings include: Rhonchi in the right mid axillary line, bibasilar crackles, no significant wheeze, abdomen is soft Lab Test results independently reviewed as above. Pertinent findings: CBC shows mild leukocytosis at 13.1 with 82% neutrophils mild anemia with hemoglobin 9.1. This does seem to be drifting down unclear if this is secondary to her chronic kidney disease or volume overload. Chemistries show worsening renal function with creatinine increasing from 2.95- 3.95. Elevated proBNP 81238 Initial troponin is not elevated Independently reviewed EKG: EKG shows sinus tachycardia at a rate of 103 without acute ischemic changes Imaging studies independently reviewed: Chest x-ray shows cardiomegaly mild congestion concern for right perihilar infiltrate Treatments: Nicardipine for her blood pressure control, oral metoprolol added back in 2 hopefully be able to wean her off the nicardipine. 80 mg of IV Lasix for the heart failure/fluid overload Ceftriaxone and azithromycin for community-acquired pneumonia right middle lobe without signs of sepsis Re-evaluations: Patient is voided almost a L with 80 mg of IV Lasix Blood pressure is trending down nicely currently at 155/85 with a nicardipine drip and oral metoprolol Discussion: 39-year-old woman with poor medication compliance, severe hypertension now with what appears to be hypertensive crisis with progressive congestive heart failure, fluid overload, developing right middle lobe pneumonia without signs of sepsis all complicated by worsening renal function. She will need hospitalization. Has started diuresis, blood pressure control IV and orally. Second troponin is due but I am not seeing signs of acute coronary syndrome at this time. We will need to follow her creatinine, she is not currently in need of dialysis and is followed by a institutional cook whom she saw 2 days ago with blood drawn at that time. She has not heard back from the institutional cook with the results from blood work. She is willing to consider staying in the hospital for further treatment. Most recent echocardiogram was July of 2023 with ejection fraction 55-60%. Discussed with , hospitalist. We will admit to the ICU for continued treatment of her hypertensive crisis causing congestive heart failure with orthopnea and dyspnea and worsening chronic kidney disease with no evidence of acute coronary syndrome. Possibility of right middle lobe pneumonia without evidence of sepsis is being treated with antibiotics for an outpatient acquired community pneumonia. Critical Care Time Critical Care Time Critical Care Time: Yes Total Critical Care Time: 33 Attestation: Critical care time is separate from other billable procedures. There is a high probability of a significant, sudden or life-threatening deterioration that requires my full and direct attention, intervention and personal management. This critical care time includes consultation with family and other consulting doctors, review of records, and interpretation of data from labs, EKGs and imaging as well as managements of hypertensive crisis with IV nicardipine to lower blood pressure, IV Lasix for acute congestive heart failure and IV antibiotics for right middle lobe pneumonia. Discharge Plan Departure Patient Disposition: Admitted As Inpatient Clinical Impression: Hypertensive crisis, Acute kidney injury Acute CHF (congestive heart failure) Qualifiers: Heart failure type: unspecified Qualified Code(s): I50.9 - Heart failure, unspecified Pneumonia Qualifiers: Pneumonia type: due to unspecified organism Laterality: right Lung location: m iddle lobe of lung Qualified Code(s): J18.9 - Pneumonia, unspecified organism Admit Date/Time: 11/02/24 22:52 Admit Provider: Desean Marroquin
[2024-11-02] MEDS: cefTRIAXone 2,000 MG in SODIUM CHLORIDE 0.9% 100 ML 200 MG IV (20:57)
[2024-11-02] MEDS: METOPROLOL IR 25 MG TABLET 50 MG PO (20:57)
[2024-11-02 21:01] LABS: COVID-19 CEPHEID 4-PLEX PCR Negative (Negative); Influenza A - CEPHEID Flu A NEGATIVE (NEGATIVE); Influenza B - CEPHEID Flu B NEGATIVE (NEGATIVE)
[2024-11-02] MEDS: FUROSEMIDE 80 MG in SODIUM CHLORIDE 0.9% 50 ML 116 MG IV (21:20)
[2024-11-02] MEDS: AZITHROMYCIN 500 MG in DEXTROSE 5% IN WATER 250 ML 250 MG IV (21:59)
[2024-11-02] MEDS: ONDANSETRON 4 MG/2 ML INJ IV (22:11)
[2024-11-02] MEDS: METOCLOPRAMIDE 10 MG/2 ML INJ IV (22:59)
[2024-11-02] MEDS: PANTOPRAZOLE 40 MG VIAL IV (22:59)
[2024-11-03] VITALS (51 sets, daily range): BP systolic 129–191; BP diastolic 71–112; PULSE 81–103; RESP 0–38; TEMP 36.6–36.9; O2SAT 90–99
[2024-11-03 01:19] LABS: MRSA (Nasal) PCR NOT DETECTED (Not Detect)
--- NOTE | 2024-11-03 03:15 | PM.HP.1 ---
History of Present Illness History of Present Illness Date Patient Seen: 11/03/24 Time Patient Seen: 03:15 Chief complaint: SOB, pneumonia? Narrative: 39-year-old female with past medical history of obesity, chronic systolic heart failure, hypertension, insulin-dependent diabetes and obstructive sleep apnea presents with shortness of breath. Per the patient's report, the patient over the last few weeks has had 10 pounds of weight gain. The patient states that she has not been taking her medication including her blood pressure medication and hydrochlorothiazide as she was on a vacation for a few days and left her medication at home. Over the last 3 to 4 days the patient has been having increased shortness of breath and orthopnea. The patient does have some mild lower extremity edema but states that has not changed much. Otherwise the patient denies any recent fever, chills, nausea, vomiting, diarrhea or pain. In the emergency room, the patient was hypertensive with systolic greater than 220s. The patient BNP was 13,000 and the patient has signs of pulm edema on chest x-ray along with possible pneumonia. The patient's lab also shows a WBC of 13, hemoglobin of 9, BUN 31 creatinine 3.9 and glucose of 221. Troponin is negative at 0.02 and lactate 1.6. Viral respiratory panel is negative. The patient was given IV Lasix 80 mg x 1 along with nicardipine drip for her blood pressure. [facility] Medical History CKD (chronic kidney disease) stage 3, GFR 30-59 ml/min Sleep apnea Endometrial intraepithelial neoplasia (EIN) Anxiety Headache Morbid obesity Fatty liver Hypertension Migraines Diabetes Surgical History Previous section (~2013) Family History Mother COVID-19 Diabetes mellitus Hypertension Father Diabetes mellitus History of heart disease Hypertension Stroke Brother Hypertension Stroke Social History household members: children Smoking Status: Former smoker alcohol intake: former substance use type: does not use Meds Home Medications and Allergies Home Medications ?Medication ?Instructions ?Recorded ?Confirmed ?Type amlodipine 5 mg tablet 5 mg PO DAILY #7 tabs 08/17/24 11/02/24 Rx hydralazine 10 mg tablet 25 mg (2.5 x 10 mg) PO Q8HR #21 08/17/24 11/02/24 Rx tabs hydrochlorothiazide 25 mg tablet 25 mg PO DAILY #7 tabs 08/17/24 11/02/24 Rx insulin glargine 100 unit/mL (3 14 unit (0.14 mL) SUBCUT DAILY #30 08/17/24 11/02/24 Rx mL) subcutaneous pen (Lantus mL Solostar U-100 Insulin) losartan 50 mg tablet 100 mg (2 x 50 mg) PO DAILY #7 tabs 08/17/24 11/02/24 Rx metoprolol succinate 25 mg 50 mg (2 x 25 mg) PO BID #14 tabs 08/17/24 11/02/24 Rx tablet,extended release 24 hr pyridostigmine bromide 60 mg tablet 60 mg PO TID #21 tabs 08/17/24 11/02/24 Rx Allergies Allergy/AdvReac Type Severity Reaction Status Date / Time nitroglycerin Allergy Unknown Vomiting Verified 11/02/24 23:59 Review of Systems Review of Systems ROS: Yes All systems reviewed with the patient and are negative except as otherwise documented Exam Vital Signs (past 8 hours): - 11/02/24 19:40 11/02/24 20:17 11/02/24 20:18 Temperature 98.7 F Pulse Rate 99 H 102 H 100 H Respiratory Rate 22 Blood Pressure 223/124 H Pulse Oximetry 99 96 97 Oxygen Delivery Method Room Air 11/02/24 20:18 11/02/24 20:30 11/02/24 20:30 Temperature Pulse Rate 99 H Respiratory Rate Blood Pressure 233/117 H 244/114 H Pulse Oximetry 98 Oxygen Delivery Method 11/02/24 21:00 11/02/24 21:04 11/02/24 21:04 Temperature Pulse Rate 96 H 99 H Respiratory Rate 35 H 43 H Blood Pressure 224/114 H Pulse Oximetry 96 95 Oxygen Delivery Method 11/02/24 21:05 11/02/24 21:05 11/02/24 21:10 Temperature Pulse Rate 99 H 100 H Respiratory Rate 45 H 43 H Blood Pressure 231/120 H Pulse Oximetry 95 91 Oxygen Delivery Method 11/02/24 21:10 11/02/24 21:15 11/02/24 21:15 Temperature Pulse Rate 100 H Respiratory Rate 42 H Blood Pressure 221/116 H 220/105 H Pulse Oximetry 93 Oxygen Delivery Method 11/02/24 21:17 11/02/24 21:17 11/02/24 21:20 Temperature Pulse Rate 100 H 100 H Respiratory Rate 41 H 37 H Blood Pressure 208/104 H Pulse Oximetry 94 92 Oxygen Delivery Method 11/02/24 21:20 11/02/24 21:25 11/02/24 21:25 Temperature Pulse Rate 98 H Respiratory Rate 33 H Blood Pressure 201/93 H 199/94 H Pulse Oximetry 93 Oxygen Delivery Method 11/02/24 21:33 11/02/24 21:33 11/02/24 21:35 Temperature Pulse Rate 111 H Respiratory Rate 46 H Blood Pressure 202/97 H 213/100 H Pulse Oximetry 93 Oxygen Delivery Method 11/02/24 21:35 11/02/24 21:40 11/02/24 21:40 Temperature Pulse Rate 104 H 100 H Respiratory Rate 38 H 18 Blood Pressure 214/98 H Pulse Oximetry 95 93 Oxygen Delivery Method 11/02/24 21:45 11/02/24 21:45 11/02/24 21:50 Temperature Pulse Rate 100 H 99 H Respiratory Rate 37 H 37 H Blood Pressure 210/98 H Pulse Oximetry 92 92 Oxygen Delivery Method 11/02/24 21:50 11/02/24 21:55 11/02/24 21:55 Temperature Pulse Rate 96 H Respiratory Rate 19 Blood Pressure 206/86 H 186/87 H Pulse Oximetry 94 Oxygen Delivery Method 11/02/24 22:00 11/02/24 22:00 11/02/24 22:05 Temperature Pulse Rate 97 H Respiratory Rate 15 Blood Pressure 192/110 H 187/98 H Pulse Oximetry 93 Oxygen Delivery Method 11/02/24 22:05 11/02/24 22:10 11/02/24 22:10 Temperature Pulse Rate 97 H 100 H Respiratory Rate 20 41 H Blood Pressure 194/95 H Pulse Oximetry 94 95 Oxygen Delivery Method 11/02/24 22:15 11/02/24 22:15 11/02/24 22:20 Temperature Pulse Rate 96 H 96 H Respiratory Rate 36 H 42 H Blood Pressure 192/94 H Pulse Oximetry 95 91 Oxygen Delivery Method 11/02/24 22:20 11/02/24 22:25 11/02/24 22:25 Temperature Pulse Rate 96 H Respiratory Rate 48 H Blood Pressure 184/88 H 182/86 H Pulse Oximetry 92 Oxygen Delivery Method 11/02/24 22:30 11/02/24 22:35 11/02/24 22:35 Temperature Pulse Rate 100 H 100 H Respiratory Rate 36 H 44 H Blood Pressure 142/86 H Pulse Oximetry 95 94 Oxygen Delivery Method 11/02/24 22:40 11/02/24 22:40 11/02/24 22:45 Temperature Pulse Rate 96 H Respiratory Rate 13 Blood Pressure 154/85 H 155/85 H Pulse Oximetry 94 Oxygen Delivery Method 11/02/24 22:45 11/02/24 22:50 11/02/24 22:50 Temperature Pulse Rate 96 H 94 H Respiratory Rate 44 H 43 H Blood Pressure 150/82 H Pulse Oximetry 93 91 Oxygen Delivery Method 11/02/24 23:00 11/02/24 23:00 11/02/24 23:03 Temperature Pulse Rate 96 H 96 H Respiratory Rate 36 H 32 H Blood Pressure 163/91 H Pulse Oximetry 93 Oxygen Delivery Method 11/02/24 23:03 11/02/24 23:05 11/02/24 23:05 Temperature Pulse Rate 96 H Respiratory Rate 38 H Blood Pressure 165/86 H 137/68 Pulse Oximetry 93 Oxygen Delivery Method 11/02/24 23:10 11/02/24 23:10 11/02/24 23:45 Temperature Pulse Rate 97 H Respiratory Rate 36 H Blood Pressure 146/77 H Pulse Oximetry 90 L Oxygen Delivery Method Room Air Oxygen Delivery Method Room Air Narrative Exam Narrative: Physical Exam: GENERAL: The patient is not in any acute distressed. Awake and alert. HEENT: Nonicteric sclerae, PERRLA, EOMI. Oropharynx clear. Moist mucous membranes. Conjunctivae appear well perfused. HEART: Regular rate and rhythm without murmurs. No lower extremities edema. LUNGS: Clear to auscultation bilaterally. No wheezing, crackles or rhonchi ABDOMEN: Soft, positive bowel sounds, nontender. SKIN: No rash, no excessive bruising, petechiae, or purpura. NEUROLOGIC: AxO x 3. Cranial nerves II-XII intact without motor/sensory deficit. Objective Labs 11/02/24 19:54 11/02/24 19:54 Labs: Laboratory Results - last 24 hr 11/02/24 11/02/24 19:54 23:26 WBC 13.1 H RBC 3.44 L Hgb 9.1 L Hct 27.7 L MCV 80.5 MCH 26.5 MCHC 32.9 RDW 18.0 H Plt Count 231 Neut % (Auto) 82.2 H Lymph % (Auto) 12.1 L [place] % (Auto) 2.7 L Eos % (Auto) 2.5 Baso % (Auto) 0.5 Neut # (Auto) 20832 H Lymph # (Auto) 1600 [place] # (Auto) 400 Eos # (Auto) 300 Baso # (Auto) 100 PT 12.0 INR 1.1 Sodium 137 Potassium 3.9 Chloride 109 H Carbon Dioxide 21 L BUN 31 H Creatinine 3.95 H Estimated GFR 14 L BUN/Creatinine Ratio 7.8 Glucose 221 H Lactate 1.6 Calcium 7.8 L Total Bilirubin 0.3 AST 25 ALT 20 Alkaline Phosphatase 128 H Troponin I 0.024 NT-Pro-B Natriuret Pep 78094 H Total Protein 7.1 Albumin 3.4 L Globulin 3.7 Albumin/Globulin Ratio 0.9 L Nasal Screen MRSA (PCR) Not detected SARS-CoV-2 (PCR) Negative Influenza A (RT-PCR) Flu a negative Influenza B (RT-PCR) Flu b negative RSV (PCR) Negative Assessment & Plan Assessment & Plan narrative: Hypertensive urgency. Admit the patient to ICU. Continue IV nicardipine drip and monitor blood pressure. Likely cause is noncompliant as patient admits that she has not taken her medication over the last few days. Acute on chronic systolic heart failure exacerbation. Patient is still saturating well on room air. Continue IV Lasix 60 mg every 8 hours. Of note patient did receive IV Lasix 80 mg IV x 1 in the ER. Strict I's and O's and daily weight. Monitor renal function with IV Lasix. Will need to repeat echocardiogram if no echo is done in the last 6-month Acute kidney injury. Of note patient creatinine was around 1.0 at baseline. Recently over the last few months the patient creatinine is around 2.8. Likely due to heart failure. Continue IV Lasix and monitor renal function and urine output. Hypertension. Resume home oral blood pressure medication once blood pressure is controlled with IV nicardipine drip. Insulin-dependent diabetes. Subcu insulin monitor glucose. DVT prophylaxis heparin subcu. CODE STATUS DNR/DNI confirmed with the patient. Disposition likely home in 2 to 3 days. - As the provider of this telehealth evaluation, requested by the patient's evaluating physician, I attest that I introduced myself to the patient, provided my credentials and determined that telemedicine via a real-time, 2 way interactive audio and video platform is an appropriate and effective means of providing this service. - I reviewed the patient's chart and had a discussion with the member of the patient's treatment team. - The patient and I mutually agreed with continuation of this evaluation via telemedicine. The patient consented for the telemedicine evaluation. - This virtual encounter was taken place from [place] by Dr. Desean Marroquin. The patient was evaluated at [facility]. The encounter was approximately 35 minutes. The nurse was present during the entire time of the encounter and was able to assists with exam/stethoscope. Time-Based Coding :: [TOTAL MINUTES] spent with patient and on the chart (including review of chart, obtaining history, exam, reviewing outside data, placing orders, documenting exam and treatment plan, and counseling patient) on [DATE].
--- NOTE | 2024-11-03 03:20 | PM.HP.1 ---
History of Present Illness History of Present Illness Chief complaint: SOB, pneumonia? Narrative: 39-year-old female with past medical history of obesity, chronic systolic heart failure, hypertension, insulin-dependent diabetes and obstructive sleep apnea presents with shortness of breath. Per the patient's report, the patient over the last few weeks has had 10 pounds of weight gain. The patient states that she has not been taking her medication including her blood pressure medication and hydrochlorothiazide as she was on a vacation for a few days and left her medication at home. Over the last 3 to 4 days the patient has been having increased shortness of breath and orthopnea. The patient does have some mild lower extremity edema but states that has not changed much. Otherwise the patient denies any recent fever, chills, nausea, vomiting, diarrhea or pain. In the emergency room, the patient was hypertensive with systolic greater than 220s. The patient BNP was 13,000 and the patient has signs of pulm edema on chest x-ray along with possible pneumonia. The patient's lab also shows a WBC of 13, hemoglobin of 9, BUN 31 creatinine 3.9 and glucose of 221. Troponin is negative at 0.02 and lactate 1.6. Viral respiratory panel is negative. The patient was given IV Lasix 80 mg x 1 along with nicardipine drip for her blood pressure. [facility] Medical History CKD (chronic kidney disease) stage 3, GFR 30-59 ml/min Sleep apnea Endometrial intraepithelial neoplasia (EIN) Anxiety Headache Morbid obesity Fatty liver Hypertension Migraines Diabetes Surgical History Previous section (~2013) Family History Mother COVID-19 Diabetes mellitus Hypertension Father Diabetes mellitus History of heart disease Hypertension Stroke Brother Hypertension Stroke Social History household members: children Smoking Status: Former smoker alcohol intake: former substance use type: does not use Meds Home Medications and Allergies Home Medications ?Medication ?Instructions ?Recorded ?Confirmed ?Type amlodipine 5 mg tablet 5 mg PO DAILY #7 tabs 08/17/24 11/02/24 Rx hydralazine 10 mg tablet 25 mg (2.5 x 10 mg) PO Q8HR #21 08/17/24 11/02/24 Rx tabs hydrochlorothiazide 25 mg tablet 25 mg PO DAILY #7 tabs 08/17/24 11/02/24 Rx insulin glargine 100 unit/mL (3 14 unit (0.14 mL) SUBCUT DAILY #30 08/17/24 11/02/24 Rx mL) subcutaneous pen (Lantus mL Solostar U-100 Insulin) losartan 50 mg tablet 100 mg (2 x 50 mg) PO DAILY #7 tabs 08/17/24 11/02/24 Rx metoprolol succinate 25 mg 50 mg (2 x 25 mg) PO BID #14 tabs 08/17/24 11/02/24 Rx tablet,extended release 24 hr pyridostigmine bromide 60 mg tablet 60 mg PO TID #21 tabs 08/17/24 11/02/24 Rx Allergies Allergy/AdvReac Type Severity Reaction Status Date / Time nitroglycerin Allergy Unknown Vomiting Verified 11/02/24 23:59 Exam Vital Signs (past 8 hours): - 11/02/24 19:40 11/02/24 20:17 11/02/24 20:18 Temperature 98.7 F Pulse Rate 99 H 102 H 100 H Respiratory Rate 22 Blood Pressure 223/124 H Pulse Oximetry 99 96 97 Oxygen Delivery Method Room Air 11/02/24 20:18 11/02/24 20:30 11/02/24 20:30 Temperature Pulse Rate 99 H Respiratory Rate Blood Pressure 233/117 H 244/114 H Pulse Oximetry 98 Oxygen Delivery Method 11/02/24 21:00 11/02/24 21:04 11/02/24 21:04 Temperature Pulse Rate 96 H 99 H Respiratory Rate 35 H 43 H Blood Pressure 224/114 H Pulse Oximetry 96 95 Oxygen Delivery Method 11/02/24 21:05 11/02/24 21:05 11/02/24 21:10 Temperature Pulse Rate 99 H 100 H Respiratory Rate 45 H 43 H Blood Pressure 231/120 H Pulse Oximetry 95 91 Oxygen Delivery Method 11/02/24 21:10 11/02/24 21:15 11/02/24 21:15 Temperature Pulse Rate 100 H Respiratory Rate 42 H Blood Pressure 221/116 H 220/105 H Pulse Oximetry 93 Oxygen Delivery Method 11/02/24 21:17 11/02/24 21:17 11/02/24 21:20 Temperature Pulse Rate 100 H 100 H Respiratory Rate 41 H 37 H Blood Pressure 208/104 H Pulse Oximetry 94 92 Oxygen Delivery Method 11/02/24 21:20 11/02/24 21:25 11/02/24 21:25 Temperature Pulse Rate 98 H Respiratory Rate 33 H Blood Pressure 201/93 H 199/94 H Pulse Oximetry 93 Oxygen Delivery Method 11/02/24 21:33 11/02/24 21:33 11/02/24 21:35 Temperature Pulse Rate 111 H Respiratory Rate 46 H Blood Pressure 202/97 H 213/100 H Pulse Oximetry 93 Oxygen Delivery Method 11/02/24 21:35 11/02/24 21:40 11/02/24 21:40 Temperature Pulse Rate 104 H 100 H Respiratory Rate 38 H 18 Blood Pressure 214/98 H Pulse Oximetry 95 93 Oxygen Delivery Method 11/02/24 21:45 11/02/24 21:45 11/02/24 21:50 Temperature Pulse Rate 100 H 99 H Respiratory Rate 37 H 37 H Blood Pressure 210/98 H Pulse Oximetry 92 92 Oxygen Delivery Method 11/02/24 21:50 11/02/24 21:55 11/02/24 21:55 Temperature Pulse Rate 96 H Respiratory Rate 19 Blood Pressure 206/86 H 186/87 H Pulse Oximetry 94 Oxygen Delivery Method 11/02/24 22:00 11/02/24 22:00 11/02/24 22:05 Temperature Pulse Rate 97 H Respiratory Rate 15 Blood Pressure 192/110 H 187/98 H Pulse Oximetry 93 Oxygen Delivery Method 11/02/24 22:05 11/02/24 22:10 11/02/24 22:10 Temperature Pulse Rate 97 H 100 H Respiratory Rate 20 41 H Blood Pressure 194/95 H Pulse Oximetry 94 95 Oxygen Delivery Method 11/02/24 22:15 11/02/24 22:15 11/02/24 22:20 Temperature Pulse Rate 96 H 96 H Respiratory Rate 36 H 42 H Blood Pressure 192/94 H Pulse Oximetry 95 91 Oxygen Delivery Method 11/02/24 22:20 11/02/24 22:25 11/02/24 22:25 Temperature Pulse Rate 96 H Respiratory Rate 48 H Blood Pressure 184/88 H 182/86 H Pulse Oximetry 92 Oxygen Delivery Method 11/02/24 22:30 11/02/24 22:35 11/02/24 22:35 Temperature Pulse Rate 100 H 100 H Respiratory Rate 36 H 44 H Blood Pressure 142/86 H Pulse Oximetry 95 94 Oxygen Delivery Method 11/02/24 22:40 11/02/24 22:40 11/02/24 22:45 Temperature Pulse Rate 96 H Respiratory Rate 13 Blood Pressure 154/85 H 155/85 H Pulse Oximetry 94 Oxygen Delivery Method 11/02/24 22:45 11/02/24 22:50 11/02/24 22:50 Temperature Pulse Rate 96 H 94 H Respiratory Rate 44 H 43 H Blood Pressure 150/82 H Pulse Oximetry 93 91 Oxygen Delivery Method 11/02/24 23:00 11/02/24 23:00 11/02/24 23:03 Temperature Pulse Rate 96 H 96 H Respiratory Rate 36 H 32 H Blood Pressure 163/91 H Pulse Oximetry 93 Oxygen Delivery Method 11/02/24 23:03 11/02/24 23:05 11/02/24 23:05 Temperature Pulse Rate 96 H Respiratory Rate 38 H Blood Pressure 165/86 H 137/68 Pulse Oximetry 93 Oxygen Delivery Method 11/02/24 23:10 11/02/24 23:10 11/02/24 23:45 Temperature Pulse Rate 97 H Respiratory Rate 36 H Blood Pressure 146/77 H Pulse Oximetry 90 L Oxygen Delivery Method Room Air Oxygen Delivery Method Room Air Narrative Exam Narrative: Physical Exam: GENERAL: The patient is not in any acute distressed. Awake and alert. HEENT: Nonicteric sclerae, PERRLA, EOMI. Oropharynx clear. Moist mucous membranes. Conjunctivae appear well perfused. HEART: Regular rate and rhythm without murmurs. traced lower extremities edema. LUNGS: Clear to auscultation bilaterally. No wheezing, crackles or rhonchi ABDOMEN: Soft, positive bowel sounds, nontender. SKIN: No rash, no excessive bruising, petechiae, or purpura. NEUROLOGIC: AxO x 3. Cranial nerves II-XII intact without motor/sensory deficit. Objective Labs 11/02/24 19:54 11/02/24 19:54 Labs: Laboratory Results - last 24 hr 11/02/24 11/02/24 19:54 23:26 WBC 13.1 H RBC 3.44 L Hgb 9.1 L Hct 27.7 L MCV 80.5 MCH 26.5 MCHC 32.9 RDW 18.0 H Plt Count 231 Neut % (Auto) 82.2 H Lymph % (Auto) 12.1 L [place] % (Auto) 2.7 L Eos % (Auto) 2.5 Baso % (Auto) 0.5 Neut # (Auto) 28068 H Lymph # (Auto) 1600 [place] # (Auto) 400 Eos # (Auto) 300 Baso # (Auto) 100 PT 12.0 INR 1.1 Sodium 137 Potassium 3.9 Chloride 109 H Carbon Dioxide 21 L BUN 31 H Creatinine 3.95 H Estimated GFR 14 L BUN/Creatinine Ratio 7.8 Glucose 221 H Lactate 1.6 Calcium 7.8 L Total Bilirubin 0.3 AST 25 ALT 20 Alkaline Phosphatase 128 H Troponin I 0.024 NT-Pro-B Natriuret Pep 71209 H Total Protein 7.1 Albumin 3.4 L Globulin 3.7 Albumin/Globulin Ratio 0.9 L Nasal Screen MRSA (PCR) Not detected SARS-CoV-2 (PCR) Negative Influenza A (RT-PCR) Flu a negative Influenza B (RT-PCR) Flu b negative RSV (PCR) Negative Assessment & Plan Time-Based Coding :: [TOTAL MINUTES] spent with patient and on the chart (including review of chart, obtaining history, exam, reviewing outside data, placing orders, documenting exam and treatment plan, and counseling patient) on [DATE].
[2024-11-03] MEDS: FUROSEMIDE 20 MG/2 ML VIAL 60 MG IV (03:46)
--- NOTE | 2024-11-03 06:47 | PC.ADMIT ---
[email or web address] [address] Admission Note: The patient,Anh Grider,39 y/o, was given written information regarding hospital policies, unit procedures and contact persons. Patient's smoking status: Former smoker. Vital Signs - 8 hr 11/02/24 22:50 11/02/24 22:50 11/02/24 23:00 Pulse Rate 94 H Respiratory Rate 43 H Blood Pressure 150/82 H 163/91 H Pulse Oximetry 91 Oxygen Delivery Method 11/02/24 23:00 11/02/24 23:03 11/02/24 23:03 Pulse Rate 96 H 96 H Respiratory Rate 36 H 32 H Blood Pressure 165/86 H Pulse Oximetry 93 Oxygen Delivery Method 11/02/24 23:05 11/02/24 23:05 11/02/24 23:10 Pulse Rate 96 H Respiratory Rate 38 H Blood Pressure 137/68 146/77 H Pulse Oximetry 93 Oxygen Delivery Method 11/02/24 23:10 11/02/24 23:45 11/03/24 04:00 Pulse Rate 97 H Respiratory Rate 36 H Blood Pressure Pulse Oximetry 90 L Oxygen Delivery Method Room Air Nasal Cannula Patient admitted to ICU room 231 at 2340. A/Ox4, flat affect, cooperative. Nicardipine gtt infusing, titrated between 5-7.5mg/hr, BP 129/71-185/112. SR 90s, placed on 2L NC, apnea noted, desats to 86%, mild shortness of breath with activity. IV Lasix given as ordered by [facility] Hospitalist. Patient stated to Provider that she does not wish to be resuscitated.
--- NOTE | 2024-11-03 07:22 | PM.PN.1 ---
Subjective Subjective Interval history: 39-year-old female with class 3 obesity with BMI of 62 chronic systolic congestive heart failure, hypertension, insulin-dependent diabetes mellitus type 2, and obstructive sleep apnea admitted last evening with hypertensive urgency associated with increased shortness of breath, orthopnea, in the setting of having gone on vacation and forgetting her medication. Chest x-ray showed pulmonary edema as well as possible pneumonia. She was given IV Lasix and nicardipine infusion. Patient reports she is feeling quite a bit better today than yesterday. She does complain of a mild headache, but no chest pain, nausea, vomiting, or shortness a breath. She has not noticed any blood in her urine. She notes a history of obstructive sleep apnea. It was diagnosed 8 years ago, but when she went back for CPAP or BiPAP titration, she notes the tech was rude to her so she decided not to pursue it. She states she frequently wakes up gasping for air. The RN has noticed she is hypoxic when sleeping, drifting down to the 80s and requires oxygen supplementation. Patient states she does have orthopnea can not lay flat at baseline. Exam Vital Signs (past 8 hours): - 11/02/24 23:45 11/03/24 04:00 Oxygen Delivery Method Room Air Nasal Cannula Oxygen Delivery Method Nasal Cannula Narrative Exam Narrative: GEN: Adult female, Alert and oriented x 3, NAD HEENT:NC, Face symmetric CHEST: Respiratory excursions symmetric, coarse and diminished but CTAB CV: RRR, no M/R/G ABD: Firm, obese, NT/ND, BT present in all 4 quadrants, edema is palpated in her abdominal skin EXTR: warm, well perfused, no C/C/1+ bilateral lower extremity pitting edema SKIN: warm and dry, no rash NEURO: Alert and oriented x 3, nonfocal Objective Labs 11/03/24 07:59 11/03/24 07:59 Labs: Laboratory Results - last 24 hr 11/02/24 11/02/24 19:54 23:26 WBC 13.1 H RBC 3.44 L Hgb 9.1 L Hct 27.7 L MCV 80.5 MCH 26.5 MCHC 32.9 RDW 18.0 H Plt Count 231 Neut % (Auto) 82.2 H Lymph % (Auto) 12.[address] [place] % (Auto) 2.7 L Eos % (Auto) 2.5 Baso % (Auto) 0.5 Neut # (Auto) 07691 H Lymph # (Auto) 1600 [place] # (Auto) 400 Eos # (Auto) 300 Baso # (Auto) 100 PT 12.0 INR 1.1 Sodium 137 Potassium 3.9 Chloride 109 H Carbon Dioxide 21 L BUN 31 H Creatinine 3.95 H Estimated GFR 14 L BUN/Creatinine Ratio 7.8 Glucose 221 H Lactate 1.6 Calcium 7.8 L Total Bilirubin 0.3 AST 25 ALT 20 Alkaline Phosphatase 128 H Troponin I 0.024 NT-Pro-B Natriuret Pep 65514 H Total Protein 7.1 Albumin 3.4 L Globulin 3.7 Albumin/Globulin Ratio 0.9 L Nasal Screen MRSA (PCR) Not detected SARS-CoV-2 (PCR) Negative Influenza A (RT-PCR) Flu a negative Influenza B (RT-PCR) Flu b negative RSV (PCR) Negative [facility] Medical History CKD (chronic kidney disease) stage 3, GFR 30-59 ml/min Sleep apnea Endometrial intraepithelial neoplasia (EIN) Anxiety Headache Morbid obesity Fatty liver Hypertension Migraines Diabetes Surgical History Previous section (~2013) Family History Mother COVID-19 Diabetes mellitus Hypertension Father Diabetes mellitus History of heart disease Hypertension Stroke Brother Hypertension Stroke Social History household members: children Smoking Status: Former smoker alcohol intake: former substance use type: does not use Assessment & Plan Assessment & Plan narrative: 1. Hypertensive urgency Blood pressures have significantly improved with nicardipine infusion. Will restart her usual home medications and hopefully wean off the nicardipine infusion 2. Acute on chronic systolic congestive heart failure BNP was [address] on admission. Chest x-ray revealed cardiomegaly and mild congestion. She continues furosemide 60 mg IV Q 8. She has had a net diuresis of approximately 775 mL of urine. 3. Possible pneumonia-ruled out She has not had any ill symptoms. She did have some whitish sputum occasionally when coughing yesterday. That has resolved. She has no evidence for pneumonia,. 3. Acute kidney injury in CKD 4 Her baseline GFR appears to be around 19-20. On admission it was 14. Will send stat labs now. 4. Insulin-dependent diabetes mellitus type 2 Continue Lantus 14 units subQ daily. Add fingersticks and sliding scale. Continue carb controlled diet. 5. Obstructive sleep apnea Untreated. She did get a recent referral back to [facility] for a sleep study. 6. Class 3 obesity with BMI of 62 Would greatly benefit from weight reduction. Code status DNR Prophylaxis Will place on heparin 7500 units subQ t.i.d. Disposition She will remain ICU status as she continues to require nicardipine. Time-Based Coding :: [TOTAL MINUTES] spent with patient and on the chart (including review of chart, obtaining history, exam, reviewing outside data, placing orders, documenting exam and treatment plan, and counseling patient) on [DATE].
[2024-11-03] MEDS: METOPROLOL ER 25 MG TABLET 50 MG PO ×2 (08:04→20:46)
[2024-11-03] MEDS: INSULIN LISPRO 100 UNIT/ML 3ML VIAL SUBCUT ×4 (08:04→20:47)
[2024-11-03] MEDS: SODIUM CHLORIDE 0.9% FLUSH 10 ML IV ×2 (08:05→20:48)
[2024-11-03 08:06] LABS: Add Manual Diff / Slide Review NO; Hematocrit 26.5 % (36-46); Hemoglobin 8.7 g/dL (12.0-16.0); Lymphocytes Absolute Auto 1800 /uL (1100-4500); Mean Corpuscular HGB Conc 32.7 % (30-36); Mean Corpuscular Hemoglobin 26.5 PG (26-34); Mean Corpuscular Volume 81.0 fL (80-100); Platelet Count 221 X10^3/uL (150-400)
[2024-11-03 08:24] LABS: Blood Urea Nitrogen 30 mg/dL (7-17); Calcium 7.6 mg/dL (8.4-10.2); Carbon Dioxide 18 mmol/L (22-32); Chloride 109 mmol/L (98-107); Estimated Glomerular Filt Rate 14 mL/min (>60); Glucose 188 mg/dL (70-99); HEMOLYSIS < 15 (0-50); Potassium 3.5 mmol/L (3.4-5.1); Sodium 136 mmol/L (137-145)
--- NOTE | 2024-11-03 09:12 | CM.DANOTE ---
Initial DCP Assessment Note. Review EMR and PT Interview. Met with patient at bedside to discuss discharge needs.PT is alert x 4. No acute distress. Patient lives independently with family in a [address] Independent with ADLS. Per PT, her car is here on campus and she will drive herself home upon discahrge. Payor:? [facility] PCP: Dr. Juan Daniel Stanton. Summary & Plan:?39 y/o Female arrived to the ED c/o SOB for for several days and a 10 pound weight gain for the past few weeks. Admitted INPT ICU Dx. CHF and HTN. BNP 13,000. Nicardipine gtt to control BP. Patient inform ED MD that she had not taken her usual meds for a few days because she was on vacation. Plan: Wean Nicardipine gtt. Electrolyte monitoring and replacement. Diuretic medication adjustment(s). Discharge Planning/Care Management CM Discharge Assessment Start: 11/02/24 23:32 Freq: Status: Active Protocol: Document 11/03/24 09:09 (Rec: 11/03/24 09:12 [id number]) Discharge Planning Assessment Assigned Discharge Karrie Ochoa RN CM Oil Tester Provider Dr. Juan Daniel Stanton Insurance Medicaid Advance Directives? No Advance Directives No on File History Provided By Patient,Medical Record Has Patient been No admitted in last 30 days? Prior Living Apartment/Condo Arrangements Comment 2 story Household Members children Type of Drives own vehicle transporation used prior to admit Comment PT's car is here. She will drive herself home upon discharge. Barriers to No Discharge Discharge Plan Home Transportation Her car is here. She will drive herself home. Arrangement Referrals Initiated None needed Review Status In Process Please Provide Date 11/03/24 Initial DC Assessment Was Performed Next Review Type Continued Stay Review
[2024-11-03] MEDS: FUROSEMIDE 60 MG in SODIUM CHLORIDE 0.9% 50 ML 112 MG IV (11:19)
[2024-11-03] MEDS: ACETAMINOPHEN 325 MG TABLET 650 MG PO (12:12)
[2024-11-03] MEDS: LOSARTAN 50 MG TABLET 100 MG PO (12:12)
[2024-11-03] MEDS: HEPARIN 5,000 UNIT/ML VIAL 7500 UNIT SUBCUT ×2 (14:26→21:57)
--- NOTE | 2024-11-03 18:11 | DIET.CONS ---
Dietary Consultation Note Admission Date: 11/02/2024 22:52 Assessment: Ht: 160.02 cm Wt: 158.757 kg BMI: 61.9 UBW: Last BM: 11/02/24 (11/02/24 23:32) MNA: 11 Maurice Score: 23 Diet: 11/03/24 Breakfast Carbohydrate Consistent Diet Diet Modifications: Carbohydrate level: Medium (3 CHO) Reflex DM orders: No Food Texture: Level 7 - Regular Liquid Consistency: Level 0 - Thin Nutrition Percent Meal Consumed 100% 11/03/24 17:33 Percent Meal Consumed 100% 11/03/24 14:00 Percent Meal Consumed 100% 11/03/24 08:59 Labs: RBC 3.27 X10^6/uL (4.0-5.2) L 11/03/24 07:59 Hgb 8.7 g/dL (12.0-16.0) L 11/03/24 07:59 Hct 26.5 % (36-46) L 11/03/24 07:59 Creatinine 4.03 mg/dL (0.52-1.04) H 11/03/24 07:59 Lactate 1.6 mmol/L (0.7-2.1) 11/02/24 19:54 NT-Pro-B Natriuret Pep 60345 pg/mL (<125) H 11/02/24 19:54 Nutrition Diagnosis: Interventions: EER: Monitoring/Evaluations: Electronically Signed by: Raysa Marino RN 11/03/24 18:11 Clinical Dietitian [address] [address]
--- NOTE | 2024-11-03 18:12 | PC.NURSE ---
Day Shift Note Patient is alert and oriented x3. Mild shortness of breath with exertion but pt reports this is improved. SpO2 upper 90s when awake but desats to the mid-80s when sleeping so 2L NC applied during these periods. Denies pain. Denies nausea. Home BP meds ordered by Dr. Mayer and administered (see emar), nicardipine gtt titrated to off at 1734, SBP at protocol goal of 140s-160s at this time. Up to bathroom SBA, steady on feet. Call light within reach, using appropriately to make needs known.
--- NOTE | 2024-11-03 18:20 | DI.ECHO.S_ITS ---
[facility] +---------+ [facility] : : [id number] : [place] : : [id number] : : Phone: [phone] Echocardiogram Report + + :Name: PETRA CRENSHAW Study Date: 11/04/2024 Height: 63 in : :Hospital ReadingLocation: Weight: 350 lb : : Gender: Female BSA: 2.5 m2 : :: 1985 Age: 39 yrs BP: 164/102 mmHg: :Reason For Study: ACUTE ON CHRONIC SYSTOLIC CONGESTIVE HEART : :FAILURE : :Ordering Physician: AMADA, : :ANGELIC Performed By: Rhianna Mendez : :Referring: ANGELIC YBARRA : + + Interpretation Summary The left ventricle is moderately dilated. Left ventricular wall thickness is mild-moderately increased. Left ventricular ejection fraction is estimated to be 50 +/- 5%. Previous LVEF 55 to 60%. Diastolic parameters suggest a restrictive filling pattern consistent with probable significantly elevated filling pressures. The right ventricle is mildly dilated. The right ventricular systolic function is normal. Tented mitral leaflets. There is moderate to severe mitral regurgitation. Previously no significant mitral regurgitation. There is mild tricuspid regurgitation. The right ventricular systolic pressure is estimated to be at least 45 mmHg based on an estimated right atrial pressure of 8 mm Hg. BP: 164/102 mmHg Weight: 350 lb Procedure: A two-dimensional transthoracic echocardiogram with color flow and Doppler was performed. The study quality was technically adequate. Comparison is made with the echocardiogram of 08/11/2023. The patient was in sinus rhythm with heart rates between 78-86 bpm during the exam. Left Ventricle: Left ventricular wall thickness is mild-moderately increased. The left ventricle is moderately dilated. Left ventricular end diastolic volume indexed to BSA of 69.39ml/m2. There is no thrombus. Left ventricular ejection fraction is estimated to be 50 +/- 5%. There are no focal wall motion abnormalities. Grade III diastolic dysfunction with elevated left atrial pressure. Diastolic parameters suggest a restrictive filling pattern consistent with probable significantly elevated filling pressures. Right Ventricle: The right ventricle is mildly dilated. The right ventricular systolic function is normal. Atria: The left atrium is moderately dilated. The right atrium is mild to moderately dilated. There is no Doppler evidence for an interatrial shunt. Mitral Valve: The mitral valve leaflets appear mildly thickened. There is mild mitral annular calcification. Tented mitral leaflets. There is moderate to severe mitral regurgitation. Aortic Valve: The aortic valve is trileaflet. The aortic valve opens well. There is no aortic valve stenosis. No aortic regurgitation is present. Tricuspid Valve: The tricuspid valve leaflets are thin and pliable. There is mild tricuspid regurgitation. The right ventricular systolic pressure is estimated to be at least 45 mmHg based on an estimated right atrial pressure of 8 mm Hg. Pulmonic Valve: The pulmonic valve is not well seen, but is grossly normal. There is trace pulmonic regurgitation. Great Vessels: The aortic root is normal size. The ascending aorta is normal in size. The IVC is dilated (diameter is greater than 2.1 cm) yet it collapses greater than 50% with a sniff. This suggests a right atrial pressure of 8 mm Hg. Pericardium/ Pleura There is no pericardial effusion. There is no pleural effusion. MMode/2D Measurements & Calculations LVIDd: 6.1 cm LVOT diam: 2.2 cm LVIDs: 4.4 cm Ao root diam: 2.9 cm FS: 28.1 % asc Aorta Diam: 3.3 cm EPSS: 1.5 cm Ao Arch Diam (Prox Trans): 2.7 cm IVSd: 1.4 cm LVPWd: 1.2 cm LV fowler. diameter/BSA (cm/m^2): 2.5 LV sys. diameter/BSA (cm/m^2): 1.8 LA A2 area: 23.3 cm2 RA long axis: 5.6 cm LA A4 area: 32.4 cm2 RA area: 26.0 cm2 LA length (vol): 6.8 cm RA vol: 102.6 ml LA vol: 94.9 ml RA : 41.8 ml/m2 LA vol index: 38.7 ml/m2 IVC diam: 2.3 cm RVD1 (basal): 4.3 cm Doppler Measurements & Calculations Ao V2 max: 142.7 cm/sec LVOT Max Juan Carlos: 79.9 cm/sec Ao V2 mean: 91.7 cm/sec LV V1 max P.6 mmHg Ao max P.2 mmHg LV V1 VTI: 12.6 cm Ao mean P.6 mmHg ALFREDO(I,D): 2.3 cm2 Ao V2 VTI: 20.6 cm ALFREDO(V,D): 2.1 cm2 sev ratio: 0.61 ALFREDO indexed to BSA (cm^2/m^2): 0.92 MV E max juan carlos: 126.6 cm/sec TR max juan carlos: 306.8 cm/sec MV A max juan carlos: 45.0 cm/sec TR max P.6 mmHg MV E/A: 2.8 PA V2 max: 101.1 cm/sec Med Peak E' Juan Carlos: 6.0 cm/sec PA V2 mean: 63.6 cm/sec E/E' med: 21.1 PA mean P.9 mmHg Lat Peak E' Juan Carlos: 6.9 cm/sec PA pr(Accel): 46.9 mmHg E/E' lat: 18.3 E/e' average: 19.7 MV dec time: 0.13 sec MVA(VTI): 1.3 cm2 MV V2 mean: 83.2 cm/sec SV(LVOT): 46.6 ml MV mean P.5 mmHg MV V2 VTI: 34.7 cm Reading Physician:02:00 PM
[2024-11-03] MEDS: INSULIN GLARGINE 100 UNIT/ML 3ML PEN 14 UNIT SUBCUT (20:47)
[2024-11-04] VITALS (38 sets, daily range): BP systolic 130–190; BP diastolic 73–113; PULSE 78–99; RESP 0–38; TEMP 36.6; O2SAT 90–98
[2024-11-04] MEDS: FUROSEMIDE 60 MG in SODIUM CHLORIDE 0.9% 50 ML 112 MG IV (03:29)
[2024-11-04 05:29] LABS: Blood Urea Nitrogen 35 mg/dL (7-17); Calcium 7.6 mg/dL (8.4-10.2); Carbon Dioxide 19 mmol/L (22-32); Chloride 108 mmol/L (98-107); Estimated Glomerular Filt Rate 13 mL/min (>60); Glucose 151 mg/dL (70-99); HEMOLYSIS < 15 (0-50); Potassium 3.7 mmol/L (3.4-5.1); Sodium 134 mmol/L (137-145)
[2024-11-04] MEDS: HEPARIN 5,000 UNIT/ML VIAL 7500 UNIT SUBCUT (06:05)
[2024-11-04] MEDS: INSULIN LISPRO 100 UNIT/ML 3ML VIAL SUBCUT ×2 (08:26→12:43)
[2024-11-04] MEDS: SODIUM CHLORIDE 0.9% FLUSH 10 ML IV (08:27)
[2024-11-04] MEDS: METOPROLOL ER 25 MG TABLET 75 MG PO (08:27)
--- NOTE | 2024-11-04 15:57 | CM.DPC ---
DCP Discharge Home Per MD, pt's labs improved and switched to po meds and medically stable to discharge home today with outpt f/u. No identified barriers to discharge. Per RN, pt remains agreeable to discharge home today and was just waiting for dc orders and still has her vehicle in the parking lot. No concerns noted. ALONA Cunha
--- NOTE | 2024-11-04 16:06 | PC.NURSE ---
Discharge: Pt agreeable to discharge. Education provided to pt on CHF, new medications, discontinued meds, and follow up with cardiology and nephrology. IV's discontinued, telemetry removed. Pt dressed. Insulin used for pt provided for pt to take home. Pt wheeled via w/c to private vehicle with PCT at approximately 1534.
--- NOTE | 2024-11-04 20:12 | PM.DS.1 ---
History of Present Illness History of Present Illness Chief complaint: SOB, pneumonia? Narrative: Per H&P: 39-year-old female with past medical history of obesity, chronic systolic heart failure, hypertension, insulin-dependent diabetes and obstructive sleep apnea presents with shortness of breath. Per the patient's report, the patient over the last few weeks has had 10 pounds of weight gain. The patient states that she has not been taking her medication including her blood pressure medication and hydrochlorothiazide as she was on a vacation for a few days and left her medication at home. Over the last 3 to 4 days the patient has been having increased shortness of breath and orthopnea. The patient does have some mild lower extremity edema but states that has not changed much. Otherwise the patient denies any recent fever, chills, nausea, vomiting, diarrhea or pain. In the emergency room, the patient was hypertensive with systolic greater than 220s. The patient BNP was 13,000 and the patient has signs of pulm edema on chest x-ray along with possible pneumonia. The patient's lab also shows a WBC of 13, hemoglobin of 9, BUN 31 creatinine 3.9 and glucose of 221. Troponin is negative at 0.02 and lactate 1.6. Viral respiratory panel is negative. The patient was given IV Lasix 80 mg x 1 along with nicardipine drip for her blood pressure. Discharge Providers Provider Date of admission: 11/02/24 22:52 Discharge Date: 11/04/24 Primary care physician: Brianna Hidalgo MD Consults: 11/02/24 23:50 Consult to Dietitian, Adult Routine Comment: Reason For Exam: weight gain Discharge provider: Ashlee Mayer MD Summary Hospital Course Discharge Diagnosis: 1. Hypertensive urgency, resolved 2. Acute on chronic systolic congestive heart failure 3. Possible pneumonia-ruled out 4. Acute kidney injury in CKD 4 5. Moderate to severe mitral valve regurgitation newly identified on echocardiogram (not present on echocardiogram last year) 6. Insulin-dependent diabetes mellitus type 2 7. Obstructive sleep apnea, untreated 8. Class 3 obesity with BMI of 62 Hospital Course: Patient presented to the emergency department with hypertensive urgency after having been out of town for 4 days without her medications. She was admitted with acute on chronic systolic congestive heart failure as well. She was placed on nicardipine drip, IV furosemide, and resumed on her usual home medications. She is ultimately able to wean off of the nicardipine drip. Unfortunately, her creatinine had worsened from 2.94 on August 17 to 3.95 on November 02. With efforts at diuresis, her creatinine did increase to 4.26. Therefore, no further diuresis was attempted. Her ARB and hydrochlorothiazide were held at discharge. She did have a recent renal ultrasound done which had been ordered on an outpatient basis by her storage facility rental clerk. This was consistent with medical renal disease but no obstruction. She does have a follow-up appointment scheduled with him in the near future. She is encouraged to follow-up with him. With regard to her congestive heart failure, echocardiogram was obtained on the date of discharge. It showed very slight changes in her ejection fraction with a 5% reduction from 55% to 50%. However, it does show newly moderate to severe mitral regurgitation where as before there was no mitral regurgitation 1 year ago. She has been encouraged to make an appointment with [facility] for further assessment. She additionally has known obstructive sleep apnea and previously underwent a sleep study 8 years ago. She did not follow through with getting CPAP or BiPAP due to personality conflicts with the person in the sleep lab. She is encouraged to follow back up for a new sleep study and to be fitted for the appropriate ventilatory support. Patient is discharged in stable condition. Time Spent with Patient Time spent: Greater than 30 minutes Exam Vital Signs (past 8 hours): - 11/04/24 12:30 11/04/24 12:30 11/04/24 13:00 Pulse Rate 87 Respiratory Rate 29 H Blood Pressure 159/105 H 190/113 H Pulse Oximetry 96 11/04/24 13:00 11/04/24 13:04 11/04/24 13:04 Pulse Rate 85 86 Respiratory Rate 35 H 23 Blood Pressure 172/102 H Pulse Oximetry 96 94 11/04/24 13:30 11/04/24 13:30 11/04/24 14:00 Pulse Rate 82 80 Respiratory Rate 30 H 30 H Blood Pressure 160/89 H Pulse Oximetry 94 98 11/04/24 14:00 11/04/24 14:30 11/04/24 14:30 Pulse Rate 79 Respiratory Rate 26 H Blood Pressure 166/102 H 168/108 H Pulse Oximetry 96 11/04/24 14:35 11/04/24 15:00 11/04/24 15:00 Pulse Rate 83 78 Respiratory Rate 22 Blood Pressure 166/102 H 150/94 H Pulse Oximetry 96 Oxygen Delivery Method Room Air Oxygen Flow Rate 0 Narrative Exam Narrative: GEN: Adult female, Alert and oriented x 3, NAD HEENT:NC, Face symmetric CHEST: Respiratory excursions symmetric, coarse and diminished but CTAB CV: RRR, no M/R/G ABD: Softer with palpation to the lower pannus, mildly firm to the upper abdomen, obese, NT/ND, BT present in all 4 quadrants, edema is palpated in her abdominal skin but decreased as noted EXTR: warm, well perfused, no C/C/trace bilateral lower extremity pitting edema SKIN: warm and dry, no rash NEURO: Alert and oriented x 3, nonfocal Objective Labs 11/03/24 07:59 11/04/24 04:45 Labs: Laboratory Results - last 24 hr 11/03/24 11/04/24 11/04/24 20:42 04:45 07:38 Sodium 134 L Potassium 3.7 Chloride 108 H Carbon Dioxide 19 L BUN 35 H Creatinine 4.26 H Estimated GFR 13 L BUN/Creatinine Ratio 8.2 Glucose 151 H POC Whole Bld Glucose 209 H 194 H Calcium 7.6 L 11/04/24 12:00 Sodium Potassium Chloride Carbon Dioxide BUN Creatinine Estimated GFR BUN/Creatinine Ratio Glucose POC Whole Bld Glucose 170 H Calcium PFSH Medical History CKD (chronic kidney disease) stage 3, GFR 30-59 ml/min Sleep apnea Endometrial intraepithelial neoplasia (EIN) Anxiety Headache Morbid obesity Fatty liver Hypertension Migraines Diabetes Surgical History Previous section (~2013) Family History Mother COVID-19 Diabetes mellitus Hypertension Father Diabetes mellitus History of heart disease Hypertension Stroke Brother Hypertension Stroke Social History household members: children Smoking Status: Former smoker alcohol intake: former substance use type: does not use Discharge Plan Discharge Plan Patient Disposition: Home Provider Discharge Comment: You were admitted with extremely elevated blood pressures, known as hypertensive urgency. This triggered a congestive heart failure exacerbation. You were also noted to have worsening chronic kidney disease. We did attempt to use diuretics to take off extra fluid related to her congestive heart failure, but your kidneys did not tolerate it. Your blood pressures did improve with restarting oral medications. Due to your worsening kidney function, I have temporarily made changes to your blood pressure medications. I did increase her metoprolol, and I am temporarily holding your hydrochlorothiazide and losartan. Please follow-up with your storage facility rental clerk as per your already scheduled appointment. Please follow-up with your primary care provider's office tomorrow in relation to your difficulties scheduling a sleep study with the sleep lab at [facility]. An echocardiogram was done while you are here in the hospital which showed moderate to severe mitral regurgitation (leaky valve) which was not noted on your prior echocardiogram. Therefore, I am recommending you establish with Cardiology to get this further evaluated. Please call [facility] for an appointment. Your PCP can also make a referral. Return to the ED: Increased shortness of breath/chest pain. Inability to hold down food/fluids/medications. Fevers/chills. Discharge orders & Medications Prescriptions: New metoprolol succinate 50 mg tablet extended release 24 hr 75 mg PO BID Qty: 90 0RF Continued hydralazine 10 mg Tablet 25 mg PO Q8HR Qty: 21 0RF insulin glargine [Lantus Solostar U-100 Insulin] 100 unit/mL (3 mL) Insulin Pen 14 unit SUBCUT DAILY Qty: 30 0RF Patient Comments: Pt takes 7 units daily Changed amlodipine 5 mg Tablet 10 mg PO DAILY Qty: 60 0RF Discontinued losartan 50 mg Tablet 100 mg PO DAILY Qty: 7 0RF metoprolol succinate 25 mg Tablet Extended Release 24 Hr 50 mg PO BID Qty: 14 0RF pyridostigmine bromide 60 mg Tablet 60 mg PO TID Qty: 21 0RF hydrochlorothiazide 25 mg Tablet 25 mg PO DAILY Qty: 7 0RF Follow up/Referrals: Brianna Hidalgo MD [Primary Care Provider, Family Practice] Discharge Health Status Multidrug resistant organism: No MDRO Diet/Activity/Treatments Diet: Diet as Tolerated, Carb-consistent/Diabetic and Low-sodium Activity: As tolerated Oxygen: N/A Visit Report/Discharge Packet Instructions: DI for Heart Failure Stand Alone Forms: Patient Portal/API, Stroke Signs & Symptoms Discharge Data Primary Care Provider: Brianna Hidalgo
== END 2024-11-04 15:34 | disposition home or self-care (01) | DRG 304 ==
LOC: ED 19:59 → AC 22:53 → ICU 23:09
PROVIDERS: Family Medicine; Admitting Provider Internal Medicine; Emergency Provider Emergency Medicine; PCP Family Medicine; Referring Provider Emergency Medicine; Visit Provider Internal Medicine
DX: I16.0 Hypertensive urgency (principal); I50.23 Acute on chronic systolic (congestive) heart failure; N17.9 Acute kidney failure, unspecified; Z68.44 Body mass index [BMI] 60.0-69.9, adult; N18.4 Chronic kidney disease, stage 4 (severe); I11.0 Hypertensive heart disease with heart failure; T50.2X6A Underdosing of carbonic-anhydrase inhibitors, benzothiadiazides and other diuretics, initial encounter; E66.813 Obesity, class 3; E11.22 Type 2 diabetes mellitus with diabetic chronic kidney disease; G47.33 Obstructive sleep apnea (adult) (pediatric); I34.0 Nonrheumatic mitral (valve) insufficiency; Z91.148 Patient's other noncompliance with medication regimen for other reason; Z66 Do not resuscitate; Z87.891 Personal history of nicotine dependence; Z79.4 Long term (current) use of insulin
CPT/HCPCS: 36415; 71045; 80048; 80053; 82962; 83605; 83880; 84484; 85025; 85610; 87637; 87797; 93005; 93010; 93306; 96365; 96367; 96368; 96375; 99284; 99291; J0696; J1644; J1815; J1938; J2405; J2470; J2765